=== PATIENT | female | born 1940 | race Caucasian/White ===

== ENCOUNTER 2016-11-07 12:36 | Inpatient (IN) | payer MEDICARE, MEDICAID ==
[~2016-11-07] VITALS: Ht 165.1 cm; Wt 89.6 kg
[~2016-11-07 12:36] MED LIST: ASPIRIN PO; ENALAPRIL PO; GLYBPOW PO; JANUVIA PO; LANTUS INSULIN SC; METOPROLOL PO; MOTR200T40 PO; MULTLIQ7 PO; OMEPPOW18 PO; VICO5TAB16 PO; VYTO10TA2 PO
[2016-11-07 14:41] LABS: BASO # 0.1 K/mm3 (0.0-0.2); BASO % 0.9 % (0.0-1.0); EOS # 0.2 K/mm3 (0.0-0.50); EOS % 1.8 % (0.0-3.0); LARGE UNSTAINED CELL # 0.2 K/mm3 (0.0-0.4); LARGE UNSTAINED CELL % 2.2 % (0.0-4.0); LYMPH # 3.8 K/mm3 (1.5-4.5); LYMPH % 32.9 % (24.0-44.0); MEAN CORPUSCULAR HEMOGLOBIN 30.2 pg (27.0-33.0); MEAN CORPUSCULAR HGB CONC 31.9 g/dl (32.0-36.5); MEAN CORPUSCULAR VOLUME 94.6 fl (80.0-96.0); MONO # 0.6 K/mm3 (0.0-0.8); MONO % 5.2 % (0.0-5.0); NEUTROPHILS # 6.1 K/mm3 (1.8-7.7); PLATELET COUNT, AUTOMATED 204 k/mm3 (150-450); RED CELL DISTRIBUTION WIDTH 12.1 % (11.5-14.5); WHITE BLOOD COUNT 10.7 K/mm3 (4.0-10.0)
[2016-11-07 14:48] LABS: INR 0.96
[2016-11-07 15:13] LABS: ANION GAP 8 MEQ/L (8-16); BLOOD UREA NITROGEN 17 MG/DL (7-18); CALCIUM LEVEL 9.6 MG/DL (8.8-10.2); CARBON DIOXIDE LEVEL 30 MEQ/L (21-32); CHLORIDE LEVEL 100 MEQ/L (98-107); CREATININE FOR GFR 1.01 MG/DL (0.55-1.02); GLOMERULAR FILTRATION RATE 56.7 (>39); GLUCOSE, FASTING 203 MG/DL (83-110); POTASSIUM SERUM 4.7 MEQ/L (3.5-5.1); SODIUM LEVEL 138 MEQ/L (136-145)
--- NOTE | 2016-11-07 17:03 | REP ---
Portable chest x-ray: Single view. History: Dizziness. Comparison chest x-ray April 10, 2013. Findings: The lungs are somewhat hyperinflated but clear. Pleural angles are sharp. Prior median sternotomy wires are seen. Heart is not enlarged. Impression: No acute disease. Signed by Brayan Puente MD 11/07/2016 05:34 P
--- NOTE | 2016-11-07 17:04 | REP ---
Noncontrast head CT. History: Dizziness. Findings: Bone window settings demonstrate an intact bony calvarium. Paranasal sinuses are clear. No evidence of sinusitis. There is a small metallic density in the region of the anterior chamber the left eye. Question intraocular shunt. Vascular calcification is seen at the skull base. There is diffuse cerebral atrophy. There is no evidence of intracranial hemorrhage or acute infarction. No mass, extra-axial fluid collection or midline shift is seen. There is a low-density area at the inferior aspect of the basal ganglia on the left consistent with dilated perivascular spaces. This is seen to be unchanged from my comparison MRI study of the brain January 22, 2013. Impression: Diffuse atrophy and vascular calcification. No acute intracranial lesion. Question intraocular shunt left eye. Signed by Brayan Puente MD 11/07/2016 05:34 P
[2016-11-07] MEDS ORDERED: ACETAMINOPHEN TAB 650MG DOSE (2X325MG) PO PRN (17:30)
[2016-11-07] MEDS ORDERED: ONDANSETRON 4MG/2ML VIAL (J2405) IV PRN (17:30)
[2016-11-07] MEDS ORDERED: OMEP20CA3 PO (17:32)
[2016-11-07] MEDS ORDERED: LANTINJ4 SC (17:32)
[2016-11-07] MEDS ORDERED: JANU100T PO (17:32)
[2016-11-07] MEDS ORDERED: LATA5OPD OD (17:32)
[2016-11-07] MEDS ORDERED: ASPI325T PO (17:32)
[2016-11-07] MEDS ORDERED: COLA100C PO (17:32)
[2016-11-07] MEDS ORDERED: POTA10TA16 PO (17:32)
[2016-11-07] MEDS ORDERED: FURO40TA2 PO (17:32)
[2016-11-07] MEDS ORDERED: GLIP5TAB8 PO (17:32)
[2016-11-07] MEDS ORDERED: ENAL5TAB PO (17:32)
[2016-11-07] MEDS ORDERED: VYTO10TA2 PO (17:32)
[2016-11-07] MEDS ORDERED: SILV1CRE19 TOP (17:32)
[2016-11-07] MEDS ORDERED: SERT25TA85 PO (17:32)
[2016-11-07] MEDS ORDERED: TYLE325T5 PO (17:32)
[2016-11-07] MEDS ORDERED: METO25TAB PO (17:32)
[2016-11-07] MEDS ORDERED: VITMTA PO (17:33)
[2016-11-07 17:36] LABS: ALBUMIN 3.7 GM/DL (3.2-5.2); ALBUMIN/GLOBULIN RATIO 0.95 (1.00-1.93); ALKALINE PHOSPHATASE 111 U/L (45-117); ALT/SGPT 27 U/L (12-78); AST/SGOT 38 U/L (15-37); BILIRUBIN,DIRECT < 0.1 MG/DL (0.0-0.2); BILIRUBIN,TOTAL 0.3 MG/DL (0.2-1.0); MAGNESIUM LEVEL 2.1 MG/DL (1.8-2.4); TOTAL PROTEIN 7.6 GM/DL (6.4-8.2)
[2016-11-07] MEDS ORDERED: GLUCAGON FOR INJ 1 MG VIAL (J1610) SC PRN (18:30)
[2016-11-07] MEDS ORDERED: DEXTROSE 50% 50 ML SYRINGE IV PRN (18:30)
[2016-11-07] MEDS ORDERED: GLUCOSE 4 GM CHEW TABLET PO PRN (18:30)
[2016-11-07] MEDS: METOPROLOL TART 25 MG TABLET PO SCH (21:00)
[2016-11-07] MEDS: HumaLOG INSULIN (NovoLOG) PER UNIT SC SCH (21:00)
[2016-11-07] MEDS: LEVEMIR (INSULIN DETEMIR) 1 UNITS/0.01ML SC SCH (21:00)
[2016-11-07] MEDS ORDERED: HEPARIN SOD (PORCINE) 5000 UNITS/ML VIAL SC SCH (21:00)
[2016-11-07] MEDS: SENOKOT S TAB PO SCH (21:00)
[2016-11-07] MEDS: SIMVASTATIN 10 MG TAB PO SCH (21:00)
[2016-11-07] MEDS: LATANOPROST 0.005% OPHTH SOLN 2.5 ML OD SCH (21:00)
--- NOTE | 2016-11-07 23:03 | ECGEPIP ---
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 IVCD SEPTAL MYOCARDIAL INFARCTION, OF INDETERMINATE AGE Electronically Signed On 11-07-2016 23:03:40 EST by Ken Hines
--- NOTE | 2016-11-07 23:04 | ECGEPIP ---
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
[2016-11-07] MEDS ORDERED: LEVEMIR (INSULIN DETEMIR) 1 UNITS/0.01ML As Ordered ONE (23:13)
[2016-11-08 07:30] LABS: BASO # 0.1 K/mm3 (0.0-0.2); BASO % 0.9 % (0.0-1.0); EOS # 0.4 K/mm3 (0.0-0.50); EOS % 3.5 % (0.0-3.0); LARGE UNSTAINED CELL # 0.2 K/mm3 (0.0-0.4); LYMPH % 35.6 % (24.0-44.0); MEAN CORPUSCULAR HEMOGLOBIN 30.3 pg (27.0-33.0); MEAN CORPUSCULAR HGB CONC 33.1 g/dl (32.0-36.5); MEAN CORPUSCULAR VOLUME 91.5 fl (80.0-96.0); MONO # 0.6 K/mm3 (0.0-0.8); MONO % 5.4 % (0.0-5.0); NEUTROPHILS # 5.6 K/mm3 (1.8-7.7); NEUTROPHILS % 52.7 % (36.0-66.0); PLATELET COUNT, AUTOMATED 216 k/mm3 (150-450); RED CELL DISTRIBUTION WIDTH 12.3 % (11.5-14.5); WHITE BLOOD COUNT 10.7 K/mm3 (4.0-10.0)
[2016-11-08] MEDS: HumaLOG INSULIN (NovoLOG) PER UNIT SC SCH ×4 (07:30→20:47)
[2016-11-08 07:46] LABS: ANION GAP 10 MEQ/L (8-16); BLOOD UREA NITROGEN 15 MG/DL (7-18); CALCIUM LEVEL 9.2 MG/DL (8.8-10.2); CARBON DIOXIDE LEVEL 27 MEQ/L (21-32); CHLORIDE LEVEL 104 MEQ/L (98-107); CREATININE FOR GFR 0.93 MG/DL (0.55-1.02); GLOMERULAR FILTRATION RATE > 60.0 (>39); GLUCOSE, FASTING 161 MG/DL (83-110); POTASSIUM SERUM 4.4 MEQ/L (3.5-5.1); SODIUM LEVEL 141 MEQ/L (136-145)
[2016-11-08 08:00] VITALS: BP_SYST 113; BP_SYST 114; BP_SYST 141; BP_SYST 97; BP_DIAS 52; BP_DIAS 53; BP_DIAS 56; BP_DIAS 67
[2016-11-08] MEDS: METOPROLOL TART 25 MG TABLET PO SCH ×2 (08:14→20:53)
[2016-11-08] MEDS: ENALAPRIL MALEATE 5 MG TAB PO SCH (08:14)
[2016-11-08] MEDS: NS 1,000 ML IV SCH ×2 (08:15→20:53)
[2016-11-08] MEDS ORDERED: HumaLOG INSULIN (NovoLOG) PER UNIT As Ordered ONE ×2 (08:20→12:50)
[2016-11-08] MEDS ORDERED: ENOXAPARIN 40 MG/0.4 ML SYRINGE (J1650) As Ordered ONE (08:47)
[2016-11-08] MEDS ORDERED: ASPIRIN 325 MG TAB As Ordered ONE (08:47)
[2016-11-08] MEDS ORDERED: SILVER SULFADIAZINE 1% CR 50 GM JAR As Ordered ONE (08:47)
[2016-11-08] MEDS ORDERED: SERTRALINE HCL 25 MG TABLET As Ordered ONE (08:47)
[2016-11-08] MEDS ORDERED: OMEPRAZOLE 20 MG CAP As Ordered ONE (08:47)
[2016-11-08] MEDS ORDERED: MULTIVITAMINS/MINERALS THERAP 1 TAB As Ordered ONE (08:48)
[2016-11-08] MEDS: ASPIRIN 325 MG TAB PO SCH (08:49)
[2016-11-08] MEDS: SERTRALINE HCL 25 MG TABLET PO SCH (08:50)
[2016-11-08] MEDS: OMEPRAZOLE 20 MG CAP PO SCH (08:50)
[2016-11-08] MEDS: MULTIVITAMINS/MINERALS THERAP 1 TAB PO SCH (08:50)
[2016-11-08] MEDS: SILVER SULFADIAZINE 1% CR 50 GM JAR TOP SCH (08:51)
[2016-11-08] MEDS: ENOXAPARIN 40 MG/0.4 ML SYRINGE (J1650) SC SCH (08:52)
[2016-11-08] MEDS ORDERED: FUROSEMIDE 40 MG TAB PO SCH (09:00)
--- NOTE | 2016-11-08 09:45 | HPE ---
DATE OF ADMISSION: 11/07/2016 Time patient was seen was on 11/07/2016 at 1730. PRIMARY CARE PROVIDER: Dr. Lara. WHITE LEAD FILTERER: Dr. Haywood. CHIEF COMPLAINT: Lightheadedness and weakness. HISTORY OF PRESENT ILLNESS: 76-year-old female with past medical history of coronary artery disease status post coronary artery bypass graft (CABG) times four in 2012, insulin dependent type 2 diabetes, hypertension, left lower extremity chronically swollen due to saphenous vein removal for CABG and also moderate narrowing of the distal left posterior cerebral artery and mild narrowing of the distal basilar artery in 2012, who presented with lightheadedness, nausea, and feeling like passing out that started a month ago and has been getting progressively worse. The patient was in [facility] two weeks ago and was diagnosed with pneumonia and congestive heart failure (CHF); however, after discharge from the hospital the patient's symptoms continued. Per patient, she also had some pain at the back of her head and it radiated to her neck and at the same time she felt lightheaded and feeling very weak. Also, she feels like she is going to pass out. Last time this happened was around noontime while patient was watching TV sitting in her chair. Sometimes, she also reports racing heartbeat associated with her symptoms. Otherwise, she admits to some chronic constipation. She is on Colace for it. Otherwise, she denies any fever or chills, any abdominal pains, any vomiting, or problems with urination. ALLERGIES: - HEAVY METAL which gives her a rash HOME MEDICATIONS (include): - Tylenol 650 mg one tablet every 4 hours as needed - aspirin 325 mg one tablet by mouth daily - Colace 100 mg one tablet by mouth daily - enalapril 5 mg one tablet by mouth daily - furosemide 40 mg one tablet by mouth daily - glipizide 10 mg one tablet by mouth twice a day - Lantus 30 units subcutaneously nightly - Latanoprost one drop in each eye nightly - metoprolol 25 mg one tablet by mouth twice a day - multivitamin one tablet by mouth daily - omeprazole 20 mg one tablet by mouth daily - potassium 10 mEq one tablet by mouth daily - Sertraline 25 mg one tablet by mouth daily - Silvadene 1 dose topically daily - Januvia 100 mg one tablet by mouth daily - Vytorin 10/40 mg one tablet by mouth nightly PAST MEDICAL HISTORY (includes): 1. Coronary artery disease status post CABG times four in 2012. 2. Hypertension. 3. 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 4. Insulin dependent type 2 diabetes. 5. GERD. 6. Chronically swollen left lower extremity due to saphenous vein removal. PAST SURGICAL HISTORY (including): 1. Hysterectomy due to prolapsed uterus. 2. Tubal ligation. 3. Appendectomy. 4. CABG in 2013. SOCIAL HISTORY: Patient lives alone at home since her last summer. The patient does have a daughter who comes to visit her around once per week and she has another daughter who calls her regularly. Currently, her health care proxy is Leanna Hugo and her number is . Currently, she wants to be full code. She denies any smoking, drinking or recreational drug use. FAMILY HISTORY: Father had diabetes. Sister had breast cancer, brother had colon cancer. Another sister had cervical cancer. REVIEW OF SYSTEMS: GENERAL: The patient admits to about 15 pound weight loss over a half year. He denies any recent traveling or any sick contacts or any fever or chills. HEENT: He denies any changes with vision, smell, hearing or taste. He denies any sore throat. He admits to a mild cough. He was recently in [facility] two weeks ago and diagnosed with pneumonia. CARDIOVASCULAR: The patient does have coronary artery disease, status post CABG and sees Dr. Haywood. The patient however denies any chest pain or trouble breathing. He admits to occasional racing heartbeat. He admits to occasionally feeling weak and nausea and feels like passing out. The most recent one was this morning while patient was watching TV and the sensation of passing out lasted about 1 minute and then went away on its own. PULMONARY: He denies any trouble breathing. Admits to some cough and was recently diagnosed with pneumonia at [facility] and was in the hospital for four days and discharged about two weeks ago. After discharge, the patient' s Lasix had been increased from 20 mg daily to 40 mg daily. MUSCULOSKELETAL: Denies any pain anywhere. ENDOCRINE: Patient does have insulin dependent type 2 diabetes. Denies any cold or heat intolerance. HEMATOLOGY/ONCOLOGY: Admits to weight loss of 15 pounds over the past half year , however, no bruising, no bleeding anywhere. GI: Denies any abdominal pain, vomiting, diarrhea. Admits to feeling nausea and does have chronic constipation : Denies any problem with urination. PSYCHIATRIC: Denies any anxiety or depression; however, her did recently pass away about a half year ago. NEUROLOGIC: Denies any weakness on any one side of her body. However, admits to headache at the back of her head and also neck pain associated with her symptoms. PHYSICAL EXAM: VITAL SIGNS: Blood pressure 167/71. Pulse 56. Respirations 16. Temperature 96.6. Oxygen satting 98% on room air. Weight was 89 kg. Height 165 cm. GENERAL: The patient is an obese, elderly female who was alert, awake, and oriented times three. Does not appear to be in distress. Resting comfortably in bed with head elevated at 60 degrees. HEENT: Normocephalic, atraumatic. Extraocular motor intact. Mucosa moist. NECK: Supple. No neck lymphadenopathy. CARDIOVASCULAR: Regular rate and rhythm. S1, S2. No murmur, rubs or gallops. LUNGS: Slight rales at the right basilar area. Costovertebral area was not tender to palpation. ABDOMEN: Positive bowel sounds. Soft, nontender, nondistended. No peritoneal signs. No ecchymosis. EXTREMITIES: No edema, clubbing, or cyanosis. The patient does have a slightly larger left lower extremity where she had the saphenous vein removal before. It was not tender to palpation. Levon's sign negative. SKIN: Warm and dry. NEUROLOGIC: Cranial nerves II-XII intact. No focal neurologic deficit. Sensation was intact bilaterally. Tongue protruding was midline. Smell was symmetric bilaterally. LABS: WBC 10.7, hemoglobin 20.3, hematocrit 44.7 with a platelet count of 204 and MCV of 94.6. Sodium 138, potassium 4.6, chloride 100, bicarbonate 30, BUN 17, creatinine 1.07 , GFR 56.7, fasting glucose 203, calcium 9.6, magnesium 4.1, total bilirubin 0.3, direct bilirubin less than 0.1, AST 8, ALT 27, alkaline phosphatase 111, total creatinine 127, CK-MB 1, troponin 0.22 and repeat shows 0.21 and 0.22. BNP was 118. Total protein 7.6. Albumin 3.7. The patient's coagulation shows PT 12.9, INR 0.96 and PTT 23.8. Accu-Chek glucose was 202 and 206. The patient had a CT of the head in the emergency room that shows diffuse atrophy and vascular calcification. No acute intracranial lesion however and questionable intraocular shunt of the left eye. The patient had a portable chest x-ray in the emergency room that also showed no acute disease. ASSESSMENT AND PLAN: 1. 76-year-old female with past medical history of coronary artery disease status post CABG who follows with Dr. Haywood, hypertension, insulin dependent type 2 diabetes, GERD, moderate narrowing of distal left posterior cerebral artery and mild narrowing of distal basilar artery in 2013, who presented with near syncope while patient was sitting and also palpitations and also weakness with nausea. At this point, the patient also had an EKG in the emergency room that shows sinus bradycardia with an old septal myocardial infarction and a ventricular rate of [address] Garcia from cardiology has been consulted. Will follow his recommendation. Currently will rule out neurogenic etiology of patient's symptoms as well with a MRI and MRA of the brain due to she did have a moderate narrowing of her distal left posterior cerebral artery and also mild narrowing of the distal basilar artery in 2013. She was evaluated by neurosurgery back then and they believed that she did not need any surgery or procedure at that time. However, patient's symptoms at the back of the head are similar to where she had a problem. Also, on CT of the head she had a questionable intraocular shunt of the left eye. Therefore, the MRI has been ordered. In addition, the patient did complain about palpitations. Therefore, will monitor her on cardiac telemetry. She also reports being sweaty while she is having these palpitations. Per patient's family, it does happen quite regularly about at least once per day. Otherwise, she has elevated troponin. Will continue to trend cardiac markers, however, in the past she does seem to have an elevated troponin as well. Back in 2013, her troponin was 0.15. Currently, her troponin trend has been 0.22, 0.21 and 0.22 with negative CK-MB and CK. Will repeat EKG in the morning. 2. Rule out acute coronary syndrome (ACS). Continue to trend troponin. 3. History of coronary artery disease status post CABG in 2013. Continue home medications with aspirin, statin and beta justin. Continue to monitor patient. 4. Insulin dependent type 2 diabetes. According to patient, her Lantus has been increased from 20 units to 30 units just recently and she has not been very compliant with her insulin usage at home. Sometimes, she would increase the dose and sometimes she would decrease the dose. I have advised the patient to be more compliant with the dosing. If she does find that her sugar is low, she should contact primary care and have the long acting insulin adjusted. She should not adjust it on her own. At this point, will start patient on half of her daily dose with 15 units of Levemir subcutaneously nightly and will continue finger sticks and insulin sliding scale and place patient on a carbohydrate consistent diet. 5. Hypertension. Will continue home enalapril 5 mg daily, metoprolol 25 mg one tablet by mouth twice a day. Hold if systolic blood pressure is less than 120 or if heart rate is less than 65. Continue to monitor patient. 6. Congestive heart failure, diastolic type. The patient did receive echocardiogram in [facility] two weeks ago and was diagnosed with diastolic heart failure; however, the report is not available currently. Will obtain the report from the patient's cardiology office and continue to monitor the patient. At this point, will continue patient's Lasix at 40 mg by mouth daily. The patient's BNP however is not elevated and was only 118. According to family at discharge from [facility] the BNP was around 200. Therefore, I will repeat orthostatic vital signs for the next one day and continue to monitor the patient. 7. Chronic lower extremity swelling due to saphenous vein removal. Currently stable. Nontender to palpation. 8. 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 Will repeat MRI and MRA of the brain due to patient does have this episode of feeling like passing out and also pain in the back of her head and also neck. Will continue to monitor. 9. Deep vein thrombosis prophylaxis with Lovenox 40 mg subcutaneously daily. DISPOSITION: Patient does have near syncope. Will rule out cardiac etiology versus neurogenic etiology. We appreciate Dr. Garcia's help. Will continue to trend the troponin. Will continue to monitor patient on cardiac telemetry for signs of arrhythmia. Will follow up with MRI and MRA of the brain and continue to monitor patient. The patient has been discussed with attending doctor, Dr. Oakley. My preceptor for this patient encounter was Dr. Yesica Oakley. The preceptor was physically present in the building during the encounter and was fully available. As needed, all aspects of the patient interview, examination, medical decision making process, and medical care plan development were reviewed and approved by the preceptor. The preceptor is aware and concurs with the plan as stated in the body of this note and will attest to such by his/her cosignature. I, Yesica Oakley, have seen and examined the above patient and agree with the plan as documented by Dr. Lucas. TIP
[2016-11-08 09:57] LABS: FREE T4 1.04 NG/DL (0.76-1.46)
[2016-11-08] MEDS: SENOKOT S TAB PO SCH ×2 (10:11→20:52)
[2016-11-08 12:00] VITALS: BP_SYST 111; BP_SYST 132; BP_SYST 176; BP_DIAS 50; BP_DIAS 63; BP_DIAS 75
--- NOTE | 2016-11-08 13:28 | CR ---
DATE OF CONSULTATION: 11/08/2016 REFERRING PHYSICIAN: Emergency Room. PRINCIPAL COMPLAINT: Dizziness. HISTORY OF PRESENT ILLNESS: Mrs. You is a 76-year-old female who is a patient of Dr. Haywood. She has established coronary artery disease and underwent coronary artery bypass surgery in 2012. She reports approximately 1 month history of episodes of dizziness. She describes them as a sensation of feeling like she will pass out. They occur on average about once a day, most episodes occur when she is sitting in a chair. Eventually, she was hospitalized in [facility] just before [place] after one more severe episode. It was preceded by nausea and vomiting and she felt really lightheaded and thought she would pass out. By the time she reached the emergency room, her symptoms subsided. She believes that she was in the hospital for about 2 or 3 days, but no obvious pathology was found and she was discharged home. Unfortunately, she continued to have these symptoms and eventually was brought by her daughter to our facility. The initial emergency room (ER) evaluation was relatively unremarkable. She had stable vital signs and was minimally orthostatic. She did not have any ischemic abnormalities on electrocardiogram (EKG). But her cardiac enzymes were marginally elevated. Her troponin was 0.21 with a negative CK and CK-MB. She already has had three sets and all the results are unchanged. The troponin has no appreciable trend and 0.22 is the second one and 0.20 the third one. This morning, the patient tells me that she is feeling fine when she lays in bed. But she is afraid to go home because these episodes are "scary." She denies any chest discomfort, but she does admit that she feels that her exertional tolerance has decreased lately and she gets easily short of breath. PAST MEDICAL HISTORY: 1. Coronary artery disease as above status post coronary artery bypass grafting in 2012. She received saphenous vein graft (SVG) to obtuse marginal, right internal mammary artery (CECY) to posterior descending artery (PDA) and a sequential left internal mammary artery (GARRIDO) to diagonal and left anterior descending (LAD). She had an echocardiogram in 2014 that was unremarkable and reportedly had yet another echocardiogram in [facility] recently but I am not familiar with the results. 2. Type 2 diabetes. 3. Hypertension. 4. Dyslipidemia. 5. Peripheral neuropathy. 6. Thyroid nodule. 7. History of CVA. OUTPATIENT MEDICATIONS: - aspirin 325 a day - enalapril 5 a day - glipizide 2 tablets twice a day - insulin Januvia 100 a day - Lasix 20 a day - metoprolol 25 twice a day - multivitamin - omeprazole - stool softener - Vytorin This is based on a medication list from Dr. Haywood's office visit. SOCIAL HISTORY: The patient is . She does not smoke and she never did. She uses no alcohol. FAMILY HISTORY: Father of heart attack in his 60s. Her mother of congestive heart failure, was diabetic and had hypertension. She lived to be 67. SURGICAL HISTORY: Besides bypass surgery, is positive for cataract surgery, hysterectomy, tubal ligation, colonoscopy and eye surgery. REVIEW OF SYSTEMS: There is no recent fever or chills. She has occasional nausea, but no jaswinder vomiting. She denies diarrhea. She denies recent chest discomfort. She has no subjective sensation of palpitations, but the episodes of dizziness as per history of present illness (HPI). No abdominal pain. No peripheral edema. No true syncopal event. She does report exertional dyspnea approximately [place] [employer] Class III. She gets short of breath walking just across a room or two. PHYSICAL EXAMINATION: Mrs. You is an elderly woman who is in the hospital bed. She does not appear to be in any distress. Vital signs: Blood pressure last documented was 114/56. Heart rate is in 60s and 70s. She is afebrile. Saturation is in high 90s on room air. Her jugular venous pulse (JVP) is not elevated. Lungs are clear to auscultation with good air movement. Heart exam reveals regular rhythm. I do not appreciate any murmur, gallop or rub. Abdomen is soft without tenderness or rebound tenderness. Extremities: Have no edema. Peripheral pulses are palpable bilaterally. Neurologically, she is alert, oriented and appropriate. I do not appreciate any focal weakness. I do not see any skin lesions. Laboratory-muro, normal basic metabolic panel and normal CBC with the exception of marginally elevated WBC count of 10.7. Cardiac enzymes as above. Her TSH is 5.2. She had a chest x-ray that besides a prior sternotomy looks unremarkable. She had a head CT that revealed some degree of atrophy consistent with her age, but otherwise unremarkable as well. ASSESSMENT/PLAN: Mrs. You is a 76-year-old female who reports approximately 1 month history of episodes of dizziness. She describes the sensation as feeling that she will pass out. Surprisingly, most of the episodes occur when she is sitting, not necessarily standing, and even in the situation when she has been sitting for a long time. This looks very suspicious for arrhythmic etiology. I would keep her in the hospital for at least 48-72 hours for monitoring and even if no arrhythmias are detected I would argue to obtain an outpatient event recorder. As far as her very marginal troponin elevation is concerned, it is difficult to interpret. Her ECG is suggestive of left ventricular hypertrophy and a possible old septal myocardial infarction. I do not see any obvious changes suggestive of ischemia. She also has no chest pain and there is no appreciable trend. I believe that she will need outpatient evaluation with some form of stress testing, but unless there is some new clinical development to point in that direction I would not necessarily believe that she needs to have cardiac catheterization. In the differential diagnosis, I would consider pulmonary embolism. But she is not hypoxic and she certainly does not have any other signs to suggest risk for pulmonary embolism. Nevertheless, I think we should rule this out as well.
[2016-11-08] MEDS ORDERED: ISOVUE-370 76% 100ML VIAL (Q9967) As Ordered ONE (15:09)
--- NOTE | 2016-11-08 15:35 | EDDOCDS ---
Physician Documentation [facility] [place] [facility] Name: Rosalinda You Age: 76 yrs Sex: Female : 1940 Arrival Date: 11/07/2016 Time: 12:36 Bed Admit Hold Private MD: Ernst Lara Disposition: 11/07/16 17:11 Hospitalization ordered by Yesica Oakley for Inpatient Admission. Preliminary diagnosis is Dizziness and giddiness - elevated yet constant troponin. - Bed requested for PCU. - Status is Inpatient Admission. jo3 - Condition is Stable. - Problem is new. - Symptoms have improved. Historical: - Allergies: no known allergies; - Home Meds: 1. Sertraline 25 mg daily (Last dose: 11/07/2016 08:00) 2. Vytorin 10-40 10-40 mg oral tab 1 tab once daily (Last dose: 11/06/2016) 3. glipizide 5 mg Oral tab 2 tabs 2 times per day (Last dose: 11/07/2016 08:00) 4. latanoprost 0.005 % ophthalmic drop 1 drop nightly (Last dose: 11/06/2016) 5. furosemide 40 mg Oral tab 1 tab once daily (Last dose: 11/07/2016 08:00) 6. potassium chloride 10 mEq Oral cpER 2 caps once daily (Last dose: 11/07/2016 08:00) 7. metoprolol tartrate 25 mg Oral tab 1 tab 2 times per day (Last dose: 11/07/2016 08:00) 8. Januvia 100 mg oral tab 1 tab once daily (Last dose: 11/07/2016 08:00) 9. aspirin 325 mg Oral tab 1 tab once daily (Last dose: 11/07/2016 08:00) 10. enalapril maleate 5 mg Oral tab 1 tab once daily (Last dose: 11/07/2016 08:00) 11. omeprazole 20 mg Oral cpDR 1 cap once daily (Last dose: 11/07/2016 08:00) 12. Colace 100 mg oral cap 1 cap once daily (Last dose: 11/07/2016 08:00) 13. Lantus 100 unit/mL Sub-Q soln 30 unit nightly (Last dose: 11/06/2016) - PMHx: Hypercholesterolemia; Depression; Hypertension; CHF; Diabetes - IDDM: controlled; Glaucoma; GERD; - PSHx: Hysterectomy (April 2014); Tubal ligation; bladder sling; laser eye surgery; quadruple bypass; - Social history: Smoking status: Patient states was never smoker of tobacco. No barriers to communication noted, The patient speaks fluent [place]. - Family history: Not pertinent. - : The pt / caregiver states he / she is not on anticoagulants. Home medication list is obtained from pill bottles. - Exposure Risk Screening:: None identified. Vital Signs: 11/07 12:39 BP 157 / 71; Pulse 56; Resp 16; Temp 96.6(O); Pulse Ox 98% on R/A; Weight 89.81 kg / elp 198 lbs (R); Height 5 ft. 5 in. (165.10 cm) (R); Pain 0/10; 14:22 Pulse 60 MON; Pulse Ox 97% ; ko2 14:23 BP 145 / 74 (auto/); ko2 14:38 BP 146 / 70 (auto/); ko2 14:38 Pulse 58 MON; Pulse Ox 96% ; ko2 14:53 BP 137 / 67 (auto/); ko2 14:53 Pulse 58 MON; Pulse Ox 96% ; ko2 15:07 Pulse 58 MON; Pulse Ox 95% ; ko2 15:08 BP 141 / 70 (auto/); ko2 15:22 Pulse 58 MON; Pulse Ox 97% ; ko2 15:23 BP 140 / 78 (auto/); ko2 15:52 Pulse 56 MON; Pulse Ox 97% ; ko2 15:53 BP 164 / 77 (auto/); ko2 16:06 Pulse 56 MON; Pulse Ox 97% ; ko2 16:08 BP 166 / 80 (auto/); ko2 16:23 BP 170 / 87 (auto/); ko2 16:23 Pulse 60 MON; Pulse Ox 96% ; ko2 16:26 BP 194 / 88 (auto/); ko2 16:26 Pulse 62 MON; Pulse Ox 96% ; ko2 16:37 Pulse 62 MON; Pulse Ox 95% ; ko2 16:38 BP 180 / 81 (auto/); ko2 16:52 Pulse 60 MON; Pulse Ox 96% ; ko2 16:53 BP 167 / 67 (auto/); ko2 17:08 BP 185 / 81 (auto/); ko2 17:08 Pulse 60 MON; Pulse Ox 96% ; ko2 17:23 BP 183 / 86 (auto/); ko2 17:23 Pulse 60 MON; Pulse Ox 96% ; ko2 17:53 BP 153 / 73 (auto/); ko2 17:53 Pulse 58 MON; Pulse Ox 96% ; ko2 18:07 Pulse 58 MON; Pulse Ox 97% ; ko2 18:08 BP 157 / 73 (auto/); ko2 18:38 BP 106 / 54 (auto/); ko2 18:38 Pulse 60 MON; ko2 18:40 BP 106 / 57 (auto/); ko2 18:40 Pulse 60 MON; Pulse Ox 95% ; ko2 18:51 BP 109 / 55 (auto/); ko2 18:51 Pulse 56 MON; Pulse Ox 96% ; ko2 18:53 BP 107 / 55 (auto/); ko2 18:53 Pulse 58 MON; Pulse Ox 96% ; ko2 19:07 Pulse 60 MON; Pulse Ox 95% ; ko2 19:08 BP 124 / 60 (auto/); ko2 19:23 BP 129 / 55 (auto/); ko2 19:23 Pulse 60 MON; Pulse Ox 95% ; ko2 19:38 BP 118 / 59 (auto/); ko2 19:38 Pulse 60 MON; Pulse Ox 96% ; ko2 19:52 Pulse 60 MON; Pulse Ox 96% ; ko2 19:53 BP 126 / 61 (auto/); ko2 20:07 Pulse 62 MON; Pulse Ox 95% ; ko2 20:08 BP 123 / 60 (auto/); ko2 20:22 BP 114 / 55 (auto/); ko2 20:22 Pulse 60 MON; Pulse Ox 95% ; ko2 20:23 BP 118 / 59 (auto/); ko2 20:23 Pulse 60 MON; Pulse Ox 95% ; ko2 20:24 BP 112 / 63; Pulse 72; Resp 18; Temp 96.9(O); Pulse Ox 96% on R/A; Pain 0/10; cp1 20:38 BP 117 / 57 (auto/); ko2 20:38 Pulse 60 MON; Pulse Ox 96% ; ko2 20:52 Pulse 58 MON; Pulse Ox 95% ; ko2 20:53 BP 114 / 54 (auto/); ko2 21:06 Pulse 56 MON; Pulse Ox 95% ; ko2 21:08 BP 115 / 56 (auto/); ko2 21:22 Pulse 58 MON; Pulse Ox 95% ; ko2 21:23 BP 119 / 56 (auto/); ko2 21:38 BP 155 / 68 (auto/); ko2 21:38 Pulse 60 MON; Pulse Ox 96% ; ko2 21:53 BP 120 / 54 (auto/); ko2 21:53 Pulse 58 MON; Pulse Ox 94% ; ko2 22:13 Pulse 76 MON; ko2 22:14 BP 135 / 80 (auto/); ko2 22:22 Pulse 58 MON; Pulse Ox 94% ; ko2 22:23 BP 125 / 59 (auto/); ko2 22:38 BP 122 / 60 (auto/); ko2 22:38 Pulse 60 MON; Pulse Ox 94% ; ko2 22:52 Pulse 64 MON; Pulse Ox 94% ; ko2 22:53 BP 113 / 56 (auto/); ko2 23:07 Pulse 62 MON; Pulse Ox 93% ; ko2 23:08 BP 117 / 56 (auto/); ko2 23:09 BP 117 / 56 (auto/); ko2 23:09 Pulse 64 MON; Pulse Ox 94% ; ko2 11/08 00:00 BP 117 / 55; Pulse 64; Resp 18; Temp 98.7(TE); Pulse Ox 98% ; Pain 4/10; ko2 07:36 BP 114 / 56; Pulse 62; Resp 16; Temp 97.4(O); Pulse Ox 95% on R/A; Pain 0/10; kr3 07:57 BP 113 / 53 (auto/); kr3 07:57 Pulse 62 MON; Pulse Ox 95% ; kr3 07:58 BP 97 / 52 (auto/); kr3 07:58 Pulse 62 MON; Pulse Ox 93% ; kr3 08:37 BP 133 / 59 (auto/); kr3 08:37 Pulse 62 MON; Pulse Ox 93% ; kr3 11/07 12:39 Body Mass Index 32.95 (89.81 kg, 165.10 cm) elp MDM: 11/07 13:51 RN interventions must not delay CT ordered. ml 13:51 Denier Control Operator/Pulse Ox/q 15 min VS ordered. ml 13:51 Accucheck ordered. ml 13:51 IV Saline Lock ordered. ml 13:51 Neuro VS q 15 Minutes ordered. ml 13:51 Rhythm Strip to chart ordered. ml 13:51 Stroke assessment pack to bedside ordered. ml 13:51 Basic Metabolic Profile Ordered. EDMS 13:51 CBC with Diff Ordered. EDMS 13:51 Partial Thromboplastin Time Ordered. EDMS 13:51 Prothrombin Time Profile\E\INR Ordered. EDMS 13:51 CIP Ordered. EDMS 13:51 Troponin Ordered. EDMS 13:52 Chest, 1 View Ordered. EDMS 13:52 Type & Screen Ordered. EDMS 13:52 CT Head Without Contrast Ordered. EDMS 13:52 ECG WITH READING ER PHYS+CARDIAG ordered. EDMS 14:09 [facility] Payment Agreement was scanned into [employer] and attached to record. [id number] 14:09 Financial registration complete. dm19 14:21 Fingerstick Blood Sugar Ordered. EDMS 14:38 MRI Screening Tool - Place on chart, inform RN ordered. ml 14:50 MRI Screening Tool - Place on chart, inform RN complete. ct3 15:44 Basic Metabolic Profile Reviewed. ml 15:44 CBC with Diff Reviewed. ml 15:44 Partial Thromboplastin Time Reviewed. ml 15:44 Troponin Reviewed. ml 15:44 Fingerstick Blood Sugar Reviewed. ml 15:44 Prothrombin Time Profile\E\INR Reviewed. ml 15:44 Type & Screen Reviewed. ml 15:44 CIP Reviewed. ml 15:51 Repeat EKG (put time details section) ordered. ml 15:51 Redraw CIP &Troponin (put time in details section) ordered. ml 15:55 Redraw CIP &Troponin (put time in details section) complete. ar3 15:55 Repeat EKG (put time details section) complete. ar3 15:55 ECG WITH READING ER PHYS ordered. EDMS 15:56 CARDIAC MARKER PANEL Ordered. EDMS 16:40 CARDIAC MARKER PANEL Reviewed. ml 17:08 CONSISTENT CARBOHYDRATE+DIET ordered. EDMS 17:09 BED REQUEST+ADM ordered. EDMS 17:17 ELECTROCARDIOGRAM ADULT ordered. EDMS 17:17 CARDIAC MARKER PANEL Ordered. EDMS 17:19 URINALYSIS Ordered. EDMS 18:27 Admission / Observation Status ordered. EDMS 18:34 BRAIN NATIURETIC PEPTIDE Ordered. EDMS 18:36 PHYSICAL THERAPY EVAL & TREAT ordered. EDMS 18:42 MRI Brain without Contrast Ordered. EDMS 18:42 MRA BRAIN W/O CONTRAST Ordered. EDMS 19:32 CBC WITH DIFFERENTIAL Ordered. EDMS 19:32 BASIC METABOLIC PROFILE Ordered. EDMS 19:32 BRAIN NATIURETIC PEPTIDE Ordered. EDMS 22:35 T-Sheet-- Draft Copy was scanned into [employer] and attached to record. klr 23:16 Fingerstick Blood Sugar Ordered. EDMS 11/08 02:29 CARDIAC MARKER PANEL Ordered. EDMS 02:30 THYROID STIMULATING HORMONE Ordered. EDMS 11:26 D-DIMER QUANT Ordered. EDMS 12:45 URINE CULTURE Ordered. EDMS 15:02 CT ANGIO CHEST Ordered. EDMS Signatures: Dispatcher [employer] EDVT Jason Yip MD MD ml Monique Vann, RN RN Ana Agrawal, [employer] ml3 Giulia Maldonado,RN RN [email or web address] Jo Ann Layton, CUT OFF SAWYER CUT OFF SAWYER ar3 Giulia Valentino, RN RN [email or web address] Lilliam Alvarez, CUT OFF SAWYER CUT OFF SAWYER ct3 Bhaskar Barraza,OLIVA RN [email or web address] Joanne Lal Diane [id number] The chart was reviewed and I authenticate all verbal orders and agree with the evaluation and treatment provided.Corrections: (The following items were deleted from the chart) 11/07 14:31 13:51 Consult [facility]: Telemedicine Stroke Attending ordered. [facility] 15:57 14:39 MRA-Brain without contrast+MR ordered. EDVT EDVT 15:57 14:39 MRA-Carotid with contrast+MR ordered. EDVT EDVT 15:57 14:39 MRI-Brain without+MR ordered. EDVT EDMS 17:24 17:17 MAGNESIUM LEVEL ordered. EDVT EDMS 17:24 17:17 LIVER PROFILE ordered. EDVT EDMS 17:40 13:51 Patient must be on CC stretcher and weighed via bed scale ordered. [email or web address] 11/08 02:29 11/07 19:31 CARDIAC MARKER PANEL ordered. EDVT EDMS 11/08 02:29 11/07 19:33 THYROID STIMULATING HORMONE ordered. EDVT EDVT 11/08 09:42 08:45 FREE T4 ordered. EDVT EDMS 09:42 08:45 TOTAL T3 ordered. EDVT EDMS 11:13 11/07 18:43 MRI Spine, Cervical with con ordered. EDMS EDMS 11/08 12:46 11/07 17:19 URINE CULTURE ordered. EDMS EDMS Attachments: 14:09 [facility] [place] [id number] 22:35 T-Sheet-- Draft Copy klr MTDD
--- NOTE | 2016-11-08 15:35 | EDDOCDS ---
Nurse's Notes [facility] Name: Batool Foreman Age: 76 yrs Sex: Female : 1940 Arrival Date: 11/07/2016 Time: 12:36 Bed Admit Hold Private MD: Reason, Edward Diagnosis: Dizziness and giddiness-elevated yet constant troponin Presentation: 11/07 12:42 Red Flag criteria, patient assessed and is suitable to finish the RCE Process. dls 12:45 Presenting complaint: Patient states: "I've had trouble with my neck and I have a vein jc4 that is too small and there is something wrong with my head". Daughter states, "she's been having episodes of dizziness, weak". Just discharged from [facility] on [address] for same. Adult Sepsis Screening: The patient does not have new or worsening altered mentation. Patient's respiratory rate is less than 22. Systolic blood pressure is greater than 100. Patient has a qSOFA score of 0- Negative Sepsis Screen. Suicide/Homicide risk assessment- the patient denies having any suicidal and/or homicidal ideations and does not present with any other emotional, behavioral or mental health complaints. 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 Transition of care: patient was not received from another setting of care. 12:45 Acuity: FRANCIS Level 3 jc4 12:45 Method Of Arrival: Wheelchair jc4 Triage Assessment: 12:54 General: Appears in no apparent distress. jc4 12:54 Pain: Denies pain. jc4 Historical: - Allergies: no known allergies; - Home Meds: 1. Sertraline 25 mg daily (Last dose: 11/07/2016 08:00) 2. Vytorin 10-40 10-40 mg oral tab 1 tab once daily (Last dose: 11/06/2016) 3. glipizide 5 mg Oral tab 2 tabs 2 times per day (Last dose: 11/07/2016 08:00) 4. latanoprost 0.005 % ophthalmic drop 1 drop nightly (Last dose: 11/06/2016) 5. furosemide 40 mg Oral tab 1 tab once daily (Last dose: 11/07/2016 08:00) 6. potassium chloride 10 mEq Oral cpER 2 caps once daily (Last dose: 11/07/2016 08:00) 7. metoprolol tartrate 25 mg Oral tab 1 tab 2 times per day (Last dose: 11/07/2016 08:00) 8. Januvia 100 mg oral tab 1 tab once daily (Last dose: 11/07/2016 08:00) 9. aspirin 325 mg Oral tab 1 tab once daily (Last dose: 11/07/2016 08:00) 10. enalapril maleate 5 mg Oral tab 1 tab once daily (Last dose: 11/07/2016 08:00) 11. omeprazole 20 mg Oral cpDR 1 cap once daily (Last dose: 11/07/2016 08:00) 12. Colace 100 mg oral cap 1 cap once daily (Last dose: 11/07/2016 08:00) 13. Lantus 100 unit/mL Sub-Q soln 30 unit nightly (Last dose: 11/06/2016) - PMHx: Hypercholesterolemia; Depression; Hypertension; CHF; Diabetes - IDDM: controlled; Glaucoma; GERD; - PSHx: Hysterectomy (April 2014); Tubal ligation; bladder sling; laser eye surgery; quadruple bypass; - Social history: Smoking status: Patient states was never smoker of tobacco. No barriers to communication noted, The patient speaks fluent Tanzanian. - Family history: Not pertinent. - : The pt / caregiver states he / she is not on anticoagulants. Home medication list is obtained from pill bottles. - Exposure Risk Screening:: None identified. Screenin:11 Screening information is obtained from prior medical records. Fall risk: At risk due to ko2 age, prior history of falls. Assistance ADL's: requires no assistance with activities of daily living. Abuse/DV Screen: The patient / caregiver reports he/she is: not in a situation that causes fear, pain or injury. Nutritional screening: No deficits noted. Advance Directives: Currently, there is a health care proxy, Leanna Hugo - Daughter. home support is adequate. Assessment: 13:40 Adult Sepsis Screening: The patient does not have new or worsening altered mentation. jf3 Patient's respiratory rate is less than 22. Systolic blood pressure is greater than 100. General: Appears in no apparent distress, comfortable, Behavior is cooperative. Pain: Location: posterior neck and head. Neurological: Level of Consciousness is awake, alert, Oriented to person, place, time, Tea Blender are equal bilaterally Moves all extremities. Speech is normal, Facial symmetry appears normal, Pupils are PERRLA. Cardiovascular: Capillary refill < 3 seconds Heart tones S1 S2 present Chest pain is denied. Respiratory: Airway is patent Respiratory effort is even, unlabored, Respiratory pattern is regular, symmetrical, Breath sounds are clear bilaterally. Reports shortness of breath intermittently. Derm: Skin is normal. 14:00 General: pt to CT. jf3 14:30 General: Appears in no apparent distress, comfortable, Behavior is cooperative. jf3 Neurological: Level of Consciousness is awake, alert, Oriented to person, place, time, Tea Blender are equal bilaterally Moves all extremities. Speech is normal, Facial symmetry appears normal, Pupils are PERRLA. 15:30 General: Appears in no apparent distress, comfortable, Behavior is cooperative. jf3 General: Pt up to bedside commode without difficulty. Pain: Pain currently is 5 out of 10 on a pain scale. Neurological: Level of Consciousness is awake, alert, Oriented to person, place, time, Tea Blender are equal bilaterally Moves all extremities. Speech is normal, Facial symmetry appears normal, Pupils are PERRLA. Respiratory: Airway is patent Respiratory effort is even, unlabored, Respiratory pattern is regular, symmetrical. 16:30 General: Appears in no apparent distress, comfortable, Behavior is cooperative, Pt jf3 resting supine on stretcher with daughter at bedside. respirations easy and unlabored. Neuro checks all negative at this time. Call light in reach. Will continue to monitor. 17:45 General: Appears in no apparent distress, comfortable, Behavior is cooperative, Pt jf3 resting supine on stretcher. respirations easy and unlabored. Pt states pain has decreased. Family at bedside. Will continue to monitor. 18:30 General: Appears in no apparent distress, comfortable, Behavior is cooperative, Pt jf3 resting supine on stretcher with family at bedside. Diet tray given and taken in well. respirations easy and unlabored. Call light in reach. 19:10 General: Appears in no apparent distress, comfortable, Behavior is cooperative. Pain: ko2 Location: head and neck Pain currently is 5 out of 10 on a pain scale. Quality of pain is described as aching. Neurological: Level of Consciousness is awake, alert. Cardiovascular: Heart tones S1 S2 present. Respiratory: Airway is patent Respiratory effort is even, unlabored, Respiratory pattern is regular, symmetrical. Derm: Skin is normal. 20:15 General: Appears in no apparent distress, comfortable, Behavior is cooperative. ko2 Neurological: Level of Consciousness is awake, alert. Respiratory: Airway is patent Respiratory effort is even, unlabored. Derm: Skin is normal. 21:07 General: Appears in no apparent distress, Behavior is cooperative. Neurological: Level ko2 of Consciousness is awake, alert, Oriented to. Respiratory: Airway is patent Respiratory effort is even, unlabored. Derm: Skin is normal. 22:12 General: Appears in no apparent distress, comfortable, Behavior is cooperative. ko2 Neurological: Level of Consciousness is awake, alert. Respiratory: Airway is patent Respiratory effort is even, unlabored, Respiratory pattern is regular, symmetrical. Derm: Skin is normal. 11/08 00:00 General: Appears in no apparent distress, comfortable. Pain: Location: neck and head. ko2 Neurological: Level of Consciousness is awake, alert. Cardiovascular: Heart tones S1 S2 present Rhythm is sinus bradycardia No ectopy. Chest pain is denied. Respiratory: Airway is patent Respiratory effort is even, unlabored. Derm: Skin is normal. 01:00 General: Appears in no apparent distress, pt appears to be sleeping on stretcher. No ko2 concerns at this time. 02:00 General: pt appears to be resting on stretcher. Respirations unlabored, Skin warm and ko2 dry. No concerns at this time.. 03:00 General: Appears in no apparent distress, comfortable. Respiratory: Airway is patent ko2 Respiratory effort is even, unlabored. Derm: Skin is normal. 04:00 General: Appears in no apparent distress, comfortable, Behavior is appropriate for age, ko2 cooperative. Pain: Location: neck and head. Neurological: Level of Consciousness is awake, alert, Oriented to person, place, time. Cardiovascular: Heart tones S1 S2 present Rhythm is sinus bradycardia Chest pain is denied. Respiratory: Airway is patent Respiratory effort is even, unlabored, Respiratory pattern is regular, symmetrical. Derm: Skin is normal. Musculoskeletal: Range of motion intact in all extremities. 06:28 General: Appears in no apparent distress, comfortable, Behavior is appropriate for age, ko2 cooperative. Neurological: Level of Consciousness is awake, alert, Oriented to person, place, time. Respiratory: Airway is patent Respiratory effort is even, unlabored. Derm: Skin is normal. 07:35 Reassessment: Patient appears in no apparent distress at this time. Cardiovascular: kr3 Rhythm is sinus rhythm. 08:56 Reassessment: Patient appears in no apparent distress at this time. Reassessment: kr3 talking with Dr Rojo. Cardiovascular: Rhythm is sinus rhythm. Vital Signs: 11/07 12:39 BP 157 / 71; Pulse 56; Resp 16; Temp 96.6(O); Pulse Ox 98% on R/A; Weight 89.81 kg (R); elp Height 5 ft. 5 in. (165.10 cm) (R); Pain 0/10; 14:22 Pulse 60 MON; Pulse Ox 97% ; ko2 14:23 BP 145 / 74 (auto/); ko2 14:38 BP 146 / 70 (auto/); ko2 14:38 Pulse 58 MON; Pulse Ox 96% ; ko2 14:53 BP 137 / 67 (auto/); ko2 14:53 Pulse 58 MON; Pulse Ox 96% ; ko2 15:07 Pulse 58 MON; Pulse Ox 95% ; ko2 15:08 BP 141 / 70 (auto/); ko2 15:22 Pulse 58 MON; Pulse Ox 97% ; ko2 15:23 BP 140 / 78 (auto/); ko2 15:52 Pulse 56 MON; Pulse Ox 97% ; ko2 15:53 BP 164 / 77 (auto/); ko2 16:06 Pulse 56 MON; Pulse Ox 97% ; ko2 16:08 BP 166 / 80 (auto/); ko2 16:23 BP 170 / 87 (auto/); ko2 16:23 Pulse 60 MON; Pulse Ox 96% ; ko2 16:26 BP 194 / 88 (auto/); ko2 16:26 Pulse 62 MON; Pulse Ox 96% ; ko2 16:37 Pulse 62 MON; Pulse Ox 95% ; ko2 16:38 BP 180 / 81 (auto/); ko2 16:52 Pulse 60 MON; Pulse Ox 96% ; ko2 16:53 BP 167 / 67 (auto/); ko2 17:08 BP 185 / 81 (auto/); ko2 17:08 Pulse 60 MON; Pulse Ox 96% ; ko2 17:23 BP 183 / 86 (auto/); ko2 17:23 Pulse 60 MON; Pulse Ox 96% ; ko2 17:53 BP 153 / 73 (auto/); ko2 17:53 Pulse 58 MON; Pulse Ox 96% ; ko2 18:07 Pulse 58 MON; Pulse Ox 97% ; ko2 18:08 BP 157 / 73 (auto/); ko2 18:38 BP 106 / 54 (auto/); ko2 18:38 Pulse 60 MON; ko2 18:40 BP 106 / 57 (auto/); ko2 18:40 Pulse 60 MON; Pulse Ox 95% ; ko2 18:51 BP 109 / 55 (auto/); ko2 18:51 Pulse 56 MON; Pulse Ox 96% ; ko2 18:53 BP 107 / 55 (auto/); ko2 18:53 Pulse 58 MON; Pulse Ox 96% ; ko2 19:07 Pulse 60 MON; Pulse Ox 95% ; ko2 19:08 BP 124 / 60 (auto/); ko2 19:23 BP 129 / 55 (auto/); ko2 19:23 Pulse 60 MON; Pulse Ox 95% ; ko2 19:38 BP 118 / 59 (auto/); ko2 19:38 Pulse 60 MON; Pulse Ox 96% ; ko2 19:52 Pulse 60 MON; Pulse Ox 96% ; ko2 19:53 BP 126 / 61 (auto/); ko2 20:07 Pulse 62 MON; Pulse Ox 95% ; ko2 20:08 BP 123 / 60 (auto/); ko2 20:22 BP 114 / 55 (auto/); ko2 20:22 Pulse 60 MON; Pulse Ox 95% ; ko2 20:23 BP 118 / 59 (auto/); ko2 20:23 Pulse 60 MON; Pulse Ox 95% ; ko2 20:24 BP 112 / 63; Pulse 72; Resp 18; Temp 96.9(O); Pulse Ox 96% on R/A; Pain 0/10; cp1 20:38 BP 117 / 57 (auto/); ko2 20:38 Pulse 60 MON; Pulse Ox 96% ; ko2 20:52 Pulse 58 MON; Pulse Ox 95% ; ko2 20:53 BP 114 / 54 (auto/); ko2 21:06 Pulse 56 MON; Pulse Ox 95% ; ko2 21:08 BP 115 / 56 (auto/); ko2 21:22 Pulse 58 MON; Pulse Ox 95% ; ko2 21:23 BP 119 / 56 (auto/); ko2 21:38 BP 155 / 68 (auto/); ko2 21:38 Pulse 60 MON; Pulse Ox 96% ; ko2 21:53 BP 120 / 54 (auto/); ko2 21:53 Pulse 58 MON; Pulse Ox 94% ; ko2 22:13 Pulse 76 MON; ko2 22:14 BP 135 / 80 (auto/); ko2 22:22 Pulse 58 MON; Pulse Ox 94% ; ko2 22:23 BP 125 / 59 (auto/); ko2 22:38 BP 122 / 60 (auto/); ko2 22:38 Pulse 60 MON; Pulse Ox 94% ; ko2 22:52 Pulse 64 MON; Pulse Ox 94% ; ko2 22:53 BP 113 / 56 (auto/); ko2 23:07 Pulse 62 MON; Pulse Ox 93% ; ko2 23:08 BP 117 / 56 (auto/); ko2 23:09 BP 117 / 56 (auto/); ko2 23:09 Pulse 64 MON; Pulse Ox 94% ; ko2 11/08 00:00 BP 117 / 55; Pulse 64; Resp 18; Temp 98.7(TE); Pulse Ox 98% ; Pain 4/10; ko2 07:36 BP 114 / 56; Pulse 62; Resp 16; Temp 97.4(O); Pulse Ox 95% on R/A; Pain 0/10; kr3 07:57 BP 113 / 53 (auto/); kr3 07:57 Pulse 62 MON; Pulse Ox 95% ; kr3 07:58 BP 97 / 52 (auto/); kr3 07:58 Pulse 62 MON; Pulse Ox 93% ; kr3 08:37 BP 133 / 59 (auto/); kr3 08:37 Pulse 62 MON; Pulse Ox 93% ; kr3 11/07 12:39 Body Mass Index 32.95 (89.81 kg, 165.10 cm) el Vitals: 11/07 12:39 Log In Time: November 07, 2016 at 12:37. [facility] ED Course: 12:37 Patient visited by Yarely Love PCA. elp 12:37 Reason, Edward is Private Physician. elp 12:37 Patient moved to Waiting elp 12:40 Patient visited by Yarely Love PCA. elp 12:40 Patient moved to Pre RCE elp 12:48 Triage Initiated jc4 12:56 Gerry Bey, OLIVA is Primary Nurse. jc4 12:56 Patient moved to 9 jc4 13:36 Jason Yip MD is Attending Physician. ml 13:36 Patient visited by Jason Yip MD. ml 13:40 The patient / caregiver is instructed regarding the plan of care and ED course. jf3 13:42 Patient visited by Bhaskar Barraza RN. jf3 14:09 [facility] Payment Agreement was scanned into [employer] and attached to record. [id number] 14:09 Accompanied by Family Member, Patient has correct armband on for positive ct3 identification. Placed in gown. Bed in low position. Call light in reach. Side rails up X2. chain mender on. Pulse ox on. NIBP on. 14:10 Patient visited by Lilliam Alvarez PCA. ct3 14:10 EKG done. (by ED staff). Reviewed by Jason Yip MD. dem1 14:14 Patient name changed from Batool\\S\\\\S\\Foreman\\S\\ to Batool\\S\\J\\S\\Foreman. EDMS 14:14 Patient visited by Eduardo Barnett. dem1 14:26 Troponin Sent. jf3 14:26 CIP Sent. jf3 14:26 Basic Metabolic Profile Sent. jf3 14:26 CBC with Diff Sent. jf3 14:26 Partial Thromboplastin Time Sent. jf3 14:26 Prothrombin Time Profile\\E\\INR Sent. jf3 14:26 Type & Screen Sent. jf3 14:50 Patient visited by Lilliam Alvarez PCA. ct3 15:30 Patient visited by Bhaskar Barraza RN. jf3 16:04 CARDIAC MARKER PANEL Sent. kpj 16:38 Patient visited by Lilliam Alvarez PCA. ct3 16:57 Patient visited by Bhaskar Barraza RN. jf3 17:10 Chest, 1 View Returned. EDMS 17:10 CT Head Without Contrast Returned. EDMS 17:11 Yesica Oakley is Hospitalizing Provider. ml 18:22 Patient visited by Bhaskar Barraza RN. jf3 18:27 Diet: consistent carbohydrate diet given to patient. ct3 18:28 Patient visited by Lilliam Alvarez PCA. ct3 18:56 Kirill,Palma,RN is Primary Nurse. ko2 19:05 Patient visited by Neal Card PCA. kb5 19:13 Patient visited by Palma Roy RN. ko2 20:04 Primary Nurse role handed off by Gerry Bey, OLIVA jmv 20:37 Patient moved to Admit Hold ml3 22:02 Patient visited by Neal Card PCA. kb5 22:35 T-Sheet-- Draft Copy was scanned into [employer] and attached to record. klr 23:42 ELECTROCARDIOGRAM ADULT Returned. EDMS 23:42 ECG WITH READING ER PHYS Returned. EDMS 11/08 02:19 Inserted saline lock: 20 gauge in left antecubital area and blood collected. ko2 02:24 Patient visited by Neal Card PCA. kb5 06:54 Patient moved to Nov 06:54 Patient moved to Admit Hold nov 11:50 Primary Nurse role handed off by Palma Roy RN ct3 Order Results: Lab Order: Basic Metabolic Profile; [facility] 11/07/16 14:25 Test: GLUCOSE, FASTING; Value: 203; Range: 83-110; Abnormal: Above high normal; Units: MG/DL; Status: F Test: BLOOD UREA NITROGEN; Value: 17; Range: 7-18; Units: MG/DL; Status: F Test: CREATININE FOR GFR; Value: 1.01; Range: 0.55-1.02; Units: MG/DL; Status: F Test: GLOMERULAR FILTRATION RATE; Value: 56.7; Range: >39; Status: F Test: SODIUM LEVEL; Value: 138; Range: 136-145; Units: MEQ/L; Status: F Test: POTASSIUM SERUM; Value: 4.7; Range: 3.5-5.1; Units: MEQ/L; Status: F Test: CHLORIDE LEVEL; Value: 100; Range: 98-107; Units: MEQ/L; Status: F Test: CARBON DIOXIDE LEVEL; Value: 30; Range: 21-32; Units: MEQ/L; Status: F Test: ANION GAP; Value: 8; Range: 8-16; Units: MEQ/L; Status: F Test: CALCIUM LEVEL; Value: 9.6; Range: 8.8-10.2; Units: MG/DL; Status: F Test Note: ; Units are mL/min/1.73 m2 Chronic Kidney Disease Staging per NKF: Stage I & II GFR >=60 Normal to Mildly Decreased Stage III GFR 30-59 Moderately Decreased Stage IV GFR 15-29 Severely Decreased Stage V GFR <15 Very Little GFR Left ESRD GFR <15 on MECH[employer] Lab Order: CBC with Diff; SPEC'[facility] 11/07/16 14:25 Test: WHITE BLOOD COUNT; Value: 10.7; Range: 4.0-10.0; Abnormal: Above high normal; Units: K/mm3; Status: F Test: RED BLOOD COUNT; Value: 4.73; Range: 4.00-5.40; Units: M/mm3; Status: F Test: HEMOGLOBIN; Value: 14.3; Range: 12.0-16.0; Units: g/dl; Status: F Test: HEMATOCRIT; Value: 44.7; Range: 36.0-47.0; Units: %; Status: F Test: MEAN CORPUSCULAR VOLUME; Value: 94.6; Range: 80.0-96.0; Units: fl; Status: F Test: MEAN CORPUSCULAR HEMOGLOBIN; Value: 30.2; Range: 27.0-33.0; Units: pg; Status: F Test: MEAN CORPUSCULAR HGB CONC; Value: 31.9; Range: 32.0-36.5; Abnormal: Below low normal; Units: g/dl; Status: F Test: RED CELL DISTRIBUTION WIDTH; Value: 12.1; Range: 11.5-14.5; Units: %; Status: F Test: PLATELET COUNT, AUTOMATED; Value: 204; Range: 150-450; Units: k/mm3; Status: F Test: NEUTROPHILS %; Value: 57.0; Range: 36.0-66.0; Units: %; Status: F Test: LYMPH %; Value: 32.9; Range: 24.0-44.0; Units: %; Status: F Test: MONO %; Value: 5.2; Range: 0.0-5.0; Abnormal: Above high normal; Units: %; Status: F Test: EOS %; Value: 1.8; Range: 0.0-3.0; Units: %; Status: F Test: BASO %; Value: 0.9; Range: 0.0-1.0; Units: %; Status: F Test: LARGE UNSTAINED CELL %; Value: 2.2; Range: 0.0-4.0; Units: %; Status: F Test: NEUTROPHILS #; Value: 6.1; Range: 1.8-7.7; Units: K/mm3; Status: F Test: LYMPH #; Value: 3.8; Range: 1.5-4.5; Units: K/mm3; Status: F Test: MONO #; Value: 0.6; Range: 0.0-0.8; Units: K/mm3; Status: F Test: EOS #; Value: 0.2; Range: 0.0-0.50; Units: K/mm3; Status: F Test: BASO #; Value: 0.1; Range: 0.0-0.2; Units: K/mm3; Status: F Test: LARGE UNSTAINED CELL #; Value: 0.2; Range: 0.0-0.4; Units: K/mm3; Status: F Lab Order: Partial Thromboplastin Time; [facility] 11/07/16 14:25 Test: PARTIAL THROMBOPLASTIN TIME; Value: 23.8; Range: 26.6-37.1; Abnormal: Below low normal; Units: SECONDS; Status: F Lab Order: Prothrombin Time Profile\\E\\INR; [facility] 11/07/16 14:25 Test: PROTHROMBIN TIME; Value: 12.9; Range: 12.3-14.5; Units: SECONDS; Status: F Test: INR; Value: 0.96; Status: F Test Note: ; THERAPUTIC HUMAN INR VALUES INDICATIONS NORMAL RANGES PROPHYLAXIS/TREATMENT OF: VENOUS THROMBOSIS 2.0-3.0 PULMONARY EMBOLISM 2.0-3.0 PREVENTION OF SYSTEMIC EMBOLISM FROM: TISSUE HEART VALVES 2.0-3.0 ACUTE MYOCARDIAL INFARCTION 2.0-3.0 VALVULAR HEART DISEASE 2.0-3.0 ATRIAL FIBRILLATION 2.0-3.0 MECHANICAL VALVES(HIGH RISK) 2.5-3.5 RECURRENT MYOCARDIAL INFARCTION 2.5-3.5 Lab Order: Type & Screen; [facility] 11/07/16 14:25 Test: BLOOD TYPE; Value: O POS; Status: F Test: AB SCREEN (INDIRECT CLARISA)GEL; Value: NEGATIVE; Status: F Lab Order: CIP; [facility] 11/07/16 14:25 Test: CPK CREATINE PHOSPHOKINASE; Value: 126; Range: 26-192; Units: U/L; Status: F Test: CK-MB VALUE MASS; Value: 1.0; Range: 0.0-3.6; Units: NG/ML; Status: F Test: MB/CK RELATIVE INDEX; Value: 0.79; Range: < OR =4; Status: F Test Note: ; DIAGNOSIS CRITERIA MMB ng/ml Relative Index (RI) NON-AMI < or = 5 N/A MACIAS ZONE > 5 < or = 4 AMI > 5 > 4 Lab Order: Troponin; [facility] 11/07/16 14:25 Test: TROPONIN I; Value: 0.22; Range: < 0.10; Abnormal: Above high normal; Units: NG/ML; Status: F Test Note: ; Troponin I Reference Interval for [employer] LOCI: 99th Percentile= 0.00-0.045 ng/ml Risk Stratification: <= 0.10 ng/ml Decreased Risk for Adverse Clinical Events. 0.10-1.50 ng/ml Increased Risk for Adverse Clinical Events. Evaluation of additional criterion and/or repeat testing in 2-6 hours is suggested to rule out myocardial damage. >= 1.50 ng/ml Indicative of Myocardial Injury. Lab Order: Fingerstick Blood Sugar; [facility] 11/07/16 14:12 Test: BEDSIDE GLUCOSE; Value: 202; Range: 83-110; Abnormal: Above high normal; Units: MG/DL; Status: F Lab Order: CARDIAC MARKER PANEL; [facility] 11/07/16 16:01 Test: CPK CREATINE PHOSPHOKINASE; Value: 78; Range: 26-192; Units: U/L; Status: F Test: CK-MB VALUE MASS; Value: 1.2; Range: 0.0-3.6; Units: NG/ML; Status: F Test: MB/CK RELATIVE INDEX; Value: 1.53; Range: < OR =4; Status: F Test: TROPONIN I; Value: 0.21; Range: < 0.10; Abnormal: Above high normal; Units: NG/ML; Status: F Test Note: ; DIAGNOSIS CRITERIA MMB ng/ml Relative Index (RI) NON-AMI < or = 5 N/A MACIAS ZONE > 5 < or = 4 AMI > 5 > 4 Lab Order: CARDIAC MARKER PANEL; [facility] 11/07/16 22:04 Test: CPK CREATINE PHOSPHOKINASE; Value: 84; Range: 26-192; Units: U/L; Status: F Test: CK-MB VALUE MASS; Value: 1.0; Range: 0.0-3.6; Units: NG/ML; Status: F Test: MB/CK RELATIVE INDEX; Value: 1.19; Range: < OR =4; Status: F Test: TROPONIN I; Value: 0.22; Range: < 0.10; Abnormal: Above high normal; Units: NG/ML; Status: F Test Note: ; DIAGNOSIS CRITERIA MMB ng/ml Relative Index (RI) NON-AMI < or = 5 N/A MACIAS ZONE > 5 < or = 4 AMI > 5 > 4 Lab Order: URINALYSIS; [facility] 11/07/16 12:47 Test: APPEARANCE, URINE; Value: HAZY; Range: CLEAR; Status: F Test: COLOR, URINE; Value: YELLOW; Range: YELLOW; Status: F Test: PH,URINE; Value: 5.0; Range: 5.0-9.0; Units: UNITS; Status: F Test: SPECIFIC GRAVITY URINE AUTO; Value: 1.017; Range: 1.002-1.035; Status: F Test: PROTEIN, URINE AUTO; Value: NEGATIVE; Range: NEGATIVE; Units: mg/dL; Status: F Test: GLUCOSE, URINE (UA) AUTO; Value: 2+; Range: NEGATIVE; Abnormal: Above high normal; Units: mg/dL; Status: F Test: KETONE, URINE AUTO; Value: NEGATIVE; Range: NEGATIVE; Units: mg/dL; Status: F Test: UROBILINOGEN, URINE AUTO; Value: 0.2; Range: 0.0-2.0; Units: mg/dL; Status: F Test: BILIRUBIN, URINE AUTO; Value: NEGATIVE; Range: NEGATIVE; Status: F Test: NITRITE, URINE AUTO; Value: NEGATIVE; Range: NEGATIVE; Status: F Test: LEUKOCYTE ESTERASE, URINE AUTO; Value: 1+; Range: NEGATIVE; Abnormal: Above high normal; Status: F Test: BLOOD, URINE BLOOD; Value: 1+; Range: NEGATIVE; Abnormal: Above high normal; Status: F Test: WBC, URINE AUTO; Value: 9; Range: 0-3; Abnormal: Above high normal; Units: /HPF; Status: F Test: RBC, URINE AUTO; Value: 1; Range: 0-3; Units: /HPF; Status: F Test: BACTERIA, URINE AUTO; Value: NEGATIVE; Range: NEGATIVE; Status: F Test: SQUAMOUS EPITHELIAL CELL UR AU; Value: 4; Range: 0-6; Units: /HPF; Status: F Test: MUCUS, URINE; Value: SMALL; Range: NEGATIVE; Status: F Test: HYALINE CAST, URINE AUTO; Value: 0; Range: 0-1; Units: /LPF; Status: F Lab Order: LIVER PROFILE; [facility] 11/07/16 14:25 Test: AST/SGOT; Value: 38; Range: 15-37; Abnormal: Above high normal; Units: U/L; Status: F Test: ALT/SGPT; Value: 27; Range: 12-78; Units: U/L; Status: F Test: ALKALINE PHOSPHATASE; Value: 111; Range: 45-117; Units: U/L; Status: F Test: BILIRUBIN,TOTAL; Value: 0.3; Range: 0.2-1.0; Units: MG/DL; Status: F Test: BILIRUBIN,DIRECT; Value: < 0.1; Range: 0.0-0.2; Units: MG/DL; Status: F Test: TOTAL PROTEIN; Value: 7.6; Range: 6.4-8.2; Units: GM/DL; Status: F Test: ALBUMIN; Value: 3.7; Range: 3.2-5.2; Units: GM/DL; Status: F Test: ALBUMIN/GLOBULIN RATIO; Value: 0.95; Range: 1.00-1.93; Abnormal: Below low normal; Status: F Lab Order: MAGNESIUM LEVEL; [facility] 11/07/16 14:25 Test: MAGNESIUM LEVEL; Value: 2.1; Range: 1.8-2.4; Units: MG/DL; Status: F Lab Order: BRAIN NATIURETIC PEPTIDE; [facility] Test: BRAIN NATRIURETIC PEPTIDE; Value: 118; Range: <100; Abnormal: Above high normal; Units: PG/ML; Status: F Lab Order: CBC WITH DIFFERENTIAL; [facility] 11/08/16 07:13 Test: WHITE BLOOD COUNT; Value: 10.7; Range: 4.0-10.0; Abnormal: Above high normal; Units: K/mm3; Status: F Test: RED BLOOD COUNT; Value: 4.63; Range: 4.00-5.40; Units: M/mm3; Status: F Test: HEMOGLOBIN; Value: 14.0; Range: 12.0-16.0; Units: g/dl; Status: F Test: HEMATOCRIT; Value: 42.4; Range: 36.0-47.0; Units: %; Status: F Test: MEAN CORPUSCULAR VOLUME; Value: 91.5; Range: 80.0-96.0; Units: fl; Status: F Test: MEAN CORPUSCULAR HEMOGLOBIN; Value: 30.3; Range: 27.0-33.0; Units: pg; Status: F Test: MEAN CORPUSCULAR HGB CONC; Value: 33.1; Range: 32.0-36.5; Units: g/dl; Status: F Test: RED CELL DISTRIBUTION WIDTH; Value: 12.3; Range: 11.5-14.5; Units: %; Status: F Test: PLATELET COUNT, AUTOMATED; Value: 216; Range: 150-450; Units: k/mm3; Status: F Test: NEUTROPHILS %; Value: 52.7; Range: 36.0-66.0; Units: %; Status: F Test: LYMPH %; Value: 35.6; Range: 24.0-44.0; Units: %; Status: F Test: MONO %; Value: 5.4; Range: 0.0-5.0; Abnormal: Above high normal; Units: %; Status: F Test: EOS %; Value: 3.5; Range: 0.0-3.0; Abnormal: Above high normal; Units: %; Status: F Test: BASO %; Value: 0.9; Range: 0.0-1.0; Units: %; Status: F Test: LARGE UNSTAINED CELL %; Value: 2.0; Range: 0.0-4.0; Units: %; Status: F Test: NEUTROPHILS #; Value: 5.6; Range: 1.8-7.7; Units: K/mm3; Status: F Test: LYMPH #; Value: 4.0; Range: 1.5-4.5; Units: K/mm3; Status: F Test: MONO #; Value: 0.6; Range: 0.0-0.8; Units: K/mm3; Status: F Test: EOS #; Value: 0.4; Range: 0.0-0.50; Units: K/mm3; Status: F Test: BASO #; Value: 0.1; Range: 0.0-0.2; Units: K/mm3; Status: F Test: LARGE UNSTAINED CELL #; Value: 0.2; Range: 0.0-0.4; Units: K/mm3; Status: F Lab Order: BASIC METABOLIC PROFILE; [facility] 11/08/16 07:13 Test: GLUCOSE, FASTING; Value: 161; Range: 83-110; Abnormal: Above high normal; Units: MG/DL; Status: F Test: BLOOD UREA NITROGEN; Value: 15; Range: 7-18; Units: MG/DL; Status: F Test: CREATININE FOR GFR; Value: 0.93; Range: 0.55-1.02; Units: MG/DL; Status: F Test: GLOMERULAR FILTRATION RATE; Value: > 60.0; Range: >39; Status: F Test: SODIUM LEVEL; Value: 141; Range: 136-145; Units: MEQ/L; Status: F Test: POTASSIUM SERUM; Value: 4.4; Range: 3.5-5.1; Units: MEQ/L; Status: F Test: CHLORIDE LEVEL; Value: 104; Range: 98-107; Units: MEQ/L; Status: F Test: CARBON DIOXIDE LEVEL; Value: 27; Range: 21-32; Units: MEQ/L; Status: F Test: ANION GAP; Value: 10; Range: 8-16; Units: MEQ/L; Status: F Test: CALCIUM LEVEL; Value: 9.2; Range: 8.8-10.2; Units: MG/DL; Status: F Test Note: ; Units are mL/min/1.73 m2 Chronic Kidney Disease Staging per NKF: Stage I & II GFR >=60 Normal to Mildly Decreased Stage III GFR 30-59 Moderately Decreased Stage IV GFR 15-29 Severely Decreased Stage V GFR <15 Very Little GFR Left ESRD GFR <15 on [employer]UCK Lab Order: BRAIN NATIURETIC PEPTIDE; 11/08/16 07:13 Test: BRAIN NATRIURETIC PEPTIDE; Value: 85.3; Range: <100; Units: PG/ML; Status: F Lab Order: Fingerstick Blood Sugar; 11/07/16 23:08 Test: BEDSIDE GLUCOSE; Value: 209; Range: 83-110; Abnormal: Above high normal; Units: MG/DL; Status: F Lab Order: CARDIAC MARKER PANEL; 11/08/16 07:13 Test: CPK CREATINE PHOSPHOKINASE; Value: 81; Range: 26-192; Units: U/L; Status: F Test: CK-MB VALUE MASS; Value: 1.0; Range: 0.0-3.6; Units: NG/ML; Status: F Test: MB/CK RELATIVE INDEX; Value: 1.23; Range: < OR =4; Status: F Test: TROPONIN I; Value: 0.20; Range: < 0.10; Abnormal: Above high normal; Units: NG/ML; Status: F Test Note: ; DIAGNOSIS CRITERIA MMB ng/ml Relative Index (RI) NON-AMI < or = 5 N/A MACIAS ZONE > 5 < or = 4 AMI > 5 > 4 Lab Order: THYROID STIMULATING HORMONE; 11/08/16 07:13 Test: THYROID STIMULATING HORMONE; Value: 5.270; Range: 0.358-3.740; Abnormal: Above high normal; Units: uIU/ML; Status: F Lab Order: FREE T4; 11/08/16 07:13 Test: FREE T4; Value: 1.04; Range: 0.76-1.46; Units: NG/DL; Status: F Lab Order: TOTAL T3; 11/08/16 07:13 Test: TOTAL T3; Range: 60.0-181.0; Units: NG/DL; Status: I Lab Order: D-DIMER QUANT; 11/08/16 12:50 Test: D-DIMER QUANT; Value: 575.2; Range: <500; Abnormal: Above high normal; Units: ng/ml; Status: F Lab Order: Fingerstick Blood Sugar; SPEC'M 11/08/16 12:09 Test: BEDSIDE GLUCOSE; Value: 240; Range: 83-110; Abnormal: Above high normal; Units: MG/DL; Status: F Radiology Order: CT Head Without Contrast Test: CT Head Without Contrast REASON FOR EXAMINATION: dizzyness; Noncontrast head CT.; ; History: Dizziness.; ; Findings: Bone window settings demonstrate an intact bony calvarium. Paranasal; sinuses are clear. No evidence of sinusitis. There is a small metallic density; in the region of the anterior chamber the left eye. Question intraocular shunt.; Vascular calcification is seen at the skull base. There is diffuse cerebral; atrophy. There is no evidence of intracranial hemorrhage or acute infarction.; No mass, extra-axial fluid collection or midline shift is seen. There is a; low-density area at the inferior aspect of the basal ganglia on the left; consistent with dilated perivascular spaces. This is seen to be unchanged from; my comparison MRI study of the brain January 22, 2013.; ; Impression:; ; Diffuse atrophy and vascular calcification. No acute intracranial lesion.; Question intraocular shunt left eye.; ; ; Signed by; Brayan Puente MD 11/07/2016 05:34 P; Radiology Order: Chest, 1 View Test: Chest, 1 View REASON FOR EXAMINATION: dizzyness; Portable chest x-ray: Single view.; ; History: Dizziness.; ; Comparison chest x-ray April 10, 2013.; ; Findings: The lungs are somewhat hyperinflated but clear. Pleural angles are; sharp. Prior median sternotomy wires are seen. 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 11/08 15:34 Patient left the ED. jo3 Signatures: Dispatcher [employer] EDMS Jason Yip MD MD ml Jobson, Karen, RN OLIVA Garcia, Brigida Majano, RN Cyndi Flores RN OLIVA WilliamsonprestiMelbaPamela, Janitor Caretaker Unit ml3 Cheryl Rader,RN RN Giulia Elkins,RN RN Neal Guidry, SALES AND MARKETING ASSISTANT SALES AND MARKETING ASSISTANT kb5 Loly Bergman,SLAB DEPILER OPERATOR SLAB DEPILER OPERATOR cpGiulia Wheeler, RN RN jc4 Lilliam Alvarez, SALES AND MARKETING ASSISTANT SALES AND MARKETING ASSISTANT ct3 Eduardo Barnett dem1 Yarely Love, SALES AND MARKETING ASSISTANT SALES AND MARKETING ASSISTANT Palma Gonogra,RN RN ko2 Bhaskar Barraza,RN RN sukhi3 Joanne Lal Jose, SALES AND MARKETING ASSISTANT SALES AND MARKETING ASSISTANT jmv Gaby Fan [id number] Corrections: (The following items were deleted from the chart) 07:39 07:35 Cardiovascular: Rhythm is regular kr3 kr3 07:40 07:36 BP 114 / 56; Pulse 62bpm; Resp 16bpm; Pulse Ox 95% RA; Pain 0/10; kr3 kr3 MTDD
[2016-11-08 15:48] VITALS: BP 160/72
--- NOTE | 2016-11-08 16:01 | IPNPDOC ---
Text Note Date of Service The patient was seen on 11/08/16 at 15:43. 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 She noted that this occurred since she left [facility] for CHF exacerbation and PNA. She noted that at that time she had her dose of lasix increased. In the ER patient was found to have positive orthostatic vital signs. She also had a mild elevation in her creatinine. She was admitted to PCU for dizziness and possible NSTEMI. Patient was seen and examined at the bedside. Clinically she notes that she is still having dizziness. She denies any shortness of breath, chest pain or palpitations. Objective: Vitals (See below) General: Lying in bed, no acute distress, comfortable, AAOx3 HEENT: NC, AT CVS: RRR, +S1S2 Lungs: Fair air entry b/l, -w/r/r Abdomen: Soft, ND, NT, +BSx4 Extremities: +PPx4, -edema, -calf tenderness Assessment and plan: 1. Dizziness - likely 2/2 orthostatic hypotension, possibly neurologic etiology (re: history of stenosis) - Was recently admitted to [facility] for CHF and PNA; she noted that her dose of Lasix was increased - Since that point she has been having dizziness - Positive orthostatic vital signs in the ER - Lasix have been held and IV fluids have been started - Will continue to monitor for signs of fluid overload 2. Elevation in troponin - likely 2/2 demand ischemia - 2/2 orthostatic hypotension, less likely 2/2 NSTEMI - no complaints of Chest pain, SOB, diaphoresis - EKG without septal infarction, likely old - Troponin trend has remained stable - will c/w PCU monitoring - c/w ASA, simvastatin, Metoprolol, Enalapril and Lovenox ... home medications - will c/w IV fluid hydration 3. Elevated D-dimers - possibly 2/2 pulmonary embolism - Will get CTA to r/o PE 4. CAD s/p CABG (x4 - 2013) - See #2 5. IDDM2 - c/w levemir 15 QHS and insulin sliding scale - will increase dose of levemir if glucose remains uncontrolled 6. HTN (orthostatic hypotension) - BP well controlled - will c/w enalapril, metoprolol - will hold furosemide 7. Compensated diastolic, CHF - no evidence of exacerbation - physical without crackles, JVD or lower extremity edema - BNP does not reveal any elevation - will hold lasix 8. Chronic LLE swelling - 2/2 saphenous vein removal 9. Cerebral artery narrowing - Moderate narrowing of distal left posterior cerebral artery and also mild narrowing of distal basilar artery that was evaluated by neurosurgery in the past 10. GI prophylaxis - c/w Omeprazole 11. DVT prophylaxis - c/w Lovenox VS,Fishbone, I+O VS, Fishbone, I+O Laboratory Tests 11/08/16 07:13 Calcium Level 9.2, Total Creatine Kinase 81, Red Blood Count 4.63, Mean Corpuscular Volume 91.5, Mean Corpuscular Hemoglobin 30.3, Mean Corpuscular Hemoglobin Concent 33.1, Red Cell Distribution Width 12.3, Neutrophils (%) (Auto ) 52.7, Lymphocytes (%) (Auto) 35.6, Monocytes (%) (Auto) 5.4 H, Eosinophils (% ) (Auto) 3.5 H, Basophils (%) (Auto) 0.9, Neutrophils # (Auto) 5.6, Lymphocytes # (Auto) 4.0, Monocytes # (Auto) 0.6, Eosinophils # (Auto) 0.4, Basophils # ( Auto) 0.1 Vital Signs Date Time Temp Pulse Resp B/P Pulse Ox O2 Delivery O2 Flow Rate FiO2 11/08/16 12:00 97.7 85 20 111/50 95 Room Air MARISOL CRAIG MD Nov 08, 2016 16:01
--- NOTE | 2016-11-08 16:09 | REP ---
CT pulmonary angiogram: With IV contrast. History: Possible pulmonary embolism. Comparison studies: Comparison study April 11, 2013. Contrast dose: 75 cc's of Isovue [address] technique: Helical scanning is acquired and overlapping 1.5 mm and contiguous 3 mm axial images are reformatted. In addition, a 3-D work station is deployed to generate thick slab maximum intensity projection images in sagittal and coronal imaging projections. CT pulmonary angiographic findings: There is good opacification of the pulmonary arterial tree and there is no CT evidence of pulmonary embolism. The thoracic aorta is normal in caliber and contour and enhances homogeneously. Descending aorta is tortuous. There is no evidence of hilar or mediastinal mass or adenopathy. Prior sternotomy wires are seen. There is no evidence of pleural or pericardial effusion. Discoid atelectasis versus linear fibrosis is seen in both lung bases. No adrenal lesion is seen on either side. There are gallstones in the dependent portion the gallbladder. In addition, the fundus of the gallbladder shows a 1.8 x 3.4 cm area of increased density and/or contrast enhancement. This raises a question of a gallbladder mass. This appears to be a new finding from the April 20, 2013 prior study. Maximal intensity projection images show no evidence of vessel cutoff or filling defect to suggest a pulmonary embolus. No bony destructive lesion is seen. Impression: 1. No CT evidence of pulmonary embolism. 2. Discoid atelectasis both bases. 3. 1.8 x 3.4 cm enhancing mass in the non-dependent portion of the gallbladder fundus. Question gallbladder malignancy. Sonography recommended. Gallstones are noted as well. Signed by Brayan Puente MD 11/08/2016 04:24 P
[2016-11-08 20:18] VITALS: BP 142/64
[2016-11-08] MEDS: SIMVASTATIN 10 MG TAB PO SCH (20:52)
[2016-11-08] MEDS: LEVEMIR (INSULIN DETEMIR) 1 UNITS/0.01ML SC SCH (20:53)
[2016-11-08] MEDS: LATANOPROST 0.005% OPHTH SOLN 2.5 ML OD SCH (20:54)
[2016-11-08 23:35] VITALS: BP_SYST 126; BP_SYST 128; BP_SYST 132; BP_DIAS 59; BP_DIAS 61
[2016-11-09 04:38] VITALS: BP 131/61
[2016-11-09] MEDS: NS 1,000 ML IV SCH (04:50)
[2016-11-09 05:33] LABS: BASO % 0.5 % (0.0-1.0); EOS # 0.4 K/mm3 (0.0-0.50); EOS % 4.5 % (0.0-3.0); LARGE UNSTAINED CELL # 0.2 K/mm3 (0.0-0.4); LARGE UNSTAINED CELL % 2.1 % (0.0-4.0); LYMPH # 2.7 K/mm3 (1.5-4.5); MEAN CORPUSCULAR HEMOGLOBIN 30.6 pg (27.0-33.0); MEAN CORPUSCULAR HGB CONC 33.5 g/dl (32.0-36.5); MEAN CORPUSCULAR VOLUME 91.2 fl (80.0-96.0); MONO # 0.5 K/mm3 (0.0-0.8); MONO % 6.2 % (0.0-5.0); NEUTROPHILS # 3.8 K/mm3 (1.8-7.7); NEUTROPHILS % 50.6 % (36.0-66.0); PLATELET COUNT, AUTOMATED 193 k/mm3 (150-450); RED CELL DISTRIBUTION WIDTH 11.4 % (11.5-14.5); WHITE BLOOD COUNT 7.6 K/mm3 (4.0-10.0)
[2016-11-09 05:52] LABS: ANION GAP 9 MEQ/L (8-16); BLOOD UREA NITROGEN 11 MG/DL (7-18); CALCIUM LEVEL 8.3 MG/DL (8.8-10.2); CARBON DIOXIDE LEVEL 28 MEQ/L (21-32); CHLORIDE LEVEL 106 MEQ/L (98-107); CREATININE FOR GFR 0.85 MG/DL (0.55-1.02); GLOMERULAR FILTRATION RATE > 60.0 (>39); GLUCOSE, FASTING 147 MG/DL (83-110); SODIUM LEVEL 143 MEQ/L (136-145)
[2016-11-09] MEDS ORDERED: COSYNTROPIN 0.25 MG/ML VIAL (J0835) IV ONE (06:00)
[2016-11-09 08:00] VITALS: BP_SYST 138; BP_SYST 162; BP_DIAS 56; BP_DIAS 73; BP_DIAS 76
[2016-11-09] MEDS: OMEPRAZOLE 20 MG CAP PO SCH (08:10)
[2016-11-09] MEDS: ASPIRIN 325 MG TAB PO SCH (08:10)
[2016-11-09] MEDS: SENOKOT S TAB PO SCH ×2 (08:10→20:32)
[2016-11-09] MEDS: SERTRALINE HCL 25 MG TABLET PO SCH (08:10)
[2016-11-09] MEDS: MULTIVITAMINS/MINERALS THERAP 1 TAB PO SCH (08:10)
[2016-11-09] MEDS: METOPROLOL TART 25 MG TABLET PO SCH ×2 (08:11→20:33)
[2016-11-09] MEDS: ENOXAPARIN 40 MG/0.4 ML SYRINGE (J1650) SC SCH (08:11)
[2016-11-09] MEDS: ENALAPRIL MALEATE 5 MG TAB PO SCH (08:11)
[2016-11-09] MEDS: HumaLOG INSULIN (NovoLOG) PER UNIT SC SCH ×4 (08:12→20:39)
[2016-11-09] MEDS: SILVER SULFADIAZINE 1% CR 50 GM JAR TOP SCH (08:12)
[2016-11-09] MEDS ORDERED: NS 1,000 ML IV SCH (10:30)
[2016-11-09 11:51] VITALS: BP 132/69
--- NOTE | 2016-11-09 14:29 | IPNPDOC ---
Text Note Date of Service The patient was seen on 11/09/16 at 14:22. 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 She noted that this occurred since she left [facility] for CHF exacerbation and PNA. She noted that at that time she had her dose of lasix increased. In the ER patient was found to have positive orthostatic vital signs. She also had a mild elevation in her creatinine. She was admitted to PCU for dizziness and possible NSTEMI. Patient was seen and examined at the bedside. She was able to sit up today without problems. She even noted that she walked without issue. Does not report much dizziness today. Objective: Vitals (See below) General: Lying in bed, no acute distress, comfortable, AAOx3 HEENT: NC, AT CVS: RRR, +S1S2 Lungs: Fair air entry b/l, -w/r/r Abdomen: Soft, ND, NT, +BSx4 Extremities: +PPx4, -edema, -calf tenderness Assessment and plan: 1. Dizziness - likely 2/2 orthostatic hypotension, possibly neurologic etiology (re: history of stenosis), possibly 2/2 paroxysmal arrhythmias - Was recently admitted to [facility] for CHF and PNA; she noted that her dose of Lasix was increased - She notes improvement in her dizziness - Positive orthostatic vital signs still present - Continue to hold lasix and c/w IV fluid hydration (will monitor for fluids) - Discussed case with Dr. Garcia (Cardiology); possible arrhythmia, will keep on PCU for 48 hours, will need loop recorder if no findings 2. Elevation in troponin - likely 2/2 demand ischemia - 2/2 orthostatic hypotension, less likely 2/2 NSTEMI - no complaints of Chest pain, SOB, diaphoresis - EKG without septal infarction, likely old - Troponin trend has remained stable - will c/w PCU monitoring - c/w ASA, simvastatin, Metoprolol, Enalapril and Lovenox ... home medications - will c/w IV fluid hydration 3. Elevated D-dimers - possibly 2/2 pulmonary embolism - CTA negative for PE 4. CAD s/p CABG (x4 - 2013) - See #2 5. IDDM2 - c/w levemir 15 QHS and insulin sliding scale - will increase dose of levemir to 15 BID 6. HTN (orthostatic hypotension) - BP well controlled - will c/w enalapril, metoprolol - will hold furosemide 7. Compensated diastolic, CHF - no evidence of exacerbation - physical without crackles, JVD or lower extremity edema - BNP does not reveal any elevation - will hold lasix 8. Chronic LLE swelling - 2/2 saphenous vein removal 9. Cerebral artery narrowing - Moderate narrowing of distal left posterior cerebral artery and also mild narrowing of distal basilar artery that was evaluated by neurosurgery in the past 10. GI prophylaxis - c/w Omeprazole 11. DVT prophylaxis - c/w Lovenox VS,Fishbone, I+O VS, Fishbone, I+O Laboratory Tests 11/09/16 05:06 Calcium Level 8.3 L, Red Blood Count 3.95 L, Mean Corpuscular Volume 91.2, Mean Corpuscular Hemoglobin 30.6, Mean Corpuscular Hemoglobin Concent 33.5, Red Cell Distribution Width 11.4 L, Neutrophils (%) (Auto) 50.6, Lymphocytes (%) (Auto) 36.0, Monocytes (%) (Auto) 6.2 H, Eosinophils (%) (Auto) 4.5 H, Basophils (%) ( Auto) 0.5, Neutrophils # (Auto) 3.8, Lymphocytes # (Auto) 2.7, Monocytes # (Auto ) 0.5, Eosinophils # (Auto) 0.4, Basophils # (Auto) 0.0 Vital Signs Date Time Temp Pulse Resp B/P Pulse Ox O2 Delivery O2 Flow Rate FiO2 11/09/16 11:51 97.5 65 18 132/69 94 Room Air I&O- Last 24 Hours up to 6 AM 11/09/16 06:00 Intake Total 1740 ml Output Total 450 ml Balance 1290 ml MARISOL CRAIG MD Nov 09, 2016 14:29
[2016-11-09 16:00] VITALS: BP_SYST 157; BP_SYST 159; BP_SYST 160; BP_SYST 190; BP_DIAS 70; BP_DIAS 75; BP_DIAS 79
--- NOTE | 2016-11-09 16:48 | REP ---
MR BRAIN WITHOUT CONTRAST: HISTORY: Syncope. COMPARISON: 01/22/2013. Scattered punctate areas of increased signal intensity on T2 weighted images are present in the periventricular and subcortical white matter. This represents small vessel ischemic disease. There is no intraparenchymal hemorrhage, acute infarct, mass, or midline shift. The ventricular system and cortical sulci are dilated consistent with mild volume loss. There is no extracerebral collection. The sinuses are clear. Metal artifact is present in the anterior left globe. This is secondary to a 2.5 mm metallic density seen in a previous CT examination. IMPRESSION: 1. Minimal small vessel ischemic disease. 2. Mild volume loss. Signed by Rock Toribio MD 11/09/2016 04:49 P
[2016-11-09 20:00] VITALS: BP 112/65; PULSE 63
[2016-11-09] MEDS: SIMVASTATIN 10 MG TAB PO SCH (20:32)
[2016-11-09] MEDS: LEVEMIR (INSULIN DETEMIR) 1 UNITS/0.01ML SC SCH (20:40)
[2016-11-09] MEDS: LATANOPROST 0.005% OPHTH SOLN 2.5 ML OD SCH (20:41)
[2016-11-10] VITALS: BP 118/68; PULSE 62
[2016-11-10 04:00] VITALS: BP_SYST 105; BP_SYST 108; BP_SYST 112; BP_DIAS 59; BP_DIAS 63; BP_DIAS 67; PULSE 55
[2016-11-10 06:01] LABS: BASO % 0.5 % (0.0-1.0); EOS # 0.4 K/mm3 (0.0-0.50); EOS % 5.3 % (0.0-3.0); LARGE UNSTAINED CELL # 0.2 K/mm3 (0.0-0.4); LARGE UNSTAINED CELL % 2.8 % (0.0-4.0); LYMPH # 2.9 K/mm3 (1.5-4.5); LYMPH % 38.6 % (24.0-44.0); MEAN CORPUSCULAR HEMOGLOBIN 31.1 pg (27.0-33.0); MEAN CORPUSCULAR HGB CONC 33.6 g/dl (32.0-36.5); MEAN CORPUSCULAR VOLUME 92.4 fl (80.0-96.0); MONO # 0.5 K/mm3 (0.0-0.8); MONO % 6.2 % (0.0-5.0); NEUTROPHILS # 3.6 K/mm3 (1.8-7.7); NEUTROPHILS % 46.5 % (36.0-66.0); PLATELET COUNT, AUTOMATED 175 k/mm3 (150-450); RED CELL DISTRIBUTION WIDTH 11.6 % (11.5-14.5); WHITE BLOOD COUNT 7.6 K/mm3 (4.0-10.0)
[2016-11-10 06:26] LABS: ANION GAP 9 MEQ/L (8-16); BLOOD UREA NITROGEN 10 MG/DL (7-18); CALCIUM LEVEL 8.9 MG/DL (8.8-10.2); CARBON DIOXIDE LEVEL 27 MEQ/L (21-32); CHLORIDE LEVEL 109 MEQ/L (98-107); CREATININE FOR GFR 0.81 MG/DL (0.55-1.02); GLOMERULAR FILTRATION RATE > 60.0 (>39); GLUCOSE, FASTING 97 MG/DL (83-110); POTASSIUM SERUM 3.9 MEQ/L (3.5-5.1); SODIUM LEVEL 145 MEQ/L (136-145)
[2016-11-10] MEDS: HumaLOG INSULIN (NovoLOG) PER UNIT SC SCH ×4 (07:30→21:00)
[2016-11-10 07:56] VITALS: BP 130/68
--- NOTE | 2016-11-10 09:49 | REP ---
MRA BRAIN WITHOUT CONTRAST: HISTORY: Syncope. 3D [id number] MR angiography was performed at the level of the [place]. The examination is limited secondary to motion. There is no definite aneurysm or arteriovenous malformation. Mild atherosclerotic disease involves the cavernous and supraclinoid internal carotid arteries. Major intracranial vessels are patent. The left vertebral artery is dominant. IMPRESSION: 1. There is no definite aneurysm or arteriovenous malformation. 2. Atherosclerotic disease as described above. Signed by Rock Toribio MD 11/10/2016 10:26 A
--- NOTE | 2016-11-10 09:57 | IPNPDOC ---
[facility] Cardiology Progress Note Date of Service/Time The patient was seen on 11/10/16 at 09:53. Cardiology Progress Note Ms You is a 76 y/o female who initially presented with dizziness and syncope. OBJECTIVE: PHYSICAL EXAMINATION: VITAL SIGNS: Please see below. GENERAL APPEARANCE: pt is laying comfortably in bed, watching television, bed is at slight 30 degree incline. HEENT: NCAT, tongue midline with moist mucus membranes, nares patent b/l LUNGS: good air expansion b/l, CTA b/l, no wheezing, rhonchi or wheeze appreciated, no crackles on exam HEART: Normal S1 and S2, no murmurs or gallops appreciated, NSR ABDOMEN: NABSx4, non-distended, no organomegaly appreciated, non-tender SKIN: intact NEUROLOGICAL: no focal deficit appreciated PSYCHIATRIC: normal affect LABORATORY WORK: Please see below. ASSESSMENT AND PLAN Mrs You is a 76 y/o female who initially presented for a one month history of spells of dizziness, feeling as though she would pass out. When examined at bedside today, she states that she does not have the dizziness when laying down and that sometimes when she gets up and walks, she can feel it and says her " head is in a fog". The pt denies cp, palpitations or SOB, nausea or vomiting, h/a or blurred vision . Her EKG did show a potential old septal ND , and LVH but no active ischemia is appreciated. The pt has been monitored on telemetry for 48 hours with no suspicious arrhythmia appreciated or detected. Suspect that her dizziness is likely benign positional vertigo in etiology. We have requested records from [facility] and unfortunately are still awaiting them, as pt is not exactly sure what was done or the results of testing done when she was recently admitted there not long ago. Would suggest either cardiac event monitoring on outpt f/u and stress test, no immediate need for cardiac catheterization at this point. This may change depending on her further clinical condition. She seems to be doing well and was in no distress when seen this morning. Recent Chest CT was negative for pulmonary embolism. Would continue to monitor at this point, the cause of her dizziness being arrhythmogenic in nature is less likely. Addendum MD Elyssa: Agree with dizziness being probably BPV. On the other hand her episodes of near/syncope are less likely so. In my opinion arrhythmic etiology was still not ruled out. Still would advocate event recorder if no arrhythmias and no episodes occur during hospitalization. Will be seen by tomorrow. Vital Signs/I&O VS/I&O Vital Signs Date Time Temp Pulse Resp B/P Pulse Ox O2 Delivery O2 Flow Rate FiO2 11/10/16 07:56 96.8 59 18 130/68 97 Room Air I&O- Last 24 Hours up to 6 AM 11/10/16 06:00 Intake Total 3240 ml Output Total 1100 ml Balance 2140 ml Laboratory Data 24H LABS Laboratory Tests 2 11/09/16 11:48: Bedside Glucose (Misc Panel) 215H 11/09/16 16:53: Bedside Glucose (Misc Panel) 255H 11/09/16 20:36: Bedside Glucose (Misc Panel) 176H 11/10/16 05:18: Anion Gap 9, B-Type Natriuretic Peptide 176H, White Blood Count 7.6, Red Blood Count 3.85L, Hemoglobin 12.0, Hematocrit 35.5L, Mean Corpuscular Volume 92.4, Mean Corpuscular Hemoglobin 31.1, Mean Corpuscular Hemoglobin Concent 33.6, Red Cell Distribution Width 11.6, Platelet Count 175, Neutrophils (%) (Auto) 46.5, Lymphocytes (%) (Auto) 38.6, Monocytes (%) (Auto) 6.2H, Eosinophils (%) (Auto) 5.3H, Basophils (%) (Auto) 0.5, Neutrophils # (Auto) 3.6, Lymphocytes # (Auto) 2.9, Monocytes # (Auto) 0.5, Eosinophils # (Auto) 0.4, Basophils # (Auto) 0.0, Blood Urea Nitrogen 10, Creatinine 0.81, Sodium Level 145, Potassium Level 3.9, Chloride Level 109H, Carbon Dioxide Level 27, Calcium Level 8.9, Glomerular Filtration Rate > 60.0, Large Unclassified Cells # 0.2, Large Unclassified Cells % 2.8 CBC/BMP Laboratory Tests 11/10/16 05:18 Calcium Level 8.9, Red Blood Count 3.85 L, Mean Corpuscular Volume 92.4, Mean Corpuscular Hemoglobin 31.1, Mean Corpuscular Hemoglobin Concent 33.6, Red Cell Distribution Width 11.6, Neutrophils (%) (Auto) 46.5, Lymphocytes (%) (Auto) 38.6, Monocytes (%) (Auto) 6.2 H, Eosinophils (%) (Auto) 5.3 H, Basophils (%) ( Auto) 0.5, Neutrophils # (Auto) 3.6, Lymphocytes # (Auto) 2.9, Monocytes # (Auto ) 0.5, Eosinophils # (Auto) 0.4, Basophils # (Auto) 0.0 FSBS Laboratory Tests Test 11/09/16 11:48 11/09/16 16:53 11/09/16 20:36 Range/Units Bedside Glucose (Misc Panel) 215 255 176 83-110 MG/DL Microbiology Microbiology 11/08/16 Urine Culture - Final, Complete GME ATTESTATION GME ATTESTATION My preceptor for this patient encounter was physically present in the building during the encounter and was fully available. As needed, all aspects of the patient interview, examination, medical decision making process, and medical care plan development were reviewed and approved by the preceptor. Preceptor is aware and concurs with the plan as stated in the body of this note and will attest to such by his/her cosignature. JOYCE MENCHACA DO Nov 10, 2016 09:57 Kermit Garcia MD Nov 11, 2016 20:44
[2016-11-10] MEDS: SILVER SULFADIAZINE 1% CR 50 GM JAR TOP SCH (10:32)
[2016-11-10] MEDS: ENOXAPARIN 40 MG/0.4 ML SYRINGE (J1650) SC SCH (10:32)
[2016-11-10] MEDS: ASPIRIN 325 MG TAB PO SCH (10:33)
[2016-11-10] MEDS: ENALAPRIL MALEATE 5 MG TAB PO SCH (10:33)
[2016-11-10] MEDS: LEVEMIR (INSULIN DETEMIR) 1 UNITS/0.01ML SC SCH ×2 (10:33→22:13)
[2016-11-10] MEDS: MULTIVITAMINS/MINERALS THERAP 1 TAB PO SCH (10:33)
[2016-11-10] MEDS: OMEPRAZOLE 20 MG CAP PO SCH (10:34)
[2016-11-10] MEDS: METOPROLOL TART 25 MG TABLET PO SCH ×2 (10:34→21:00)
[2016-11-10] MEDS: SENOKOT S TAB PO SCH ×2 (10:34→21:00)
[2016-11-10] MEDS: SERTRALINE HCL 25 MG TABLET PO SCH (10:34)
[2016-11-10 11:48] VITALS: BP 148/70
[2016-11-10] MEDS ORDERED: MECLIZINE 12.5 MG TAB PO PRN (12:00)
[2016-11-10 14:00] VITALS: BP 139/75
--- NOTE | 2016-11-10 15:18 | IPNPDOC ---
Text Note Date of Service The patient was seen on 11/10/16 at 15:01. NOTE Subjective: Patient's states that she has dizziness while turning her neck to the left. Denies any chest pain/shortness of breath/palpitations. Objective: Vitals: (see below) General: No acute distress, laying comfortably in bed. HEENT: Moist mucous membranes. Neck: No JVD or lymphadenopathy Cardiac: RRR, No murmurs Pulm: Diminished breath sounds bilateral bases. No wheezing, rhonchi Abd: NT/ND + BS Ext: No edema or cyanosis Neuro: Strength 5/5 BUE and BLE. CN 2-12 intact. F to N intact Negative pronator drift. Negative Babinki. Sensation to fine touch intact. Positive Eveleth-Hallpike on the left with reproducible dizziness. No nystagmus. Labs (see below) Images: CT of the head without contrast on 11/07/16 Impression:Diffuse atrophy and vascular calcification. No acute intracranial lesion. Question intraocular shunt left eye. Chest x-ray on 11/07/16 Impression: No acute disease. CT abdomen and pelvis on 11/07/16 Impression: 1. No CT evidence of pulmonary embolism. 2. Discoid atelectasis both bases. 3. 1.8 x 3.4 cm enhancing mass in the non-dependent portion of the gallbladder fundus. Question gallbladder malignancy. Sonography recommended. Gallstones are noted as well. MRI of brain 11/09/16 IMPRESSION: 1. There is no definite aneurysm or arteriovenous malformation. 2. Atherosclerotic disease as described above. MRA brain on 11/09/2016 IMPRESSION:1. Minimal small vessel ischemic disease. 2. Mild volume loss. Assessment/Plan 1. Dizziness likely secondary to BPPV. Patient has a positive Hallpike exam. Physical therapy on board for Arely maneuvers. Prior MRA brain with questionable basilar stenosis however repeat MRI 11/01/16 negative. Meclizine when necessary. Her repeat orthostatics have been negative after the patient was hydrated. We'll need referral for outpatient loop recorder to rule out arrhythmias, although this is unlikely. 2. Elevated troponin- likely due to demand ischemia from hypotension. Seems a patient was widened depleted from her diuretics. Patient has been rehydrated. 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 On telemetry. On aspirin, statin, beta justin, ASHLEY inhibitor. Appreciate cardiology input. 3. Elevated d-dimer - CTA negative for PE 4. History of CAD status post CABG 1 2012, stable continue current meds. 5. Insulin-dependent diabetes- on Levemir and sliding scale and lung. 6. Hypertension- controlled continue current meds 7. Chronic lower extremity edema status post saphenous vein removal 8. History of diastolic heart failure, patient appears to be compensated at this time. Lasix have been held while patient's pain hydrated for her orthostatic hypotension. 9. Cerebral artery narrowing- on MRI in 2012 and noted to have been evaluated by neurosurgery per medical records. Her repeat MRIs have been negative for acute findings. 10. GERD- continue PPI DVT prophy: Lovenox VS,Fishbone, I+O VS, Fishbone, I+O Laboratory Tests 11/10/16 05:18 Calcium Level 8.9, Red Blood Count 3.85 L, Mean Corpuscular Volume 92.4, Mean Corpuscular Hemoglobin 31.1, Mean Corpuscular Hemoglobin Concent 33.6, Red Cell Distribution Width 11.6, Neutrophils (%) (Auto) 46.5, Lymphocytes (%) (Auto) 38.6, Monocytes (%) (Auto) 6.2 H, Eosinophils (%) (Auto) 5.3 H, Basophils (%) ( Auto) 0.5, Neutrophils # (Auto) 3.6, Lymphocytes # (Auto) 2.9, Monocytes # (Auto ) 0.5, Eosinophils # (Auto) 0.4, Basophils # (Auto) 0.0 Vital Signs Date Time Temp Pulse Resp B/P Pulse Ox O2 Delivery O2 Flow Rate FiO2 11/10/16 11:48 97.1 61 18 148/70 96 Room Air I&O- Last 24 Hours up to 6 AM 11/10/16 06:00 Intake Total 3240 ml Output Total 1100 ml Balance 2140 ml AVIS WILLIAMSON MD Nov 10, 2016 15:18
[2016-11-10] MEDS: cefTRIAXone SOD 1 GM in D5W MINI-BAG PLUS 50 ML IV SCH (15:40)
--- NOTE | 2016-11-10 16:35 | EDDOCDS ---
Physician Documentation [facility] Name: Rosalinda You Age: 76 yrs Sex: Female : 1940 Arrival Date: 11/07/2016 Time: 12:36 Bed Admit Hold Private MD: Ernst Lara Disposition: 11/07/16 17:11 Hospitalization ordered by Yesica Oakley for Inpatient Admission. Preliminary diagnosis is Dizziness and giddiness - elevated yet constant troponin. - Bed requested for PCU. - Status is Inpatient Admission. jo3 - Condition is Stable. - Problem is new. - Symptoms have improved. Historical: - Allergies: no known allergies; - Home Meds: 1. Sertraline 25 mg daily (Last dose: 11/07/2016 08:00) 2. Vytorin 10-40 10-40 mg oral tab 1 tab once daily (Last dose: 11/06/2016) 3. glipizide 5 mg Oral tab 2 tabs 2 times per day (Last dose: 11/07/2016 08:00) 4. latanoprost 0.005 % ophthalmic drop 1 drop nightly (Last dose: 11/06/2016) 5. furosemide 40 mg Oral tab 1 tab once daily (Last dose: 11/07/2016 08:00) 6. potassium chloride 10 mEq Oral cpER 2 caps once daily (Last dose: 11/07/2016 08:00) 7. metoprolol tartrate 25 mg Oral tab 1 tab 2 times per day (Last dose: 11/07/2016 08:00) 8. Januvia 100 mg oral tab 1 tab once daily (Last dose: 11/07/2016 08:00) 9. aspirin 325 mg Oral tab 1 tab once daily (Last dose: 11/07/2016 08:00) 10. enalapril maleate 5 mg Oral tab 1 tab once daily (Last dose: 11/07/2016 08:00) 11. omeprazole 20 mg Oral cpDR 1 cap once daily (Last dose: 11/07/2016 08:00) 12. Colace 100 mg oral cap 1 cap once daily (Last dose: 11/07/2016 08:00) 13. Lantus 100 unit/mL Sub-Q soln 30 unit nightly (Last dose: 11/06/2016) - PMHx: Hypercholesterolemia; Depression; Hypertension; CHF; Diabetes - IDDM: controlled; Glaucoma; GERD; - PSHx: Hysterectomy (April 2014); Tubal ligation; bladder sling; laser eye surgery; quadruple bypass; - Social history: Smoking status: Patient states was never smoker of tobacco. No barriers to communication noted, The patient speaks fluent Lao. - Family history: Not pertinent. - : The pt / caregiver states he / she is not on anticoagulants. Home medication list is obtained from pill bottles. - Exposure Risk Screening:: None identified. Vital Signs: 11/07 12:39 BP 157 / 71; Pulse 56; Resp 16; Temp 96.6(O); Pulse Ox 98% on R/A; Weight 89.81 kg / elp 198 lbs (R); Height 5 ft. 5 in. (165.10 cm) (R); Pain 0/10; 14:22 Pulse 60 MON; Pulse Ox 97% ; ko2 14:23 BP 145 / 74 (auto/); ko2 14:38 BP 146 / 70 (auto/); ko2 14:38 Pulse 58 MON; Pulse Ox 96% ; ko2 14:53 BP 137 / 67 (auto/); ko2 14:53 Pulse 58 MON; Pulse Ox 96% ; ko2 15:07 Pulse 58 MON; Pulse Ox 95% ; ko2 15:08 BP 141 / 70 (auto/); ko2 15:22 Pulse 58 MON; Pulse Ox 97% ; ko2 15:23 BP 140 / 78 (auto/); ko2 15:52 Pulse 56 MON; Pulse Ox 97% ; ko2 15:53 BP 164 / 77 (auto/); ko2 16:06 Pulse 56 MON; Pulse Ox 97% ; ko2 16:08 BP 166 / 80 (auto/); ko2 16:23 BP 170 / 87 (auto/); ko2 16:23 Pulse 60 MON; Pulse Ox 96% ; ko2 16:26 BP 194 / 88 (auto/); ko2 16:26 Pulse 62 MON; Pulse Ox 96% ; ko2 16:37 Pulse 62 MON; Pulse Ox 95% ; ko2 16:38 BP 180 / 81 (auto/); ko2 16:52 Pulse 60 MON; Pulse Ox 96% ; ko2 16:53 BP 167 / 67 (auto/); ko2 17:08 BP 185 / 81 (auto/); ko2 17:08 Pulse 60 MON; Pulse Ox 96% ; ko2 17:23 BP 183 / 86 (auto/); ko2 17:23 Pulse 60 MON; Pulse Ox 96% ; ko2 17:53 BP 153 / 73 (auto/); ko2 17:53 Pulse 58 MON; Pulse Ox 96% ; ko2 18:07 Pulse 58 MON; Pulse Ox 97% ; ko2 18:08 BP 157 / 73 (auto/); ko2 18:38 BP 106 / 54 (auto/); ko2 18:38 Pulse 60 MON; ko2 18:40 BP 106 / 57 (auto/); ko2 18:40 Pulse 60 MON; Pulse Ox 95% ; ko2 18:51 BP 109 / 55 (auto/); ko2 18:51 Pulse 56 MON; Pulse Ox 96% ; ko2 18:53 BP 107 / 55 (auto/); ko2 18:53 Pulse 58 MON; Pulse Ox 96% ; ko2 19:07 Pulse 60 MON; Pulse Ox 95% ; ko2 19:08 BP 124 / 60 (auto/); ko2 19:23 BP 129 / 55 (auto/); ko2 19:23 Pulse 60 MON; Pulse Ox 95% ; ko2 19:38 BP 118 / 59 (auto/); ko2 19:38 Pulse 60 MON; Pulse Ox 96% ; ko2 19:52 Pulse 60 MON; Pulse Ox 96% ; ko2 19:53 BP 126 / 61 (auto/); ko2 20:07 Pulse 62 MON; Pulse Ox 95% ; ko2 20:08 BP 123 / 60 (auto/); ko2 20:22 BP 114 / 55 (auto/); ko2 20:22 Pulse 60 MON; Pulse Ox 95% ; ko2 20:23 BP 118 / 59 (auto/); ko2 20:23 Pulse 60 MON; Pulse Ox 95% ; ko2 20:24 BP 112 / 63; Pulse 72; Resp 18; Temp 96.9(O); Pulse Ox 96% on R/A; Pain 0/10; cp1 20:38 BP 117 / 57 (auto/); ko2 20:38 Pulse 60 MON; Pulse Ox 96% ; ko2 20:52 Pulse 58 MON; Pulse Ox 95% ; ko2 20:53 BP 114 / 54 (auto/); ko2 21:06 Pulse 56 MON; Pulse Ox 95% ; ko2 21:08 BP 115 / 56 (auto/); ko2 21:22 Pulse 58 MON; Pulse Ox 95% ; ko2 21:23 BP 119 / 56 (auto/); ko2 21:38 BP 155 / 68 (auto/); ko2 21:38 Pulse 60 MON; Pulse Ox 96% ; ko2 21:53 BP 120 / 54 (auto/); ko2 21:53 Pulse 58 MON; Pulse Ox 94% ; ko2 22:13 Pulse 76 MON; ko2 22:14 BP 135 / 80 (auto/); ko2 22:22 Pulse 58 MON; Pulse Ox 94% ; ko2 22:23 BP 125 / 59 (auto/); ko2 22:38 BP 122 / 60 (auto/); ko2 22:38 Pulse 60 MON; Pulse Ox 94% ; ko2 22:52 Pulse 64 MON; Pulse Ox 94% ; ko2 22:53 BP 113 / 56 (auto/); ko2 23:07 Pulse 62 MON; Pulse Ox 93% ; ko2 23:08 BP 117 / 56 (auto/); ko2 23:09 BP 117 / 56 (auto/); ko2 23:09 Pulse 64 MON; Pulse Ox 94% ; ko2 11/08 00:00 BP 117 / 55; Pulse 64; Resp 18; Temp 98.7(TE); Pulse Ox 98% ; Pain 4/10; ko2 07:36 BP 114 / 56; Pulse 62; Resp 16; Temp 97.4(O); Pulse Ox 95% on R/A; Pain 0/10; kr3 07:57 BP 113 / 53 (auto/); kr3 07:57 Pulse 62 MON; Pulse Ox 95% ; kr3 07:58 BP 97 / 52 (auto/); kr3 07:58 Pulse 62 MON; Pulse Ox 93% ; kr3 08:37 BP 133 / 59 (auto/); kr3 08:37 Pulse 62 MON; Pulse Ox 93% ; kr3 11/07 12:39 Body Mass Index 32.95 (89.81 kg, 165.10 cm) elp MDM: 11/07 13:51 RN interventions must not delay CT ordered. ml 13:51 Home Care Physical Therapist/Pulse Ox/q 15 min VS ordered. ml 13:51 Accucheck ordered. ml 13:51 IV Saline Lock ordered. ml 13:51 Neuro VS q 15 Minutes ordered. ml 13:51 Rhythm Strip to chart ordered. ml 13:51 Stroke assessment pack to bedside ordered. ml 13:51 Basic Metabolic Profile Ordered. EDMS 13:51 CBC with Diff Ordered. EDMS 13:51 Partial Thromboplastin Time Ordered. EDMS 13:51 Prothrombin Time Profile\E\INR Ordered. EDMS 13:51 CIP Ordered. EDMS 13:51 Troponin Ordered. EDMS 13:52 Chest, 1 View Ordered. EDMS 13:52 Type & Screen Ordered. EDMS 13:52 CT Head Without Contrast Ordered. EDMS 13:52 ECG WITH READING ER PHYS+CARDIAG ordered. EDMS 14:09 [facility] Payment Agreement was scanned into [employer] and attached to record. [id number] 14:09 Financial registration complete. dm19 14:21 Fingerstick Blood Sugar Ordered. EDMS 14:38 MRI Screening Tool - Place on chart, inform RN ordered. ml 14:50 MRI Screening Tool - Place on chart, inform RN complete. ct3 15:44 Basic Metabolic Profile Reviewed. ml 15:44 CBC with Diff Reviewed. ml 15:44 Partial Thromboplastin Time Reviewed. ml 15:44 Troponin Reviewed. ml 15:44 Fingerstick Blood Sugar Reviewed. ml 15:44 Prothrombin Time Profile\E\INR Reviewed. ml 15:44 Type & Screen Reviewed. ml 15:44 CIP Reviewed. ml 15:51 Repeat EKG (put time details section) ordered. ml 15:51 Redraw CIP &Troponin (put time in details section) ordered. ml 15:55 Redraw CIP &Troponin (put time in details section) complete. ar3 15:55 Repeat EKG (put time details section) complete. ar3 15:55 ECG WITH READING ER PHYS ordered. EDMS 15:56 CARDIAC MARKER PANEL Ordered. EDMS 16:40 CARDIAC MARKER PANEL Reviewed. ml 17:08 CONSISTENT CARBOHYDRATE+DIET ordered. EDMS 17:09 BED REQUEST+ADM ordered. EDMS 17:17 ELECTROCARDIOGRAM ADULT ordered. EDMS 17:17 CARDIAC MARKER PANEL Ordered. EDMS 17:19 URINALYSIS Ordered. EDMS 18:27 Admission / Observation Status ordered. EDMS 18:34 BRAIN NATIURETIC PEPTIDE Ordered. EDMS 18:36 PHYSICAL THERAPY EVAL & TREAT ordered. EDMS 18:42 MRI Brain without Contrast Ordered. EDMS 18:42 MRA BRAIN W/O CONTRAST Ordered. EDMS 19:32 CBC WITH DIFFERENTIAL Ordered. EDMS 19:32 BASIC METABOLIC PROFILE Ordered. EDMS 19:32 BRAIN NATIURETIC PEPTIDE Ordered. EDMS 22:35 T-Sheet-- Draft Copy was scanned into [employer] and attached to record. klr 23:16 Fingerstick Blood Sugar Ordered. EDMS 11/08 02:29 CARDIAC MARKER PANEL Ordered. EDMS 02:30 THYROID STIMULATING HORMONE Ordered. EDMS 11:26 D-DIMER QUANT Ordered. EDMS 12:45 URINE CULTURE Ordered. EDMS 15:02 CT ANGIO CHEST Ordered. EDMS 11/09 09:42 ECG/EKG was scanned into [employer] and attached to record. gb Signatures: Dispatcher [facility] Jason Yip MD MD ml Monique Vann, RN RN gisele Palacios, Pamela, Reg Reg gb Arti, Ana, Ticket Counter Unit ml3 Giulia Maldonado,RN RN jo3 Jo Ann Layton, RADIOTELEGRAPHER RADIOTELEGRAPHER ar3 Giulia Valentino, RN RN jc4 Lilliam Alvarez, RADIOTELEGRAPHER RADIOTELEGRAPHER ct3 Bhaskar Barraza,RN RN sukhi3 Joanne Lal Diane [id number] The chart was reviewed and I authenticate all verbal orders and agree with the evaluation and treatment provided.Corrections: (The following items were deleted from the chart) 11/07 14:31 13:51 Consult [facility]: Telemedicine Stroke Attending ordered. [facility] 15:57 14:39 MRA-Brain without contrast+MR ordered. EDNY EDNY 15:57 14:39 MRA-Carotid with contrast+MR ordered. EDNY EDNY 15:57 14:39 MRI-Brain without+MR ordered. EDNY EDMS 17:24 17:17 MAGNESIUM LEVEL ordered. EDNY EDMS 17:24 17:17 LIVER PROFILE ordered. EDNY EDMS 17:40 13:51 Patient must be on CC stretcher and weighed via bed scale ordered. jf3 11/08 02:29 11/07 19:31 CARDIAC MARKER PANEL ordered. EDNY EDNY 11/08 02:29 11/07 19:33 THYROID STIMULATING HORMONE ordered. EDNY EDMS 11/08 09:42 08:45 FREE T4 ordered. EDMS EDMS 09: 08:45 TOTAL T3 ordered. EDMS EDMS 11:13 11/07 18:43 MRI Spine, Cervical with con ordered. EDMS EDMS 11/08 12:46 11/07 17:19 URINE CULTURE ordered. EDMS EDMS Attachments: 14:09 [facility] Payment Agreement [email or web address] 22:35 T-Sheet-- Draft Copy klr 11/09 09:42 ECG/EKG gb Chart Complete MTDD
--- NOTE | 2016-11-10 16:35 | EDDOCDS ---
Physician Documentation [facility] Name: Rosalinda You Age: 76 yrs Sex: Female : 1940 Arrival Date: 11/07/2016 Time: 12:36 Bed Admit Hold Private MD: Ernst Lara Disposition: 11/07/16 17:11 Hospitalization ordered by Yesica Oakley for Inpatient Admission. Preliminary diagnosis is Dizziness and giddiness - elevated yet constant troponin. - Bed requested for PCU. - Status is Inpatient Admission. jo3 - Condition is Stable. - Problem is new. - Symptoms have improved. Historical: - Allergies: no known allergies; - Home Meds: 1. Sertraline 25 mg daily (Last dose: 11/07/2016 08:00) 2. Vytorin 10-40 10-40 mg oral tab 1 tab once daily (Last dose: 11/06/2016) 3. glipizide 5 mg Oral tab 2 tabs 2 times per day (Last dose: 11/07/2016 08:00) 4. latanoprost 0.005 % ophthalmic drop 1 drop nightly (Last dose: 11/06/2016) 5. furosemide 40 mg Oral tab 1 tab once daily (Last dose: 11/07/2016 08:00) 6. potassium chloride 10 mEq Oral cpER 2 caps once daily (Last dose: 11/07/2016 08:00) 7. metoprolol tartrate 25 mg Oral tab 1 tab 2 times per day (Last dose: 11/07/2016 08:00) 8. Januvia 100 mg oral tab 1 tab once daily (Last dose: 11/07/2016 08:00) 9. aspirin 325 mg Oral tab 1 tab once daily (Last dose: 11/07/2016 08:00) 10. enalapril maleate 5 mg Oral tab 1 tab once daily (Last dose: 11/07/2016 08:00) 11. omeprazole 20 mg Oral cpDR 1 cap once daily (Last dose: 11/07/2016 08:00) 12. Colace 100 mg oral cap 1 cap once daily (Last dose: 11/07/2016 08:00) 13. Lantus 100 unit/mL Sub-Q soln 30 unit nightly (Last dose: 11/06/2016) - PMHx: Hypercholesterolemia; Depression; Hypertension; CHF; Diabetes - IDDM: controlled; Glaucoma; GERD; - PSHx: Hysterectomy (April 2014); Tubal ligation; bladder sling; laser eye surgery; quadruple bypass; - Social history: Smoking status: Patient states was never smoker of tobacco. No barriers to communication noted, The patient speaks fluent Tuvaluan. - Family history: Not pertinent. - : The pt / caregiver states he / she is not on anticoagulants. Home medication list is obtained from pill bottles. - Exposure Risk Screening:: None identified. Vital Signs: 11/07 12:39 BP 157 / 71; Pulse 56; Resp 16; Temp 96.6(O); Pulse Ox 98% on R/A; Weight 89.81 kg / elp 198 lbs (R); Height 5 ft. 5 in. (165.10 cm) (R); Pain 0/10; 14:22 Pulse 60 MON; Pulse Ox 97% ; ko2 14:23 BP 145 / 74 (auto/); ko2 14:38 BP 146 / 70 (auto/); ko2 14:38 Pulse 58 MON; Pulse Ox 96% ; ko2 14:53 BP 137 / 67 (auto/); ko2 14:53 Pulse 58 MON; Pulse Ox 96% ; ko2 15:07 Pulse 58 MON; Pulse Ox 95% ; ko2 15:08 BP 141 / 70 (auto/); ko2 15:22 Pulse 58 MON; Pulse Ox 97% ; ko2 15:23 BP 140 / 78 (auto/); ko2 15:52 Pulse 56 MON; Pulse Ox 97% ; ko2 15:53 BP 164 / 77 (auto/); ko2 16:06 Pulse 56 MON; Pulse Ox 97% ; ko2 16:08 BP 166 / 80 (auto/); ko2 16:23 BP 170 / 87 (auto/); ko2 16:23 Pulse 60 MON; Pulse Ox 96% ; ko2 16:26 BP 194 / 88 (auto/); ko2 16:26 Pulse 62 MON; Pulse Ox 96% ; ko2 16:37 Pulse 62 MON; Pulse Ox 95% ; ko2 16:38 BP 180 / 81 (auto/); ko2 16:52 Pulse 60 MON; Pulse Ox 96% ; ko2 16:53 BP 167 / 67 (auto/); ko2 17:08 BP 185 / 81 (auto/); ko2 17:08 Pulse 60 MON; Pulse Ox 96% ; ko2 17:23 BP 183 / 86 (auto/); ko2 17:23 Pulse 60 MON; Pulse Ox 96% ; ko2 17:53 BP 153 / 73 (auto/); ko2 17:53 Pulse 58 MON; Pulse Ox 96% ; ko2 18:07 Pulse 58 MON; Pulse Ox 97% ; ko2 18:08 BP 157 / 73 (auto/); ko2 18:38 BP 106 / 54 (auto/); ko2 18:38 Pulse 60 MON; ko2 18:40 BP 106 / 57 (auto/); ko2 18:40 Pulse 60 MON; Pulse Ox 95% ; ko2 18:51 BP 109 / 55 (auto/); ko2 18:51 Pulse 56 MON; Pulse Ox 96% ; ko2 18:53 BP 107 / 55 (auto/); ko2 18:53 Pulse 58 MON; Pulse Ox 96% ; ko2 19:07 Pulse 60 MON; Pulse Ox 95% ; ko2 19:08 BP 124 / 60 (auto/); ko2 19:23 BP 129 / 55 (auto/); ko2 19:23 Pulse 60 MON; Pulse Ox 95% ; ko2 19:38 BP 118 / 59 (auto/); ko2 19:38 Pulse 60 MON; Pulse Ox 96% ; ko2 19:52 Pulse 60 MON; Pulse Ox 96% ; ko2 19:53 BP 126 / 61 (auto/); ko2 20:07 Pulse 62 MON; Pulse Ox 95% ; ko2 20:08 BP 123 / 60 (auto/); ko2 20:22 BP 114 / 55 (auto/); ko2 20:22 Pulse 60 MON; Pulse Ox 95% ; ko2 20:23 BP 118 / 59 (auto/); ko2 20:23 Pulse 60 MON; Pulse Ox 95% ; ko2 20:24 BP 112 / 63; Pulse 72; Resp 18; Temp 96.9(O); Pulse Ox 96% on R/A; Pain 0/10; cp1 20:38 BP 117 / 57 (auto/); ko2 20:38 Pulse 60 MON; Pulse Ox 96% ; ko2 20:52 Pulse 58 MON; Pulse Ox 95% ; ko2 20:53 BP 114 / 54 (auto/); ko2 21:06 Pulse 56 MON; Pulse Ox 95% ; ko2 21:08 BP 115 / 56 (auto/); ko2 21:22 Pulse 58 MON; Pulse Ox 95% ; ko2 21:23 BP 119 / 56 (auto/); ko2 21:38 BP 155 / 68 (auto/); ko2 21:38 Pulse 60 MON; Pulse Ox 96% ; ko2 21:53 BP 120 / 54 (auto/); ko2 21:53 Pulse 58 MON; Pulse Ox 94% ; ko2 22:13 Pulse 76 MON; ko2 22:14 BP 135 / 80 (auto/); ko2 22:22 Pulse 58 MON; Pulse Ox 94% ; ko2 22:23 BP 125 / 59 (auto/); ko2 22:38 BP 122 / 60 (auto/); ko2 22:38 Pulse 60 MON; Pulse Ox 94% ; ko2 22:52 Pulse 64 MON; Pulse Ox 94% ; ko2 22:53 BP 113 / 56 (auto/); ko2 23:07 Pulse 62 MON; Pulse Ox 93% ; ko2 23:08 BP 117 / 56 (auto/); ko2 23:09 BP 117 / 56 (auto/); ko2 23:09 Pulse 64 MON; Pulse Ox 94% ; ko2 11/08 00:00 BP 117 / 55; Pulse 64; Resp 18; Temp 98.7(TE); Pulse Ox 98% ; Pain 4/10; ko2 07:36 BP 114 / 56; Pulse 62; Resp 16; Temp 97.4(O); Pulse Ox 95% on R/A; Pain 0/10; kr3 07:57 BP 113 / 53 (auto/); kr3 07:57 Pulse 62 MON; Pulse Ox 95% ; kr3 07:58 BP 97 / 52 (auto/); kr3 07:58 Pulse 62 MON; Pulse Ox 93% ; kr3 08:37 BP 133 / 59 (auto/); kr3 08:37 Pulse 62 MON; Pulse Ox 93% ; kr3 11/07 12:39 Body Mass Index 32.95 (89.81 kg, 165.10 cm) elp MDM: 11/07 13:51 RN interventions must not delay CT ordered. ml 13:51 [employer] Certified [employer] Professional/Pulse Ox/q 15 min VS ordered. ml 13:51 Accucheck ordered. ml 13:51 IV Saline Lock ordered. ml 13:51 Neuro VS q 15 Minutes ordered. ml 13:51 Rhythm Strip to chart ordered. ml 13:51 Stroke assessment pack to bedside ordered. ml 13:51 Basic Metabolic Profile Ordered. EDMS 13:51 CBC with Diff Ordered. EDMS 13:51 Partial Thromboplastin Time Ordered. EDMS 13:51 Prothrombin Time Profile\E\INR Ordered. EDMS 13:51 CIP Ordered. EDMS 13:51 Troponin Ordered. EDMS 13:52 Chest, 1 View Ordered. EDMS 13:52 Type & Screen Ordered. EDMS 13:52 CT Head Without Contrast Ordered. EDMS 13:52 ECG WITH READING ER PHYS+CARDIAG ordered. EDMS 14:09 [facility] Payment Agreement was scanned into [employer] and attached to record. [id number] 14:09 Financial registration complete. dm19 14:21 Fingerstick Blood Sugar Ordered. EDMS 14:38 MRI Screening Tool - Place on chart, inform RN ordered. ml 14:50 MRI Screening Tool - Place on chart, inform RN complete. ct3 15:44 Basic Metabolic Profile Reviewed. ml 15:44 CBC with Diff Reviewed. ml 15:44 Partial Thromboplastin Time Reviewed. ml 15:44 Troponin Reviewed. ml 15:44 Fingerstick Blood Sugar Reviewed. ml 15:44 Prothrombin Time Profile\E\INR Reviewed. ml 15:44 Type & Screen Reviewed. ml 15:44 CIP Reviewed. ml 15:51 Repeat EKG (put time details section) ordered. ml 15:51 Redraw CIP &Troponin (put time in details section) ordered. ml 15:55 Redraw CIP &Troponin (put time in details section) complete. ar3 15:55 Repeat EKG (put time details section) complete. ar3 15:55 ECG WITH READING ER PHYS ordered. EDMS 15:56 CARDIAC MARKER PANEL Ordered. EDMS 16:40 CARDIAC MARKER PANEL Reviewed. ml 17:08 CONSISTENT CARBOHYDRATE+DIET ordered. EDMS 17:09 BED REQUEST+ADM ordered. EDMS 17:17 ELECTROCARDIOGRAM ADULT ordered. EDMS 17:17 CARDIAC MARKER PANEL Ordered. EDMS 17:19 URINALYSIS Ordered. EDMS 18:27 Admission / Observation Status ordered. EDMS 18:34 BRAIN NATIURETIC PEPTIDE Ordered. EDMS 18:36 PHYSICAL THERAPY EVAL & TREAT ordered. EDMS 18:42 MRI Brain without Contrast Ordered. EDMS 18:42 MRA BRAIN W/O CONTRAST Ordered. EDMS 19:32 CBC WITH DIFFERENTIAL Ordered. EDMS 19:32 BASIC METABOLIC PROFILE Ordered. EDMS 19:32 BRAIN NATIURETIC PEPTIDE Ordered. EDMS 22:35 T-Sheet-- Draft Copy was scanned into [employer] and attached to record. klr 23:16 Fingerstick Blood Sugar Ordered. EDMS 11/08 02:29 CARDIAC MARKER PANEL Ordered. EDMS 02:30 THYROID STIMULATING HORMONE Ordered. EDMS 11:26 D-DIMER QUANT Ordered. EDMS 12:45 URINE CULTURE Ordered. EDMS 15:02 CT ANGIO CHEST Ordered. EDMS 11/09 09:42 ECG/EKG was scanned into [employer] and attached to record. gb Signatures: Dispatcher [facility] Jason Yip MD MD ml Monique Vann, RN RN gisele Palacios, Pamela, Reg Reg gb Arti, Ana, Slubber Operator Unit ml3 Giulia Maldonado,RN RN jo3 Jo Ann Layton, BUILDING SERVICE WORKER BUILDING SERVICE WORKER ar3 Giulia Valentino, RN RN jc4 Lilliam Alvarez, BUILDING SERVICE WORKER BUILDING SERVICE WORKER ct3 Bhaskar Barraza,RN RN sukhi3 Joanne Lal Diane [id number] The chart was reviewed and I authenticate all verbal orders and agree with the evaluation and treatment provided.Corrections: (The following items were deleted from the chart) 11/07 14:31 13:51 Consult [facility]: Telemedicine Stroke Attending ordered. [facility] 15:57 14:39 MRA-Brain without contrast+MR ordered. EDWV EDWV 15:57 14:39 MRA-Carotid with contrast+MR ordered. EDWV EDWV 15:57 14:39 MRI-Brain without+MR ordered. EDWV EDMS 17:24 17:17 MAGNESIUM LEVEL ordered. EDWV EDMS 17:24 17:17 LIVER PROFILE ordered. EDWV EDMS 17:40 13:51 Patient must be on CC stretcher and weighed via bed scale ordered. jf3 11/08 02:29 11/07 19:31 CARDIAC MARKER PANEL ordered. EDWV EDWV 11/08 02:29 11/07 19:33 THYROID STIMULATING HORMONE ordered. EDWV EDMS 11/08 09:42 08:45 FREE T4 ordered. EDMS EDMS 09: 08:45 TOTAL T3 ordered. EDMS EDMS 11:13 11/07 18:43 MRI Spine, Cervical with con ordered. EDMS EDMS 11/08 12:46 11/07 17:19 URINE CULTURE ordered. EDMS EDMS Attachments: 14:09 [facility] Payment Agreement [email or web address] 22:35 T-Sheet-- Draft Copy klr 11/09 09:42 ECG/EKG gb Chart Complete MTDD
--- NOTE | 2016-11-10 16:35 | EDDOCDS ---
Nurse's Notes [facility] Name: Batool Foreman Age: 76 yrs Sex: Female : 1940 Arrival Date: 11/07/2016 Time: 12:36 Bed Admit Hold Private MD: Reason, Edward Diagnosis: Dizziness and giddiness-elevated yet constant troponin Presentation: 11/07 12:42 Red Flag criteria, patient assessed and is suitable to finish the RCE Process. dls 12:45 Presenting complaint: Patient states: "I've had trouble with my neck and I have a vein jc4 that is too small and there is something wrong with my head". Daughter states, "she's been having episodes of dizziness, weak". Just discharged from [facility] on [address] for same. Adult Sepsis Screening: The patient does not have new or worsening altered mentation. Patient's respiratory rate is less than 22. Systolic blood pressure is greater than 100. Patient has a qSOFA score of 0- Negative Sepsis Screen. Suicide/Homicide risk assessment- the patient denies having any suicidal and/or homicidal ideations and does not present with any other emotional, behavioral or mental health complaints. Status: Patient is not a customer service leader or dependent. Transition of care: patient was not received from another setting of care. 12:45 Acuity: FRANCIS Level 3 jc4 12:45 Method Of Arrival: Wheelchair jc4 Triage Assessment: 12:54 General: Appears in no apparent distress. jc4 12:54 Pain: Denies pain. jc4 Historical: - Allergies: no known allergies; - Home Meds: 1. Sertraline 25 mg daily (Last dose: 11/07/2016 08:00) 2. Vytorin 10-40 10-40 mg oral tab 1 tab once daily (Last dose: 11/06/2016) 3. glipizide 5 mg Oral tab 2 tabs 2 times per day (Last dose: 11/07/2016 08:00) 4. latanoprost 0.005 % ophthalmic drop 1 drop nightly (Last dose: 11/06/2016) 5. furosemide 40 mg Oral tab 1 tab once daily (Last dose: 11/07/2016 08:00) 6. potassium chloride 10 mEq Oral cpER 2 caps once daily (Last dose: 11/07/2016 08:00) 7. metoprolol tartrate 25 mg Oral tab 1 tab 2 times per day (Last dose: 11/07/2016 08:00) 8. Januvia 100 mg oral tab 1 tab once daily (Last dose: 11/07/2016 08:00) 9. aspirin 325 mg Oral tab 1 tab once daily (Last dose: 11/07/2016 08:00) 10. enalapril maleate 5 mg Oral tab 1 tab once daily (Last dose: 11/07/2016 08:00) 11. omeprazole 20 mg Oral cpDR 1 cap once daily (Last dose: 11/07/2016 08:00) 12. Colace 100 mg oral cap 1 cap once daily (Last dose: 11/07/2016 08:00) 13. Lantus 100 unit/mL Sub-Q soln 30 unit nightly (Last dose: 11/06/2016) - PMHx: Hypercholesterolemia; Depression; Hypertension; CHF; Diabetes - IDDM: controlled; Glaucoma; GERD; - PSHx: Hysterectomy (April 2014); Tubal ligation; bladder sling; laser eye surgery; quadruple bypass; - Social history: Smoking status: Patient states was never smoker of tobacco. No barriers to communication noted, The patient speaks fluent Iraqi. - Family history: Not pertinent. - : The pt / caregiver states he / she is not on anticoagulants. Home medication list is obtained from pill bottles. - Exposure Risk Screening:: None identified. Screenin:11 Screening information is obtained from prior medical records. Fall risk: At risk due to ko2 age, prior history of falls. Assistance ADL's: requires no assistance with activities of daily living. Abuse/DV Screen: The patient / caregiver reports he/she is: not in a situation that causes fear, pain or injury. Nutritional screening: No deficits noted. Advance Directives: Currently, there is a health care proxy, Leanna Hugo - Daughter. home support is adequate. Assessment: 13:40 Adult Sepsis Screening: The patient does not have new or worsening altered mentation. jf3 Patient's respiratory rate is less than 22. Systolic blood pressure is greater than 100. General: Appears in no apparent distress, comfortable, Behavior is cooperative. Pain: Location: posterior neck and head. Neurological: Level of Consciousness is awake, alert, Oriented to person, place, time, Inventory Control Clerk are equal bilaterally Moves all extremities. Speech is normal, Facial symmetry appears normal, Pupils are PERRLA. Cardiovascular: Capillary refill < 3 seconds Heart tones S1 S2 present Chest pain is denied. Respiratory: Airway is patent Respiratory effort is even, unlabored, Respiratory pattern is regular, symmetrical, Breath sounds are clear bilaterally. Reports shortness of breath intermittently. Derm: Skin is normal. 14:00 General: pt to CT. jf3 14:30 General: Appears in no apparent distress, comfortable, Behavior is cooperative. jf3 Neurological: Level of Consciousness is awake, alert, Oriented to person, place, time, Inventory Control Clerk are equal bilaterally Moves all extremities. Speech is normal, Facial symmetry appears normal, Pupils are PERRLA. 15:30 General: Appears in no apparent distress, comfortable, Behavior is cooperative. jf3 General: Pt up to bedside commode without difficulty. Pain: Pain currently is 5 out of 10 on a pain scale. Neurological: Level of Consciousness is awake, alert, Oriented to person, place, time, Inventory Control Clerk are equal bilaterally Moves all extremities. Speech is normal, Facial symmetry appears normal, Pupils are PERRLA. Respiratory: Airway is patent Respiratory effort is even, unlabored, Respiratory pattern is regular, symmetrical. 16:30 General: Appears in no apparent distress, comfortable, Behavior is cooperative, Pt jf3 resting supine on stretcher with daughter at bedside. respirations easy and unlabored. Neuro checks all negative at this time. Call light in reach. Will continue to monitor. 17:45 General: Appears in no apparent distress, comfortable, Behavior is cooperative, Pt jf3 resting supine on stretcher. respirations easy and unlabored. Pt states pain has decreased. Family at bedside. Will continue to monitor. 18:30 General: Appears in no apparent distress, comfortable, Behavior is cooperative, Pt jf3 resting supine on stretcher with family at bedside. Diet tray given and taken in well. respirations easy and unlabored. Call light in reach. 19:10 General: Appears in no apparent distress, comfortable, Behavior is cooperative. Pain: ko2 Location: head and neck Pain currently is 5 out of 10 on a pain scale. Quality of pain is described as aching. Neurological: Level of Consciousness is awake, alert. Cardiovascular: Heart tones S1 S2 present. Respiratory: Airway is patent Respiratory effort is even, unlabored, Respiratory pattern is regular, symmetrical. Derm: Skin is normal. 20:15 General: Appears in no apparent distress, comfortable, Behavior is cooperative. ko2 Neurological: Level of Consciousness is awake, alert. Respiratory: Airway is patent Respiratory effort is even, unlabored. Derm: Skin is normal. 21:07 General: Appears in no apparent distress, Behavior is cooperative. Neurological: Level ko2 of Consciousness is awake, alert, Oriented to. Respiratory: Airway is patent Respiratory effort is even, unlabored. Derm: Skin is normal. 22:12 General: Appears in no apparent distress, comfortable, Behavior is cooperative. ko2 Neurological: Level of Consciousness is awake, alert. Respiratory: Airway is patent Respiratory effort is even, unlabored, Respiratory pattern is regular, symmetrical. Derm: Skin is normal. 11/08 00:00 General: Appears in no apparent distress, comfortable. Pain: Location: neck and head. ko2 Neurological: Level of Consciousness is awake, alert. Cardiovascular: Heart tones S1 S2 present Rhythm is sinus bradycardia No ectopy. Chest pain is denied. Respiratory: Airway is patent Respiratory effort is even, unlabored. Derm: Skin is normal. 01:00 General: Appears in no apparent distress, pt appears to be sleeping on stretcher. No ko2 concerns at this time. 02:00 General: pt appears to be resting on stretcher. Respirations unlabored, Skin warm and ko2 dry. No concerns at this time.. 03:00 General: Appears in no apparent distress, comfortable. Respiratory: Airway is patent ko2 Respiratory effort is even, unlabored. Derm: Skin is normal. 04:00 General: Appears in no apparent distress, comfortable, Behavior is appropriate for age, ko2 cooperative. Pain: Location: neck and head. Neurological: Level of Consciousness is awake, alert, Oriented to person, place, time. Cardiovascular: Heart tones S1 S2 present Rhythm is sinus bradycardia Chest pain is denied. Respiratory: Airway is patent Respiratory effort is even, unlabored, Respiratory pattern is regular, symmetrical. Derm: Skin is normal. Musculoskeletal: Range of motion intact in all extremities. 06:28 General: Appears in no apparent distress, comfortable, Behavior is appropriate for age, ko2 cooperative. Neurological: Level of Consciousness is awake, alert, Oriented to person, place, time. Respiratory: Airway is patent Respiratory effort is even, unlabored. Derm: Skin is normal. 07:35 Reassessment: Patient appears in no apparent distress at this time. Cardiovascular: kr3 Rhythm is sinus rhythm. 08:56 Reassessment: Patient appears in no apparent distress at this time. Reassessment: kr3 talking with Dr Rojo. Cardiovascular: Rhythm is sinus rhythm. Vital Signs: 11/07 12:39 BP 157 / 71; Pulse 56; Resp 16; Temp 96.6(O); Pulse Ox 98% on R/A; Weight 89.81 kg (R); elp Height 5 ft. 5 in. (165.10 cm) (R); Pain 0/10; 14:22 Pulse 60 MON; Pulse Ox 97% ; ko2 14:23 BP 145 / 74 (auto/); ko2 14:38 BP 146 / 70 (auto/); ko2 14:38 Pulse 58 MON; Pulse Ox 96% ; ko2 14:53 BP 137 / 67 (auto/); ko2 14:53 Pulse 58 MON; Pulse Ox 96% ; ko2 15:07 Pulse 58 MON; Pulse Ox 95% ; ko2 15:08 BP 141 / 70 (auto/); ko2 15:22 Pulse 58 MON; Pulse Ox 97% ; ko2 15:23 BP 140 / 78 (auto/); ko2 15:52 Pulse 56 MON; Pulse Ox 97% ; ko2 15:53 BP 164 / 77 (auto/); ko2 16:06 Pulse 56 MON; Pulse Ox 97% ; ko2 16:08 BP 166 / 80 (auto/); ko2 16:23 BP 170 / 87 (auto/); ko2 16:23 Pulse 60 MON; Pulse Ox 96% ; ko2 16:26 BP 194 / 88 (auto/); ko2 16:26 Pulse 62 MON; Pulse Ox 96% ; ko2 16:37 Pulse 62 MON; Pulse Ox 95% ; ko2 16:38 BP 180 / 81 (auto/); ko2 16:52 Pulse 60 MON; Pulse Ox 96% ; ko2 16:53 BP 167 / 67 (auto/); ko2 17:08 BP 185 / 81 (auto/); ko2 17:08 Pulse 60 MON; Pulse Ox 96% ; ko2 17:23 BP 183 / 86 (auto/); ko2 17:23 Pulse 60 MON; Pulse Ox 96% ; ko2 17:53 BP 153 / 73 (auto/); ko2 17:53 Pulse 58 MON; Pulse Ox 96% ; ko2 18:07 Pulse 58 MON; Pulse Ox 97% ; ko2 18:08 BP 157 / 73 (auto/); ko2 18:38 BP 106 / 54 (auto/); ko2 18:38 Pulse 60 MON; ko2 18:40 BP 106 / 57 (auto/); ko2 18:40 Pulse 60 MON; Pulse Ox 95% ; ko2 18:51 BP 109 / 55 (auto/); ko2 18:51 Pulse 56 MON; Pulse Ox 96% ; ko2 18:53 BP 107 / 55 (auto/); ko2 18:53 Pulse 58 MON; Pulse Ox 96% ; ko2 19:07 Pulse 60 MON; Pulse Ox 95% ; ko2 19:08 BP 124 / 60 (auto/); ko2 19:23 BP 129 / 55 (auto/); ko2 19:23 Pulse 60 MON; Pulse Ox 95% ; ko2 19:38 BP 118 / 59 (auto/); ko2 19:38 Pulse 60 MON; Pulse Ox 96% ; ko2 19:52 Pulse 60 MON; Pulse Ox 96% ; ko2 19:53 BP 126 / 61 (auto/); ko2 20:07 Pulse 62 MON; Pulse Ox 95% ; ko2 20:08 BP 123 / 60 (auto/); ko2 20:22 BP 114 / 55 (auto/); ko2 20:22 Pulse 60 MON; Pulse Ox 95% ; ko2 20:23 BP 118 / 59 (auto/); ko2 20:23 Pulse 60 MON; Pulse Ox 95% ; ko2 20:24 BP 112 / 63; Pulse 72; Resp 18; Temp 96.9(O); Pulse Ox 96% on R/A; Pain 0/10; cp1 20:38 BP 117 / 57 (auto/); ko2 20:38 Pulse 60 MON; Pulse Ox 96% ; ko2 20:52 Pulse 58 MON; Pulse Ox 95% ; ko2 20:53 BP 114 / 54 (auto/); ko2 21:06 Pulse 56 MON; Pulse Ox 95% ; ko2 21:08 BP 115 / 56 (auto/); ko2 21:22 Pulse 58 MON; Pulse Ox 95% ; ko2 21:23 BP 119 / 56 (auto/); ko2 21:38 BP 155 / 68 (auto/); ko2 21:38 Pulse 60 MON; Pulse Ox 96% ; ko2 21:53 BP 120 / 54 (auto/); ko2 21:53 Pulse 58 MON; Pulse Ox 94% ; ko2 22:13 Pulse 76 MON; ko2 22:14 BP 135 / 80 (auto/); ko2 22:22 Pulse 58 MON; Pulse Ox 94% ; ko2 22:23 BP 125 / 59 (auto/); ko2 22:38 BP 122 / 60 (auto/); ko2 22:38 Pulse 60 MON; Pulse Ox 94% ; ko2 22:52 Pulse 64 MON; Pulse Ox 94% ; ko2 22:53 BP 113 / 56 (auto/); ko2 23:07 Pulse 62 MON; Pulse Ox 93% ; ko2 23:08 BP 117 / 56 (auto/); ko2 23:09 BP 117 / 56 (auto/); ko2 23:09 Pulse 64 MON; Pulse Ox 94% ; ko2 11/08 00:00 BP 117 / 55; Pulse 64; Resp 18; Temp 98.7(TE); Pulse Ox 98% ; Pain 4/10; ko2 07:36 BP 114 / 56; Pulse 62; Resp 16; Temp 97.4(O); Pulse Ox 95% on R/A; Pain 0/10; kr3 07:57 BP 113 / 53 (auto/); kr3 07:57 Pulse 62 MON; Pulse Ox 95% ; kr3 07:58 BP 97 / 52 (auto/); kr3 07:58 Pulse 62 MON; Pulse Ox 93% ; kr3 08:37 BP 133 / 59 (auto/); kr3 08:37 Pulse 62 MON; Pulse Ox 93% ; kr3 11/07 12:39 Body Mass Index 32.95 (89.81 kg, 165.10 cm) el Vitals: 11/07 12:39 Log In Time: November 07, 2016 at 12:[address] [facility] ED Course: 12:37 Patient visited by Yarely Love PCA. elp 12:37 Reason, Edward is Private Physician. elp 12:37 Patient moved to Waiting elp 12:40 Patient visited by Yarely Love PCA. elp 12:40 Patient moved to Pre RCE elp 12:48 Triage Initiated jc4 12:56 Gerry Bey, OLIVA is Primary Nurse. jc4 12:56 Patient moved to 9 jc4 13:36 Jason Yip MD is Attending Physician. ml 13:36 Patient visited by Jason Yip MD. ml 13:40 The patient / caregiver is instructed regarding the plan of care and ED course. jf3 13:42 Patient visited by Bhaskar Barraza RN. jf3 14:09 [facility] Payment Agreement was scanned into [employer] and attached to record. [id number] 14:09 Accompanied by Family Member, Patient has correct armband on for positive ct3 identification. Placed in gown. Bed in low position. Call light in reach. Side rails up X2. radiation monitor on. Pulse ox on. NIBP on. 14:10 Patient visited by Lilliam Alvarez PCA. ct3 14:10 EKG done. (by ED staff). Reviewed by Jason Yip MD. dem1 14:14 Patient name changed from Batool\\S\\\\S\\Foreman\\S\\ to Batool\\S\\J\\S\\Foreman. EDMS 14:14 Patient visited by Eduardo Barnett. dem1 14:26 Troponin Sent. jf3 14:26 CIP Sent. jf3 14:26 Basic Metabolic Profile Sent. jf3 14:26 CBC with Diff Sent. jf3 14:26 Partial Thromboplastin Time Sent. jf3 14:26 Prothrombin Time Profile\\E\\INR Sent. jf3 14:26 Type & Screen Sent. jf3 14:50 Patient visited by Lilliam Alvarez PCA. ct3 15:30 Patient visited by Bhaskar Barraza RN. jf3 16:04 CARDIAC MARKER PANEL Sent. kpj 16:38 Patient visited by Lilliam Alvarez PCA. ct3 16:57 Patient visited by Bhaskar Barraza RN. jf3 17:10 Chest, 1 View Returned. EDMS 17:10 CT Head Without Contrast Returned. EDMS 17:11 Yesica Oakley is Hospitalizing Provider. ml 18:22 Patient visited by Bhaskar Barraza RN. jf3 18:27 Diet: consistent carbohydrate diet given to patient. ct3 18:28 Patient visited by Lilliam Alvarez PCA. ct3 18:56 Kirill,Palma,RN is Primary Nurse. ko2 19:05 Patient visited by Neal Card PCA. kb5 19:13 Patient visited by Palma Roy RN. ko2 20:04 Primary Nurse role handed off by Gerry Bey, OLIVA jmv 20:37 Patient moved to Admit Hold ml3 22:02 Patient visited by Neal Card PCA. kb5 22:35 T-Sheet-- Draft Copy was scanned into [employer] and attached to record. klr 23:42 ELECTROCARDIOGRAM ADULT Returned. EDMS 23:42 ECG WITH READING ER PHYS Returned. EDMS 11/08 02:19 Inserted saline lock: 20 gauge in left antecubital area and blood collected. ko2 02:24 Patient visited by Neal Card PCA. kb5 06:54 Patient moved to Nov 06:54 Patient moved to Admit Hold nov 11:50 Primary Nurse role handed off by Palma Roy RN ct3 11/09 09:42 ECG/EKG was scanned into [employer] and attached to record. gb Order Results: Lab Order: Basic Metabolic Profile; SPEC'M 11/07/16 14:25 Test: GLUCOSE, FASTING; Value: 203; Range: 83-110; Abnormal: Above high normal; Units: MG/DL; Status: F Test: BLOOD UREA NITROGEN; Value: 17; Range: 7-18; Units: MG/DL; Status: F Test: CREATININE FOR GFR; Value: 1.01; Range: 0.55-1.02; Units: MG/DL; Status: F Test: GLOMERULAR FILTRATION RATE; Value: 56.7; Range: >39; Status: F Test: SODIUM LEVEL; Value: 138; Range: 136-145; Units: MEQ/L; Status: F Test: POTASSIUM SERUM; Value: 4.7; Range: 3.5-5.1; Units: MEQ/L; Status: F Test: CHLORIDE LEVEL; Value: 100; Range: 98-107; Units: MEQ/L; Status: F Test: CARBON DIOXIDE LEVEL; Value: 30; Range: 21-32; Units: MEQ/L; Status: F Test: ANION GAP; Value: 8; Range: 8-16; Units: MEQ/L; Status: F Test: CALCIUM LEVEL; Value: 9.6; Range: 8.8-10.2; Units: MG/DL; Status: F Test Note: ; Units are mL/min/1.73 m2 Chronic Kidney Disease Staging per NKF: Stage I & II GFR >=60 Normal to Mildly Decreased Stage III GFR 30-59 Moderately Decreased Stage IV GFR 15-29 Severely Decreased Stage V GFR <15 Very Little GFR Left ESRD GFR <15 on CARTOON DESIGNER Lab Order: CBC with Diff; SPEC'M 11/07/16 14:25 Test: WHITE BLOOD COUNT; Value: 10.7; Range: 4.0-10.0; Abnormal: Above high normal; Units: K/mm3; Status: F Test: RED BLOOD COUNT; Value: 4.73; Range: 4.00-5.40; Units: M/mm3; Status: F Test: HEMOGLOBIN; Value: 14.3; Range: 12.0-16.0; Units: g/dl; Status: F Test: HEMATOCRIT; Value: 44.7; Range: 36.0-47.0; Units: %; Status: F Test: MEAN CORPUSCULAR VOLUME; Value: 94.6; Range: 80.0-96.0; Units: fl; Status: F Test: MEAN CORPUSCULAR HEMOGLOBIN; Value: 30.2; Range: 27.0-33.0; Units: pg; Status: F Test: MEAN CORPUSCULAR HGB CONC; Value: 31.9; Range: 32.0-36.5; Abnormal: Below low normal; Units: g/dl; Status: F Test: RED CELL DISTRIBUTION WIDTH; Value: 12.1; Range: 11.5-14.5; Units: %; Status: F Test: PLATELET COUNT, AUTOMATED; Value: 204; Range: 150-450; Units: k/mm3; Status: F Test: NEUTROPHILS %; Value: 57.0; Range: 36.0-66.0; Units: %; Status: F Test: LYMPH %; Value: 32.9; Range: 24.0-44.0; Units: %; Status: F Test: MONO %; Value: 5.2; Range: 0.0-5.0; Abnormal: Above high normal; Units: %; Status: F Test: EOS %; Value: 1.8; Range: 0.0-3.0; Units: %; Status: F Test: BASO %; Value: 0.9; Range: 0.0-1.0; Units: %; Status: F Test: LARGE UNSTAINED CELL %; Value: 2.2; Range: 0.0-4.0; Units: %; Status: F Test: NEUTROPHILS #; Value: 6.1; Range: 1.8-7.7; Units: K/mm3; Status: F Test: LYMPH #; Value: 3.8; Range: 1.5-4.5; Units: K/mm3; Status: F Test: MONO #; Value: 0.6; Range: 0.0-0.8; Units: K/mm3; Status: F Test: EOS #; Value: 0.2; Range: 0.0-0.50; Units: K/mm3; Status: F Test: BASO #; Value: 0.1; Range: 0.0-0.2; Units: K/mm3; Status: F Test: LARGE UNSTAINED CELL #; Value: 0.2; Range: 0.0-0.4; Units: K/mm3; Status: F Lab Order: Partial Thromboplastin Time; SPEC' 11/07/16 14:25 Test: PARTIAL THROMBOPLASTIN TIME; Value: 23.8; Range: 26.6-37.1; Abnormal: Below low normal; Units: SECONDS; Status: F Lab Order: Prothrombin Time Profile\\E\\INR; SPEC' 11/07/16 14:25 Test: PROTHROMBIN TIME; Value: 12.9; Range: 12.3-14.5; Units: SECONDS; Status: F Test: INR; Value: 0.96; Status: F Test Note: ; THERAPUTIC HUMAN INR VALUES INDICATIONS NORMAL RANGES PROPHYLAXIS/TREATMENT OF: VENOUS THROMBOSIS 2.0-3.0 PULMONARY EMBOLISM 2.0-3.0 PREVENTION OF SYSTEMIC EMBOLISM FROM: TISSUE HEART VALVES 2.0-3.0 ACUTE MYOCARDIAL INFARCTION 2.0-3.0 VALVULAR HEART DISEASE 2.0-3.0 ATRIAL FIBRILLATION 2.0-3.0 MECHANICAL VALVES(HIGH RISK) 2.5-3.5 RECURRENT MYOCARDIAL INFARCTION 2.5-3.5 Lab Order: Type & Screen; SPEC'M 11/07/16 14:25 Test: BLOOD TYPE; Value: O POS; Status: F Test: AB SCREEN (INDIRECT CLARISA)GEL; Value: NEGATIVE; Status: F Lab Order: CIP; [facility] 11/07/16 14:25 Test: CPK CREATINE PHOSPHOKINASE; Value: 126; Range: 26-192; Units: U/L; Status: F Test: CK-MB VALUE MASS; Value: 1.0; Range: 0.0-3.6; Units: NG/ML; Status: F Test: MB/CK RELATIVE INDEX; Value: 0.79; Range: < OR =4; Status: F Test Note: ; DIAGNOSIS CRITERIA MMB ng/ml Relative Index (RI) NON-AMI < or = 5 N/A MACIAS ZONE > 5 < or = 4 AMI > 5 > 4 Lab Order: Troponin; [facility] 11/07/16 14:25 Test: TROPONIN I; Value: 0.22; Range: < 0.10; Abnormal: Above high normal; Units: NG/ML; Status: F Test Note: ; Troponin I Reference Interval for AttorneyFee LOCI: 99th Percentile= 0.00-0.045 ng/ml Risk Stratification: <= 0.10 ng/ml Decreased Risk for Adverse Clinical Events. 0.10-1.50 ng/ml Increased Risk for Adverse Clinical Events. Evaluation of additional criterion and/or repeat testing in 2-6 hours is suggested to rule out myocardial damage. >= 1.50 ng/ml Indicative of Myocardial Injury. Lab Order: Fingerstick Blood Sugar; [facility] 11/07/16 14:12 Test: BEDSIDE GLUCOSE; Value: 202; Range: 83-110; Abnormal: Above high normal; Units: MG/DL; Status: F Lab Order: CARDIAC MARKER PANEL; [facility] 11/07/16 16:01 Test: CPK CREATINE PHOSPHOKINASE; Value: 78; Range: 26-192; Units: U/L; Status: F Test: CK-MB VALUE MASS; Value: 1.2; Range: 0.0-3.6; Units: NG/ML; Status: F Test: MB/CK RELATIVE INDEX; Value: 1.53; Range: < OR =4; Status: F Test: TROPONIN I; Value: 0.21; Range: < 0.10; Abnormal: Above high normal; Units: NG/ML; Status: F Test Note: ; DIAGNOSIS CRITERIA MMB ng/ml Relative Index (RI) NON-AMI < or = 5 N/A MACIAS ZONE > 5 < or = 4 AMI > 5 > 4 Lab Order: CARDIAC MARKER PANEL; SPEC'M 11/07/16 22:04 Test: CPK CREATINE PHOSPHOKINASE; Value: 84; Range: 26-192; Units: U/L; Status: F Test: CK-MB VALUE MASS; Value: 1.0; Range: 0.0-3.6; Units: NG/ML; Status: F Test: MB/CK RELATIVE INDEX; Value: 1.19; Range: < OR =4; Status: F Test: TROPONIN I; Value: 0.22; Range: < 0.10; Abnormal: Above high normal; Units: NG/ML; Status: F Test Note: ; DIAGNOSIS CRITERIA MMB ng/ml Relative Index (RI) NON-AMI < or = 5 N/A MACIAS ZONE > 5 < or = 4 AMI > 5 > 4 Lab Order: URINALYSIS; SPEC'M 11/07/16 12:47 Test: APPEARANCE, URINE; Value: HAZY; Range: CLEAR; Status: F Test: COLOR, URINE; Value: YELLOW; Range: YELLOW; Status: F Test: PH,URINE; Value: 5.0; Range: 5.0-9.0; Units: UNITS; Status: F Test: SPECIFIC GRAVITY URINE AUTO; Value: 1.017; Range: 1.002-1.035; Status: F Test: PROTEIN, URINE AUTO; Value: NEGATIVE; Range: NEGATIVE; Units: mg/dL; Status: F Test: GLUCOSE, URINE (UA) AUTO; Value: 2+; Range: NEGATIVE; Abnormal: Above high normal; Units: mg/dL; Status: F Test: KETONE, URINE AUTO; Value: NEGATIVE; Range: NEGATIVE; Units: mg/dL; Status: F Test: UROBILINOGEN, URINE AUTO; Value: 0.2; Range: 0.0-2.0; Units: mg/dL; Status: F Test: BILIRUBIN, URINE AUTO; Value: NEGATIVE; Range: NEGATIVE; Status: F Test: NITRITE, URINE AUTO; Value: NEGATIVE; Range: NEGATIVE; Status: F Test: LEUKOCYTE ESTERASE, URINE AUTO; Value: 1+; Range: NEGATIVE; Abnormal: Above high normal; Status: F Test: BLOOD, URINE BLOOD; Value: 1+; Range: NEGATIVE; Abnormal: Above high normal; Status: F Test: WBC, URINE AUTO; Value: 9; Range: 0-3; Abnormal: Above high normal; Units: /HPF; Status: F Test: RBC, URINE AUTO; Value: 1; Range: 0-3; Units: /HPF; Status: F Test: BACTERIA, URINE AUTO; Value: NEGATIVE; Range: NEGATIVE; Status: F Test: SQUAMOUS EPITHELIAL CELL UR AU; Value: 4; Range: 0-6; Units: /HPF; Status: F Test: MUCUS, URINE; Value: SMALL; Range: NEGATIVE; Status: F Test: HYALINE CAST, URINE AUTO; Value: 0; Range: 0-1; Units: /LPF; Status: F Lab Order: LIVER PROFILE; SPEC'M 11/07/16 14:25 Test: AST/SGOT; Value: 38; Range: 15-37; Abnormal: Above high normal; Units: U/L; Status: F Test: ALT/SGPT; Value: 27; Range: 12-78; Units: U/L; Status: F Test: ALKALINE PHOSPHATASE; Value: 111; Range: 45-117; Units: U/L; Status: F Test: BILIRUBIN,TOTAL; Value: 0.3; Range: 0.2-1.0; Units: MG/DL; Status: F Test: BILIRUBIN,DIRECT; Value: < 0.1; Range: 0.0-0.2; Units: MG/DL; Status: F Test: TOTAL PROTEIN; Value: 7.6; Range: 6.4-8.2; Units: GM/DL; Status: F Test: ALBUMIN; Value: 3.7; Range: 3.2-5.2; Units: GM/DL; Status: F Test: ALBUMIN/GLOBULIN RATIO; Value: 0.95; Range: 1.00-1.93; Abnormal: Below low normal; Status: F Lab Order: MAGNESIUM LEVEL; SPEC'M 11/07/16 14:25 Test: MAGNESIUM LEVEL; Value: 2.1; Range: 1.8-2.4; Units: MG/DL; Status: F Lab Order: BRAIN NATIURETIC PEPTIDE; SPEC'M 11/07/16 14:25 Test: BRAIN NATRIURETIC PEPTIDE; Value: 118; Range: <100; Abnormal: Above high normal; Units: PG/ML; Status: F Lab Order: CBC WITH DIFFERENTIAL; SPEC'M 11/08/16 07:13 Test: WHITE BLOOD COUNT; Value: 10.7; Range: 4.0-10.0; Abnormal: Above high normal; Units: K/mm3; Status: F Test: RED BLOOD COUNT; Value: 4.63; Range: 4.00-5.40; Units: M/mm3; Status: F Test: HEMOGLOBIN; Value: 14.0; Range: 12.0-16.0; Units: g/dl; Status: F Test: HEMATOCRIT; Value: 42.4; Range: 36.0-47.0; Units: %; Status: F Test: MEAN CORPUSCULAR VOLUME; Value: 91.5; Range: 80.0-96.0; Units: fl; Status: F Test: MEAN CORPUSCULAR HEMOGLOBIN; Value: 30.3; Range: 27.0-33.0; Units: pg; Status: F Test: MEAN CORPUSCULAR HGB CONC; Value: 33.1; Range: 32.0-36.5; Units: g/dl; Status: F Test: RED CELL DISTRIBUTION WIDTH; Value: 12.3; Range: 11.5-14.5; Units: %; Status: F Test: PLATELET COUNT, AUTOMATED; Value: 216; Range: 150-450; Units: k/mm3; Status: F Test: NEUTROPHILS %; Value: 52.7; Range: 36.0-66.0; Units: %; Status: F Test: LYMPH %; Value: 35.6; Range: 24.0-44.0; Units: %; Status: F Test: MONO %; Value: 5.4; Range: 0.0-5.0; Abnormal: Above high normal; Units: %; Status: F Test: EOS %; Value: 3.5; Range: 0.0-3.0; Abnormal: Above high normal; Units: %; Status: F Test: BASO %; Value: 0.9; Range: 0.0-1.0; Units: %; Status: F Test: LARGE UNSTAINED CELL %; Value: 2.0; Range: 0.0-4.0; Units: %; Status: F Test: NEUTROPHILS #; Value: 5.6; Range: 1.8-7.7; Units: K/mm3; Status: F Test: LYMPH #; Value: 4.0; Range: 1.5-4.5; Units: K/mm3; Status: F Test: MONO #; Value: 0.6; Range: 0.0-0.8; Units: K/mm3; Status: F Test: EOS #; Value: 0.4; Range: 0.0-0.50; Units: K/mm3; Status: F Test: BASO #; Value: 0.1; Range: 0.0-0.2; Units: K/mm3; Status: F Test: LARGE UNSTAINED CELL #; Value: 0.2; Range: 0.0-0.4; Units: K/mm3; Status: F Lab Order: BASIC METABOLIC PROFILE; [facility]' 11/08/16 07:13 Test: GLUCOSE, FASTING; Value: 161; Range: 83-110; Abnormal: Above high normal; Units: MG/DL; Status: F Test: BLOOD UREA NITROGEN; Value: 15; Range: 7-18; Units: MG/DL; Status: F Test: CREATININE FOR GFR; Value: 0.93; Range: 0.55-1.02; Units: MG/DL; Status: F Test: GLOMERULAR FILTRATION RATE; Value: > 60.0; Range: >39; Status: F Test: SODIUM LEVEL; Value: 141; Range: 136-145; Units: MEQ/L; Status: F Test: POTASSIUM SERUM; Value: 4.4; Range: 3.5-5.1; Units: MEQ/L; Status: F Test: CHLORIDE LEVEL; Value: 104; Range: 98-107; Units: MEQ/L; Status: F Test: CARBON DIOXIDE LEVEL; Value: 27; Range: 21-32; Units: MEQ/L; Status: F Test: ANION GAP; Value: 10; Range: 8-16; Units: MEQ/L; Status: F Test: CALCIUM LEVEL; Value: 9.2; Range: 8.8-10.2; Units: MG/DL; Status: F Test Note: ; Units are mL/min/1.73 m2 Chronic Kidney Disease Staging per NKF: Stage I & II GFR >=60 Normal to Mildly Decreased Stage III GFR 30-59 Moderately Decreased Stage IV GFR 15-29 Severely Decreased Stage V GFR <15 Very Little GFR Left ESRD GFR <15 on CARTO[employer] DESIGNER Lab Order: BRAIN NATIURETIC PEPTIDE; 11/08/16 07:13 Test: BRAIN NATRIURETIC PEPTIDE; Value: 85.3; Range: <100; Units: PG/ML; Status: F Lab Order: Fingerstick Blood Sugar; 11/07/16 23:08 Test: BEDSIDE GLUCOSE; Value: 209; Range: 83-110; Abnormal: Above high normal; Units: MG/DL; Status: F Lab Order: CARDIAC MARKER PANEL; 11/08/16 07:13 Test: CPK CREATINE PHOSPHOKINASE; Value: 81; Range: 26-192; Units: U/L; Status: F Test: CK-MB VALUE MASS; Value: 1.0; Range: 0.0-3.6; Units: NG/ML; Status: F Test: MB/CK RELATIVE INDEX; Value: 1.23; Range: < OR =4; Status: F Test: TROPONIN I; Value: 0.20; Range: < 0.10; Abnormal: Above high normal; Units: NG/ML; Status: F Test Note: ; DIAGNOSIS CRITERIA MMB ng/ml Relative Index (RI) NON-AMI < or = 5 N/A MACIAS ZONE > 5 < or = 4 AMI > 5 > 4 Lab Order: THYROID STIMULATING HORMONE; 11/08/16 07:13 Test: THYROID STIMULATING HORMONE; Value: 5.270; Range: 0.358-3.740; Abnormal: Above high normal; Units: uIU/ML; Status: F Lab Order: FREE T4; 11/08/16 07:13 Test: FREE T4; Value: 1.04; Range: 0.76-1.46; Units: NG/DL; Status: F Lab Order: TOTAL T3; 11/08/16 07:13 Test: TOTAL T3; Range: 60.0-181.0; Units: NG/DL; Status: I Lab Order: D-DIMER QUANT; 11/08/16 12:50 Test: D-DIMER QUANT; Value: 575.2; Range: <500; Abnormal: Above high normal; Units: ng/ml; Status: F Lab Order: Fingerstick Blood Sugar; ARIANA 11/08/16 12:09 Test: BEDSIDE GLUCOSE; Value: 240; Range: 83-110; Abnormal: Above high normal; Units: MG/DL; Status: F Radiology Order: CT Head Without Contrast Test: CT Head Without Contrast REASON FOR EXAMINATION: dizzyness; Noncontrast head CT.; ; History: Dizziness.; ; Findings: Bone window settings demonstrate an intact bony calvarium. Paranasal; sinuses are clear. No evidence of sinusitis. There is a small metallic density; in the region of the anterior chamber the left eye. Question intraocular shunt.; Vascular calcification is seen at the skull base. There is diffuse cerebral; atrophy. There is no evidence of intracranial hemorrhage or acute infarction.; No mass, extra-axial fluid collection or midline shift is seen. There is a; low-density area at the inferior aspect of the basal ganglia on the left; consistent with dilated perivascular spaces. This is seen to be unchanged from; my comparison MRI study of the brain January 22, 2013.; ; Impression:; ; Diffuse atrophy and vascular calcification. No acute intracranial lesion.; Question intraocular shunt left eye.; ; ; Signed by; Brayan Puente MD 11/07/2016 05:34 P; Radiology Order: Chest, 1 View Test: Chest, 1 View REASON FOR EXAMINATION: dizzyness; Portable chest x-ray: Single view.; ; History: Dizziness.; ; Comparison chest x-ray April 10, 2013.; ; Findings: The lungs are somewhat hyperinflated but clear. Pleural angles are; sharp. Prior median sternotomy wires are seen. Heart is not enlarged.; ; Impression:; ; No acute disease.; ; ; Signed by; Brayan Puente MD 11/07/2016 05:34 P; Radiology Order: ELECTROCARDIOGRAM ADULT Test: ELECTROCARDIOGRAM ADULT REASON FOR EXAMINATION: dizzyness; Stationary ECG Study; 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 IVCD; SEPTAL MYOCARDIAL INFARCTION, OF INDETERMINATE AGE; ; Electronically Signed On 11-07-2016 23:03:40 EST by Ken Hines; Radiology Order: ECG WITH READING ER PHYS Test: ECG WITH READING ER PHYS REASON FOR EXAMINATION: GENERAL WEAKNESS; Stationary ECG Study; [facility] - ED; ; Test Date: 2016-11-07; Pat Name: BATOOL FOREMAN Department:; Room: -; Gender: F Road Repairer: ; : 1940 Requested By: Jason Yip; Order Number: [id number] Reading MD: Ken Hines; Measurements; Intervals Cyril; Rate: 56 P: 18; IN: 146 QRS: -24; QRSD: 122 T: -10; QT: 458; QTc: 444; Interpretive Statements; SINUS BRADYCARDIA; MOD IVCD; SEPTAL MYOCARDIAL INFARCTION, PROBABLY OLD; ; Electronically Signed On 11-07-2016 23:04:12 EST by Ken Hines; Outcome: 11/07 17:11 Decision to Hospitalize by Provider. 11/08 15:34 Patient left the ED. jo3 Signatures: Dispatcher [employer] EDOR Jason Yip MD MD ml Jobson, Karen, RN OLIVA Garcia, OLIVA Mena RN, Debra, RN RN dls Barnhardt, Gloria, Reg Reg Ana Chi, Manager Chinese Unit ml3 Cheryl Rader,RN RN norma3 Giulia MaldonadoRN RN jeff3 Neal Card, PLEATER HAND PLEATER HAND kb5 Loly Bergman LPN BANKRUPTCY PROCESSOR [id number] Giulia Valentino, RN RN jc4 Lilliam Alvarez, PLEATER HAND PLEATER HAND ct3 Eduardo Barnett dem1 Yarely Love, PLEATER HAND PLEATER HAND robertp Palma RoyRN RN ko2 Bhaskar Barraza,RN RN [id number] Joanne Lal Jose, PLEATER HAND PLEATER HAND jmv Gaby Fan [id number] Corrections: (The following items were deleted from the chart) 07:39 07:35 Cardiovascular: Rhythm is regular kr3 kr3 07:40 07:36 BP 114 / 56; Pulse 62bpm; Resp 16bpm; Pulse Ox 95% RA; Pain 0/10; kr3 kr3 Chart Complete MTDD
--- NOTE | 2016-11-10 17:27 | REP ---
Right upper quadrant sonography: History: Question gallbladder mass. Comparison CT study is from 11/08/2016. Findings: Scanning through right upper quadrant of the abdomen demonstrate a mobile shadowing calculi in the dependent portion of the gallbladder. The gallbladder is approximately 8.7 cm in greatest diameter which is the upper range of normal in size. Sonography confirms the presence of a hypoechoic mass in the fundus of the gallbladder measuring 3.1 x 3.2 x 1.6 cm. Flow could not be demonstrated with color Doppler interrogation within this mass. It is in the non-dependent portion the gallbladder in the fundus as seen on CT. It is still considered suspicious for primary gallbladder malignancy. No hepatic parenchymal invasion is visible. The common bile duct is at the upper range of normal measuring 0.8 cm. No focal hepatic lesion is seen. Limited views of the pancreas show no abnormality. There is no evidence of ascites. The right kidney measures 12.3 x 4.3 x 4.0 cm. Impression: 3.2 cm mass confirmed in the non-dependent gallbladder fundus. Primary gallbladder malignancy must be suspected versus focal inflammatory disease of the gallbladder wall. Cholelithiasis is also noted. Signed by Brayan Puente MD 11/11/2016 08:00 A
[2016-11-10 20:00] VITALS: BP 132/61
[2016-11-10] MEDS: SIMVASTATIN 10 MG TAB PO SCH (22:14)
[2016-11-10] MEDS: LATANOPROST 0.005% OPHTH SOLN 2.5 ML OD SCH (22:16)
[2016-11-11] VITALS (7 sets, daily range): BP systolic 116–153; BP diastolic 61–74
[2016-11-11 05:58] LABS: BASO % 0.6 % (0.0-1.0); EOS # 0.4 K/mm3 (0.0-0.50); EOS % 5.6 % (0.0-3.0); LARGE UNSTAINED CELL # 0.2 K/mm3 (0.0-0.4); LARGE UNSTAINED CELL % 2.4 % (0.0-4.0); LYMPH # 2.5 K/mm3 (1.5-4.5); LYMPH % 36.8 % (24.0-44.0); MEAN CORPUSCULAR HEMOGLOBIN 30.6 pg (27.0-33.0); MEAN CORPUSCULAR HGB CONC 33.1 g/dl (32.0-36.5); MEAN CORPUSCULAR VOLUME 92.5 fl (80.0-96.0); MONO # 0.5 K/mm3 (0.0-0.8); MONO % 6.7 % (0.0-5.0); NEUTROPHILS # 3.3 K/mm3 (1.8-7.7); NEUTROPHILS % 47.9 % (36.0-66.0); PLATELET COUNT, AUTOMATED 181 k/mm3 (150-450); RED CELL DISTRIBUTION WIDTH 11.5 % (11.5-14.5); WHITE BLOOD COUNT 6.9 K/mm3 (4.0-10.0)
[2016-11-11 06:09] LABS: ANION GAP 7 MEQ/L (8-16); BLOOD UREA NITROGEN 12 MG/DL (7-18); CALCIUM LEVEL 8.9 MG/DL (8.8-10.2); CARBON DIOXIDE LEVEL 29 MEQ/L (21-32); CHLORIDE LEVEL 109 MEQ/L (98-107); CREATININE FOR GFR 0.84 MG/DL (0.55-1.02); GLOMERULAR FILTRATION RATE > 60.0 (>39); GLUCOSE, FASTING 123 MG/DL (83-110); POTASSIUM SERUM 4.5 MEQ/L (3.5-5.1); SODIUM LEVEL 145 MEQ/L (136-145)
[2016-11-11] MEDS: ASPIRIN 325 MG TAB PO SCH (08:41)
[2016-11-11] MEDS: MULTIVITAMINS/MINERALS THERAP 1 TAB PO SCH (08:42)
[2016-11-11] MEDS: SERTRALINE HCL 25 MG TABLET PO SCH (08:42)
[2016-11-11] MEDS: ENALAPRIL MALEATE 5 MG TAB PO SCH (08:42)
[2016-11-11] MEDS: SENOKOT S TAB PO SCH ×3 (08:42→21:42)
[2016-11-11] MEDS: OMEPRAZOLE 20 MG CAP PO SCH (08:42)
[2016-11-11] MEDS: LEVEMIR (INSULIN DETEMIR) 1 UNITS/0.01ML SC SCH ×2 (08:43→21:42)
[2016-11-11] MEDS: ENOXAPARIN 40 MG/0.4 ML SYRINGE (J1650) SC SCH (08:43)
[2016-11-11] MEDS: METOPROLOL TART 25 MG TABLET PO SCH ×2 (08:43→21:00)
[2016-11-11] MEDS: SILVER SULFADIAZINE 1% CR 50 GM JAR TOP SCH (08:44)
[2016-11-11] MEDS: HumaLOG INSULIN (NovoLOG) PER UNIT SC SCH ×4 (08:44→21:00)
[2016-11-11] MEDS ORDERED: ISOVUE-370 76% 100ML VIAL (Q9967) As Ordered ONE (09:56)
--- NOTE | 2016-11-11 11:18 | REP ---
CT ANGIO HEAD: HISTORY: Dizziness. CONTRAST: Isovue 370, 100 mL. COMPARISON: MRA 11/09/2016. There is no aneurysm or arteriovenous malformation. Calcified atherosclerotic plaques are present in the cavernous and supraclinoid internal carotid arteries. These produce mild stenosis. Mild atherosclerotic disease involves the distal basilar artery. Major intracranial vessels are patent. The left vertebral artery is dominant. The right vertebral artery terminates in the right posterior inferior cerebellar artery. IMPRESSION: 1. There is no aneurysm or arteriovenous malformation. 2. Atherosclerotic disease as described above. Signed by Rock Toribio MD 11/11/2016 11:46 A
--- NOTE | 2016-11-11 11:38 | REP ---
CT ANGIO NECK: HISTORY: Dizziness. CONTRAST: Isovue 370, 100 mL. COMPARISON: MRA carotids 01/22/2013. Calcified atherosclerotic plaque is present at the distal right common carotid artery and origin of the right internal carotid artery. There is moderate stenosis of 35% of the right internal carotid artery at its origin. The origin of the right external carotid artery is normal. Calcified atherosclerotic plaque is present at the distal left common carotid artery and origin of the left internal carotid artery. There is moderate stenosis of 30% of the left internal carotid artery at its origin. The origin of the left external carotid artery is normal. Calcified atherosclerotic plaques are present in the cavernous and supraclinoid internal carotid arteries. These produce at least mild stenosis. The vertebral artery are patent. The left vertebral artery is dominant. The right vertebral artery terminates in the right posterior inferior cerebellar artery. Mild atherosclerotic disease involves the distal basilar artery. Calcified atherosclerotic plaques are present at the origins of the great vessels. There is no significant stenosis. A 4 mm hypodensity is present in the right thyroid lobe. This most likely represents a cyst. The left thyroid lobe is normal. IMPRESSION: 1. Moderate stenosis of 35% of the right internal carotid artery at its origin. 2. Moderate stenosis of 30% of the left internal carotid artery at its origin. Signed by Rock Toribio MD 11/11/2016 11:42 A
--- NOTE | 2016-11-11 12:06 | IPNPDOC ---
[facility] Cardiology Progress Note Date of Service/Time The patient was seen on 11/11/16 at 11:53. Cardiology Progress Note Mrs. You is a 76 y/o female who initially presented for a one month history of spells of dizziness, feeling as though she would pass out. OBJECTIVE: PHYSICAL EXAMINATION: VITAL SIGNS: Please see below. GENERAL APPEARANCE: Appears comfortable, bed is at a slight incline, does not appeared labored HEENT: NCAT, nares patent b/l, PERRLA, tongue midline, moist mucus membranes LUNGS: CTA b/l, no wheezing, rales or rhonchi appreciated, good air expansion b/ l HEART: normal s1 and s2, cannot appreciate any murmurs, rubs or gallops, slightly bradycardic with rate in 50's, normal sinus rhythm ABDOMEN: NABSx4, non-distended, no organomegaly, non-tender SKIN: intact NEUROLOGICAL: no focal deficits appreciated PSYCHIATRIC: affect appropriate and normal LABORATORY WORK: Please see below. ASSESSMENT AND PLAN: When examined at bedside today, patient admits that she still does not have dizziness when laying down but does admit that when she turns her head she seems to experience it more, this could be suggestive of BPH. The pt today seems comfortable, she denies cp, palpitations or SOB, nausea or vomiting, h/a or blurred vision. EKG did show a potential old septal NE, and LVH but no active ischemia is appreciated. The pt has been monitored on telemetry now for 72 hours with no suspicious arrhythmia appreciated or detected, she had a couple PVC's overnight but this was all that was observed. Suspect that her dizziness is likely benign positional vertigo in etiology especially with her complaint of it becoming worse with a rotational component to her head movement. Her orthostatic test this morning was also negative. We have requested records from [facility] and it looks as though she was treated for a potential pneumonia with PO antibiotics, and had an essentially normal echocardiogram with EF 55-60%, she was treated with IV Lasix therapy as a suspicion of heart failure was entertained. Still at this point would suggest cardiac event monitoring on outpt. f/u as pt stated the dizziness episodes do occur frequently at home, yet we have been unsuccessful at capturing any abnormal rhythm on telemetry for the past 3 days. Would also suggest out pt. stress test on d/c, no immediate need for cardiac catheterization at this point. This may change depending on her further clinical condition. Recent Chest CT was negative for pulmonary embolism. CTA of head was also negative except for some atherosclerotic changes. Would continue to monitor at this point, the cause of her dizziness being arrhythmogenic in nature is less likely the cause, would think it more BPV in nature. Addendum MD Elyssa: My opinion remains as expressed in yesterday's note. Vital Signs/I&O VS/I&O Vital Signs Date Time Temp Pulse Resp B/P Pulse Ox O2 Delivery O2 Flow Rate FiO2 11/11/16 08:43 72 11/11/16 08:42 132/74 11/11/16 08:00 Room Air 11/11/16 08:00 96.2 18 94 I&O- Last 24 Hours up to 6 AM 11/11/16 06:00 Intake Total 880 ml Output Total 900 ml Balance -20 ml Laboratory Data 24H LABS Laboratory Tests 2 11/10/16 12:02: Bedside Glucose (Misc Panel) 183H 11/10/16 16:34: Bedside Glucose (Misc Panel) 177H 11/10/16 21:04: Bedside Glucose (Misc Panel) 191H 11/11/16 05:31: Anion Gap 7L, White Blood Count 6.9, Red Blood Count 4.09, Hemoglobin 12.5, Hematocrit 37.8, Mean Corpuscular Volume 92.5, Mean Corpuscular Hemoglobin 30.6 , Mean Corpuscular Hemoglobin Concent 33.1, Red Cell Distribution Width 11.5, Platelet Count 181, Neutrophils (%) (Auto) 47.9, Lymphocytes (%) (Auto) 36.8, Monocytes (%) (Auto) 6.7H, Eosinophils (%) (Auto) 5.6H, Basophils (%) (Auto) 0.6 , Neutrophils # (Auto) 3.3, Lymphocytes # (Auto) 2.5, Monocytes # (Auto) 0.5, Eosinophils # (Auto) 0.4, Basophils # (Auto) 0.0, Blood Urea Nitrogen 12, Creatinine 0.84, Sodium Level 145, Potassium Level 4.5, Chloride Level 109H, Carbon Dioxide Level 29, Calcium Level 8.9, Glomerular Filtration Rate > 60.0, Large Unclassified Cells # 0.2, Large Unclassified Cells % 2.4 CBC/BMP Laboratory Tests 11/11/16 05:31 Calcium Level 8.9, Red Blood Count 4.09, Mean Corpuscular Volume 92.5, Mean Corpuscular Hemoglobin 30.6, Mean Corpuscular Hemoglobin Concent 33.1, Red Cell Distribution Width 11.5, Neutrophils (%) (Auto) 47.9, Lymphocytes (%) (Auto) 36.8, Monocytes (%) (Auto) 6.7 H, Eosinophils (%) (Auto) 5.6 H, Basophils (%) ( Auto) 0.6, Neutrophils # (Auto) 3.3, Lymphocytes # (Auto) 2.5, Monocytes # (Auto ) 0.5, Eosinophils # (Auto) 0.4, Basophils # (Auto) 0.0 FSBS Laboratory Tests Test 11/10/16 12:02 11/10/16 16:34 11/10/16 21:04 Range/Units Bedside Glucose (Misc Panel) 183 177 191 83-110 MG/DL Microbiology Microbiology 11/10/16 Urine Culture - Final, Complete 11/08/16 Urine Culture - Final, Complete GME ATTESTATION GME ATTESTATION My preceptor for this patient encounter was physically present in the building during the encounter and was fully available. As needed, all aspects of the patient interview, examination, medical decision making process, and medical care plan development were reviewed and approved by the preceptor. Preceptor is aware and concurs with the plan as stated in the body of this note and will attest to such by his/her cosignature. JOYCE MENCHACA DO Nov 11, 2016 12:06 Kermit Garcia MD Nov 11, 2016 20:47
[2016-11-11] MEDS: cefTRIAXone SOD 1 GM in D5W MINI-BAG PLUS 50 ML IV SCH (15:40)
--- NOTE | 2016-11-11 16:21 | IPNPDOC ---
Text Note Date of Service The patient was seen on 11/11/16 at 16:17. NOTE Subjective: Patient's states that she still has dizziness while turning her neck to the left. Denies any chest pain/shortness of breath/palpitations. Objective: Vitals: (see below) General: No acute distress, laying comfortably in bed. HEENT: Moist mucous membranes. Neck: No JVD or lymphadenopathy Cardiac: RRR, No murmurs Pulm: Diminished breath sounds bilateral bases. No wheezing, rhonchi Abd: NT/ND + BS Ext: No edema or cyanosis Neuro: Strength 5/5 BUE and BLE. CN 2-12 intact. F to N intact Negative pronator drift. Negative Babinki. Sensation to fine touch intact. Positive [place]-Hallpike on the left with reproducible dizziness. No nystagmus. Labs (see below) Images: CT of the head without contrast on 11/07/16 Impression:Diffuse atrophy and vascular calcification. No acute intracranial lesion. Question intraocular shunt left eye. Chest x-ray on 11/07/16 Impression: No acute disease. CT abdomen and pelvis on 11/07/16 Impression: 1. No CT evidence of pulmonary embolism. 2. Discoid atelectasis both bases. 3. 1.8 x 3.4 cm enhancing mass in the non-dependent portion of the gallbladder fundus. Question gallbladder malignancy. Sonography recommended. Gallstones are noted as well. MRI of brain 11/09/16 IMPRESSION: 1. There is no definite aneurysm or arteriovenous malformation. 2. Atherosclerotic disease as described above. MRA brain on 11/09/2016 IMPRESSION:1. Minimal small vessel ischemic disease. 2. Mild volume loss. CTA Carotids 11/11/16 IMPRESSION:1. Moderate stenosis of 35% of the right internal carotid artery at its origin. 2. Moderate stenosis of 30% of the left internal carotid artery at its origin. CTA Head 11/11/16 There is no aneurysm or arteriovenous malformation. Calcified atherosclerotic plaques are present in the cavernous and supraclinoid internal carotid arteries. These produce mild stenosis. Mild atherosclerotic disease involves the distal basilar artery. Major intracranial vessels are patent. The left vertebral artery is dominant. The right vertebral artery terminates in the right posterior inferior cerebellar artery. IMPRESSION: 1. There is no aneurysm or arteriovenous malformation. 2. Atherosclerotic disease as described above. Assessment/Plan 1. Dizziness likely secondary to BPPV. Patient has a positive Hallpike exam. Physical therapy on board for Arely maneuvers. Prior MRA brain with questionable basilar stenosis however repeat MRI 11/01/16 negative. CTA head and neck 11/11/16 have also been negative. Meclizine when necessary. Her repeat orthostatics have been negative after the patient was hydrated. We'll need referral for outpatient loop recorder to rule out arrhythmias, although this is unlikely. 2. Elevated troponin- likely due to demand ischemia from hypotension. Seems a patient was widened depleted from her diuretics. Patient has been rehydrated. 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 On telemetry. On aspirin, statin, beta justin, ASHLEY inhibitor. Appreciate cardiology input. 3. Elevated d-dimer - CTA negative for PE 4. History of CAD status post CABG 2012, stable continue current meds. 5. Insulin-dependent diabetes- on Levemir and sliding scale and lung. 6. Hypertension- controlled continue current meds 7. Chronic lower extremity edema status post saphenous vein removal 8. History of diastolic heart failure, patient appears to be compensated at this time. Lasix have been held while patient's pain hydrated for her orthostatic hypotension. 9. Cerebral artery narrowing- on MRI in 2012 and noted to have been evaluated by neurosurgery per medical records. Her repeat MRI and CTA above have been negative for acute findings. 10. GERD- continue PPI 11. Gallbladder mass suspicious for malignancy. Surgery has been consulted. DVT prophy: Lovenox VS,Fishbone, I+O VS, Fishbone, I+O Laboratory Tests 11/11/16 05:31 Calcium Level 8.9, Red Blood Count 4.09, Mean Corpuscular Volume 92.5, Mean Corpuscular Hemoglobin 30.6, Mean Corpuscular Hemoglobin Concent 33.1, Red Cell Distribution Width 11.5, Neutrophils (%) (Auto) 47.9, Lymphocytes (%) (Auto) 36.8, Monocytes (%) (Auto) 6.7 H, Eosinophils (%) (Auto) 5.6 H, Basophils (%) ( Auto) 0.6, Neutrophils # (Auto) 3.3, Lymphocytes # (Auto) 2.5, Monocytes # (Auto ) 0.5, Eosinophils # (Auto) 0.4, Basophils # (Auto) 0.0 Vital Signs Date Time Temp Pulse Resp B/P Pulse Ox O2 Delivery O2 Flow Rate FiO2 11/11/16 16:00 96.7 59 18 120/74 96 Room Air I&O- Last 24 Hours up to 6 AM 11/11/16 06:00 Intake Total 880 ml Output Total 900 ml Balance -20 ml AVIS WILLIAMSON MD Nov 11, 2016 16:21
--- NOTE | 2016-11-11 20:56 | CR ---
DATE OF CONSULTATION: 11/11/2016 REASON FOR CONSULTATION: Abnormal gallbladder. Patient is a very pleasant 76-year-old woman who was admitted on November 08, 2016 for a weakness and lightheadedness. The patient's medical history is significant for coronary artery disease for which she underwent a bypass back in 2012. She has type 2 diabetes mellitus. She has a history of hypertension. She presented with a history of lightheadedness and some nausea and a sensation of feeling like passing out that had been going on for perhaps a month. She reported that it had been getting somewhat worse with the passage of time. The patient had been in [facility] several weeks ago and was given the diagnosis of pneumonia and congestive heart failure. Her symptoms of lightheadedness and weakness however, had not resolved after her treatment there. On the day of presentation she had been sitting watching TV when she developed her most recent episode of presyncopal feelings. She was brought to the emergency department by her daughter and admitted for evaluation. She has undergone multiple tests since admission. She had a head plain chest x-ray and an CT angiogram of the chest. In evaluating the CT scan of the chest done on November it noted what he described as a 1.8 x 3.4 cm enhancing mass in the fundus of the gallbladder. This raised the question of a gallbladder malignancy and recommended ultrasound. She was noted to have gallstones. She has had several other MRIs and had a gallbladder ultrasound on the . Gallbladder ultrasound was interpreted as showing a 3.2 cm mass in the gallbladder fundus. The radiologist suggested that a primary gallbladder malignancy must be suspected versus focal inflammatory disease of the gallbladder wall. Her gallstones were noted again. Her evaluation has included a CT angiogram of the head done today as well as CT angiogram of the neck also done today. Because of the abnormality in her gallbladder I was consulted now to evaluate the best approach to evaluation and treatment for the possible diagnosis of gallbladder cancer. ALLERGIES: The patient does not report any known drug allergies. Some metals will give her a rash. MEDICATIONS: Her current medications include Tylenol as needed, Senokot-S as needed, Zofran as needed, aspirin, Vasotec, Xalatan eye drops, metoprolol, a multivitamin, omeprazole, sertraline, silver sulfadiazine topically, simvastatin, insulin, Lovenox, Levemir, Antivert and ceftriaxone. MEDICAL HISTORY: Her medical history is notable for her coronary artery disease leading to a four-vessel coronary artery bypass graft in 2013. She has insulin-requiring diabetes mellitus type 2. She has a history of hypertension. 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 She has gastroesophageal reflux disease. She has a history of some chronic swelling in the left lower extremity since her sepsis vein bypass grafting. SURGICAL HISTORY: Surgical history is significant for a hysterectomy through a low midline incision. She reports that her appendix was removed at the same time. She has had a tubal ligation. She had a bypass in 2012 or 2013. SOCIAL HISTORY: The patient has been living at home alone. She has a daughter in the area and has another daughter who lives in [place]. FAMILY HISTORY: There is no known history of gallbladder cancer. She has a sister who had breast cancer. Brother who had colon cancer and another sister who reportedly had cervical cancer. REVIEW OF SYSTEMS: The patient does report having had jaundice as a child but has had no known gallbladder issues as an adult. She reports that she was recently told about her gallstones. She has had some occasional upper abdominal discomfort which I believe has been attributed to reflux. She has not been having any recent chest pain but apparently has had an occasional sensation of palpitations. She denies any shortness of breath, wheezing or sputum production recently. She denies any history of DVT or pulmonary embolus. PHYSICAL EXAMINATION: The patient's most recent vital signs show a pulse of 59, respirations of 18, blood pressure of 120/74, temperature is 96.7 and at room air pulse oximetry is 96%. She is awake and alert. She appears comfortable lying quietly on the hospital bed. Skin is warm and dry. Sclerae are anicteric. Mucous membranes are moist. NECK: The neck is supple without palpable cervical or supraclavicular nodes. She has no cervical bruits. HEART: Exam shows a regular rate and rhythm with no obvious murmur. LUNGS: The lungs are clear to auscultation bilaterally. ABDOMEN: The abdomen shows small scars in the epigastrium consistent with mediastinal tubes. I would note that she has evidence for previous sternotomy with a well-healed scar. She has a well-healed low midline scar extending from her umbilicus. She has normoactive bowel sounds. The abdomen is soft and without tenderness. There is no palpable mass. There is no evident hernia. EXTREMITIES: Are without significant peripheral edema. She has palpable radial pulses bilaterally. LABORATORY DATA: Her most recent laboratory studies include a CBC from today showing a white count 6.9, hemoglobin of 12, hematocrit of 38 and platelet count of 181,000. She has a normal differential. Her chemistry profile also from the shows a sodium of 145, potassium 4.5, chloride 109, CO2 of 29, BUN of 12, creatinine 0.84 and glucose of 120. Her only liver function tests were done on the day of admission, which was November 07 and her liver function tests were normal with the exception of a minimal elevation of the AST to 38. Total protein and albumin on the were normal at 7.6 and 3.7. She had a troponin slightly higher than normal at 0.22 on admission. IMAGING: I reviewed her imaging studies. The CT angiogram of the chest showed some thickening in the fundus of the gallbladder. The ultrasound confirmed this. There are no nodules within the liver to suggest metastatic deposits. She had a CT scan of the chest done in January 2013. She was noted to have gallstones. There may have been some very faint thickening in the fundus although the study was done without intravenous contrast. IMPRESSION: 1. Thickening of the gallbladder fundus concerning for possible malignancy. 2. Lightheadedness and weakness with pre syncope. 3. Atherosclerotic coronary artery disease status post bypass. 4. Hypertension. 5. Diabetes mellitus type 2. 6. Gastroesophageal reflux disease. 7. Left lower extremity edema. 8. Cholelithiasis. RECOMMENDATIONS: At this point I think it is too soon to give a concrete recommendation as to treatment. I discussed with the patient and her daughter who was present at the bedside, that at this point we do not know if there is any significance to the thickening in the fundus in the gallbladder. I advised them that it would be difficult to obtain a diagnosis as direct biopsy of the gallbladder is not really feasible. I advised that gallbladder cancer, once it has spread has a very poor prognosis. I advised them that probably most gallbladder cancers are diagnosed as incidental findings on the gallbladders removed for symptomatic gallstones. I did discuss with them the possibility of additional testing, which could include a MRCP of the gallbladder, as well as possibly a PET scan to look for uptake that might suggest more strongly a malignant diagnosis. I did advise them that I would like to have a chance to discuss this with my colleagues and perhaps with medical oncology regarding additional recommendations. I did reassure them that there is no need to leap into treatment as if this is cancer it has been there for quite some time and taking a few days or weeks to it will be time well stent. I left them to consider what their thoughts are on the idea of having a more intense operation to consider removal of this if it is cancer. I advised them that we will get together again in the next day or two if she is here in the hospital for a as an outpatient visit to my office to discuss further plans.
[2016-11-11] MEDS: SIMVASTATIN 10 MG TAB PO SCH (21:42)
[2016-11-11] MEDS: LATANOPROST 0.005% OPHTH SOLN 2.5 ML OD SCH (21:43)
[2016-11-12 05:12] VITALS: BP 146/67
[2016-11-12 05:35] LABS: BASO % 0.5 % (0.0-1.0); EOS # 0.4 K/mm3 (0.0-0.50); EOS % 4.8 % (0.0-3.0); LARGE UNSTAINED CELL # 0.2 K/mm3 (0.0-0.4); LARGE UNSTAINED CELL % 2.7 % (0.0-4.0); LYMPH # 3.6 K/mm3 (1.5-4.5); LYMPH % 41.9 % (24.0-44.0); MEAN CORPUSCULAR HEMOGLOBIN 31.4 pg (27.0-33.0); MEAN CORPUSCULAR HGB CONC 33.7 g/dl (32.0-36.5); MEAN CORPUSCULAR VOLUME 93.2 fl (80.0-96.0); MONO # 0.6 K/mm3 (0.0-0.8); MONO % 7.1 % (0.0-5.0); NEUTROPHILS # 3.7 K/mm3 (1.8-7.7); PLATELET COUNT, AUTOMATED 189 k/mm3 (150-450); RED CELL DISTRIBUTION WIDTH 11.6 % (11.5-14.5); WHITE BLOOD COUNT 8.6 K/mm3 (4.0-10.0)
[2016-11-12 05:43] LABS: ANION GAP 4 MEQ/L (8-16); BLOOD UREA NITROGEN 11 MG/DL (7-18); CALCIUM LEVEL 8.8 MG/DL (8.8-10.2); CARBON DIOXIDE LEVEL 31 MEQ/L (21-32); CHLORIDE LEVEL 109 MEQ/L (98-107); CREATININE FOR GFR 0.85 MG/DL (0.55-1.02); GLOMERULAR FILTRATION RATE > 60.0 (>39); GLUCOSE, FASTING 104 MG/DL (83-110); POTASSIUM SERUM 4.7 MEQ/L (3.5-5.1); SODIUM LEVEL 144 MEQ/L (136-145)
[2016-11-12] MEDS: HumaLOG INSULIN (NovoLOG) PER UNIT SC SCH ×2 (07:30→12:18)
[2016-11-12] MEDS: MULTIVITAMINS/MINERALS THERAP 1 TAB PO SCH (07:48)
[2016-11-12] MEDS: SENOKOT S TAB PO SCH (07:48)
[2016-11-12] MEDS: SERTRALINE HCL 25 MG TABLET PO SCH (07:48)
[2016-11-12] MEDS: ASPIRIN 325 MG TAB PO SCH (07:48)
[2016-11-12] MEDS: ENOXAPARIN 40 MG/0.4 ML SYRINGE (J1650) SC SCH (07:48)
[2016-11-12 07:49] VITALS: BP 114/72
[2016-11-12] MEDS: ENALAPRIL MALEATE 5 MG TAB PO SCH (07:49)
[2016-11-12] MEDS: LEVEMIR (INSULIN DETEMIR) 1 UNITS/0.01ML SC SCH (07:49)
[2016-11-12] MEDS: OMEPRAZOLE 20 MG CAP PO SCH (07:49)
[2016-11-12] MEDS: SILVER SULFADIAZINE 1% CR 50 GM JAR TOP SCH (07:49)
[2016-11-12] MEDS: METOPROLOL TART 25 MG TABLET PO SCH (07:49)
[2016-11-12 08:00] VITALS: BP 120/58
--- NOTE | 2016-11-12 08:48 | IPN ---
DATE: 11/11/2016 Mrs. Rosalinda You was seen earlier this morning, and also in the evening, she was lying supine in bed in no acute distress, and one of her daughter's were at bedside. This evening, she was feeling much better when compared with the morning. She has started again having physical therapy and she is also having therapy for her dizziness/vertigo. She denies any chest pain or palpitations, shortness of breath and she has no pedal edema or orthopnea. There is no report of bleeding. Her cardiac condition seems to be stable, she was found to have a mass in the gallbladder and she was seen this evening by Dr. Fritz and the plan is to have a PET scan. She managed surgery but it would not be able to be in town and would probably be done in [place] or [place]. PHYSICAL EXAMINATION: Patient is alert and oriented, in no acute distress, and her vital signs this evening revealed a blood pressure of 163/63 when I saw her with a pulse of 62, respiration 18 and her temperature was 97.2 degrees Fahrenheit with oxygen saturation 95% on room air. This morning, her blood pressure was 133/64. Fluid balance is positive 460 for 11/10/2016. Examination of the head is normocephalic, atraumatic. Neck is supple. No jugular venous distention (JVD) or carotid bruits. Lungs: Clear bilaterally to auscultation without any wheezing or crackles. Heart examination revealed normal S1, S2, no rubs or gallops. PMI is not displaced. There is no rub. Abdomen is soft, nontender. Extremities: There is no pedal edema. Neurological examination: Negative for focal deficit. LABS: CBC done on 11/11/2016 revealed a WBC of 6.9, hemoglobin 12.2, hematocrit 37.8 and platelets 151,000. BMP revealed a sodium of 145, potassium 4.5, chloride 109, CO2 29, BUN 12, creatinine 108. Glomerular filtration rate more than 60. Fasting glucose 123 and calcium 8.9. BNP was 176. CT angiogram of the brain done earlier today revealed no aneurysm or AV malformation but atherosclerotic disease. CT angio of the neck revealed mild disease involving the right and left internal carotid arteries with stenosis of 35% and 30% respectively. Telemetry revealed normal sinus rhythm. Mrs. Rosalinda You seems to be stable from a cardiac point of view and her cardiac meds were reviewed and I continue the same for now. We will stay away from the furosemide. I will continue to maintain while in the hospital and upon discharge, if she needs surgery, she will need further cardiac workup such as a nuclear stress test. I will continue to monitor as needed while in the hospital. Please do not hesitate to call if any questions. Case was discussed earlier with the patient as well as one of her daughter's.
[2016-11-12 12:00] VITALS: BP 141/65
[2016-11-12] MEDS ORDERED: INSUDET SC (13:25)
[2016-11-12] MEDS ORDERED: MECL12.575 PO (13:25)
--- NOTE | 2016-11-12 18:25 | DS.PDOC ---
Discharge Summary General Date of Admission Nov 09, 2016 at 14:57 Date of Discharge Nov 12, 2016 at 14:57 Attending Physician: AVIS WILLIAMSON MD Specialist/Consultants Involve: Raymond Fritz Specialist/Consultants Involve Dr. Garcia Discharge Summary PROCEDURES PERFORMED DURING STAY: None. COMPLICATIONS/CHIEF COMPLAINT: Dizziness ADMISSION/DISCHARGE DIAGNOSES: 1. Dizziness likely secondary to BPPV as well as orthostatic hypotension 2. Orthostatic hypotension secondary to diuretics 3. Elevated troponin secondary to #2 4. Gallbladder mass, suspicious for malignancy with plan for outpatient follow- up with Dr. Fritz 5. History of insulin-dependent diabetes mellitus 6. History of CAD status post CABG 7. Hypertension 8. Chronic lower extremity edema 9. Compensated diastolic heart failure 10. GERD HISTORY OF PRESENT ILLNESS/HOSPITAL COURSE: This is an 76-year-old female with an extensive past medical history who was admitted for dizziness. The patient was recently at [facility] 2 weeks prior to admission diagnoses pneumonia and congestive heart failure. The patient 's Lasix had been increased at the time. Patient presented with orthostatic hypotension secondary to diuretics. Of note the patient did have a mild increase in her troponin is likely secondary to this. She had no chest pain or significant EKG changes. Cardiology input was appreciated. She had been well hydrated during this admission and had her orthostatics have since then been negative. The patient also complained of dizziness which is very nonspecific. She did have a positive Derian Hallpike on exam reason suspicion for BPPV. She also had an MRI a of the head in 2012 with narrowing of the distal left posterior cerebral artery as well as basilar artery. CTA of the head and neck done on this admission was unremarkable, and this was discussed with the radiologist. The patient worked with physical therapy for Aerly maneuvers and her dizziness is significantly improved. DISCHARGE MEDICATIONS: Please see below. ALLERGIES: Please see below. PHYSICAL EXAMINATION ON DISCHARGE: VITAL SIGNS: Please see below. General: No acute distress, laying comfortably in bed. HEENT: Moist mucous membranes. Neck: No JVD or lymphadenopathy Cardiac: RRR, No murmurs Pulm: Diminished breath sounds bilateral bases. No wheezing, rhonchi Abd: NT/ND + BS Ext: No edema or cyanosis Neuro: Strength 5/5 BUE and BLE. CN 2-12 intact. F to N intact Negative pronator drift. Negative Bab[place]. Sensation to fine touch intact. Positive [place]-Hallpike on the left with reproducible dizziness. No nystagmus. LABORATORY DATA: Please see below. IMAGING: CT of the head without contrast on 11/07/16 Impression:Diffuse atrophy and vascular calcification. No acute intracranial lesion. Question intraocular shunt left eye. Chest x-ray on 11/07/16 Impression: No acute disease. CT abdomen and pelvis on 11/07/16 Impression: 1. No CT evidence of pulmonary embolism. 2. Discoid atelectasis both bases. 3. 1.8 x 3.4 cm enhancing mass in the non-dependent portion of the gallbladder fundus. Question gallbladder malignancy. Sonography recommended. Gallstones are noted as well. MRI of brain 11/09/16 IMPRESSION: 1. There is no definite aneurysm or arteriovenous malformation. 2. Atherosclerotic disease as described above. MRA brain on 11/09/2016 IMPRESSION:1. Minimal small vessel ischemic disease. 2. Mild volume loss. CTA Carotids 11/11/16 IMPRESSION:1. Moderate stenosis of 35% of the right internal carotid artery at its origin. 2. Moderate stenosis of 30% of the left internal carotid artery at its origin. CTA Head 11/11/16 There is no aneurysm or arteriovenous malformation. Calcified atherosclerotic plaques are present in the cavernous and supraclinoid internal carotid arteries. These produce mild stenosis. Mild atherosclerotic disease involves the distal basilar artery. Major intracranial vessels are patent. The left vertebral artery is dominant. The right vertebral artery terminates in the right posterior inferior cerebellar artery. IMPRESSION: 1. There is no aneurysm or arteriovenous malformation. 2. Atherosclerotic disease as described above. VTE Prophylaxis ordered?: Yes DISCHARGE CONDITION: Stable DISPOSITION: 01 Home, Self-Care ACTIVITY: As tolerated DIET: As tolerated DISCHARGE PLAN AND INSTRUCTIONS: 1. Follow-up with PCP, Dr. Garcia, and Dr. Fritz in 1-2 weeks. TIME SPENT ON DISCHARGE: Greater than 30 minutes. Vital Signs/I&Os Vital Signs Date Time Temp Pulse Resp B/P Pulse Ox O2 Delivery O2 Flow Rate FiO2 11/12/16 12:00 97.0 63 18 141/65 93 Room Air I&O- Last 24 Hours up to 6 AM 11/12/16 06:00 Intake Total 1100 ml Output Total 1800 ml Balance -700 ml Laboratory Data Labs 24H Laboratory Tests 2 11/11/16 21:02: Bedside Glucose (Misc Panel) 197H 11/12/16 05:08: Anion Gap 4L, White Blood Count 8.6, Red Blood Count 4.08, Hemoglobin 12.8, Hematocrit 38.1, Mean Corpuscular Volume 93.2, Mean Corpuscular Hemoglobin 31.4 , Mean Corpuscular Hemoglobin Concent 33.7, Red Cell Distribution Width 11.6, Platelet Count 189, Neutrophils (%) (Auto) 43.0, Lymphocytes (%) (Auto) 41.9, Monocytes (%) (Auto) 7.1H, Eosinophils (%) (Auto) 4.8H, Basophils (%) (Auto) 0.5 , Neutrophils # (Auto) 3.7, Lymphocytes # (Auto) 3.6, Monocytes # (Auto) 0.6, Eosinophils # (Auto) 0.4, Basophils # (Auto) 0.0, Blood Urea Nitrogen 11, Creatinine 0.85, Sodium Level 144, Potassium Level 4.7, Chloride Level 109H, Carbon Dioxide Level 31, Calcium Level 8.8, Glomerular Filtration Rate > 60.0, Large Unclassified Cells # 0.2, Large Unclassified Cells % 2.7 11/12/16 11:46: Bedside Glucose (Misc Panel) 259H CBC/BMP Laboratory Tests 11/12/16 05:08 Calcium Level 8.8, Red Blood Count 4.08, Mean Corpuscular Volume 93.2, Mean Corpuscular Hemoglobin 31.4, Mean Corpuscular Hemoglobin Concent 33.7, Red Cell Distribution Width 11.6, Neutrophils (%) (Auto) 43.0, Lymphocytes (%) (Auto) 41.9, Monocytes (%) (Auto) 7.1 H, Eosinophils (%) (Auto) 4.8 H, Basophils (%) ( Auto) 0.5, Neutrophils # (Auto) 3.7, Lymphocytes # (Auto) 3.6, Monocytes # (Auto ) 0.6, Eosinophils # (Auto) 0.4, Basophils # (Auto) 0.0 FSBS Laboratory Tests Test 11/11/16 21:02 11/12/16 11:46 Range/Units Bedside Glucose (Misc Panel) 197 259 83-110 MG/DL Microbiology Microbiology 11/10/16 Urine Culture - Final, Complete 11/08/16 Urine Culture - Final, Complete Medications Scheduled (Vytorin 10-40 mg) 1 Tab Tab 1 TAB PO QHS Aspirin (Aspirin) 325 Mg Tab 325 MG PO DAILY Docusate Sodium (Colace) 100 Mg Cap 100 MG PO DAILY Enalapril Maleate (Enalapril Maleate) 5 Mg Tab 5 MG PO DAILY Insulin Detemir (Levemir) 1 Units/0.01 Ml Susp 15 UNITS SC BID Latanoprost (Latanoprost) 50 Drop/2.5 Ml Soln 1 DROP OD QHS Metoprolol Tartrate (Metoprolol Tartrate) 25 Mg Tab 25 MG PO BID Multivitamins *[facility] STOCKED* (Thera M Plus *[facility] STOCKED*) 1 Tab Tab 1 TAB PO DAILY Omeprazole (Omeprazole) 20 Mg Cap 20 MG PO DAILY Sertraline Hcl (Sertraline HCl) 25 Mg Tab 25 MG PO DAILY Silver Sulfadiazine (Silvadene) 1 % Cre 1 DOSE TOP DAILY APPLY TO BOTTOM OF SPINE Scheduled PRN Acetaminophen (Tylenol) 325 Mg Tab 650 MG PO Q4H PRN PRN PAIN Meclizine HCl (Meclizine HCl) 12.5 Mg Tab 12.5 MG PO Q6HP PRN PRN DIZZINESS Allergies Coded Allergies: Heavy Metals (Verified Allergy, Unknown, 09/11/13) AVIS WILLIAMSON MD Nov 12, 2016 18:25
== END 2016-11-12 14:57 | disposition home or self-care (01) | DRG 312 ==
LOC: M ED 12:36 → M PCU 18:23 → M ED INP 18:24 → M PCU 11-08 15:32 → OBSVTOIN 11-09 14:57 → M PCU 11-10 17:35
PROVIDERS: ADMIT Hospitalist; ATTEND Internal Medicine
DX: I95.2 Hypotension due to drugs (principal); I50.32 Chronic diastolic (congestive) heart failure; I24.8 Other forms of acute ischemic heart disease; H81.10 Benign paroxysmal vertigo, unspecified ear; I11.0 Hypertensive heart disease with heart failure; T50.2X5A Adverse effect of carbonic-anhydrase inhibitors, benzothiadiazides and other diuretics, initial encounter; I25.10 Atherosclerotic heart disease of native coronary artery without angina pectoris; K82.9 Disease of gallbladder, unspecified; K21.9 Gastro-esophageal reflux disease without esophagitis; Z79.82 Long term (current) use of aspirin; Z79.899 Other long term (current) drug therapy; E11.9 Type 2 diabetes mellitus without complications; Z79.4 Long term (current) use of insulin; E78.5 Hyperlipidemia, unspecified; Z86.73 Personal history of transient ischemic attack (TIA), and cerebral infarction without residual deficits; K80.20 Calculus of gallbladder without cholecystitis without obstruction; I65.23 Occlusion and stenosis of bilateral carotid arteries

== ENCOUNTER 2016-12-01 15:26 | Inpatient (IN) | payer MEDICARE, MEDICAID ==
[~2016-12-01] VITALS: Ht 165.1 cm; Wt 90.0 kg
[~2016-12-01 15:26] MED LIST changes: +ASPI325T PO; +COLA100C PO; +ENAL5TAB PO; +FURO40TA2 PO; +GLIP5TAB8 PO; +INSUDET SC; +JANU100T PO; +LANTINJ4 SC; +LATA5OPD OD; +MECL12.575 PO; +METO25TAB PO; -MOTR200T40 PO; +MOTR200T44 PO; +OMEP20CA3 PO; +POTA10TA16 PO; +SERT25TA85 PO; +SILV1CRE19 TOP; +TYLE325T5 PO; +VITMTA PO
[2016-12-01] MEDS ORDERED: FUROSEMIDE 40 MG/4 ML VIAL (J1940) As Ordered ONE (17:09)
--- NOTE | 2016-12-01 17:27 | REP ---
Chest x-ray: Two views: History: Shortness of breath. Findings: The patient is status-post prior median sternotomy. The lungs are symmetrically aerated and free of infiltrate. Pleural angles are sharp. Heart is not enlarged. The aorta is tortuous. EKG monitoring electrodes overlie the chest. Impression: Prior sternotomy. No active disease. Signed by Brayan Puente MD 12/01/2016 05:38 P
[2016-12-01 17:44] LABS: BASO % 0.5 % (0.0-1.0); EOS # 0.2 K/mm3 (0.0-0.50); EOS % 3.2 % (0.0-3.0); LARGE UNSTAINED CELL # 0.2 K/mm3 (0.0-0.4); LARGE UNSTAINED CELL % 2.1 % (0.0-4.0); LYMPH # 2.7 K/mm3 (1.5-4.5); LYMPH % 35.2 % (24.0-44.0); MEAN CORPUSCULAR HEMOGLOBIN 30.7 pg (27.0-33.0); MEAN CORPUSCULAR HGB CONC 32.7 g/dl (32.0-36.5); MEAN CORPUSCULAR VOLUME 93.9 fl (80.0-96.0); MONO # 0.4 K/mm3 (0.0-0.8); MONO % 4.8 % (0.0-5.0); NEUTROPHILS # 4.2 K/mm3 (1.8-7.7); NEUTROPHILS % 54.2 % (36.0-66.0); PLATELET COUNT, AUTOMATED 193 k/mm3 (150-450); RED CELL DISTRIBUTION WIDTH 11.5 % (11.5-14.5); WHITE BLOOD COUNT 7.8 K/mm3 (4.0-10.0)
[2016-12-01] MEDS ORDERED: ALBUTEROL SULFATE 2.5 MG/0.5 ML INH NEB SOLN As Ordered ONE (17:44)
[2016-12-01] MEDS ORDERED: IPRATROPIUM 0.5MG/ALBUTEROL 2.5MG INH SOL UD 3ML (DUONEB)(J7620) As Ordered ONE (17:44)
[2016-12-01 18:01] LABS: ANION GAP 8 MEQ/L (8-16); BLOOD UREA NITROGEN 15 MG/DL (7-18); CALCIUM LEVEL 9.4 MG/DL (8.8-10.2); CARBON DIOXIDE LEVEL 29 MEQ/L (21-32); CHLORIDE LEVEL 101 MEQ/L (98-107); CREATININE FOR GFR 1.02 MG/DL (0.55-1.02); GLOMERULAR FILTRATION RATE 56.1 (>39); GLUCOSE, FASTING 270 MG/DL (83-110); POTASSIUM SERUM 3.8 MEQ/L (3.5-5.1); SODIUM LEVEL 138 MEQ/L (136-145)
[2016-12-01] MEDS ORDERED: ISOVUE-370 76% 100ML VIAL (Q9967) As Ordered ONE (18:50)
--- NOTE | 2016-12-01 20:00 | REPUSA ---
CLINICAL HISTORY: Dyspnea, exclude PE. TECHNIQUE: Multiple incremental axial, coronal and oblique images are obtained from the thoracic inle t to the upper abdomen. Intravenous contrast material was administered as per pulmonary embolism prot ocol. COMMENTS: There is excellent opacification of pulmonary arterial system without evidence for pulmonary embolism . Aorta is of normal caliber without evidence for dissection or aneurysm. Confluent opacity in the right lower lobe compatible with pneumonia. There is no evidence of pleural or parenchymal mass. There are no pleural effusions. There is no evid ence of hilar or mediastinal lymphadenopathy. The heart and great vessels are within normal limits. Images of the upper abdomen demonstrate no evidence of adrenal mass. Although the gallbladder is not fully evaluated there is apparent thickening of the gallbladder wall. The bony structures are free of lytic or blastic lesions. Multilevel degenerative changes are seen in volving the visualized thoracolumbar spine. Scattered calcifications are seen involving the aorta and major branches compatible with atherosclero sis. IMPRESSION: No evidence for pulmonary embolism. Confluent opacity in the right lower lobe compatible with pneumonia. Although the gallbladder is not fully evaluated there is apparent thickening of the gallbladder wall. Thank you for your kind referral of this patient.
[2016-12-01] MEDS ORDERED: CLOPIDOGREL 300 MG TAB (PLAVIX) As Ordered ONE (20:37)
[2016-12-01] MEDS ORDERED: LevoFLOXacin(LEVAQUIN)500 MG/100 ML BAG (J1956) As Ordered ONE (20:37)
[2016-12-01] MEDS ORDERED: INSUDET SC (21:12)
[2016-12-01] MEDS ORDERED: MECL12.575 PO (21:12)
[2016-12-01] MEDS ORDERED: DEXTROSE 50% 50 ML SYRINGE IV PRN (21:15)
[2016-12-01] MEDS ORDERED: ONDANSETRON 4MG/2ML VIAL (J2405) IV PRN (21:15)
[2016-12-01] MEDS ORDERED: GLUCAGON FOR INJ 1 MG VIAL (J1610) SC PRN (21:15)
[2016-12-01] MEDS ORDERED: ACETAMINOPHEN TAB 650MG DOSE (2X325MG) PO PRN (21:15)
[2016-12-01] MEDS ORDERED: GLUCOSE 4 GM CHEW TABLET PO PRN (21:15)
[2016-12-01] MEDS ORDERED: MECLIZINE 12.5 MG TAB PO PRN (21:15)
[2016-12-01 21:39] LABS: T UPTAKE 31 % (30-39); THYROXINE (T4) 9.3 UG/DL (4.5-12.0)
--- NOTE | 2016-12-01 22:15 | HPE ---
DATE OF ADMISSION: 12/01/2016 PRIMARY CARE PROVIDER: Dr. Ernst Riggins STORE COORDINATOR: Dr. Tejal Philip DERRICK ENGINEER: Dr. Haywood, covered by Dr. Garcia CHIEF COMPLAINT: Shortness of breath and cough. HISTORY OF THE PRESENT ILLNESS: This is a 76-year-old female patient with underlying medical history of congestive heart failure (CHF), coronary artery disease with coronary artery bypass graft (CABG) 3 years ago, depression, diabetes, insulin-dependent type 2, gastroesophageal reflux disease (GERD), glaucoma, dyslipidemia, hypertension, cholelithiasis with questionable gallbladder mass and thyroid goiter. The patient was sent here from Dr. Tejal Philip's office for abnormal lung sounds, pulmonary congestion. As per patient, for the past 3-4 days, the patient has been having a cough that is productive but did not know what color is the sputum. The patient's daughter recently had pericarditis. The patient also reported nasal congestion. Denies any fevers or chills. Denies any chest pain, pressure or discomfort. Other than daughter, the patient denies any sick contact. No recent travel. Does report since today with worsening lower extremity edema. Does not have any change in activity status. At baseline, the patient is ambulatory with mild dyspnea on exertion, patient has not changed. The patient is also scheduled for cholecystectomy on 12/26/2016 for stones and questionable gallbladder mass. The patient denies any nausea, vomiting, diarrhea or constipation. In the emergency room, the patient shows troponin elevation of 0.21. On 11/08/2016, the patient also had a troponin of 0.2. Otherwise, the patient denies any chest pain, pressure or discomfort. Reported mild dyspnea but not on oxygen. Comfortable. No vision change, hearing change. ALLERGIES: To HEAVY METALS as per patient. PAST MEDICAL HISTORY: Coronary artery disease with CABG 3 years ago. CHF, unknown ejection fraction. Insulin-dependent diabetes 2 diabetes. GERD. Depression. Glaucoma. Dyslipidemia. Hypertension. Gallbladder mass. Thyroid goiter. PAST SURGICAL HISTORY: Hysterectomy in 2013. Tubal ligation. Urinary bladder sling. Laser eye surgery. CABG 3 years ago. SOCIAL HISTORY: The patient denies history of smoking or alcohol use, or illicit drug use. The patient lives at home with daughter. At baseline, ambulatory. FAMILY HISTORY: Not significant. REVIEW OF SYSTEMS: 11-point review of systems is negative except for those mentioned in the history of the present illness. HOME MEDICATIONS: - Tylenol 650 mg by mouth every 4 hours as needed - aspirin 325 mg by mouth daily - Colace 100 mg capsules daily as needed for constipation - enalapril 5 mg by mouth daily - Levemir insulin 15 units subcu twice a day - latanoprost eye drop nightly - meclizine 12.5 mg as needed every 6 hours - metoprolol 25 mg by mouth nightly - multivitamin one tablet by mouth daily - omeprazole 20 mg by mouth daily - sertraline 25 mg by mouth daily - Silvadene 1% cream topical daily PHYSICAL EXAMINATION: VITAL SIGNS: Blood pressure 168/72, pulse 65, respirations 18, temperature 98.6, pulse oximetry 98% on room air. GENERAL: Patient alert and oriented times three, in no acute distress. HEENT: Normocephalic, atraumatic. PULMONARY: Bilateral rhonchi, mild, worsening on the right. No wheeze. CARDIAC: Regular rate and rhythm. Normal S1, S2. ABDOMEN: Soft. Mild discomfort right upper quadrant. No significant tenderness. No rebound, no guarding. Positive bowel sounds. EXTREMITIES: Trace edema bilateral lower extremities. CT angio shows no evidence of pulmonary embolism (PE). Opacity right lower lobe, possible pneumonia. Thickening of gallbladder wall. LABORATORY: WBC 7.8, hemoglobin and hematocrit 13.9 over 42.7, platelets 193. Chemistry: Sodium 138, potassium 3.8, chloride 101, bicarbonate 29, BUN 15, creatinine 1.02, CK-MB index negative, troponin 0.21, C-reactive protein pending. B-natriuretic peptide 147. ASSESSMENT AND PLAN: This is a 76-year-old female patient with underlying medical history of coronary artery disease with coronary artery bypass graft, congestive heart failure, unknown ejection fraction, depression, type 2 insulin-dependent diabetes, gastroesophageal reflux disease, glaucoma, dyslipidemia, hypertension, gallbladder mass, thyroid goiter, presented to the hospital with shortness of breath and coughing. Problems: 1. Likely community-acquired bacterial pneumonia. Followup sputum culture, blood culture, C-reactive protein. Patient empirically started on Rocephin and azithromycin. Respiratory panel. CT angio negative for pulmonary embolism (PE) but suspicious for pneumonia. B-natriuretic peptide was within normal limits; therefore, suspicion for CHF is less. Continue to monitor for clinical improvement. Followup C-reactive protein and cultures. 2. Troponin elevation. The patient denies any chest pain. EKG is appreciated. Telemetry monitoring. Case discussed with cardiology, Dr. Ryan consulted. The patient sees Dr. Haywood. Recommend adding Plavix on top of patient's aspirin, trend cardiac enzymes, followup echocardiogram, followup cardiology recommendation. Continue angiotensin-converting enzyme (ASHLEY) inhibitors and beta blockers. Followup A1c. Monitor blood pressure. 3. History of Congestive heart failure. Unknown ejection fraction. The patient seems to be euvolemic. Strict intake and output, daily weight. Given Lasix in the emergency department (ED). Monitor urine output. Echocardiogram ordered. Cardiology for further recommendation. Continue ASHLEY inhibitors and beta blockers for now. 4. Depression. Continue home medications. 5. Type 2 diabetes, insulin dependent. Basal bolus insulin as ordered, adjust as needed. 6. Glaucoma. Continue home medication. 7. Gastroesophageal reflux disease. Continue proton pump inhibitor. 8. Dyslipidemia. Will add a statin to the patient's regimen. 9. Hypertension. Continue blood pressure medication as ordered. Patient on metoprolol and enalapril. Adjust medication as needed. 10. Thyroid goiter. Followup thyroid panel. Outpatient followup with Dr. Tejal Philip. 11. Gallbladder mass with questionable cholelithiasis. Patient currently with minimal symptoms. Outpatient followup. 12. Deep vein thrombosis (DVT) prophylaxis. Heparin subcu. DISPOSITION PLANNING: Pending cardiology followup, trend cardiac enzymes, clinical improvement, cultures.
[2016-12-02] MEDS ORDERED: ASPIRIN 81 MG CHEW TABLET PO SCH (01:09)
[2016-12-02] MEDS ORDERED: AZITHROMYCIN INJ 500 MG, VIAL MATE ADAPTER 1 EACH in D5W 250 ML IV SCH (01:10)
[2016-12-02] MEDS ORDERED: ATORVASTATIN 20 MG TAB As Ordered ONE (02:01)
[2016-12-02] MEDS ORDERED: METOPROLOL TART 50 MG TAB As Ordered ONE (02:01)
[2016-12-02] MEDS ORDERED: AZITHROMYCIN INJ 500MG VIAL (J0456) As Ordered ONE (02:01)
[2016-12-02] MEDS ORDERED: ASPIRIN 81 MG CHEW TABLET As Ordered ONE (02:01)
[2016-12-02] MEDS ORDERED: LEVEMIR (INSULIN DETEMIR) 1 UNITS/0.01ML As Ordered ONE ×2 (02:03→07:54)
[2016-12-02] MEDS: ATORVASTATIN 20 MG TAB PO SCH ×2 (02:25→20:51)
[2016-12-02] MEDS: LEVEMIR (INSULIN DETEMIR) 1 UNITS/0.01ML SC SCH ×3 (02:25→20:51)
[2016-12-02] MEDS: LATANOPROST 0.005% OPHTH SOLN 2.5 ML OD SCH ×2 (02:26→20:50)
[2016-12-02] MEDS ORDERED: METOPROLOL TART 25 MG TABLET As Ordered ONE (02:27)
[2016-12-02] MEDS: METOPROLOL TART 25 MG TABLET PO SCH ×2 (02:28→20:51)
[2016-12-02] MEDS: cefTRIAXone SOD 2 GM in D5W MINI-BAG PLUS 50 ML IV SCH (03:45)
[2016-12-02 04:00] VITALS: BP 124/62
[2016-12-02 04:55] LABS: MEAN CORPUSCULAR HEMOGLOBIN 30.2 pg (27.0-33.0); MEAN CORPUSCULAR HGB CONC 32.3 g/dl (32.0-36.5); MEAN CORPUSCULAR VOLUME 93.3 fl (80.0-96.0); RED CELL DISTRIBUTION WIDTH 11.5 % (11.5-14.5)
[2016-12-02 05:22] LABS: ANION GAP 9 MEQ/L (8-16); BLOOD UREA NITROGEN 15 MG/DL (7-18); CALCIUM LEVEL 8.9 MG/DL (8.8-10.2); CARBON DIOXIDE LEVEL 29 MEQ/L (21-32); CHLORIDE LEVEL 100 MEQ/L (98-107); CREATININE FOR GFR 1.04 MG/DL (0.55-1.02); GLOMERULAR FILTRATION RATE 54.8 (>39); GLUCOSE, FASTING 341 MG/DL (83-110); POTASSIUM SERUM 3.8 MEQ/L (3.5-5.1); SODIUM LEVEL 138 MEQ/L (136-145)
[2016-12-02] MEDS ORDERED: HEPARIN SOD (PORCINE) 5000 UNITS/ML VIAL As Ordered ONE (05:49)
[2016-12-02] MEDS: HEPARIN SOD (PORCINE) 5000 UNITS/ML VIAL SC SCH ×3 (05:52→20:50)
[2016-12-02] MEDS ORDERED: HumaLOG INSULIN (NovoLOG) PER UNIT As Ordered ONE (07:54)
[2016-12-02] MEDS: HumaLOG INSULIN (NovoLOG) PER UNIT SC SCH ×4 (08:05→20:44)
--- NOTE | 2016-12-02 08:34 | ECGEPIP ---
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
[2016-12-02] MEDS ORDERED: SILVER SULFADIAZINE 1% CR 50 GM JAR As Ordered ONE (08:49)
[2016-12-02] MEDS ORDERED: AZITHROMYCIN 250 MG TAB As Ordered ONE (08:50)
[2016-12-02] MEDS ORDERED: PANTOPRAZOLE 40MG TAB (PROTONIX) As Ordered ONE (08:50)
[2016-12-02] MEDS ORDERED: SERTRALINE HCL 25 MG TABLET As Ordered ONE (08:50)
[2016-12-02] MEDS ORDERED: CLOPIDOGREL 75 MG TAB As Ordered ONE (08:50)
[2016-12-02] MEDS ORDERED: MULTIVITAMINS/MINERALS THERAP 1 TAB As Ordered ONE (08:50)
[2016-12-02] MEDS: SILVER SULFADIAZINE 1% CR 50 GM JAR TOP SCH (08:54)
[2016-12-02] MEDS: ASPIRIN 81 MG ENTERIC TAB PO SCH (08:54)
[2016-12-02] MEDS: PANTOPRAZOLE 40MG TAB (PROTONIX) PO SCH (08:58)
[2016-12-02] MEDS: SENOKOT S TAB PO SCH ×2 (08:58→20:51)
[2016-12-02] MEDS: CLOPIDOGREL 75 MG TAB PO SCH (08:58)
[2016-12-02] MEDS: ENALAPRIL MALEATE 5 MG TAB PO SCH (08:58)
[2016-12-02] MEDS: MULTIVITAMINS/MINERALS THERAP 1 TAB PO SCH (08:58)
[2016-12-02] MEDS: AZITHROMYCIN 250 MG TAB PO SCH (08:58)
[2016-12-02] MEDS: SERTRALINE HCL 25 MG TABLET PO SCH (08:59)
[2016-12-02 09:03] VITALS: BP 146/73
--- NOTE | 2016-12-02 10:33 | CR.PDOC ---
[facility] Cardiology Consultation Date of Consultation 12/02/16 Cadiology Consultation REFERRING PHYSICIAN: Dr Berger. REASON FOR REFERRAL: 76 -year-old female admitted for suspected community acquired pneumonia with past medical history of coronary artery disease status post CABG and history of CHF. HISTORY OF PRESENT ILLNESS: Ms You is a 76 y/o female who presented to the emergency department after she was being seen one day ago outpatient by Dr. Tejal Philip for her thyroid, states that this physician's office told her she had decreased heart sounds and possible congestion in her lungs and advised her to present to the emergency department. Apparently the patient had been experiencing 3-4 days of a productive cough, but was without chest pain, palpitations or shortness of breath otherwise. PAST MEDICAL: Coronary artery disease with CABG 3 years ago. CHF, unknown ejection fraction. Insulin-dependent diabetes 2 diabetes. GERD. Depression. Glaucoma. Dyslipidemia. Hypertension. Gallbladder mass. Thyroid goiter. PAST SURGICAL HISTORY: Hysterectomy in 2013. Tubal ligation. Urinary bladder sling. Laser eye surgery. CABG 3 years ago. SOCIAL HISTORY: Denies alcohol or tobacco use, lives at home with her daughter. REVIEW OF SYSTEMS: Cardiovascular: Denies palpitation, chest pain, syncope Respiratory: Denies wheezing, productive cough for the past few days cough, wheeze HEENT: Denies headache or blurred vision GI/: Denies changes in bowel or urinary habits . All other 10 point review of systems questions negative. PHYSICAL EXAMINATION: VITAL SIGNS: Please see below. GENERAL APPEARANCE: Nontoxic, unlabored female appearing her stated age laying in hospital bed at slight 30 incline. He is pleasant and conversant, no active complaints at this time. EYES: EOMI ENT/Mouth: Nares patent bilaterally, moist mucous membranes, tongue midline NECK: Supple, no JVD appreciated EXTREMITIES: No edema, cyanosis, clubbing appreciated SKIN: Intact NEUROLOGIC/PSYCHOLOGIC: Affect is appropriate, no focal deficits appreciated HEART: Normal sinus rhythm, normal S1, S2, no gallops, murmurs or rubs appreciated. ARTERIAL PULSES: +2 bilaterally radial, +2 bilateral dorsalis pedis LOWER EXTREMITY EDEMA: Absent ABDOMEN: Soft, nondistended Respiratory: No crackles, rales, rhonchi, wheezing heard. Good air expansion bilaterally ALLERGIES: Please see below. HOME MEDICATIONS: Please see below. CURRENT MEDICATIONS: Please see below. Electrocardiogram: ECG [DATE] at [TIME] M shows LABORATORY DATA: Please see below. IMAGING: CT angio chest 12-01-16 No evidence for pulmonary embolism. Confluent opacity in the right lower lobe compatible with pneumonia. Although the gallbladder is not fully evaluated there is apparent thickening of the gallbladder wall. CXR 12-01-16 Prior sternotomy. No active disease. ASSESSMENT/PLAN: Of note the patient was admitted earlier in November 2015 for episodes of dizziness and syncope, again cardiology was consulted and after 72 hours of being on telemetry there was no arrhythmogenic cause to suggest as etiology to her presenting symptoms on that admission. Was thought it may have been more BPV in nature. She was to follow-up with cardiology outpatient for event monitor, which she did. The patient follows with Dr. solares, and we will obtain records from the event monitor. She does have troponin elevation, however when looking at her multiple prior admissions it appear at this is her baseline. We do not suspect that this acute elevation is from ischemic cardiac disease. There are also no concerning findings on her EKG to suggest CAD, patient also does not complain of chest pain or palpitations. Her last echocardiogram demonstrated an ejection fraction of 55-60%. The patient is currently being treated for a suspected right lower lobe pneumonia. From a cardiac standpoint, the patient is stable. Would expect that her cough is most likely due to a pulmonary process and not cardiac, would suggest continued treatment for pulmonary infectious process if clinical condition and cultures indicate a need to do so; there are no further recommendations at this time. Thank you kindly for asking me to participate in the care of your patient. Addendum MD Elyssa: Agree with the note above. 76yo female with h/o CABG presenting with borderline troponin elevation. It seems that this has been chronic issue and each time her troponin is checked, it is borderline elevated. There is no change on ECG and she had no chest pain. Unless clearcut trend she can be discharged and complete evaluation on outpatient basis. Vital Signs/I&O Vital Signs Date Time Temp Pulse Resp B/P Pulse Ox O2 Delivery O2 Flow Rate FiO2 12/02/16 09:03 97.3 58 18 146/73 98 Room Air Laboratory Data Labs 24H Laboratory Tests 2 12/01/16 17:24: Anion Gap 8, B-Type Natriuretic Peptide 147H, White Blood Count 7.8, Red Blood Count 4.55, Hemoglobin 13.9, Hematocrit 42.7, Mean Corpuscular Volume 93.9, Mean Corpuscular Hemoglobin 30.7, Mean Corpuscular Hemoglobin Concent 32.7, Red Cell Distribution Width 11.5, Platelet Count 193, Neutrophils (%) (Auto) 54.2, Lymphocytes (%) (Auto) 35.2, Monocytes (%) (Auto) 4.8, Eosinophils (%) (Auto) 3.2H, Basophils (%) (Auto) 0.5, Neutrophils # (Auto) 4.2, Lymphocytes # (Auto) 2.7, Monocytes # (Auto) 0.4, Eosinophils # (Auto) 0.2, Basophils # (Auto) 0.0, C -Reactive Protein, Quantitative < 0.30, Blood Urea Nitrogen 15, Creatinine 1.02 , Sodium Level 138, Potassium Level 3.8, Chloride Level 101, Carbon Dioxide Level 29, Calcium Level 9.4, Total Creatine Kinase 65, Creatine Kinase MB 1.0, Creatine Kinase MB Relative Index 1.53, Estimated Mean Plasma Glucose 177H, Free Thyroxine Index 2.9, Glomerular Filtration Rate 56.1, Hemoglobin A1c 7.8H, Large Unclassified Cells # 0.2, Large Unclassified Cells % 2.1, Thyroid Stimulating Hormone (TSH) 2.220, Thyroxine (T4) 9.3, Triiodothyronine (T3) Uptake 31, Troponin I 0.21H 12/01/16 22:01: Total Creatine Kinase 61, Creatine Kinase MB 1.0, Creatine Kinase MB Relative Index 1.63, Troponin I 0.22H 12/02/16 02:23: Bedside Glucose (Misc Panel) 302H 12/02/16 04:44: Anion Gap 9, C-Reactive Protein, Quantitative < 0.30, Blood Urea Nitrogen 15, Creatinine 1.04H, Sodium Level 138, Potassium Level 3.8, Chloride Level 100, Carbon Dioxide Level 29, Calcium Level 8.9, Total Creatine Kinase 71, Creatine Kinase MB 1.2, Creatine Kinase MB Relative Index 1.69, Glomerular Filtration Rate 54.8, Troponin I 0.20H, Magnesium Level 2.0 CBC/BMP Laboratory Tests 12/01/16 17:24 Calcium Level 9.4, Total Creatine Kinase 65, Red Blood Count 4.55, Mean Corpuscular Volume 93.9, Mean Corpuscular Hemoglobin 30.7, Mean Corpuscular Hemoglobin Concent 32.7, Red Cell Distribution Width 11.5, Neutrophils (%) (Auto ) 54.2, Lymphocytes (%) (Auto) 35.2, Monocytes (%) (Auto) 4.8, Eosinophils (%) ( Auto) 3.2 H, Basophils (%) (Auto) 0.5, Neutrophils # (Auto) 4.2, Lymphocytes # ( Auto) 2.7, Monocytes # (Auto) 0.4, Eosinophils # (Auto) 0.2, Basophils # (Auto) 0.0 12/02/16 04:44 Calcium Level 8.9, Total Creatine Kinase 71, Red Blood Count 4.37, Mean Corpuscular Volume 93.3, Mean Corpuscular Hemoglobin 30.2, Mean Corpuscular Hemoglobin Concent 32.3, Red Cell Distribution Width 11.5 FSBS Laboratory Tests Test 12/02/16 02:23 Range/Units Bedside Glucose (Misc Panel) 302 83-110 MG/DL Microbiology Microbiology 12/01/16 Blood Culture, Received Pending 12/01/16 Blood Culture, Received Pending Home Medications Scheduled (Vytorin 10-40 mg) 1 Tab Tab 1 TAB PO QHS (Reported) Aspirin (Aspirin) 325 Mg Tab 325 MG PO DAILY (Reported) Enalapril Maleate (Enalapril Maleate) 5 Mg Tab 5 MG PO DAILY (Reported) Insulin Detemir (Levemir) 1 Units/0.01 Ml Susp 15 UNITS SC BID (Reported) Latanoprost (Latanoprost) 50 Drop/2.5 Ml Soln 1 DROP OD QHS (Reported) Metoprolol Tartrate (Metoprolol Tartrate) 25 Mg Tab 25 MG PO QHS (Reported) Multivitamins *[facility] STOCKED* (Thera M Plus *[facility] STOCKED*) 1 Tab Tab 1 TAB PO DAILY (Reported) Omeprazole (Omeprazole) 20 Mg Cap 20 MG PO DAILY (Reported) Sertraline Hcl (Sertraline HCl) 25 Mg Tab 25 MG PO DAILY (Reported) Scheduled PRN Acetaminophen (Tylenol) 325 Mg Tab 650 MG PO Q4H PRN PRN PAIN (Reported) Docusate Sodium (Colace) 100 Mg Cap 100 MG PO DAILY PRN PRN CONSTIPATION ( Reported) Meclizine HCl (Meclizine HCl) 12.5 Mg Tab 12.5 MG PO Q6H PRN PRN DIZZINESS ( Reported) Silver Sulfadiazine (Silvadene) 1 % Cre 1 DOSE TOP DAILY PRN PRN DRY SKIN ( Reported) APPLY TO BOTTOM OF SPINE Current Medications Current Medications Medications (Trade) Dose Ordered Sig/French Route PRN Reason Start Time Stop Time Status Last Admin Dose Admin Acetaminophen (Tylenol Tab) 650 mg Q4HP PRN PO MILD PAIN OR FEVER 12/01/16 21:15 12/31/16 21:14 Aspirin (Aspirin Chewable) 81 mg 1T@0109 PO 12/02/16 01:09 12/02/16 03:00 DC 12/02/16 02:25 Aspirin (Ecotrin) 81 mg DAILY PO 12/02/16 09:00 01/01/17 08:59 12/02/16 08:54 Atorvastatin Calcium (Lipitor) 20 mg QHS PO 12/01/16 21:00 12/31/16 20:59 12/02/16 02:25 Azithromycin (Zithromax Tab) 500 mg DAILY PO 12/02/16 09:00 12/09/16 08:59 12/02/16 08:58 Azithromycin/IV Miscellaneous Supplies/Dextrose (Zithromax Inj/ Adapter-Vial Mate/ Dextrose 5%) 255 ml @ 255 mls/hr 1T@0110 IV 12/02/16 01:10 12/02/16 03:00 DC 12/02/16 02:17 Ceftriaxone Sodium 2 gm/ Dextrose 50 ml @ 100 mls/hr Q24H IV 12/02/16 02:00 12/09/16 01:59 12/02/16 03:45 Clopidogrel Bisulfate 75 mg 75 mg DAILY PO 12/02/16 09:00 01/01/17 08:59 12/02/16 08:58 Dextrose (Dextrose 50%) 25 ml ASDIRECTED PRN IV SEE LABEL COMMENTS 12/01/16 21:15 12/31/16 21:14 Enalapril Maleate (Vasotec) 5 mg DAILY PO 12/02/16 09:00 01/01/17 08:59 12/02/16 08:58 Glucagon (Glucagon) 1 mg ASDIRECTED PRN SC SEE LABEL COMMENTS 12/01/16 21:15 12/31/16 21:14 Glucose (Glucose) 16 GM ASDIRECTED PRN PO SEE LABEL COMMENTS 12/01/16 21:15 12/31/16 21:14 Heparin Sodium (Porcine) (Heparin) 5,000 units Q8H SC 12/02/16 06:00 12/07/16 05:59 12/02/16 05:52 Home Med (Med Rec Complete!) ASDIRECTED XX 12/01/16 21:15 12/01/16 21:28 DC Insulin Detemir (Levemir Insulin) 10 units BID SC 12/01/16 21:00 12/31/16 20:59 12/02/16 08:05 Insulin Human Lispro (HumaLOG INSULIN) SEE PROTOCOL TABLE AC SC 12/02/16 07:30 01/01/17 07:29 12/02/16 08:05 Insulin Human Lispro (HumaLOG INSULIN) SEE PROTOCOL TABLE QHS SC 12/02/16 21:00 01/01/17 20:59 Latanoprost (Xalatan 0.005% Op Soln) 1 drop QHS OD 12/01/16 21:00 12/31/16 20:59 12/02/16 02:26 Meclizine HCl (Antivert) 12.5 mg Q6H PRN PO DIZZINESS 12/01/16 21:15 12/31/16 21:14 Metoprolol Tartrate (Lopressor) 25 mg QHS PO 12/01/16 21:00 12/31/16 20:59 12/02/16 02:28 Multivitamins (Theragram-M) 1 tab DAILY PO 12/02/16 09:00 01/01/17 08:59 12/02/16 08:58 Ondansetron HCl (Zofran) 4 mg Q6HP PRN IV NAUSEA OR VOMITING 12/01/16 21:15 12/31/16 21:14 Pantoprazole Sodium (Protonix) 40 mg DAILY PO 12/02/16 09:00 01/01/17 08:59 12/02/16 08:58 Senna/Docusate Sodium (Senokot S) 1 tab BID PO 12/02/16 09:00 01/01/17 08:59 12/02/16 08:58 Sertraline HCl (Zoloft) 25 mg DAILY PO 12/02/16 09:00 01/01/17 08:59 12/02/16 08:59 Silver Sulfadiazine (Silvadene 1%) APPLY TO BOTTOM OF SPINE DAILY TOP 12/02/16 09:00 01/01/17 08:59 12/02/16 08:54 Allergies Allergies: Coded Allergies: Heavy Metals (Verified Allergy, Unknown, 09/11/13) GME ATTESTATION GME ATTESTATION My preceptor for this patient encounter was physically present in the building during the encounter and was fully available. As needed, all aspects of the patient interview, examination, medical decision making process, and medical care plan development were reviewed and approved by the preceptor. Preceptor is aware and concurs with the plan as stated in the body of this note and will attest to such by his/her cosignature. JOYCE MENCHACA DO Dec 02, 2016 10:33 Kermit Garcia MD Dec 02, 2016 23:53
--- NOTE | 2016-12-02 12:34 | EDDOCDS ---
Nurse's Notes [facility] Name: Batool Foreman Age: 76 yrs Sex: Female : 1940 Arrival Date: 12/01/2016 Time: 15:26 Bed Admit Hold Private MD: Reason, Edward Diagnosis: Dyspnea, unspecified;Pneumonia, unspecified organism Presentation: 12/01 15:30 Presenting complaint: Patient states: was at dr martinez's office and the doctor couldn't srm hear her heartbeat because lungs were congested. lower extremity swelling. also having issues with gall bladder, belching a lot. was at [facility] for routine visit. Presenting complaint: Patient states: cough off and on for 3 weeks. Adult Sepsis Screening: The patient does not have new or worsening altered mentation. Patient's respiratory rate is less than 22. Systolic blood pressure is greater than 100. Patient has a qSOFA score of 0- Negative Sepsis Screen. Suicide/Homicide risk assessment- the patient denies having any suicidal and/or homicidal ideations and does not present with any other emotional, behavioral or mental health complaints. Status: Patient is not a volunteer services director or dependent. Transition of care: patient was received from a primary care office; dr martinez. 15:30 Acuity: FRANCIS Level 3 [facility] 15:30 Method Of Arrival: Walkin/Carried/Asstd [facility] Triage Assessment: 15:35 General: Appears in no apparent distress, Behavior is appropriate for age, cooperative. srm Pain: Denies pain. Historical: - Allergies: no known allergies; - Home Meds: 1. Levemir 15 units subcutaneous soln twice a day (Last dose: 12/01/2016 08:30) 2. enalapril maleate 5 mg Oral tab 1 tab once daily (Last dose: 12/01/2016 08:30) 3. aspirin 325 mg Oral tab 1 tab once daily (Last dose: 12/01/2016 08:30) 4. Colace 100 mg oral cap 1 cap once daily (Last dose: 12/01/2016 08:30) 5. Zoloft 25 mg Oral tab 1 tab once daily (Last dose: 12/01/2016 08:30) 6. Vytorin 10-40 10-40 mg oral tab 1 tab once daily (Last dose: 11/30/2016) 7. metoprolol tartrate 25 mg Oral tab 1 tab once daily (Last dose: 11/30/2016) 8. latanoprost 0.005 % ophthalmic drop 1 drop nightly 9. 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 No barriers to communication noted, The patient speaks fluent Syriac, Speaks appropriately for age. - Family history: Not pertinent. - : The pt / caregiver states he / she is not on anticoagulants. Home medication list is obtained from the patient. - Exposure Risk Screening:: None identified. Screenin:52 Screening information is obtained from the patient. Fall risk: No risks identified. jc4 Assistance ADL's: requires no assistance with activities of daily living. Abuse/DV Screen: The patient / caregiver reports he/she is: not in a situation that causes fear, pain or injury. Nutritional screening: On diabetic diet. Advance Directives: Currently, there is a health care proxy, Leanna Hugo, tree. There is an active DNR order but there is no copy available at this time. There is an active [employer], Leanna Hugo, daughter. home support is adequate. Assessment: 15:56 General: Appears in no apparent distress, Behavior is appropriate for age, cooperative. ja5 Pain: Denies pain. Neurological: Level of Consciousness is awake, alert, Oriented to person, place, time. Cardiovascular: Capillary refill < 3 seconds Heart tones S1 S2 present Rhythm is sinus rhythm No ectopy. Respiratory: Airway is patent Respiratory effort is even, unlabored. Derm: Skin is pink, warm & dry. 17:17 General: Appears in no apparent distress, comfortable, Behavior is appropriate for age, ead cooperative. Cardiovascular: Rhythm is sinus rhythm. Respiratory: Airway is patent Respiratory effort is even, unlabored. Derm: Skin is pink, warm & dry. 19:34 General: Appears in no apparent distress, comfortable, Behavior is appropriate for age, mlc cooperative. General: pt offers no complaints at this time. daughter at bedside. Pain: Denies pain. Neurological: Level of Consciousness is awake, alert, Oriented to person, place, time. Cardiovascular: Rhythm is sinus rhythm. Respiratory: Airway is patent Respiratory effort is even, unlabored, Respiratory pattern is regular. Derm: Skin is pink, warm & dry. 20:24 Reassessment: Patient appears in no apparent distress at this time. Adult Sepsis mlc Screening: The patient does not have new or worsening altered mentation. Patient's respiratory rate is less than 22. Systolic blood pressure is greater than 100. Patient has a qSOFA score of 0- Negative Sepsis Screen. General: Appears comfortable, to be sleeping. Respiratory: Airway is patent Respiratory effort is even, unlabored, Respiratory pattern is regular. 20:47 Reassessment: Patient appears in no apparent distress at this time. IV fluids infusing mlc per order. resp easy/unlabored. . 21:11 Reassessment: pt given boxed lunch. mlc 21:56 Reassessment: Patient appears in no apparent distress at this time. pt resting mlc comfortably, resp easy/unlabored. pt offers no complaints. . 23:03 General: Appears in no apparent distress, comfortable, Behavior is cooperative. mlc General: pt using bedside commode. Neurological: Level of Consciousness is awake, alert, Oriented to person, place, time. Respiratory: Airway is patent Respiratory effort is even, unlabored, Respiratory pattern is regular. 12/02 00:23 Reassessment: Patient appears in no apparent distress at this time. Respiratory: Airway tm5 is patent Respiratory effort is even, unlabored, Respiratory pattern is regular. Vital Signs: 12/01 15:27 BP 212 / 105; Pulse 66; Resp 18; Temp 98.6(O); Pulse Ox 98% on R/A; Weight 86.64 kg elp (R); Height 5 ft. 5 in. (165.10 cm) (R); 15:48 BP 162 / 71 (auto/); jc4 15:50 Pulse Ox 97% ; jc4 16:41 BP 162 / 74 (auto/); ead 16:41 Pulse 59 MON; Pulse Ox 96% ; ead 16:56 BP 160 / 66 (auto/); ead 16:56 Pulse 59 MON; Pulse Ox 97% ; ead 17:26 BP 165 / 76 (auto/); mlc 17:26 Pulse 58 MON; Pulse Ox 97% ; mlc 17:41 Pulse 57 MON; Pulse Ox 96% ; mlc 17:41 BP 151 / 70 (auto/); mlc 17:56 Pulse 57 MON; Pulse Ox 100% ; mlc 17:56 BP 153 / 71 (auto/); mlc 18:11 BP 150 / 70 (auto/); mlc 18:11 Pulse 62 MON; Pulse Ox 97% ; mlc 18:41 Pulse 66 MON; Pulse Ox 96% ; mlc 18:41 BP 141 / 65 (auto/); mlc 18:42 Pulse 68 MON; Pulse Ox 95% ; mlc 18:42 BP 163 / 72 (auto/); mlc 18:57 Pulse 89 MON; Pulse Ox 96% ; mlc 18:57 BP 180 / 73 (auto/); mlc 19:12 Pulse 65 MON; Pulse Ox 98% ; mlc 19:12 BP 168 / 72 (auto/); mlc 19:27 BP 155 / 69 (auto/); mlc 19:27 Pulse 65 MON; Pulse Ox 97% ; mlc 19:42 Pulse 68 MON; Pulse Ox 98% ; mlc 19:42 BP 177 / 77 (auto/); mlc 19:55 BP 152 / 67 (auto/); mlc 19:56 Pulse 67 MON; Pulse Ox 97% ; mlc 19:57 Pulse 63 MON; Pulse Ox 96% ; mlc 19:57 BP 150 / 67 (auto/); mlc 20:12 BP 134 / 59 (auto/); mlc 20:12 Pulse 62 MON; Pulse Ox 95% ; mlc 20:18 Pulse 63 MON; Pulse Ox 94% ; mlc 20:27 Pulse 64 MON; Pulse Ox 96% ; mlc 20:27 BP 141 / 58 (auto/); mlc 20:45 BP 148 / 65 (auto/); mlc 20:45 Pulse 70 MON; mlc 20:57 BP 131 / 62 (auto/); mlc 20:57 Pulse 65 MON; Pulse Ox 96% ; mlc 21:27 BP 131 / 62 (auto/); mlc 21:27 Pulse 66 MON; Pulse Ox 98% ; mlc 21:42 BP 128 / 61 (auto/); mlc 21:45 Pulse 61 MON; Pulse Ox 97% ; mlc 21:57 BP 164 / 68 (auto/); mlc 21:57 Pulse 67 MON; Pulse Ox 96% ; mlc 22:11 Pulse 61 MON; Pulse Ox 98% ; mlc 22:12 Pulse 62 MON; mlc 22:12 BP 130 / 58 (auto/); mlc 22:27 Pulse 64 MON; mlc 22:27 BP 129 / 63 (auto/); mlc 22:42 Pulse 62 MON; mlc 22:42 BP 113 / 58 (auto/); mlc 12/02 00:23 BP 122 / 66; Pulse 63; Resp 20; Pulse Ox 95% on R/A; Pain 0/10; tm5 12/01 15:27 Body Mass Index 31.78 (86.64 kg, 165.10 cm) elp Vitals: 12/01 15:27 Log In Time: December 01, 2016 at 15:25. [facility] ED Course: 15:27 Patient visited by Yarely Love PCA. elp 15:27 Marco Edremi is Private Physician. elp 15:27 Patient moved to Waiting elp 15:28 Patient visited by Yarely Love PCA. elp 15:28 Patient moved to Pre RCE elp 15:32 Triage Initiated srm 15:36 Giulia Valentino RN is Primary Nurse. srm 15:36 Patient moved to 3 srm 16:23 Pavel Logan FNP is [facility]. ke 16:24 Patient visited by Pavel Logan FNP. ke 16:24 Patient visited by Pavel Logan FNP. ke 16:58 Patient visited by Pavel Logan FNP. ke 17:02 Primary Nurse role handed off by Giulia Valentino, OLIVA jc4 17:03 EKG done. (by ED staff). Reviewed by Pavel YORK. ct3 17:05 Patient visited by Lilliam Alvarez PCA. ct3 17:17 The patient / caregiver is instructed regarding the plan of care and ED course. Patient ead has correct armband on for positive identification. Placed in gown. Bed in low position. Call light in reach. Side rails up X2. Adult w/ patient. quality assurance monitor final on. Pulse ox on. NIBP on. 17:26 Patient visited by Salena Darby RN. ead 17:26 -Blood Culture Sent. ead 17:27 B-Type Natiuretic Peptide Sent. ead 17:27 Troponin Sent. ead 17:27 Cardiac Injury Profile Sent. ead 17:27 CBC with Diff Sent. ead 17:27 Basic Metabolic Profile Sent. ead 17:47 Patient visited by Pavel Logan FNP. ke 17:52 BLOOD CULTURES Sent. ja5 18:16 Chest, 2 View (pa\E\lat) Returned. EDMS 18:17 Patient visited by Pavel Logan FNP. ke 18:38 Inserted saline lock: 20 gauge in right antecubital area. ja5 18:48 Patient visited by Pavel Logan FNP. ke 19:23 Becka Grewal RN is Primary Nurse. mlc 19:36 Patient visited by Becka Grewal RN. mlc 19:36 Patient visited by Pavel Logan FNP. ke 20:15 [facility] Payment Agreement was scanned into Setup and attached to record. gjb 20:20 Patient visited by Pavel Logan FNP. ke 20:23 CT Chest Angio R/O PE Returned. EDMS 20:24 Patient visited by Becka Grewal RN. mlc 20:41 Maren Berger is Hospitalizing Provider. ke 20:48 Patient visited by Becka Grewal RN. mlc 21:12 Patient visited by Becka Grewal RN. mlc 21:15 Patient moved to Admit Hold ar3 21:53 Patient visited by Becka Grewal RN. mlc 21:57 Patient visited by Becka Grewal RN. mlc 23:04 Patient visited by Becka Grewal RN. mlc 12/02 00:23 Patient visited by Nikky Altman RN. tm5 00:24 Awaiting bed assignment. tm5 00:24 No procedures done that require assistance. tm5 01:18 Patient visited by Nikky Altman RN. tm5 06:59 Ken Hines MD is Attending Physician. pc 08:57 EKG-ADULT Returned. EDMS Administered Medications: 12/01 17:32 Drug: Furosemide 40 mg [furosemide 10 mg/mL injection solution (4 mL)] Route: IVP; ja5 Site: right antecubital; 17:44 Drug: Albuterol 2.5 mg [albuterol sulfate 2.5 mg/0.5 mL solution for nebulization (0.5 ac1 mL)] Route: Nebulizer; 17:53 Follow up: CLEAR BILAT ac1 17:53 Drug: Albuterol-Ipratropium 3 ml [ipratropium-albuterol 0.5 mg-3 mg(2.5 mg base)/3 mL ac1 nebulization soln (3 mL)] Route: Inhalation; 17:58 Follow up: CLEAR BILAT ac1 20:47 Drug: Plavix - Clopidogrel 300 mg [clopidogrel 75 mg tablet (4 tabs)] Route: PO; mlc 23:40 Follow up: Response: No Adverse Reaction tm5 20:47 Drug: levofloxacin 500 mg [levofloxacin 500 mg/100 mL in 5 % dextrose intravenous mlc piggyback] Route: IVPB; Site: right antecubital; 21:50 Follow up: IV Status: Completed infusion; IV Intake: 100ml tm5 Intake: 21:50 IV: 100.00ml; Total: 100.00ml. tm5 RT: 17:45 Initial Med Neb Given as ordered Patient was instructed and evaluated on procedure. ac1 17:50 Respiratory: Breath sounds are clear bilaterally. ac1 17:50 Subsequent Med Neb Given as ordered. ac1 17:59 Respiratory: Breath sounds are clear bilaterally. ac1 Order Results: Lab Order: B-Type Natiuretic Peptide; SPEC'M 12/01/16 17:24 Test: BRAIN NATRIURETIC PEPTIDE; Value: 147; Range: <100; Abnormal: Above high normal; Units: PG/ML; Status: F Lab Order: Basic Metabolic Profile; SPEC'M 12/01/16 17:24 Test: GLUCOSE, FASTING; Value: 270; Range: 83-110; Abnormal: Above high normal; Units: MG/DL; Status: F Test: BLOOD UREA NITROGEN; Value: 15; Range: 7-18; Units: MG/DL; Status: F Test: CREATININE FOR GFR; Value: 1.02; Range: 0.55-1.02; Units: MG/DL; Status: F Test: GLOMERULAR FILTRATION RATE; Value: 56.1; Range: >39; Status: F Test: SODIUM LEVEL; Value: 138; Range: 136-145; Units: MEQ/L; Status: F Test: POTASSIUM SERUM; Value: 3.8; Range: 3.5-5.1; Units: MEQ/L; Status: F Test: CHLORIDE LEVEL; Value: 101; Range: 98-107; Units: MEQ/L; Status: F Test: CARBON DIOXIDE LEVEL; Value: 29; Range: 21-32; Units: MEQ/L; Status: F Test: ANION GAP; Value: 8; Range: 8-16; Units: MEQ/L; Status: F Test: CALCIUM LEVEL; Value: 9.4; Range: 8.8-10.2; Units: MG/DL; Status: F Test Note: ; Units are mL/min/1.73 m2 Chronic Kidney Disease Staging per NKF: Stage I & II GFR >=60 Normal to Mildly Decreased Stage III GFR 30-59 Moderately Decreased Stage IV GFR 15-29 Severely Decreased Stage V GFR <15 Very Little GFR Left ESRD GFR <15 on METHODS ANALYST DATA PROCESSING Lab Order: CBC with Diff; SPEC'M 12/01/16 17:24 Test: WHITE BLOOD COUNT; Value: 7.8; Range: 4.0-10.0; Units: K/mm3; Status: F Test: RED BLOOD COUNT; Value: 4.55; Range: 4.00-5.40; Units: M/mm3; Status: F Test: HEMOGLOBIN; Value: 13.9; Range: 12.0-16.0; Units: g/dl; Status: F Test: HEMATOCRIT; Value: 42.7; Range: 36.0-47.0; Units: %; Status: F Test: MEAN CORPUSCULAR VOLUME; Value: 93.9; Range: 80.0-96.0; Units: fl; Status: F Test: MEAN CORPUSCULAR HEMOGLOBIN; Value: 30.7; Range: 27.0-33.0; Units: pg; Status: F Test: MEAN CORPUSCULAR HGB CONC; Value: 32.7; Range: 32.0-36.5; Units: g/dl; Status: F Test: RED CELL DISTRIBUTION WIDTH; Value: 11.5; Range: 11.5-14.5; Units: %; Status: F Test: PLATELET COUNT, AUTOMATED; Value: 193; Range: 150-450; Units: k/mm3; Status: F Test: NEUTROPHILS %; Value: 54.2; Range: 36.0-66.0; Units: %; Status: F Test: LYMPH %; Value: 35.2; Range: 24.0-44.0; Units: %; Status: F Test: MONO %; Value: 4.8; Range: 0.0-5.0; Units: %; Status: F Test: EOS %; Value: 3.2; Range: 0.0-3.0; Abnormal: Above high normal; Units: %; Status: F Test: BASO %; Value: 0.5; Range: 0.0-1.0; Units: %; Status: F Test: LARGE UNSTAINED CELL %; Value: 2.1; Range: 0.0-4.0; Units: %; Status: F Test: NEUTROPHILS #; Value: 4.2; Range: 1.8-7.7; Units: K/mm3; Status: F Test: LYMPH #; Value: 2.7; Range: 1.5-4.5; Units: K/mm3; Status: F Test: MONO #; Value: 0.4; Range: 0.0-0.8; Units: K/mm3; Status: F Test: EOS #; Value: 0.2; Range: 0.0-0.50; Units: K/mm3; Status: F Test: BASO #; Value: 0.0; Range: 0.0-0.2; Units: K/mm3; Status: F Test: LARGE UNSTAINED CELL #; Value: 0.2; Range: 0.0-0.4; Units: K/mm3; Status: F Lab Order: Cardiac Injury Profile; SPEC'M 12/01/16 17:24 Test: CPK CREATINE PHOSPHOKINASE; Value: 65; Range: 26-192; Units: U/L; Status: F Test: CK-MB VALUE MASS; Value: 1.0; Range: 0.0-3.6; Units: NG/ML; Status: F Test: MB/CK RELATIVE INDEX; Value: 1.53; Range: < OR =4; Status: F Test Note: ; DIAGNOSIS CRITERIA MMB ng/ml Relative Index (RI) NON-AMI < or = 5 N/A MACIAS ZONE > 5 < or = 4 AMI > 5 > 4 Lab Order: Troponin; SPEC'M 12/01/16 17:24 Test: TROPONIN I; Value: 0.21; Range: < 0.10; Abnormal: Above high normal; Units: NG/ML; Status: F Test Note: ; Troponin I Reference Interval for BlackbookHR LOCI: 99th Percentile= 0.00-0.045 ng/ml Risk Stratification: <= 0.10 ng/ml Decreased Risk for Adverse Clinical Events. 0.10-1.50 ng/ml Increased Risk for Adverse Clinical Events. Evaluation of additional criterion and/or repeat testing in 2-6 hours is suggested to rule out myocardial damage. >= 1.50 ng/ml Indicative of Myocardial Injury. Lab Order: CARDIAC MARKER PANEL; [facility] 22[facility]01 Test: CPK CREATINE PHOSPHOKINASE; Value: 61; Range: 26-192; Units: U/L; Status: F Test: CK-MB VALUE MASS; Value: 1.0; Range: 0.0-3.6; Units: NG/ML; Status: F Test: MB/CK RELATIVE INDEX; Value: 1.63; Range: < OR =4; Status: F Test: TROPONIN I; Value: 0.22; Range: < 0.10; Abnormal: Above high normal; Units: NG/ML; Status: F Test Note: ; DIAGNOSIS CRITERIA MMB ng/ml Relative Index (RI) NON-AMI < or = 5 N/A MACIAS ZONE > 5 < or = 4 AMI > 5 > 4 Lab Order: C REACTIVE PROTEIN QUANTITATIV; 12/01/16 17:24 Test: C REACTIVE PROTEIN QUANTITATIV; Value: < 0.30; Range: 0.00-0.30; Units: MG/DL; Status: F Lab Order: HEMOGLOBIN A1C; [facility] 12/01/16 17:24 Test: HEMOGLOBIN A1c; Value: 7.8; Range: 4.5-6.2; Abnormal: Above high normal; Units: %; Status: F Test: ESTIMATED AVERAGE GLUCOSE; Value: 177; Range: 60-110; Abnormal: Above high normal; Units: MG/DL; Status: F Lab Order: C REACTIVE PROTEIN QUANTITATIV; [facility]12[facility] 04:44 Test: C REACTIVE PROTEIN QUANTITATIV; Value: < 0.30; Range: 0.00-0.30; Units: MG/DL; Status: F Lab Order: COMPLETE BLOOD COUNT; [facility] 04:44 Test: WHITE BLOOD COUNT; Value: 7.0; Range: 4.0-10.0; Units: K/mm3; Status: F Test: RED BLOOD COUNT; Value: 4.37; Range: 4.00-5.40; Units: M/mm3; Status: F Test: HEMOGLOBIN; Value: 13.2; Range: 12.0-16.0; Units: g/dl; Status: F Test: HEMATOCRIT; Value: 40.8; Range: 36.0-47.0; Units: %; Status: F Test: MEAN CORPUSCULAR VOLUME; Value: 93.3; Range: 80.0-96.0; Units: fl; Status: F Test: MEAN CORPUSCULAR HEMOGLOBIN; Value: 30.2; Range: 27.0-33.0; Units: pg; Status: F Test: MEAN CORPUSCULAR HGB CONC; Value: 32.3; Range: 32.0-36.5; Units: g/dl; Status: F Test: RED CELL DISTRIBUTION WIDTH; Value: 11.5; Range: 11.5-14.5; Units: %; Status: F Test: PLATELET COUNT, AUTOMATED; Value: 183; Range: 150-450; Units: k/mm3; Status: F Lab Order: BASIC METABOLIC PROFILE; [facility]' 12/02/16 04:44 Test: GLUCOSE, FASTING; Value: 341; Range: 83-110; Abnormal: Above high normal; Units: MG/DL; Status: F Test: BLOOD UREA NITROGEN; Value: 15; Range: 7-18; Units: MG/DL; Status: F Test: CREATININE FOR GFR; Value: 1.04; Range: 0.55-1.02; Abnormal: Above high normal; Units: MG/DL; Status: F Test: GLOMERULAR FILTRATION RATE; Value: 54.8; Range: >39; Status: F Test: SODIUM LEVEL; Value: 138; Range: 136-145; Units: MEQ/L; Status: F Test: POTASSIUM SERUM; Value: 3.8; Range: 3.5-5.1; Units: MEQ/L; Status: F Test: CHLORIDE LEVEL; Value: 100; Range: 98-107; Units: MEQ/L; Status: F Test: CARBON DIOXIDE LEVEL; Value: 29; Range: 21-32; Units: MEQ/L; Status: F Test: ANION GAP; Value: 9; Range: 8-16; Units: MEQ/L; Status: F Test: CALCIUM LEVEL; Value: 8.9; Range: 8.8-10.2; Units: MG/DL; Status: F Test Note: ; Units are mL/min/1.73 m2 Chronic Kidney Disease Staging per NKF: Stage I & II GFR >=60 Normal to Mildly Decreased Stage III GFR 30-59 Moderately Decreased Stage IV GFR 15-29 Severely Decreased Stage V GFR <15 Very Little GFR Left ESRD GFR <15 on METHODS ANALYST DATA PROCESSING Lab Order: MAGNESIUM LEVEL; 12/02/16 04:44 Test: MAGNESIUM LEVEL; Value: 2.0; Range: 1.8-2.4; Units: MG/DL; Status: F Lab Order: THYROID PROFILE; 12/01/16 17:24 Test: T UPTAKE; Value: 31; Range: 30-39; Units: %; Status: F Test: THYROXINE (T4); Value: 9.3; Range: 4.5-12.0; Units: UG/DL; Status: F Test: FREE THYROXINE INDEX; Value: 2.9; Range: 1.3-4.8; Units: %; Status: F Test: THYROID STIMULATING HORMONE; Value: 2.220; Range: 0.358-3.740; Units: uIU/ML; Status: F Lab Order: CARDIAC MARKER PANEL; 12/02/16 04:44 Test: CPK CREATINE PHOSPHOKINASE; Value: 71; Range: 26-192; Units: U/L; Status: F Test: CK-MB VALUE MASS; Value: 1.2; Range: 0.0-3.6; Units: NG/ML; Status: F Test: MB/CK RELATIVE INDEX; Value: 1.69; Range: < OR =4; Status: F Test: TROPONIN I; Value: 0.20; Range: < 0.10; Abnormal: Above high normal; Units: NG/ML; Status: F Test Note: ; DIAGNOSIS CRITERIA MMB ng/ml Relative Index (RI) NON-AMI < or = 5 N/A MACIAS ZONE > 5 < or = 4 AMI > 5 > 4 Lab Order: Fingerstick Blood Sugar; 12/02/16 02:23 Test: BEDSIDE GLUCOSE; Value: 302; Range: 83-110; Abnormal: Above high normal; Units: MG/DL; Status: F Radiology Order: Chest, 2 View (pa\E\lat) Test: Chest, 2 View (pa\E\lat) REASON FOR EXAMINATION: Shortness of Breath; Chest x-ray: Two views:; ; History: Shortness of breath.; ; Findings: The patient is status-post prior median sternotomy. The lungs are; symmetrically aerated and free of infiltrate. Pleural angles are sharp. Heart; is not enlarged. The aorta is tortuous. EKG monitoring electrodes overlie the; chest.; ; Impression:; ; Prior sternotomy. No active disease.; ; ; Signed by; Brayan Puente MD 12/01/2016 05:38 P; Radiology Order: EKG-ADULT Test: EKG-ADULT REASON FOR EXAMINATION: Shortness of Breath; Stationary ECG Study; [facility] - ED; ; Test Date: 2016-12-01; Pat Name: BATOOL FOREMAN Department:; Room: -; Gender: F Set Staff Fitter: ct; : 1940 Requested By: PAVEL YORK; Order Number: [id number] Reading MD: Betsy Drew; Measurements; Intervals [place]; Rate: 57 P:; FL: 0 QRS: -19; QRSD: 119 T: 8; QT: 430; QTc: 420; Interpretive Statements; SINUS BRADYCARDIA; POSSIBLE LEFT VENTRICULAR HYPERTROPHY; POSSIBLE SEPTAL MYOCARDIAL INFARCTION, OF INDETERMINATE AGE; IVCD; SIMILAR 11/07/16; Electronically Signed On 12-02-2016 8:33:54 EST by Betsy Drew; Radiology Order: CT Chest Angio R/O PE Test: CT Chest Angio R/O PE REASON FOR EXAMINATION: Shortness of Breath; ; CLINICAL HISTORY: Dyspnea, exclude PE.; TECHNIQUE: Multiple incremental axial, coronal and oblique images are obtained from the thoracic inle; t to the upper abdomen. Intravenous contrast material was administered as per pulmonary embolism prot; ocol.; COMMENTS:; There is excellent opacification of pulmonary arterial system without evidence for pulmonary embolism; . Aorta is of normal caliber without evidence for dissection or aneurysm.; Confluent opacity in the right lower lobe compatible with pneumonia.; There is no evidence of pleural or parenchymal mass. There are no pleural effusions. There is no evid; ence of hilar or mediastinal lymphadenopathy. The heart and great vessels are within normal limits.; Images of the upper abdomen demonstrate no evidence of adrenal mass. Although the gallbladder is not; fully evaluated there is apparent thickening of the gallbladder wall.; The bony structures are free of lytic or blastic lesions. Multilevel degenerative changes are seen in; volving the visualized thoracolumbar spine.; Scattered calcifications are seen involving the aorta and major branches compatible with atherosclero; sis.; IMPRESSION:; No evidence for pulmonary embolism.; Confluent opacity in the right lower lobe compatible with pneumonia.; Although the gallbladder is not fully evaluated there is apparent thickening of the gallbladder wall.; ; Thank you for your kind referral of this patient.; ; Outcome: 19:36 CT Study completed. [facility] [place] 20:43 Decision to Hospitalize by Provider. 12/02 12:33 Patient left the ED. cmb Signatures: Dispatcher [employer] EDMS Ken Hines MD MD pc Michelson, Staci, RN RN srm Nikki Horne,RT RT ac1 Pavel Logan, HYDROELECTRIC PLANT ELECTRICAL ENGINEER HYDROELECTRIC PLANT ELECTRICAL ENGINEER ke Jo Ann Layton, DECKHAND DECKHAND ar3 Giulia Valentino, RN RN jc4 Lilliam Alvarez, DECKHAND DECKHAND ct3 Merly [place] cmb Yarely Love, DECKHAND DECKHAND elp Salena Darby,RN Becka Curran,RN Tamara Osorio TonyaRN OLIVA tm5 Cristina Casas,RN RN ja5 MTDD
--- NOTE | 2016-12-02 12:34 | EDDOCDS ---
Physician Documentation [facility] Name: Rosalinda You Age: 76 yrs Sex: Female : 1940 Arrival Date: 12/01/2016 Time: 15:26 Bed Admit Hold Private MD: Ernst Lara Disposition: 12/01/16 20:43 Hospitalization ordered by Maren Berger for Inpatient Admission. Preliminary diagnosis are Dyspnea, unspecified, Pneumonia, unspecified organism. - Bed requested for PCU. - Status is Inpatient Admission. cmb - Condition is Stable. - Problem is an ongoing problem. - Symptoms are unchanged. Historical: - Allergies: no known allergies; - Home Meds: 1. Levemir 15 units subcutaneous soln twice a day (Last dose: 12/01/2016 08:30) 2. enalapril maleate 5 mg Oral tab 1 tab once daily (Last dose: 12/01/2016 08:30) 3. aspirin 325 mg Oral tab 1 tab once daily (Last dose: 12/01/2016 08:30) 4. Colace 100 mg oral cap 1 cap once daily (Last dose: 12/01/2016 08:30) 5. Zoloft 25 mg Oral tab 1 tab once daily (Last dose: 12/01/2016 08:30) 6. Vytorin 10-40 10-40 mg oral tab 1 tab once daily (Last dose: 11/30/2016) 7. metoprolol tartrate 25 mg Oral tab 1 tab once daily (Last dose: 11/30/2016) 8. latanoprost 0.005 % ophthalmic drop 1 drop nightly 9. 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 No barriers to communication noted, The patient speaks fluent Palestinian, Speaks appropriately for age. - Family history: Not pertinent. - : The pt / caregiver states he / she is not on anticoagulants. Home medication list is obtained from the patient. - Exposure Risk Screening:: None identified. Vital Signs: 12/01 15:27 BP 212 / 105; Pulse 66; Resp 18; Temp 98.6(O); Pulse Ox 98% on R/A; Weight 86.64 kg / elp 191.01 lbs (R); Height 5 ft. 5 in. (165.10 cm) (R); 15:48 BP 162 / 71 (auto/); jc4 15:50 Pulse Ox 97% ; jc4 16:41 BP 162 / 74 (auto/); ead 16:41 Pulse 59 MON; Pulse Ox 96% ; ead 16:56 BP 160 / 66 (auto/); ead 16:56 Pulse 59 MON; Pulse Ox 97% ; ead 17:26 BP 165 / 76 (auto/); mlc 17:26 Pulse 58 MON; Pulse Ox 97% ; mlc 17:41 Pulse 57 MON; Pulse Ox 96% ; mlc 17:41 BP 151 / 70 (auto/); mlc 17:56 Pulse 57 MON; Pulse Ox 100% ; mlc 17:56 BP 153 / 71 (auto/); mlc 18:11 BP 150 / 70 (auto/); mlc 18:11 Pulse 62 MON; Pulse Ox 97% ; mlc 18:41 Pulse 66 MON; Pulse Ox 96% ; mlc 18:41 BP 141 / 65 (auto/); mlc 18:42 Pulse 68 MON; Pulse Ox 95% ; mlc 18:42 BP 163 / 72 (auto/); mlc 18:57 Pulse 89 MON; Pulse Ox 96% ; mlc 18:57 BP 180 / 73 (auto/); mlc 19:12 Pulse 65 MON; Pulse Ox 98% ; mlc 19:12 BP 168 / 72 (auto/); mlc 19:27 BP 155 / 69 (auto/); mlc 19:27 Pulse 65 MON; Pulse Ox 97% ; mlc 19:42 Pulse 68 MON; Pulse Ox 98% ; mlc 19:42 BP 177 / 77 (auto/); mlc 19:55 BP 152 / 67 (auto/); mlc 19:56 Pulse 67 MON; Pulse Ox 97% ; mlc 19:57 Pulse 63 MON; Pulse Ox 96% ; mlc 19:57 BP 150 / 67 (auto/); mlc 20:12 BP 134 / 59 (auto/); mlc 20:12 Pulse 62 MON; Pulse Ox 95% ; mlc 20:18 Pulse 63 MON; Pulse Ox 94% ; mlc 20:27 Pulse 64 MON; Pulse Ox 96% ; mlc 20:27 BP 141 / 58 (auto/); mlc 20:45 BP 148 / 65 (auto/); mlc 20:45 Pulse 70 MON; mlc 20:57 BP 131 / 62 (auto/); mlc 20:57 Pulse 65 MON; Pulse Ox 96% ; mlc 21:27 BP 131 / 62 (auto/); mlc 21:27 Pulse 66 MON; Pulse Ox 98% ; mlc 21:42 BP 128 / 61 (auto/); mlc 21:45 Pulse 61 MON; Pulse Ox 97% ; mlc 21:57 BP 164 / 68 (auto/); mlc 21:57 Pulse 67 MON; Pulse Ox 96% ; mlc 22:11 Pulse 61 MON; Pulse Ox 98% ; mlc 22:12 Pulse 62 MON; mlc 22:12 BP 130 / 58 (auto/); mlc 22:27 Pulse 64 MON; mlc 22:27 BP 129 / 63 (auto/); mlc 22:42 Pulse 62 MON; mlc 22:42 BP 113 / 58 (auto/); mlc 12/02 00:23 BP 122 / 66; Pulse 63; Resp 20; Pulse Ox 95% on R/A; Pain 0/10; tm5 12/01 15:27 Body Mass Index 31.78 (86.64 kg, 165.10 cm) elp MDM: 12/01 16:31 -Blood Culture (Adults Only), peripheral from different site, or from device/port/PICC ke etc. if present ordered. 16:31 Chainstitch Zipper Setter/Pulse Ox/q 15 min VS ordered. ke 16:31 IV Saline Lock ordered. ke 16:31 Oxygen at 4L/Min NC or Home dosage ordered. ke 16:31 Rhythm Strip to chart ordered. ke 16:31 Furosemide 40 mg IVP once ordered. ke 16:32 -Blood Culture Ordered. EDMS 16:32 B-Type Natiuretic Peptide Ordered. EDMS 16:32 Basic Metabolic Profile Ordered. EDMS 16:32 CBC with Diff Ordered. EDMS 16:32 Cardiac Injury Profile Ordered. EDMS 16:32 Troponin Ordered. EDMS 16:34 Chest, 2 View (pa\E\lat) Ordered. EDMS 16:34 ECG WITH READING ER PHYS+CARDIAG ordered. EDMS 16:52 -Blood Culture (Adults Only), peripheral from different site, or from device/port/PICC lbd etc. if present complete. 16:55 BLOOD CULTURES Ordered. EDMS 17:37 Albuterol 2.5 mg Nebulizer once ordered. ke 17:37 Albuterol-Ipratropium 3 ml Inhalation once ordered. ke 17:37 Call Respiratory ordered. ke 17:43 Call Respiratory complete. ead 18:20 B-Type Natiuretic Peptide Reviewed. ke 18:20 Basic Metabolic Profile Reviewed. ke 18:20 CBC with Diff Reviewed. ke 18:20 Troponin Reviewed. ke 18:20 Cardiac Injury Profile Reviewed. ke 18:20 Chest, 2 View (pa\E\lat) Reviewed. ke 18:39 CT Chest Angio R/O PE Ordered. EDMS 19:54 Financial registration complete. gjb 20:15 [facility] [place] was scanned into [employer] and attached to record. gjb 20:31 Plavix - Clopidogrel 300 mg PO once ordered. ke 20:31 levofloxacin 500 mg IVPB once ordered. ke 20:32 CT Chest Angio R/O PE Reviewed. ke 20:36 BED REQUEST+ADM ordered. EDMS 21:02 CARDIAC MARKER PANEL Ordered. EDMS 21:03 RESPIRATORY PANEL Ordered. EDMS 21:06 PHYSICAL THERAPY EVAL & TREAT ordered. EDMS 21:07 Admission / Observation Status ordered. EDMS 21:07 ECHOCARD,DOPPLER/COLOR FLOW ordered. EDMS 21:07 ELECTROCARDIOGRAM ADULT ordered. EDMS 21:08 CONSISTENT CARBOHYDRATES ordered. EDMS 21:08 HEMOGLOBIN A1C Ordered. EDMS 21:08 C REACTIVE PROTEIN QUANTITATIV Ordered. EDMS 21:08 COMPLETE BLOOD COUNT Ordered. EDMS 21:08 BASIC METABOLIC PROFILE Ordered. EDMS 21:09 MAGNESIUM LEVEL Ordered. EDMS 21:09 SPUTUM CULTURE AND GRAM STAIN Ordered. EDMS 21:17 THYROID PROFILE Ordered. EDMS 0201 01:18 CARDIAC MARKER PANEL Ordered. EDMS 02:30 Fingerstick Blood Sugar Ordered. EDMS Administered Medications: 12/01 17:32 Drug: Furosemide 40 mg [furosemide 10 mg/mL injection solution (4 mL)] Route: IVP; ja5 Site: right antecubital; 17:44 Drug: Albuterol 2.5 mg [albuterol sulfate 2.5 mg/0.5 mL solution for nebulization (0.5 ac1 mL)] Route: Nebulizer; 17:53 Follow up: CLEAR BILAT ac1 17:53 Drug: Albuterol-Ipratropium 3 ml [ipratropium-albuterol 0.5 mg-3 mg(2.5 mg base)/3 mL ac1 nebulization soln (3 mL)] Route: Inhalation; 17:58 Follow up: CLEAR BILAT ac1 20:47 Drug: Plavix - Clopidogrel 300 mg [clopidogrel 75 mg tablet (4 tabs)] Route: PO; mlc 23:40 Follow up: Response: No Adverse Reaction tm5 20:47 Drug: levofloxacin 500 mg [levofloxacin 500 mg/100 mL in 5 % dextrose [facility] [place] Route: IVPB; Site: right antecubital; 21:50 Follow up: IV Status: Completed infusion; IV Intake: 100ml tm5 Signatures: Dispatcher [employer] EDJaki Melara, Phytochemistry Professor Unit lbd Jacki Pruitt RN Melba Doran RN Pavel Ochoa mcp, CLINICAL NURSE OCCUPATIONAL MEDICINE CLINICAL NURSE OCCUPATIONAL MEDICINE Karen Mcallister Emily, RN RN ead Beck, Gabriela gjb Cowles, Amy RT ac1 Carmina, Becka [facility] [place] Nikky Altman RN tm5 Cristina Casas RN 5 The chart was reviewed and I authenticate all verbal orders and agree with the evaluation and treatment provided.Corrections: (The following items were deleted from the chart) 21:05 21:02 C REACTIVE PROTEIN QUANTITATIV ordered. EDMS EDMS 21:17 21:13 THYROID PROFILE ordered. EDMS EDMS 12/02 01:16 01 21:03 CARDIAC MARKER PANEL ordered. EDMS EDMS Attachments: 20:15 [facility] [place] Agreement mini MTDD
[2016-12-02 12:40] VITALS: BP 113/60
--- NOTE | 2016-12-02 15:51 | IPN ---
DATE: 12/02/2016 A 76-year-old female seen at bedside. She is resting comfortably. She denies any chest pain. No nausea or vomiting. She is tolerating her meals. OBJECTIVE: VITAL SIGNS: Temperature is 97.8, pulse 57, respiratory rate is 18, blood pressure 113/60, SPO2 is 95% on room air. GENERAL: The patient appears to be in no acute distress. She is alert and oriented. HEENT: Unremarkable. LUNGS: Clear. HEART: Regular rate and rhythm. ABDOMEN: Soft. EXTREMITIES: No edema. No calf tenderness. LABORATORY DATA: White count 7.0, hemoglobin 13.2, platelets 183,000. Sodium 138, potassium 3.8, chloride 100, bicarbonate 29, anion gap 9, BUN 15, creatinine 1.04, glucose 341, troponin 0.21, 0.22 and 0.20. She has a normal CK, CK-MB. Her 12-lead EKG shows sinus rhythm, slightly bradycardic with a rate of 57, interventricular conduction delay. She does have some what appears to be Q-waves in V1-V2. However, this is combined with interventricular conduction delay and we will defer further reading to cardiology who is going to see her this morning as well. CT angiogram of the chest demonstrated no pulmonary embolism but opacity of the right lower lobe suggestive of pneumonia. ASSESSMENT AND PLAN: 1. Community-acquired pneumonia. We will follow blood culture and sputum cultures. Continue with Rocephin and azithromycin. 2. Elevated troponin. No chest pain. Appreciate Dr. Garcia's input. She is on Plavix and aspirin. Followup echocardiogram should Dr. Garcia deem this necessary. Continue with angiotensin-converting enzyme (ASHLEY) inhibitor and beta justin. 3. Congestive heart failure with unknown ejection fraction. She was given Lasix in the emergency department. Appreciate Dr. Garcia's input. 4. Depression. Continue with home medications. No suicidal ideation. No audiovisual hallucinations. 5. Type 2 diabetes. Continue with fingersticks, sliding scale insulin, consistent-carbohydrate diet. 6. Glaucoma. Continue her home medications. 7. Gastroesophageal reflux disease (GERD). Stable on proton pump inhibitor (PPI). 8. Dyslipidemia. Continue on statin. 9. Hypertension. Continue metoprolol and enalapril. We will continue to monitor and adjust as needed. 10. Thyroid goiter. She can followup outpatient with Dr. Tejal Philip. 11. Gallbladder mass, questionable cholelithiasis. She is currently asymptomatic and can followup as an outpatient. 12. Deep vein thrombosis (DVT) prophylaxis. Subcutaneous heparin. DISPOSITION: We will touch base with cardiology later today. Continue to treat for the underlying pneumonia. Physical therapy is on board.
[2016-12-02 16:00] VITALS: BP 98/49
[2016-12-02] MEDS ORDERED: NS 1,000 ML IV SCH (17:00)
[2016-12-02 20:00] VITALS: BP 123/63
--- NOTE | 2016-12-02 23:15 | ECGEPIP ---
Stationary ECG Study 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
[2016-12-02 23:59] VITALS: BP 113/54
[2016-12-03] VITALS (7 sets, daily range): BP systolic 103–165; BP diastolic 57–86
[2016-12-03] MEDS: cefTRIAXone SOD 2 GM in D5W MINI-BAG PLUS 50 ML IV SCH (02:49)
[2016-12-03] MEDS: HEPARIN SOD (PORCINE) 5000 UNITS/ML VIAL SC SCH ×3 (05:18→20:46)
[2016-12-03 05:50] LABS: MEAN CORPUSCULAR HEMOGLOBIN 30.1 pg (27.0-33.0); MEAN CORPUSCULAR HGB CONC 32.7 g/dl (32.0-36.5); MEAN CORPUSCULAR VOLUME 92.1 fl (80.0-96.0); RED CELL DISTRIBUTION WIDTH 11.7 % (11.5-14.5); WHITE BLOOD COUNT 6.8 K/mm3 (4.0-10.0)
[2016-12-03 06:04] LABS: ANION GAP 7 MEQ/L (8-16); BLOOD UREA NITROGEN 11 MG/DL (7-18); CALCIUM LEVEL 8.8 MG/DL (8.8-10.2); CARBON DIOXIDE LEVEL 29 MEQ/L (21-32); CHLORIDE LEVEL 104 MEQ/L (98-107); CREATININE FOR GFR 0.88 MG/DL (0.55-1.02); GLOMERULAR FILTRATION RATE > 60.0 (>39); GLUCOSE, FASTING 187 MG/DL (83-110); MAGNESIUM LEVEL 1.8 MG/DL (1.8-2.4); SODIUM LEVEL 140 MEQ/L (136-145)
--- NOTE | 2016-12-03 06:44 | ECHO ---
DATE OF PROCEDURE: 12/02/2016 DATE OF : 1940 AGE: 76 REFERRING PROVIDER: Dr. Berger. PATIENT LOCATION: Room 3224. REASON FOR ECHOCARDIOGRAM: Shortness of breath. 2D MEASUREMENTS: IVS: 0.95 cm LV: 5.1 cm LVPW: 1.0 cm LA: 3.7 cm Aorta: 2.8 cm IVC: 1.6 cm DOPPLER MEASUREMENTS: Peak velocity across the aortic valve: 1.5 m/s Peak velocity across the LVOT: 1.2 m/s Mitral E: 0.89 Mitral A: 0.82 Ratio 1.1 Maximum tricuspid valve velocity: 2.7 m/s 2D COMMENTS: 1. Normal left ventricular size and wall thickness with a normal global left ventricular systolic function. The basal atrial septum appeared to be hypokinetic. The estimated global left ventricular systolic ejection fraction is 55% to 60%. A calcified tip of the papillary muscle was noted. 2. Normal left atrium. Normal right atrium and right ventricle. 3. The atrial septum appeared to be normal without evidence of defect or shunt. 4. Normal aortic root. 5. No pericardial effusion seen. 6. Mildly calcified aortic valve with normal leaflet excursion. Mildly calcified mitral annulus with normal anterior mitral valve leaflet motion. Normal tricuspid valve and pulmonic valve. The proximal pulmonary artery branches were not well visualized. 7. The inferior vena cava was normal in size, central venous pressure is most likely normal. DOPPLER: It detects trace aortic regurgitation, mild mitral regurgitation and mild tricuspid regurgitation. The calculated pulmonary artery systolic pressure varies between 30 to 40 mmHg. Assessment of the left ventricular diastolic function appeared to be normal. IMPRESSION: 1. Normal global left ventricular systolic and diastolic function. The basal anterior septum appeared to be hypokinetic. 2. Aortic valve sclerosis with trace aortic regurgitation but no aortic stenosis. 3. Mitral annulus calcification with mild mitral regurgitation. 4. Mild tricuspid regurgitation with mild pulmonary hypertension.
[2016-12-03] MEDS: HumaLOG INSULIN (NovoLOG) PER UNIT SC SCH ×4 (09:05→20:47)
[2016-12-03] MEDS: MULTIVITAMINS/MINERALS THERAP 1 TAB PO SCH (09:06)
[2016-12-03] MEDS: LEVEMIR (INSULIN DETEMIR) 1 UNITS/0.01ML SC SCH ×2 (09:06→20:46)
[2016-12-03] MEDS: PANTOPRAZOLE 40MG TAB (PROTONIX) PO SCH (09:06)
[2016-12-03] MEDS: SENOKOT S TAB PO SCH ×2 (09:07→20:47)
[2016-12-03] MEDS: CLOPIDOGREL 75 MG TAB PO SCH (09:07)
[2016-12-03] MEDS: SERTRALINE HCL 25 MG TABLET PO SCH (09:07)
[2016-12-03] MEDS: ENALAPRIL MALEATE 5 MG TAB PO SCH (09:08)
[2016-12-03] MEDS: ASPIRIN 81 MG ENTERIC TAB PO SCH (09:14)
[2016-12-03] MEDS: AZITHROMYCIN 250 MG TAB PO SCH (09:14)
[2016-12-03] MEDS: SILVER SULFADIAZINE 1% CR 50 GM JAR TOP SCH (09:15)
--- NOTE | 2016-12-03 10:08 | IPNPDOC ---
[facility] Cardiology Progress Note Date of Service/Time The patient was seen on 12/03/16 at 09:56. Cardiology Progress Note SUBJECTIVE: Ms You states that she feels well today, she was up walking with PT shortly before bedside exam and stated that she tolerated this well with no SOB, CP or palpitations. She has no active complaints at this time. OBJECTIVE: 76 y/o female who appears her stated age, sitting on her bed with her legs over the side, eating breakfast. Appears comfortable, non labored. Pleasant and conversant. PHYSICAL EXAMINATION: VITAL SIGNS: Please see below. GENERAL APPEARANCE: Patient was sitting upright in bed eating breakfast, appeared comfortable and nonlabored. No active complaints. HEENT: EOMI, NCAT, nares patent bilaterally, tongue midline, moist mucous membranes. LUNGS: Clear to auscultation bilaterally, no wheezing, rales, rhonchi appreciated. Good air expansion bilaterally. HEART: No mole S1, S2. No murmurs, gallops, rubs appreciated. Rate was in the 70s. ABDOMEN: Soft and nondistended SKIN: intact EXTREMITIES: No clubbing, cyanosis, edema appreciated. NEUROLOGICAL: no focal deficit appreciated PSYCHIATRIC: affect appropriate LABORATORY WORK: Please see below. ASSESSMENT AND PLAN: From a cardiac standpoint, there is not much additional therapy that we can offer. Her blood pressure has been stable at 115 to 130 systolic over 70 diastolic with a pulse between 60's to 80's. She had no events overnight on telemetry. The patient seems to be doing well, appears comfortable and is ambulating without difficulty with SOB. She is currently being treated with antibiotic therapy for suspect pneumonia. Plan d/c for tomorrow pending no overnight events. Will f/u outpt with our office for stress test. Her elevated troponin has been in chronic for her numerous past medical admissions, suspect this is less likely cardiac ischemia induced. No further recommendations at this time. Vital Signs/I&O VS/I&O Vital Signs Date Time Temp Pulse Resp B/P Pulse Ox O2 Delivery O2 Flow Rate FiO2 12/03/16 09:08 130/67 12/03/16 07:30 97.7 83 22 96 Room Air I&O- Last 24 Hours up to 6 AM 12/03/16 06:00 Intake Total 990 ml Output Total 2000 ml Balance -1010 ml Laboratory Data 24H LABS Laboratory Tests 2 12/02/16 12:44: Bedside Glucose (Misc Panel) 216H 12/02/16 17:18: Bedside Glucose (Misc Panel) 219H 12/02/16 20:41: Bedside Glucose (Misc Panel) 152H 12/03/16 05:26: Anion Gap 7L, Blood Urea Nitrogen 11, Creatinine 0.88, Sodium Level 140, Potassium Level 4.0, Chloride Level 104, Carbon Dioxide Level 29, Calcium Level 8.8, Glomerular Filtration Rate > 60.0, Magnesium Level 1.8 12/03/16 08:14: Troponin I 0.23H CBC/BMP Laboratory Tests 12/03/16 05:26 Calcium Level 8.8, Red Blood Count 4.25, Mean Corpuscular Volume 92.1, Mean Corpuscular Hemoglobin 30.1, Mean Corpuscular Hemoglobin Concent 32.7, Red Cell Distribution Width 11.7 FSBS Laboratory Tests Test 12/02/16 12:44 12/02/16 17:18 12/02/16 20:41 Range/Units Bedside Glucose (Misc Panel) 216 219 152 83-110 MG/DL Microbiology Microbiology 12/01/16 Blood Culture - Preliminary, Resulted No growth after 24 hours . All specim... 12/01/16 Blood Culture - Preliminary, Resulted No growth after 24 hours . All specim... GME ATTESTATION GME ATTESTATION My preceptor for this patient encounter was physically present in the building during the encounter and was fully available. As needed, all aspects of the patient interview, examination, medical decision making process, and medical care plan development were reviewed and approved by the preceptor. Preceptor is aware and concurs with the plan as stated in the body of this note and will attest to such by his/her cosignature. JOYCE MENCHACA DO Dec 03, 2016 10:08
[2016-12-03] MEDS ORDERED: AZIT250T3 PO (15:56)
--- NOTE | 2016-12-03 16:05 | IPN ---
DATE: 12/03/2016 76-year-old female seen at bedside resting comfortably. Her daughter did make it in to see her today and we had a discussion about her mom. Dr. Garcia saw her this morning also and anticipating a stress test tomorrow. She denies chest pain. Denies productive sputum or cough. OBJECTIVE: Temp.: 97.5, pulse 108, respiratory rate is 22, BP 165/75, SPO2 is 96% on room air. General: The patient appears to be in no acute distress. She is alert, pleasant. HEENT: Unremarkable. Lungs: Clear. Heart: Regular rhythm. Abdomen: Soft. Extremities: No edema. LABORATORY DATA White count 6.8, hemoglobin 12.8, platelets 194,000. Sodium 140, potassium 4.0, chloride 104, bicarb 29, anion gap 7, BUN is 11, creatinine 0.88, glucose 187, magnesium 1.8. ASSESSMENT/PLAN: 1. Presumed community-acquired pneumonia. Will plan on down regulate and her antibiotics tomorrow. Blood culture, sputum cultures were unremarkable so far 2. Elevated troponin with no chest pain this likely is a chronic issue for this patient, continue on Plavix and aspirin. Discussed echocardiogram with Dr. Garcia and she is scheduled for an outpatient stress test tomorrow 3. Congestive heart failure (CHF) and an ejection fraction. Again appreciate Dr. Garcia's input. 4. Depression stable on current medications. No suicidal ideation. No audiovisual hallucinations. 5. Type 2 diabetes. Continue fingersticks, sliding scale insulin, consistent carb diet. 6. Glaucoma. Continue with her home medicines. 7. Continue with proton pump inhibitor. 8. Dyslipidemia. Continue with statin. 9. Hypertension. Continue with metoprolol, enalapril 10. Thyroid goiter followup with Dr. Philip 11. Gallbladder mass, questionable cholelithiasis and followup outpatient. 12. Deep venous thrombosis (DVT) prophylaxis subcu heparin. DISPOSITION AND PLAN: 1. We will discharge her tomorrow morning. 2. Cardiac stress testing.
[2016-12-03] MEDS: LATANOPROST 0.005% OPHTH SOLN 2.5 ML OD SCH (20:46)
[2016-12-03] MEDS: METOPROLOL TART 25 MG TABLET PO SCH (20:47)
[2016-12-03] MEDS: ATORVASTATIN 20 MG TAB PO SCH (20:47)
[2016-12-04] MEDS: cefTRIAXone SOD 2 GM in D5W MINI-BAG PLUS 50 ML IV SCH (02:42)
[2016-12-04 04:00] VITALS: BP 123/76
[2016-12-04 05:43] LABS: MEAN CORPUSCULAR HEMOGLOBIN 30.6 pg (27.0-33.0); MEAN CORPUSCULAR HGB CONC 33.1 g/dl (32.0-36.5); MEAN CORPUSCULAR VOLUME 92.5 fl (80.0-96.0); RED CELL DISTRIBUTION WIDTH 11.7 % (11.5-14.5)
[2016-12-04] MEDS: HEPARIN SOD (PORCINE) 5000 UNITS/ML VIAL SC SCH (05:49)
[2016-12-04 05:59] LABS: ANION GAP 6 MEQ/L (8-16); BLOOD UREA NITROGEN 11 MG/DL (7-18); CALCIUM LEVEL 9.3 MG/DL (8.8-10.2); CARBON DIOXIDE LEVEL 29 MEQ/L (21-32); CHLORIDE LEVEL 105 MEQ/L (98-107); CREATININE FOR GFR 0.85 MG/DL (0.55-1.02); GLOMERULAR FILTRATION RATE > 60.0 (>39); GLUCOSE, FASTING 186 MG/DL (83-110); MAGNESIUM LEVEL 2.1 MG/DL (1.8-2.4); POTASSIUM SERUM 4.4 MEQ/L (3.5-5.1); SODIUM LEVEL 140 MEQ/L (136-145)
[2016-12-04 07:05] VITALS: BP 145/70
--- NOTE | 2016-12-04 10:36 | DSES ---
DATE OF ADMISSION: 12/01/2016 DATE OF DISCHARGE: 12/04/2016 PRIMARY CARE PROVIDER: Dr. Riggins. PROPERTY MAINTENANCE TECHNICIAN: Dr. Philip. FIELD SERVICE MANAGER: Dr. Haywood. CONSULTANTS: Dr. Garcia. PROCEDURES: None. COMPLICATIONS: None. ADMISSION/DISCHARGE DIAGNOSES: 1. Acute onset shortness of breath with cough. 2. Community-acquired pneumonia. 3. Elevated troponin. 4. History of congestive heart failure. Unknown ejection fraction (EF) and follows with cardiology. 5. Depression. 6. Diabetes type 2. 7. Glaucoma. 8. Gastroesophageal reflux disease (GERD). 9. Hyperlipidemia. 10. Hypertension. 11. Thyroid goiter 12. Gallbladder mass. BRIEF HOSPITAL COURSE: Ms. You is a pleasant 76-year-old female who presented to the emergency department from Tejal Philip's office. She did have some abnormal lung sounds which was felt to be pulmonary congestion, increasing shortness of breath for the last 3-4 days and productive sputum. No fever was reported. No nausea, vomiting. On evaluation in the emergency department, she did have a CT scan of the chest done which resulted in no pulmonary embolus (PE). However, she does have an opacification noted in the right lower lobe with associated pneumonia. She remained afebrile. Her white count was 7.8. CRP was unremarkable and BNP was 147. Her troponin was 0.21, repeated on three separate occasions remained in the 0.2 - 0[address] Garcia was consulted. She showed no EKG changes. No issues on telemetry. However, she is already scheduled for a stress test today on the day of discharge and Dr. Garcia felt that this would be okay for her to followup in the office when she was discharged today. For further information regarding intake, physical labs, diagnostics, please refer to the history and physical. The patient did progress nicely during her hospital stay and on day of discharge was felt to be close to her baseline, appropriate for discharge and again Dr. Garcia did want her to follow up in his office for a stress test today. PHYSICAL EXAMINATION TODAY: Temperature is 96.8, pulse 65 and regular, respiratory rate 20, BP 145/70, SpO2 is 99% on room air. General: The patient appears to be in no acute distress. She is alert and oriented. HEENT: Unremarkable. Lungs: Clear. Heart: Regular rate and rhythm. Abdomen: Soft. Extremities: No edema. No calf tenderness. LABORATORY DATA: White count 7.0, hemoglobin 13.5, platelets 203,000. Sodium 140, potassium 4.4, chloride 105, bicarb 29, anion gap 6, BUN is 11, creatinine 0.85, glucose 186, magnesium 2.1. DISCHARGE CONDITION: Good. DISPOSITION: Discharge to home. DISCHARGE MEDICATIONS: - azithromycin 500 mg daily for seven more days - Tylenol 650 mg every 4 hours as needed - aspirin 325 mg daily - Colace 100 mg daily as needed - enalapril 5 mg daily - Levemir - Latanoprost one drop right eye daily at bedtime - meclizine 12.5 mg every 6 hours as needed - metoprolol tartrate 25 mg daily at bedtime - multivitamin one tablet daily - omeprazole 20 mg daily - Zoloft 25 mg daily - Silvadene cream to be applied topically to skin daily - Vytorin 10/40 mg one tablet daily at bedtime DISCHARGE INSTRUCTIONS: The patient will be discharged today. Her appointment is this morning at Dr. Haywood's office for stress testing. She will report directly there. Otherwise when she returns home, activity is as tolerated. Consistent carbohydrate diet. Finish her antibiotic. She is instructed to return to the emergency department if symptoms should worsen or progress. She voices understanding. See Dr. Spence. Discharge took approximately 35 minutes.
--- NOTE | 2016-12-04 13:34 | EDDOCDS ---
Physician Documentation [facility] Name: Rosalinda You Age: 76 yrs Sex: Female : 1940 Arrival Date: 12/01/2016 Time: 15:26 Bed Admit Hold Private MD: Ernst Lara Disposition: 12/01/16 20:43 Hospitalization ordered by Maren Berger for Inpatient Admission. Preliminary diagnosis are Dyspnea, unspecified, Pneumonia, unspecified organism. - Bed requested for PCU. - Status is Inpatient Admission. cmb - Condition is Stable. - Problem is an ongoing problem. - Symptoms are unchanged. Historical: - Allergies: no known allergies; - Home Meds: 1. Levemir 15 units subcutaneous soln twice a day (Last dose: 12/01/2016 08:30) 2. enalapril maleate 5 mg Oral tab 1 tab once daily (Last dose: 12/01/2016 08:30) 3. aspirin 325 mg Oral tab 1 tab once daily (Last dose: 12/01/2016 08:30) 4. Colace 100 mg oral cap 1 cap once daily (Last dose: 12/01/2016 08:30) 5. Zoloft 25 mg Oral tab 1 tab once daily (Last dose: 12/01/2016 08:30) 6. Vytorin 10-40 10-40 mg oral tab 1 tab once daily (Last dose: 11/30/2016) 7. metoprolol tartrate 25 mg Oral tab 1 tab once daily (Last dose: 11/30/2016) 8. latanoprost 0.005 % ophthalmic drop 1 drop nightly 9. 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 No barriers to communication noted, The patient speaks fluent [place]ian, Speaks appropriately for age. - Family history: Not pertinent. - : The pt / caregiver states he / she is not on anticoagulants. Home medication list is obtained from the patient. - Exposure Risk Screening:: None identified. Vital Signs: 12/01 15:27 BP 212 / 105; Pulse 66; Resp 18; Temp 98.6(O); Pulse Ox 98% on R/A; Weight 86.64 kg / elp 191.01 lbs (R); Height 5 ft. 5 in. (165.10 cm) (R); 15:48 BP 162 / 71 (auto/); jc4 15:50 Pulse Ox 97% ; jc4 16:41 BP 162 / 74 (auto/); ead 16:41 Pulse 59 MON; Pulse Ox 96% ; ead 16:56 BP 160 / 66 (auto/); ead 16:56 Pulse 59 MON; Pulse Ox 97% ; ead 17:26 BP 165 / 76 (auto/); mlc 17:26 Pulse 58 MON; Pulse Ox 97% ; mlc 17:41 Pulse 57 MON; Pulse Ox 96% ; mlc 17:41 BP 151 / 70 (auto/); mlc 17:56 Pulse 57 MON; Pulse Ox 100% ; mlc 17:56 BP 153 / 71 (auto/); mlc 18:11 BP 150 / 70 (auto/); mlc 18:11 Pulse 62 MON; Pulse Ox 97% ; mlc 18:41 Pulse 66 MON; Pulse Ox 96% ; mlc 18:41 BP 141 / 65 (auto/); mlc 18:42 Pulse 68 MON; Pulse Ox 95% ; mlc 18:42 BP 163 / 72 (auto/); mlc 18:57 Pulse 89 MON; Pulse Ox 96% ; mlc 18:57 BP 180 / 73 (auto/); mlc 19:12 Pulse 65 MON; Pulse Ox 98% ; mlc 19:12 BP 168 / 72 (auto/); mlc 19:27 BP 155 / 69 (auto/); mlc 19:27 Pulse 65 MON; Pulse Ox 97% ; mlc 19:42 Pulse 68 MON; Pulse Ox 98% ; mlc 19:42 BP 177 / 77 (auto/); mlc 19:55 BP 152 / 67 (auto/); mlc 19:56 Pulse 67 MON; Pulse Ox 97% ; mlc 19:57 Pulse 63 MON; Pulse Ox 96% ; mlc 19:57 BP 150 / 67 (auto/); mlc 20:12 BP 134 / 59 (auto/); mlc 20:12 Pulse 62 MON; Pulse Ox 95% ; mlc 20:18 Pulse 63 MON; Pulse Ox 94% ; mlc 20:27 Pulse 64 MON; Pulse Ox 96% ; mlc 20:27 BP 141 / 58 (auto/); mlc 20:45 BP 148 / 65 (auto/); mlc 20:45 Pulse 70 MON; mlc 20:57 BP 131 / 62 (auto/); mlc 20:57 Pulse 65 MON; Pulse Ox 96% ; mlc 21:27 BP 131 / 62 (auto/); mlc 21:27 Pulse 66 MON; Pulse Ox 98% ; mlc 21:42 BP 128 / 61 (auto/); mlc 21:45 Pulse 61 MON; Pulse Ox 97% ; mlc 21:57 BP 164 / 68 (auto/); mlc 21:57 Pulse 67 MON; Pulse Ox 96% ; mlc 22:11 Pulse 61 MON; Pulse Ox 98% ; mlc 22:12 Pulse 62 MON; mlc 22:12 BP 130 / 58 (auto/); mlc 22:27 Pulse 64 MON; mlc 22:27 BP 129 / 63 (auto/); mlc 22:42 Pulse 62 MON; mlc 22:42 BP 113 / 58 (auto/); mlc 12/02 00:23 BP 122 / 66; Pulse 63; Resp 20; Pulse Ox 95% on R/A; Pain 0/10; tm5 12/01 15:27 Body Mass Index 31.78 (86.64 kg, 165.10 cm) elp MDM: 12/01 16:31 -Blood Culture (Adults Only), peripheral from different site, or from device/port/PICC ke etc. if present ordered. 16:31 Varnish Dipper/Pulse Ox/q 15 min VS ordered. ke 16:31 IV Saline Lock ordered. ke 16:31 Oxygen at 4L/Min NC or Home dosage ordered. ke 16:31 Rhythm Strip to chart ordered. ke 16:31 Furosemide 40 mg IVP once ordered. ke 16:32 -Blood Culture Ordered. EDMS 16:32 B-Type Natiuretic Peptide Ordered. EDMS 16:32 Basic Metabolic Profile Ordered. EDMS 16:32 CBC with Diff Ordered. EDMS 16:32 Cardiac Injury Profile Ordered. EDMS 16:32 Troponin Ordered. EDMS 16:34 Chest, 2 View (pa\E\lat) Ordered. EDMS 16:34 ECG WITH READING ER PHYS+CARDIAG ordered. EDMS 16:52 -Blood Culture (Adults Only), peripheral from different site, or from device/port/PICC lbd etc. if present complete. 16:55 BLOOD CULTURES Ordered. EDMS 17:37 Albuterol 2.5 mg Nebulizer once ordered. ke 17:37 Albuterol-Ipratropium 3 ml Inhalation once ordered. ke 17:37 Call Respiratory ordered. ke 17:43 Call Respiratory complete. ead 18:20 B-Type Natiuretic Peptide Reviewed. ke 18:20 Basic Metabolic Profile Reviewed. ke 18:20 CBC with Diff Reviewed. ke 18:20 Troponin Reviewed. ke 18:20 Cardiac Injury Profile Reviewed. ke 18:20 Chest, 2 View (pa\E\lat) Reviewed. ke 18:39 CT Chest Angio R/O PE Ordered. EDMS 19:54 Financial registration complete. gjb 20:15 [facility] Payment Agreement was scanned into Code42 and attached to record. gjb 20:31 Plavix - Clopidogrel 300 mg PO once ordered. ke 20:31 levofloxacin 500 mg IVPB once ordered. ke 20:32 CT Chest Angio R/O PE Reviewed. ke 20:36 BED REQUEST+ADM ordered. EDMS 21:02 CARDIAC MARKER PANEL Ordered. EDMS 21:03 RESPIRATORY PANEL Ordered. EDMS 21:06 PHYSICAL THERAPY EVAL & TREAT ordered. EDMS 21:07 Admission / Observation Status ordered. EDMS 21:07 ECHOCARD,DOPPLER/COLOR FLOW ordered. EDMS 21:07 ELECTROCARDIOGRAM ADULT ordered. EDMS 21:08 CONSISTENT CARBOHYDRATES ordered. EDMS 21:08 HEMOGLOBIN A1C Ordered. EDMS 21:08 C REACTIVE PROTEIN QUANTITATIV Ordered. EDMS 21:08 COMPLETE BLOOD COUNT Ordered. EDMS 21:08 BASIC METABOLIC PROFILE Ordered. EDMS 21:09 MAGNESIUM LEVEL Ordered. EDMS 21:09 SPUTUM CULTURE AND GRAM STAIN Ordered. EDMS 21:17 THYROID PROFILE Ordered. EDMS 02/01 01:18 CARDIAC MARKER PANEL Ordered. EDMS 02:30 Fingerstick Blood Sugar Ordered. EDMS 15:20 T-Sheet-- Draft Copy was scanned into Code42 and attached to record. gb 15:20 ECG/EKG was scanned into Code42 and attached to record. gb 15:20 Trend VS was scanned into Code42 and attached to record. gb Administered Medications: 12/01 17:32 Drug: Furosemide 40 mg [furosemide 10 mg/mL injection solution (4 mL)] Route: IVP; ja5 Site: right antecubital; 17:44 Drug: Albuterol 2.5 mg [albuterol sulfate 2.5 mg/0.5 mL solution for nebulization (0.5 ac1 mL)] Route: Nebulizer; 17:53 Follow up: CLEAR BILAT ac1 17:53 Drug: Albuterol-Ipratropium 3 ml [ipratropium-albuterol 0.5 mg-3 mg(2.5 mg base)/3 mL ac1 nebulization soln (3 mL)] Route: Inhalation; 17:58 Follow up: CLEAR BILAT ac1 20:47 Drug: Plavix - Clopidogrel 300 mg [clopidogrel 75 mg tablet (4 tabs)] Route: PO; mlc 23:40 Follow up: Response: No Adverse Reaction tm5 20:47 Drug: levofloxacin 500 mg [levofloxacin 500 mg/100 mL in 5 % dextrose intravenous mlc piggyback] Route: IVPB; Site: right antecubital; 21:50 Follow up: IV Status: Completed infusion; IV Intake: 100ml tm5 Signatures: Dispatcher [employer] EDJaki Melara, Microphone Boom Operator Unit lbd Jacki Pruitt, RN RN srm Gonsalo, Melba, RN RN mcp Pamela Palacios, Reg Reg gb Pavel Logan, MANAGER TRUST MANAGER TRUST Karen Mcallister EmilyRN RN Tamara Khan Amy RT ac1 Becka Grewal RN [facility] Nikky Altman RN tm5 Cristina Casas RN ja5 The chart was reviewed and I authenticate all verbal orders and agree with the evaluation and treatment provided.Corrections: (The following items were deleted from the chart) 21:05 21:02 C REACTIVE PROTEIN QUANTITATIV ordered. EDMS EDMS 21:17 21:13 THYROID PROFILE ordered. EDMS EDMS 12/02 01:16 12/01 21:03 CARDIAC MARKER PANEL ordered. EDMS EDMS Attachments: 20:15 [facility] Payment Agreement gjb 12/02 15:20 T-Sheet-- Draft Copy gb 15:20 ECG/EKG gb Chart Complete MTDD
--- NOTE | 2016-12-04 13:34 | EDDOCDS ---
Nurse's Notes [facility] Name: Batool Foreman Age: 76 yrs Sex: Female : 1940 Arrival Date: 12/01/2016 Time: 15:26 Bed Admit Hold Private MD: Reason, Edward Diagnosis: Dyspnea, unspecified;Pneumonia, unspecified organism Presentation: 12/01 15:30 Presenting complaint: Patient states: was at dr martinez's office and the doctor couldn't srm hear her heartbeat because lungs were congested. lower extremity swelling. also having issues with gall bladder, belching a lot. was at [facility] for routine visit. Presenting complaint: Patient states: cough off and on for 3 weeks. Adult Sepsis Screening: The patient does not have new or worsening altered mentation. Patient's respiratory rate is less than 22. Systolic blood pressure is greater than 100. Patient has a qSOFA score of 0- Negative Sepsis Screen. Suicide/Homicide risk assessment- the patient denies having any suicidal and/or homicidal ideations and does not present with any other emotional, behavioral or mental health complaints. 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 Transition of care: patient was received from a primary care office; dr martinez. 15:30 Acuity: FRANCIS Level 3 [facility] 15:30 Method Of Arrival: Walkin/Carried/Asstd [facility] Triage Assessment: 15:35 General: Appears in no apparent distress, Behavior is appropriate for age, cooperative. srm Pain: Denies pain. Historical: - Allergies: no known allergies; - Home Meds: 1. Levemir 15 units subcutaneous soln twice a day (Last dose: 12/01/2016 08:30) 2. enalapril maleate 5 mg Oral tab 1 tab once daily (Last dose: 12/01/2016 08:30) 3. aspirin 325 mg Oral tab 1 tab once daily (Last dose: 12/01/2016 08:30) 4. Colace 100 mg oral cap 1 cap once daily (Last dose: 12/01/2016 08:30) 5. Zoloft 25 mg Oral tab 1 tab once daily (Last dose: 12/01/2016 08:30) 6. Vytorin 10-40 10-40 mg oral tab 1 tab once daily (Last dose: 11/30/2016) 7. metoprolol tartrate 25 mg Oral tab 1 tab once daily (Last dose: 11/30/2016) 8. latanoprost 0.005 % ophthalmic drop 1 drop nightly 9. 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 No barriers to communication noted, The patient speaks fluent Bengali, Speaks appropriately for age. - Family history: Not pertinent. - : The pt / caregiver states he / she is not on anticoagulants. Home medication list is obtained from the patient. - Exposure Risk Screening:: None identified. Screenin:52 Screening information is obtained from the patient. Fall risk: No risks identified. jc4 Assistance ADL's: requires no assistance with activities of daily living. Abuse/DV Screen: The patient / caregiver reports he/she is: not in a situation that causes fear, pain or injury. Nutritional screening: On diabetic diet. Advance Directives: Currently, there is a health care proxy, Leanna Hugo, tree. There is an active DNR order but there is no copy available at this time. There is an active Power of Grey Inspector, Leanna Hugo, daughter. home support is adequate. Assessment: 15:56 General: Appears in no apparent distress, Behavior is appropriate for age, cooperative. ja5 Pain: Denies pain. Neurological: Level of Consciousness is awake, alert, Oriented to person, place, time. Cardiovascular: Capillary refill < 3 seconds Heart tones S1 S2 present Rhythm is sinus rhythm No ectopy. Respiratory: Airway is patent Respiratory effort is even, unlabored. Derm: Skin is pink, warm & dry. 17:17 General: Appears in no apparent distress, comfortable, Behavior is appropriate for age, ead cooperative. Cardiovascular: Rhythm is sinus rhythm. Respiratory: Airway is patent Respiratory effort is even, unlabored. Derm: Skin is pink, warm & dry. 19:34 General: Appears in no apparent distress, comfortable, Behavior is appropriate for age, mlc cooperative. General: pt offers no complaints at this time. daughter at bedside. Pain: Denies pain. Neurological: Level of Consciousness is awake, alert, Oriented to person, place, time. Cardiovascular: Rhythm is sinus rhythm. Respiratory: Airway is patent Respiratory effort is even, unlabored, Respiratory pattern is regular. Derm: Skin is pink, warm & dry. 20:24 Reassessment: Patient appears in no apparent distress at this time. Adult Sepsis mlc Screening: The patient does not have new or worsening altered mentation. Patient's respiratory rate is less than 22. Systolic blood pressure is greater than 100. Patient has a qSOFA score of 0- Negative Sepsis Screen. General: Appears comfortable, to be sleeping. Respiratory: Airway is patent Respiratory effort is even, unlabored, Respiratory pattern is regular. 20:47 Reassessment: Patient appears in no apparent distress at this time. IV fluids infusing mlc per order. resp easy/unlabored. . 21:11 Reassessment: pt given boxed lunch. mlc 21:56 Reassessment: Patient appears in no apparent distress at this time. pt resting mlc comfortably, resp easy/unlabored. pt offers no complaints. . 23:03 General: Appears in no apparent distress, comfortable, Behavior is cooperative. mlc General: pt using bedside commode. Neurological: Level of Consciousness is awake, alert, Oriented to person, place, time. Respiratory: Airway is patent Respiratory effort is even, unlabored, Respiratory pattern is regular. 12/02 00:23 Reassessment: Patient appears in no apparent distress at this time. Respiratory: Airway tm5 is patent Respiratory effort is even, unlabored, Respiratory pattern is regular. Vital Signs: 12/01 15:27 BP 212 / 105; Pulse 66; Resp 18; Temp 98.6(O); Pulse Ox 98% on R/A; Weight 86.64 kg elp (R); Height 5 ft. 5 in. (165.10 cm) (R); 15:48 BP 162 / 71 (auto/); jc4 15:50 Pulse Ox 97% ; jc4 16:41 BP 162 / 74 (auto/); ead 16:41 Pulse 59 MON; Pulse Ox 96% ; ead 16:56 BP 160 / 66 (auto/); ead 16:56 Pulse 59 MON; Pulse Ox 97% ; ead 17:26 BP 165 / 76 (auto/); mlc 17:26 Pulse 58 MON; Pulse Ox 97% ; mlc 17:41 Pulse 57 MON; Pulse Ox 96% ; mlc 17:41 BP 151 / 70 (auto/); mlc 17:56 Pulse 57 MON; Pulse Ox 100% ; mlc 17:56 BP 153 / 71 (auto/); mlc 18:11 BP 150 / 70 (auto/); mlc 18:11 Pulse 62 MON; Pulse Ox 97% ; mlc 18:41 Pulse 66 MON; Pulse Ox 96% ; mlc 18:41 BP 141 / 65 (auto/); mlc 18:42 Pulse 68 MON; Pulse Ox 95% ; mlc 18:42 BP 163 / 72 (auto/); mlc 18:57 Pulse 89 MON; Pulse Ox 96% ; mlc 18:57 BP 180 / 73 (auto/); mlc 19:12 Pulse 65 MON; Pulse Ox 98% ; mlc 19:12 BP 168 / 72 (auto/); mlc 19:27 BP 155 / 69 (auto/); mlc 19:27 Pulse 65 MON; Pulse Ox 97% ; mlc 19:42 Pulse 68 MON; Pulse Ox 98% ; mlc 19:42 BP 177 / 77 (auto/); mlc 19:55 BP 152 / 67 (auto/); mlc 19:56 Pulse 67 MON; Pulse Ox 97% ; mlc 19:57 Pulse 63 MON; Pulse Ox 96% ; mlc 19:57 BP 150 / 67 (auto/); mlc 20:12 BP 134 / 59 (auto/); mlc 20:12 Pulse 62 MON; Pulse Ox 95% ; mlc 20:18 Pulse 63 MON; Pulse Ox 94% ; mlc 20:27 Pulse 64 MON; Pulse Ox 96% ; mlc 20:27 BP 141 / 58 (auto/); mlc 20:45 BP 148 / 65 (auto/); mlc 20:45 Pulse 70 MON; mlc 20:57 BP 131 / 62 (auto/); mlc 20:57 Pulse 65 MON; Pulse Ox 96% ; mlc 21:27 BP 131 / 62 (auto/); mlc 21:27 Pulse 66 MON; Pulse Ox 98% ; mlc 21:42 BP 128 / 61 (auto/); mlc 21:45 Pulse 61 MON; Pulse Ox 97% ; mlc 21:57 BP 164 / 68 (auto/); mlc 21:57 Pulse 67 MON; Pulse Ox 96% ; mlc 22:11 Pulse 61 MON; Pulse Ox 98% ; mlc 22:12 Pulse 62 MON; mlc 22:12 BP 130 / 58 (auto/); mlc 22:27 Pulse 64 MON; mlc 22:27 BP 129 / 63 (auto/); mlc 22:42 Pulse 62 MON; mlc 22:42 BP 113 / 58 (auto/); mlc 12/02 00:23 BP 122 / 66; Pulse 63; Resp 20; Pulse Ox 95% on R/A; Pain 0/10; tm5 12/01 15:27 Body Mass Index 31.78 (86.64 kg, 165.10 cm) elp Vitals: 12/01 15:27 Log In Time: December 01, 2016 at 15:25[facility] Course: 15:27 Patient visited by Yarely Love PCA. elp 15:27 Marco Edremi is Private Physician. elp 15:27 Patient moved to Waiting elp 15:28 Patient visited by Yarely Love PCA. elp 15:28 Patient moved to Pre RCE elp 15:32 Triage Initiated srm 15:36 Giulia Valentino RN is Primary Nurse. srm 15:36 Patient moved to 3 srm 16:23 [facility] ke 16:24 Patient visited by Pavel Logan FNP. ke 16:24 Patient visited by Pavel Logan FNP. ke 16:58 Patient visited by Pavel Logan FNP. ke 17:02 Primary Nurse role handed off by Giulia Valentino, OLIVA jc4 17:03 EKG done. (by ED staff). Reviewed by Pavel YORK. ct3 17:05 Patient visited by Lilliam Alvarez PCA. ct3 17:17 The patient / caregiver is instructed regarding the plan of care and ED course. Patient ead has correct armband on for positive identification. Placed in gown. Bed in low position. Call light in reach. Side rails up X2. Adult w/ patient. monitor and storage bin tender on. Pulse ox on. NIBP on. 17:26 Patient visited by Salena Darby RN. ead 17:26 -Blood Culture Sent. ead 17:27 B-Type Natiuretic Peptide Sent. ead 17:27 Troponin Sent. ead 17:27 Cardiac Injury Profile Sent. ead 17:27 CBC with Diff Sent. ead 17:27 Basic Metabolic Profile Sent. ead 17:47 Patient visited by Pavel Logan FNP. ke 17:52 BLOOD CULTURES Sent. ja5 18:16 Chest, 2 View (pa\E\lat) Returned. EDMS 18:17 Patient visited by Pavel Logan FNP. ke 18:38 Inserted saline lock: 20 gauge in right antecubital area. ja5 18:48 Patient visited by Pavel Logan FNP. ke 19:23 Becka Grewal RN is Primary Nurse. mlc 19:36 Patient visited by Becka Grewal RN. mlc 19:36 Patient visited by Pavel Logan FNP. ke 20:15 [facility] Payment Agreement was scanned into [employer] and attached to record. gjb 20:20 Patient visited by Pavel Logan FNP. ke 20:23 CT Chest Angio R/O PE Returned. EDMS 20:24 Patient visited by Becka Grewal RN. mlc 20:41 Maren Berger is Hospitalizing Provider. ke 20:48 Patient visited by Becka Grewal RN. mlc 21:12 Patient visited by Becka Grewal RN. mlc 21:15 Patient moved to Admit Hold ar3 21:53 Patient visited by Becka Grewal RN. mlc 21:57 Patient visited by Becka Grewal,OLIVA. mlc 23:04 Patient visited by Becka Grewal RN. mlc 12/02 00:23 Patient visited by Nikky Altman,OLIVA. tm5 00:24 Awaiting bed assignment. tm5 00:24 No procedures done that require assistance. tm5 01:18 Patient visited by Nikky Altman,OLIVA. tm5 06:59 Ken Hines MD is Attending Physician. pc 08:57 EKG-ADULT Returned. EDMS 15:20 T-Sheet-- Draft Copy was scanned into [employer] and attached to record. gb 15:20 ECG/EKG was scanned into [employer] and attached to record. gb 15:20 Trend VS was scanned into [employer] and attached to record. gb Administered Medications: 12/01 17:32 Drug: Furosemide 40 mg [furosemide 10 mg/mL injection solution (4 mL)] Route: IVP; ja5 Site: right antecubital; 17:44 Drug: Albuterol 2.5 mg [albuterol sulfate 2.5 mg/0.5 mL solution for nebulization (0.5 ac1 mL)] Route: Nebulizer; 17:53 Follow up: CLEAR BILAT ac1 17:53 Drug: Albuterol-Ipratropium 3 ml [ipratropium-albuterol 0.5 mg-3 mg(2.5 mg base)/3 mL ac1 nebulization soln (3 mL)] Route: Inhalation; 17:58 Follow up: CLEAR BILAT ac1 20:47 Drug: Plavix - Clopidogrel 300 mg [clopidogrel 75 mg tablet (4 tabs)] Route: PO; mlc 23:40 Follow up: Response: No Adverse Reaction tm5 20:47 Drug: levofloxacin 500 mg [levofloxacin 500 mg/100 mL in 5 % dextrose intravenous mlc piggyback] Route: IVPB; Site: right antecubital; 21:50 Follow up: IV Status: Completed infusion; IV Intake: 100ml tm5 Attachments: 15:20 Trend VS gb Intake: 12/01 21:50 IV: 100.00ml; Total: 100.00ml. tm5 RT: 17:45 Initial Med Neb Given as ordered Patient was instructed and evaluated on procedure. ac1 17:50 Respiratory: Breath sounds are clear bilaterally. ac1 17:50 Subsequent Med Neb Given as ordered. ac1 17:59 Respiratory: Breath sounds are clear bilaterally. ac1 Order Results: Lab Order: B-Type Natiuretic Peptide; SPEC'M 12/01/16 17:24 Test: BRAIN NATRIURETIC PEPTIDE; Value: 147; Range: <100; Abnormal: Above high normal; Units: PG/ML; Status: F Lab Order: Basic Metabolic Profile; SPEC'M 12/01/16 17:24 Test: GLUCOSE, FASTING; Value: 270; Range: 83-110; Abnormal: Above high normal; Units: MG/DL; Status: F Test: BLOOD UREA NITROGEN; Value: 15; Range: 7-18; Units: MG/DL; Status: F Test: CREATININE FOR GFR; Value: 1.02; Range: 0.55-1.02; Units: MG/DL; Status: F Test: GLOMERULAR FILTRATION RATE; Value: 56.1; Range: >39; Status: F Test: SODIUM LEVEL; Value: 138; Range: 136-145; Units: MEQ/L; Status: F Test: POTASSIUM SERUM; Value: 3.8; Range: 3.5-5.1; Units: MEQ/L; Status: F Test: CHLORIDE LEVEL; Value: 101; Range: 98-107; Units: MEQ/L; Status: F Test: CARBON DIOXIDE LEVEL; Value: 29; Range: 21-32; Units: MEQ/L; Status: F Test: ANION GAP; Value: 8; Range: 8-16; Units: MEQ/L; Status: F Test: CALCIUM LEVEL; Value: 9.4; Range: 8.8-10.2; Units: MG/DL; Status: F Test Note: ; Units are mL/min/1.73 m2 Chronic Kidney Disease Staging per NKF: Stage I & II GFR >=60 Normal to Mildly Decreased Stage III GFR 30-59 Moderately Decreased Stage IV GFR 15-29 Severely Decreased Stage V GFR <15 Very Little GFR Left ESRD GFR <15 on [employer] Lab Order: CBC with Diff; SPEC'M 12/01/16 17:24 Test: WHITE BLOOD COUNT; Value: 7.8; Range: 4.0-10.0; Units: K/mm3; Status: F Test: RED BLOOD COUNT; Value: 4.55; Range: 4.00-5.40; Units: M/mm3; Status: F Test: HEMOGLOBIN; Value: 13.9; Range: 12.0-16.0; Units: g/dl; Status: F Test: HEMATOCRIT; Value: 42.7; Range: 36.0-47.0; Units: %; Status: F Test: MEAN CORPUSCULAR VOLUME; Value: 93.9; Range: 80.0-96.0; Units: fl; Status: F Test: MEAN CORPUSCULAR HEMOGLOBIN; Value: 30.7; Range: 27.0-33.0; Units: pg; Status: F Test: MEAN CORPUSCULAR HGB CONC; Value: 32.7; Range: 32.0-36.5; Units: g/dl; Status: F Test: RED CELL DISTRIBUTION WIDTH; Value: 11.5; Range: 11.5-14.5; Units: %; Status: F Test: PLATELET COUNT, AUTOMATED; Value: 193; Range: 150-450; Units: k/mm3; Status: F Test: NEUTROPHILS %; Value: 54.2; Range: 36.0-66.0; Units: %; Status: F Test: LYMPH %; Value: 35.2; Range: 24.0-44.0; Units: %; Status: F Test: MONO %; Value: 4.8; Range: 0.0-5.0; Units: %; Status: F Test: EOS %; Value: 3.2; Range: 0.0-3.0; Abnormal: Above high normal; Units: %; Status: F Test: BASO %; Value: 0.5; Range: 0.0-1.0; Units: %; Status: F Test: LARGE UNSTAINED CELL %; Value: 2.1; Range: 0.0-4.0; Units: %; Status: F Test: NEUTROPHILS #; Value: 4.2; Range: 1.8-7.7; Units: K/mm3; Status: F Test: LYMPH #; Value: 2.7; Range: 1.5-4.5; Units: K/mm3; Status: F Test: MONO #; Value: 0.4; Range: 0.0-0.8; Units: K/mm3; Status: F Test: EOS #; Value: 0.2; Range: 0.0-0.50; Units: K/mm3; Status: F Test: BASO #; Value: 0.0; Range: 0.0-0.2; Units: K/mm3; Status: F Test: LARGE UNSTAINED CELL #; Value: 0.2; Range: 0.0-0.4; Units: K/mm3; Status: F Lab Order: Cardiac Injury Profile; SPEC'M 12/01/16 17:24 Test: CPK CREATINE PHOSPHOKINASE; Value: 65; Range: 26-192; Units: U/L; Status: F Test: CK-MB VALUE MASS; Value: 1.0; Range: 0.0-3.6; Units: NG/ML; Status: F Test: MB/CK RELATIVE INDEX; Value: 1.53; Range: < OR =4; Status: F Test Note: ; DIAGNOSIS CRITERIA MMB ng/ml Relative Index (RI) NON-AMI < or = 5 N/A MACIAS ZONE > 5 < or = 4 AMI > 5 > 4 Lab Order: Troponin; [facility] 12/01/16 17:24 Test: TROPONIN I; Value: 0.21; Range: < 0.10; Abnormal: Above high normal; Units: NG/ML; Status: F Test Note: ; Troponin I Reference Interval for Siemens Cursa.me LOCI: 99th Percentile= 0.00-0.045 ng/ml Risk Stratification: <= 0.10 ng/ml Decreased Risk for Adverse Clinical Events. 0.10-1.50 ng/ml Increased Risk for Adverse Clinical Events. Evaluation of additional criterion and/or repeat testing in 2-6 hours is suggested to rule out myocardial damage. >= 1.50 ng/ml Indicative of Myocardial Injury. Lab Order: CARDIAC MARKER PANEL; [facility] 12/01/16 22:01 Test: CPK CREATINE PHOSPHOKINASE; Value: 61; Range: 26-192; Units: U/L; Status: F Test: CK-MB VALUE MASS; Value: 1.0; Range: 0.0-3.6; Units: NG/ML; Status: F Test: MB/CK RELATIVE INDEX; Value: 1.63; Range: < OR =4; Status: F Test: TROPONIN I; Value: 0.22; Range: < 0.10; Abnormal: Above high normal; Units: NG/ML; Status: F Test Note: ; DIAGNOSIS CRITERIA MMB ng/ml Relative Index (RI) NON-AMI < or = 5 N/A MACIAS ZONE > 5 < or = 4 AMI > 5 > 4 Lab Order: C REACTIVE PROTEIN QUANTITATIV; [facility] 12/01/16 17:24 Test: C REACTIVE PROTEIN QUANTITATIV; Value: < 0.30; Range: 0.00-0.30; Units: MG/DL; Status: F Lab Order: HEMOGLOBIN A1C; [facility] 12/01/16 17:24 Test: HEMOGLOBIN A1c; Value: 7.8; Range: 4.5-6.2; Abnormal: Above high normal; Units: %; Status: F Test: ESTIMATED AVERAGE GLUCOSE; Value: 177; Range: 60-110; Abnormal: Above high normal; Units: MG/DL; Status: F Lab Order: C REACTIVE PROTEIN QUANTITATIV; [facility] 12/02/16 04:44 Test: C REACTIVE PROTEIN QUANTITATIV; Value: < 0.30; Range: 0.00-0.30; Units: MG/DL; Status: F Lab Order: COMPLETE BLOOD COUNT; [facility] 12/02/16 04:44 Test: WHITE BLOOD COUNT; Value: 7.0; Range: 4.0-10.0; Units: K/mm3; Status: F Test: RED BLOOD COUNT; Value: 4.37; Range: 4.00-5.40; Units: M/mm3; Status: F Test: HEMOGLOBIN; Value: 13.2; Range: 12.0-16.0; Units: g/dl; Status: F Test: HEMATOCRIT; Value: 40.8; Range: 36.0-47.0; Units: %; Status: F Test: MEAN CORPUSCULAR VOLUME; Value: 93.3; Range: 80.0-96.0; Units: fl; Status: F Test: MEAN CORPUSCULAR HEMOGLOBIN; Value: 30.2; Range: 27.0-33.0; Units: pg; Status: F Test: MEAN CORPUSCULAR HGB CONC; Value: 32.3; Range: 32.0-36.5; Units: g/dl; Status: F Test: RED CELL DISTRIBUTION WIDTH; Value: 11.5; Range: 11.5-14.5; Units: %; Status: F Test: PLATELET COUNT, AUTOMATED; Value: 183; Range: 150-450; Units: k/mm3; Status: F Lab Order: BASIC METABOLIC PROFILE; [facility] 12/02/16 04:44 Test: GLUCOSE, FASTING; Value: 341; Range: 83-110; Abnormal: Above high normal; Units: MG/DL; Status: F Test: BLOOD UREA NITROGEN; Value: 15; Range: 7-18; Units: MG/DL; Status: F Test: CREATININE FOR GFR; Value: 1.04; Range: 0.55-1.02; Abnormal: Above high normal; Units: MG/DL; Status: F Test: GLOMERULAR FILTRATION RATE; Value: 54.8; Range: >39; Status: F Test: SODIUM LEVEL; Value: 138; Range: 136-145; Units: MEQ/L; Status: F Test: POTASSIUM SERUM; Value: 3.8; Range: 3.5-5.1; Units: MEQ/L; Status: F Test: CHLORIDE LEVEL; Value: 100; Range: 98-107; Units: MEQ/L; Status: F Test: CARBON DIOXIDE LEVEL; Value: 29; Range: 21-32; Units: MEQ/L; Status: F Test: ANION GAP; Value: 9; Range: 8-16; Units: MEQ/L; Status: F Test: CALCIUM LEVEL; Value: 8.9; Range: 8.8-10.2; Units: MG/DL; Status: F Test Note: ; Units are mL/min/1.73 m2 Chronic Kidney Disease Staging per NKF: Stage I & II GFR >=60 Normal to Mildly Decreased Stage III GFR 30-59 Moderately Decreased Stage IV GFR 15-29 Severely Decreased Stage V GFR <15 Very Little GFR Left ESRD GFR <15 on [employer] Lab Order: MAGNESIUM LEVEL; SPEC'M 12/02/16 04:44 Test: MAGNESIUM LEVEL; Value: 2.0; Range: 1.8-2.4; Units: MG/DL; Status: F Lab Order: THYROID PROFILE; SPEC'12/01/16 17:24 Test: T UPTAKE; Value: 31; Range: 30-39; Units: %; Status: F Test: THYROXINE (T4); Value: 9.3; Range: 4.5-12.0; Units: UG/DL; Status: F Test: FREE THYROXINE INDEX; Value: 2.9; Range: 1.3-4.8; Units: %; Status: F Test: THYROID STIMULATING HORMONE; Value: 2.220; Range: 0.358-3.740; Units: uIU/ML; Status: F Lab Order: CARDIAC MARKER PANEL; SPEC'M 12/02/16 04:44 Test: CPK CREATINE PHOSPHOKINASE; Value: 71; Range: 26-192; Units: U/L; Status: F Test: CK-MB VALUE MASS; Value: 1.2; Range: 0.0-3.6; Units: NG/ML; Status: F Test: MB/CK RELATIVE INDEX; Value: 1.69; Range: < OR =4; Status: F Test: TROPONIN I; Value: 0.20; Range: < 0.10; Abnormal: Above high normal; Units: NG/ML; Status: F Test Note: ; DIAGNOSIS CRITERIA MMB ng/ml Relative Index (RI) NON-AMI < or = 5 N/A MACIAS ZONE > 5 < or = 4 AMI > 5 > 4 Lab Order: Fingerstick Blood Sugar; [facility] 12/02/16 02:23 Test: BEDSIDE GLUCOSE; Value: 302; Range: 83-110; Abnormal: Above high normal; Units: MG/DL; Status: F Radiology Order: Chest, 2 View (pa\E\lat) Test: Chest, 2 View (pa\E\lat) REASON FOR EXAMINATION: Shortness of Breath; Chest x-ray: Two views:; ; History: Shortness of breath.; ; Findings: The patient is status-post prior median sternotomy. The lungs are; symmetrically aerated and free of infiltrate. Pleural angles are sharp. Heart; is not enlarged. The aorta is tortuous. EKG monitoring electrodes overlie the; chest.; ; Impression:; ; Prior sternotomy. No active disease.; ; ; Signed by; Brayan Puente MD 12/01/2016 05:38 P; Radiology Order: EKG-ADULT Test: EKG-ADULT REASON FOR EXAMINATION: Shortness of Breath; Stationary ECG Study; [facility] - ED; ; Test Date: 2016-12-01; Pat Name: BATOOL FOREMAN Department:; Room: -; Gender: F Patient Day Coordinator: ct; : 1940 Requested By: PAVEL YORK; Order Number: [id number] Reading MD: Betsy Drew; Measurements; Intervals [place]; Rate: 57 P:; RI: 0 QRS: -19; QRSD: 119 T: 8; QT: 430; QTc: 420; Interpretive Statements; SINUS BRADYCARDIA; POSSIBLE LEFT VENTRICULAR HYPERTROPHY; POSSIBLE SEPTAL MYOCARDIAL INFARCTION, OF INDETERMINATE AGE; IVCD; SIMILAR 11/07/16; Electronically Signed On 12-02-2016 8:33:54 EST by Betsy Drew; Radiology Order: CT Chest Angio R/O PE Test: CT Chest Angio R/O PE REASON FOR EXAMINATION: Shortness of Breath; ; CLINICAL HISTORY: Dyspnea, exclude PE.; TECHNIQUE: Multiple incremental axial, coronal and oblique images are obtained from the thoracic inle; t to the upper abdomen. Intravenous contrast material was administered as per pulmonary embolism prot; ocol.; COMMENTS:; There is excellent opacification of pulmonary arterial system without evidence for pulmonary embolism; . Aorta is of normal caliber without evidence for dissection or aneurysm.; Confluent opacity in the right lower lobe compatible with pneumonia.; There is no evidence of pleural or parenchymal mass. There are no pleural effusions. There is no evid; ence of hilar or mediastinal lymphadenopathy. The heart and great vessels are within normal limits.; Images of the upper abdomen demonstrate no evidence of adrenal mass. Although the gallbladder is not; fully evaluated there is apparent thickening of the gallbladder wall.; The bony structures are free of lytic or blastic lesions. Multilevel degenerative changes are seen in; volving the visualized thoracolumbar spine.; Scattered calcifications are seen involving the aorta and major branches compatible with atherosclero; sis.; IMPRESSION:; No evidence for pulmonary embolism.; Confluent opacity in the right lower lobe compatible with pneumonia.; Although the gallbladder is not fully evaluated there is apparent thickening of the gallbladder wall.; ; Thank you for your kind referral of this patient.; ; Outcome: 19:36 CT Study completed. [facility] [place] 20:43 Decision to Hospitalize by Provider. 12/02 12:33 Patient left the ED. cmb Signatures: Dispatcher [employer] EDMS Ken Hines MD MD pc Michelson, Staci, RN RN [facility] Suzanne, Pamela, Reg Reg gb Ozzie,Nikki,RT RT ac1 Pavel Logan, UPHOLSTERER APPRENTICE UPHOLSTERER APPRENTICE ke Jo Ann Layton, STOCK CONTROL SUPERVISOR STOCK CONTROL SUPERVISOR ar3 Giulia Valentino RN RN jc4 Lilliam Alvarez, STOCK CONTROL SUPERVISOR STOCK CONTROL SUPERVISOR ct3 Bostrenat, Karen cmb Yarely Love, STOCK CONTROL SUPERVISOR STOCK CONTROL SUPERVISOR elp Salena Darby RN RN ead Booth, Mandy, RN RN mlc Beck, Gabriela gjb Matice, Tonya, RN RN tm5 Cristina Casas RN RN ja5 Chart Complete MTDD
--- NOTE | 2016-12-04 13:34 | EDDOCDS ---
Physician Documentation [facility] Name: Rosalinda You Age: 76 yrs Sex: Female : 1940 Arrival Date: 12/01/2016 Time: 15:26 Bed Admit Hold Private MD: Ernst Lara Disposition: 12/01/16 20:43 Hospitalization ordered by Maren Berger for Inpatient Admission. Preliminary diagnosis are Dyspnea, unspecified, Pneumonia, unspecified organism. - Bed requested for PCU. - Status is Inpatient Admission. cmb - Condition is Stable. - Problem is an ongoing problem. - Symptoms are unchanged. Historical: - Allergies: no known allergies; - Home Meds: 1. Levemir 15 units subcutaneous soln twice a day (Last dose: 12/01/2016 08:30) 2. enalapril maleate 5 mg Oral tab 1 tab once daily (Last dose: 12/01/2016 08:30) 3. aspirin 325 mg Oral tab 1 tab once daily (Last dose: 12/01/2016 08:30) 4. Colace 100 mg oral cap 1 cap once daily (Last dose: 12/01/2016 08:30) 5. Zoloft 25 mg Oral tab 1 tab once daily (Last dose: 12/01/2016 08:30) 6. Vytorin 10-40 10-40 mg oral tab 1 tab once daily (Last dose: 11/30/2016) 7. metoprolol tartrate 25 mg Oral tab 1 tab once daily (Last dose: 11/30/2016) 8. latanoprost 0.005 % ophthalmic drop 1 drop nightly 9. 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 No barriers to communication noted, The patient speaks fluent [place], Speaks appropriately for age. - Family history: Not pertinent. - : The pt / caregiver states he / she is not on anticoagulants. Home medication list is obtained from the patient. - Exposure Risk Screening:: None identified. Vital Signs: 12/01 15:27 BP 212 / 105; Pulse 66; Resp 18; Temp 98.6(O); Pulse Ox 98% on R/A; Weight 86.64 kg / elp 191.01 lbs (R); Height 5 ft. 5 in. (165.10 cm) (R); 15:48 BP 162 / 71 (auto/); jc4 15:50 Pulse Ox 97% ; jc4 16:41 BP 162 / 74 (auto/); ead 16:41 Pulse 59 MON; Pulse Ox 96% ; ead 16:56 BP 160 / 66 (auto/); ead 16:56 Pulse 59 MON; Pulse Ox 97% ; ead 17:26 BP 165 / 76 (auto/); mlc 17:26 Pulse 58 MON; Pulse Ox 97% ; mlc 17:41 Pulse 57 MON; Pulse Ox 96% ; mlc 17:41 BP 151 / 70 (auto/); mlc 17:56 Pulse 57 MON; Pulse Ox 100% ; mlc 17:56 BP 153 / 71 (auto/); mlc 18:11 BP 150 / 70 (auto/); mlc 18:11 Pulse 62 MON; Pulse Ox 97% ; mlc 18:41 Pulse 66 MON; Pulse Ox 96% ; mlc 18:41 BP 141 / 65 (auto/); mlc 18:42 Pulse 68 MON; Pulse Ox 95% ; mlc 18:42 BP 163 / 72 (auto/); mlc 18:57 Pulse 89 MON; Pulse Ox 96% ; mlc 18:57 BP 180 / 73 (auto/); mlc 19:12 Pulse 65 MON; Pulse Ox 98% ; mlc 19:12 BP 168 / 72 (auto/); mlc 19:27 BP 155 / 69 (auto/); mlc 19:27 Pulse 65 MON; Pulse Ox 97% ; mlc 19:42 Pulse 68 MON; Pulse Ox 98% ; mlc 19:42 BP 177 / 77 (auto/); mlc 19:55 BP 152 / 67 (auto/); mlc 19:56 Pulse 67 MON; Pulse Ox 97% ; mlc 19:57 Pulse 63 MON; Pulse Ox 96% ; mlc 19:57 BP 150 / 67 (auto/); mlc 20:12 BP 134 / 59 (auto/); mlc 20:12 Pulse 62 MON; Pulse Ox 95% ; mlc 20:18 Pulse 63 MON; Pulse Ox 94% ; mlc 20:27 Pulse 64 MON; Pulse Ox 96% ; mlc 20:27 BP 141 / 58 (auto/); mlc 20:45 BP 148 / 65 (auto/); mlc 20:45 Pulse 70 MON; mlc 20:57 BP 131 / 62 (auto/); mlc 20:57 Pulse 65 MON; Pulse Ox 96% ; mlc 21:27 BP 131 / 62 (auto/); mlc 21:27 Pulse 66 MON; Pulse Ox 98% ; mlc 21:42 BP 128 / 61 (auto/); mlc 21:45 Pulse 61 MON; Pulse Ox 97% ; mlc 21:57 BP 164 / 68 (auto/); mlc 21:57 Pulse 67 MON; Pulse Ox 96% ; mlc 22:11 Pulse 61 MON; Pulse Ox 98% ; mlc 22:12 Pulse 62 MON; mlc 22:12 BP 130 / 58 (auto/); mlc 22:27 Pulse 64 MON; mlc 22:27 BP 129 / 63 (auto/); mlc 22:42 Pulse 62 MON; mlc 22:42 BP 113 / 58 (auto/); mlc 12/02 00:23 BP 122 / 66; Pulse 63; Resp 20; Pulse Ox 95% on R/A; Pain 0/10; tm5 12/01 15:27 Body Mass Index 31.78 (86.64 kg, 165.10 cm) elp MDM: 12/01 16:31 -Blood Culture (Adults Only), peripheral from different site, or from device/port/PICC ke etc. if present ordered. 16:31 Insulation Sprayer/Pulse Ox/q 15 min VS ordered. ke 16:31 IV Saline Lock ordered. ke 16:31 Oxygen at 4L/Min NC or Home dosage ordered. ke 16:31 Rhythm Strip to chart ordered. ke 16:31 Furosemide 40 mg IVP once ordered. ke 16:32 -Blood Culture Ordered. EDMS 16:32 B-Type Natiuretic Peptide Ordered. EDMS 16:32 Basic Metabolic Profile Ordered. EDMS 16:32 CBC with Diff Ordered. EDMS 16:32 Cardiac Injury Profile Ordered. EDMS 16:32 Troponin Ordered. EDMS 16:34 Chest, 2 View (pa\E\lat) Ordered. EDMS 16:34 ECG WITH READING ER PHYS+CARDIAG ordered. EDMS 16:52 -Blood Culture (Adults Only), peripheral from different site, or from device/port/PICC lbd etc. if present complete. 16:55 BLOOD CULTURES Ordered. EDMS 17:37 Albuterol 2.5 mg Nebulizer once ordered. ke 17:37 Albuterol-Ipratropium 3 ml Inhalation once ordered. ke 17:37 Call Respiratory ordered. ke 17:43 Call Respiratory complete. ead 18:20 B-Type Natiuretic Peptide Reviewed. ke 18:20 Basic Metabolic Profile Reviewed. ke 18:20 CBC with Diff Reviewed. ke 18:20 Troponin Reviewed. ke 18:20 Cardiac Injury Profile Reviewed. ke 18:20 Chest, 2 View (pa\E\lat) Reviewed. ke 18:39 CT Chest Angio R/O PE Ordered. EDMS 19:54 Financial registration complete. gjb 20:15 [facility] Payment Agreement was scanned into Smart[employer] and attached to record. gjb 20:31 Plavix - Clopidogrel 300 mg PO once ordered. ke 20:31 levofloxacin 500 mg IVPB once ordered. ke 20:32 CT Chest Angio R/O PE Reviewed. ke 20:36 BED REQUEST+ADM ordered. EDMS 21:02 CARDIAC MARKER PANEL Ordered. EDMS 21:03 RESPIRATORY PANEL Ordered. EDMS 21:06 PHYSICAL THERAPY EVAL & TREAT ordered. EDMS 21:07 Admission / Observation Status ordered. EDMS 21:07 ECHOCARD,DOPPLER/COLOR FLOW ordered. EDMS 21:07 ELECTROCARDIOGRAM ADULT ordered. EDMS 21:08 CONSISTENT CARBOHYDRATES ordered. EDMS 21:08 HEMOGLOBIN A1C Ordered. EDMS 21:08 C REACTIVE PROTEIN QUANTITATIV Ordered. EDMS 21:08 COMPLETE BLOOD COUNT Ordered. EDMS 21:08 BASIC METABOLIC PROFILE Ordered. EDMS 21:09 MAGNESIUM LEVEL Ordered. EDMS 21:09 SPUTUM CULTURE AND GRAM STAIN Ordered. EDMS 21:17 THYROID PROFILE Ordered. EDMS 02/01 01:18 CARDIAC MARKER PANEL Ordered. EDMS 02:30 Fingerstick Blood Sugar Ordered. EDMS 15:20 T-Sheet-- Draft Copy was scanned into [employer] and attached to record. gb 15:20 ECG/EKG was scanned into [employer] and attached to record. gb 15:20 Trend VS was scanned into [employer] and attached to record. gb Administered Medications: 12/01 17:32 Drug: Furosemide 40 mg [furosemide 10 mg/mL injection solution (4 mL)] Route: IVP; ja5 Site: right antecubital; 17:44 Drug: Albuterol 2.5 mg [albuterol sulfate 2.5 mg/0.5 mL solution for nebulization (0.5 ac1 mL)] Route: Nebulizer; 17:53 Follow up: CLEAR BILAT ac1 17:53 Drug: Albuterol-Ipratropium 3 ml [ipratropium-albuterol 0.5 mg-3 mg(2.5 mg base)/3 mL ac1 nebulization soln (3 mL)] Route: Inhalation; 17:58 Follow up: CLEAR BILAT ac1 20:47 Drug: Plavix - Clopidogrel 300 mg [clopidogrel 75 mg tablet (4 tabs)] Route: PO; mlc 23:40 Follow up: Response: No Adverse Reaction tm5 20:47 Drug: levofloxacin 500 mg [levofloxacin 500 mg/100 mL in 5 % dextrose intravenous mlc piggyback] Route: IVPB; Site: right antecubital; 21:50 Follow up: IV Status: Completed infusion; IV Intake: 100ml tm5 Signatures: Dispatcher [employer] EDJaki Melara, Ingot Caster Unit lbd Jacki Pruitt, RN RN srm Gonsalo, Melba, RN RN mcp Pamela Palacios, Reg Reg gb Pavel Logan, MANAGER PROCESS IMPROVEMENT MANAGER PROCESS IMPROVEMENT Karen Mcallister EmilyRN RN Tamara Khan Amy RT ac1 Becka Grewal RN [facility] Nikky Altman RN tm5 Cristina Casas RN ja5 The chart was reviewed and I authenticate all verbal orders and agree with the evaluation and treatment provided.Corrections: (The following items were deleted from the chart) 21:05 21:02 C REACTIVE PROTEIN QUANTITATIV ordered. EDMS EDMS 21:17 21:13 THYROID PROFILE ordered. EDMS EDMS 12/02 01:16 12/01 21:03 CARDIAC MARKER PANEL ordered. EDMS EDMS Attachments: 20:15 [facility] Payment Agreement gjb 12/02 15:20 T-Sheet-- Draft Copy gb 15:20 ECG/EKG gb Chart Complete MTDD
== END 2016-12-04 07:50 | disposition home or self-care (01) | DRG 195 ==
LOC: M ED 15:26 → M ED INP 21:01 → M PCU 12-02 12:22
PROVIDERS: ADMIT Hospitalist; ATTEND Hospitalist
DX: J18.9 Pneumonia, unspecified organism (principal); R79.89 Other specified abnormal findings of blood chemistry; F32.9 Major depressive disorder, single episode, unspecified; E11.9 Type 2 diabetes mellitus without complications; K21.9 Gastro-esophageal reflux disease without esophagitis; E78.5 Hyperlipidemia, unspecified; I10 Essential (primary) hypertension; I50.9 Heart failure, unspecified; H40.9 Unspecified glaucoma; I25.10 Atherosclerotic heart disease of native coronary artery without angina pectoris; E04.9 Nontoxic goiter, unspecified; K82.9 Disease of gallbladder, unspecified; Z79.899 Other long term (current) drug therapy; Z98.61 Coronary angioplasty status; Z91.89 Other specified personal risk factors, not elsewhere classified; Z90.710 Acquired absence of both cervix and uterus; Z98.51 Tubal ligation status; Z79.4 Long term (current) use of insulin

== ENCOUNTER → 2016-12-24 | Day surgery (SDC) | payer MEDICARE, MEDICAID ==
[~2016-12-24] VITALS: Ht 165.1 cm; Wt 82.6 kg
[~2016-12-24] MED LIST changes: +AZIT250T3 PO; +BUPIVACAINE HCL 0.25% 30 ML VIAL As Ordered ONE; +BUPIVACAINE HCL 0.25% 30 ML VIAL XX ONE; -COLA100C PO; +COLA100C3 PO; +GLYCOPYRROLATE INJ 0.2 MG/ML 2 ML VIAL As Ordered ONE; +K-TA10TA2 PO; +KETOROLAC 60 MG/2 ML VIAL (J1885) As Ordered ONE; +LASI20TA PO; +LIDOCAINE 2% INJ 100 MG/5 ML SDV (FOR ANES.) As Ordered ONE; +LR 1,000 ML IV SCH; +MEPERIDINE INJ 25 MG/ML VIAL (J2175) IV PRN; +METOCLOPRAMIDE INJ 10MG/2ML VIAL (J2765) As Ordered ONE; +METOCLOPRAMIDE INJ 10MG/2ML VIAL (J2765) IV PRN; +MIDAZOLAM INJ 2 MG/2 ML VIAL (J2250) As Ordered ONE; +NEOSTIGMINE 1MG/ML 5 ML SYRINGE (J2710) As Ordered ONE; +NORCO, ANEXSIA 5/325MG TABLET (HYDROcodone/ACETAMINOPHEN) PO PRN; +ONDANSETRON 4MG/2ML VIAL (J2405) As Ordered ONE; +ONDANSETRON 4MG/2ML VIAL (J2405) IV PRN; +PERCOCET 5MG/325MG TAB PO PRN; +PROPOFOL 200 MG/20 ML VIAL As Ordered ONE; +ROCURONIUM BROMIDE 50 MG/5 ML VIAL As Ordered ONE; +SERT25TA PO; -SERT25TA85 PO; +fentaNYL 100 MCG/2 ML INJECTION (J3010) As Ordered ONE; +fentaNYL 100 MCG/2 ML INJECTION (J3010) IV PRN
[2016-12-24 13:30] VITALS: BP 104/54
--- NOTE | 2016-12-26 14:10 | RO ---
DATE OF PROCEDURE: 12/24/2016 PREOPERATIVE DIAGNOSIS: Gallstones with gallbladder fundus thickening. 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 PROCEDURE PERFORMED: Laparoscopy with core needle biopsy of liver mass. SURGEON: Dr. Fritz DECK MECHANIC: Dr. Perez ANESTHESIA: General. INDICATIONS FOR PROCEDURE: The patient is a 76-year-old woman who was admitted to the hospital recently for some dizziness, and I believe near syncopal episode. She underwent evaluation that included a CT imaging of the chest, which showed an abnormality of the gallbladder. She had further imaging of the abdomen, which showed cholelithiasis, as well as thickening in the fundus of the gallbladder. The radiologist felt this thickening was suspicious for possible malignancy. The patient followed up in my office and we discussed our options for further evaluation or treatment. She wished to proceed with cholecystectomy with further treatment if necessary based on the pathology. The patient is now for laparoscopic cholecystectomy. OPERATIVE PROCEDURE: The patient was placed under general endotracheal anesthesia. The patient's abdomen was prepped and draped in a sterile fashion. 0.25% Marcaine was infiltrated ate each of the trocar sites. A short supraumbilical midline incision was made. This was deepened through abundant subcutaneous fat to the fascia which was opened along the midline. The peritoneum was opened bluntly. A Sharona cannula was inserted, and the abdomen was insufflated with carbon dioxide gas. The laparoscope was inserted. Initial examination showed the gallbladder to be prominent. The fundus of the gallbladder was obviously quite abnormal with some raised nodularity evident on the free portion of the fundus and infiltration of the liver edge extending superiorly and laterally from the edge of the gallbladder bed. There was a pale area extending perhaps 3 cm superior and lateral with some nodularity. There was then another small flat pale plaque-like area about a centimeter to perhaps a centimeter and half in size, another centimeter lateral to this more on the inferior aspect of the liver. Two 5 mm trocars were placed in the right upper quadrant and a third 5 mm trocar was placed in the left upper quadrant. There were some adhesions of the omentum to the inferior aspect of the fundus and distal body of the gallbladder. There were some adhesions of the omentum to the anterior abdominal wall just inferior to the Sharona site but it was possible to see down on both sides of this into the lower abdomen and pelvis and there was no nodularity identified on the peritoneum or on the loops of small bowel or colon that were seen. The superior surfaces of the liver were without any evident abnormalities other than the already described area surrounding the gallbladder bed. The inferior aspect of the left lobe of the liver was inspected and appeared normal. It was possible to place a grasper between the adhesions of the omentum to the gallbladder and to push these aside and to see that the gallbladder more proximally appeared mildly thickened but did not have any nodularity extending into the body or neck of the gallbladder. There did appear to be some large stones or a large stone within the body of the gallbladder. After studying the anatomy somewhat, it was clear that in order to resect the gallbladder it would be necessary to take part of the liver because of the extent of the visible tumor. It was likely that a more generous resection would be necessary if this was to attempt a curative resection. I elected, therefore not to proceed with the cholecystectomy. An 18-gauge spring-loaded core needle biopsy device was obtained and approximately 5 thin cores of tissue were obtained from the liver adjacent to the fundus of the gallbladder through the abnormal areas. Care was taken to not puncture the gallbladder itself. The puncture wounds had some minimal bleeding and this was controlled with cautery. A small amount of spilled blood was irrigated and removed. Inspection showed no further bleeding. The very small cores of tissue were placed on a Telfa and then placed in formalin and sent for permanent pathology. After ensuring that hemostasis was adequate, the patient was returned to a flat position. The abdomen was deflated and the trocars were all removed. The fascia at the Sharona site was closed with interrupted simple sutures of #2- 0 Vicryl. The skin incisions were all closed with buried #5-0 Vicryl and Steri-Strips. Light dressings were applied. The patient tolerated the procedure well without apparent complication. She was awakened in the operating room, extubated and transported to the recovery room in stable condition. I would note that in assessing the gallbladder and the options for surgery, I did speak with Dr. Sylvester by phone who reported that he also spoke with Dr. Cheney, and Dr. To also came into the room at my request and all concurred that the best approach would be to biopsy the abnormal area but to consider referral to a tertiary center to be evaluated for an excision. TIP
== END | disposition home or self-care (01) ==
LOC: M SDC 08:05
PROVIDERS: ATTEND Surgery
DX: C23 Malignant neoplasm of gallbladder (principal); C78.7 Secondary malignant neoplasm of liver and intrahepatic bile duct; K80.10 Calculus of gallbladder with chronic cholecystitis without obstruction; I10 Essential (primary) hypertension; E11.9 Type 2 diabetes mellitus without complications; I25.10 Atherosclerotic heart disease of native coronary artery without angina pectoris; K21.9 Gastro-esophageal reflux disease without esophagitis; Z79.82 Long term (current) use of aspirin; D64.9 Anemia, unspecified; I25.2 Old myocardial infarction; G47.30 Sleep apnea, unspecified
CPT/HCPCS: 47001; 49320; 88305; 88341; 88342; J2250; J2405; J2710; J2765; J3010

== ENCOUNTER 2020-02-19 19:52 | Inpatient (IN) | payer MEDICARE, MEDICAID ==
[~2020-02-19] VITALS: Ht 162.6 cm; Wt 67.0 kg
[~2020-02-19 19:52] MED LIST changes: +ASPI-1 PO; -ASPI325T PO; +AZIT-12 PO; -AZIT250T3 PO; -BUPIVACAINE HCL 0.25% 30 ML VIAL As Ordered ONE; -BUPIVACAINE HCL 0.25% 30 ML VIAL XX ONE; -COLA100C3 PO; +COLA100C5 PO; -GLYCOPYRROLATE INJ 0.2 MG/ML 2 ML VIAL As Ordered ONE; -KETOROLAC 60 MG/2 ML VIAL (J1885) As Ordered ONE; -LASI20TA PO; +LASI20TA3 PO; +LATA0.0013 OD; -LATA5OPD OD; -LIDOCAINE 2% INJ 100 MG/5 ML SDV (FOR ANES.) As Ordered ONE; -LR 1,000 ML IV SCH; -MECL12.575 PO; +MECL12.589 PO; -MEPERIDINE INJ 25 MG/ML VIAL (J2175) IV PRN; +METO25TA4 PO; -METO25TAB PO; -METOCLOPRAMIDE INJ 10MG/2ML VIAL (J2765) As Ordered ONE; -METOCLOPRAMIDE INJ 10MG/2ML VIAL (J2765) IV PRN; -MIDAZOLAM INJ 2 MG/2 ML VIAL (J2250) As Ordered ONE; -NEOSTIGMINE 1MG/ML 5 ML SYRINGE (J2710) As Ordered ONE; -NORCO, ANEXSIA 5/325MG TABLET (HYDROcodone/ACETAMINOPHEN) PO PRN; +OMEP1CAP73 PO; -OMEP20CA3 PO; -ONDANSETRON 4MG/2ML VIAL (J2405) As Ordered ONE; -ONDANSETRON 4MG/2ML VIAL (J2405) IV PRN; -PERCOCET 5MG/325MG TAB PO PRN; -PROPOFOL 200 MG/20 ML VIAL As Ordered ONE; -ROCURONIUM BROMIDE 50 MG/5 ML VIAL As Ordered ONE; -SERT25TA PO; +SERT25TA85 PO; -SILV1CRE19 TOP; +SILV1CRE60 TOP; -VICO5TAB16 PO; +VICO5TAB17 PO; -VYTO10TA2 PO; +VYTO10TA25 PO; -fentaNYL 100 MCG/2 ML INJECTION (J3010) As Ordered ONE; -fentaNYL 100 MCG/2 ML INJECTION (J3010) IV PRN
[2020-02-19] MEDS ORDERED: D5W/0.45% SODIUM CHLORIDE 1,000 ML IV SCH (20:19)
[2020-02-19 22:30] VITALS: BP 130/53
[2020-02-19 23:04] LABS: BASO # 0.1 10^3/uL (0.0-0.2); BASO % 0.6 % (0.0-1.0); EOS # 0.3 10^3/uL (0.0-0.5); EOS % 4.3 % (0.0-3.0); HEMATOCRIT 36.9 % (36.0-47.0); HEMOGLOBIN 11.9 g/dl (12.0-15.5); LYMPH # 1.7 10^3/uL (1.5-5.0); LYMPH % 21.6 % (24.0-44.0); MEAN CORPUSCULAR HEMOGLOBIN 31.2 pg (27.0-33.0); MEAN CORPUSCULAR HGB CONC 32.2 g/dl (32.0-36.5); MEAN CORPUSCULAR VOLUME 96.9 fl (80.0-96.0); MONO # 0.8 10^3/uL (0.0-0.8); MONO % 9.8 % (0.0-5.0); NEUTROPHILS % 63.3 % (36.0-66.0); PLATELET COUNT, AUTOMATED 231 10^3/uL (150-450); RED BLOOD COUNT 3.81 10^6/uL (4.00-5.40); WHITE BLOOD COUNT 7.9 10^3/uL (4.0-10.0)
[2020-02-19 23:19] LABS: INR 1.06; PROTHROMBIN TIME 13.5 SECONDS (11.8-14.0)
[2020-02-19] MEDS ORDERED: ACET1TAB55 PO (23:28)
[2020-02-19] MEDS ORDERED: CALC1TAB63 PO (23:28)
[2020-02-19] MEDS ORDERED: EZET1TAB8 PO (23:28)
[2020-02-19] MEDS ORDERED: XALA0.007 OU (23:28)
[2020-02-19] MEDS ORDERED: SERT-141 PO (23:28)
[2020-02-19] MEDS ORDERED: SENN1TAB89 PO (23:28)
[2020-02-19] MEDS ORDERED: CARB25TA9 PO (23:28)
[2020-02-19] MEDS ORDERED: PANT40TA3 PO (23:28)
[2020-02-19 23:29] LABS: ALT/SGPT 191 U/L (12-78); AMYLASE 33 U/L (25-115); BILIRUBIN,TOTAL 5.8 MG/DL (0.2-1.0); BLOOD UREA NITROGEN 16 MG/DL (7-18); C REACTIVE PROTEIN QUANTITATIV 1.37 MG/DL (0.00-0.30); CARBON DIOXIDE LEVEL 28 MEQ/L (21-32); CHLORIDE LEVEL 104 MEQ/L (98-107); CK-MB VALUE MASS 1.4 NG/ML (<3.6); CPK CREATINE PHOSPHOKINASE 50 U/L (26-192); CREATININE FOR GFR 0.72 MG/DL (0.55-1.30); GLOMERULAR FILTRATION RATE > 60.0 (>32); GLUCOSE, FASTING 85 MG/DL (70-100); LIPASE 114 U/L (73-393); POTASSIUM SERUM 3.6 MEQ/L (3.5-5.1); SODIUM LEVEL 138 MEQ/L (136-145); TOTAL PROTEIN 6.8 GM/DL (6.4-8.2); TROPONIN I 0.05 NG/ML (< 0.10)
[2020-02-19 23:33] LABS: ERYTHROCYTE SEDIMENTATION RATE 61 mm/hr (0-30)
[2020-02-20] VITALS (9 sets, daily range): BP systolic 102–143; BP diastolic 54–72
[2020-02-20] MEDS ORDERED: DEXTROSE 50% 50 ML SYRINGE IV PRN (00:15)
[2020-02-20] MEDS ORDERED: GLUCAGON INJ 1MG VIAL SC PRN (00:15)
[2020-02-20] MEDS ORDERED: GLUCOSE 4GM CHEW TABLET PO PRN (00:15)
--- NOTE | 2020-02-20 00:55 | HPEPDOC ---
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 Patient originally went to the hospital for she wasnt feeling well for the past 2-3 weeks and her daughter recommended her to come to the hospital. She noticed that her skin appears yellow in color and has progressively gotten worse. Patient is not the best historian but does know she hasnt been feeling the best/crummy the last 2-3 weeks. She denies any fevers, chills, night sweats, vomiting. Endorses weight loss (cant specify how much), abdominal gnawing discomfort with deep palpation of the upper quadrant, monique stool, and food getting stuck in her throat. Patient states that she is eating well and has noticed her appetite has not changed. Denies any muscle aches, worsening arthritis, swelling of her joints or swelling of the lower extremities. She has no other complaint this evening. PAST MEDICAL HISTORY: 1. Coronary artery disease with CABG 3 years ago. 2. CHF, unknown ejection fraction. 3. Insulin-dependent diabetes 2 diabetes. 4. GERD. 5. Depression. 6. Glaucoma. 7. Dyslipidemia. 8. Hypertension. 9. History of gallbladder cancer s/p cholecystectomy 2016 10. Thyroid goiter 11. Parkinson disease HOME MEDICATIONS: Please see below. ALLERGIES: Please see below PAST SURGICAL HISTORY: 1. Hysterectomy in 2013 2. Tubal ligation 3. Urinary bladder sling 4. Laser eye surgery 5. CABG 3 years ago 6. Cholecystectomy 2017 SOCIAL HISTORY: Lives with: Daughter at home, Tobacco use: Denies. ETOH: Denies,Illicit drug use: Denies, CODE STATUS: Full code FAMILY HISTORY: Reviewed and noncontributory REVIEW OF SYSTEMS: 10 systems reviewed and negative other than HPI PHYSICAL EXAMINATION: VITAL SIGNS: See Below GENERAL: Pleasant 80 year old female sitting up in bed awake alert oriented speaking in complete sentences no acute distress. HEENT: Atraumatic normocephalic pupils equal round reactive. Sclera icterus. Moist membranes. No JVD, CARDIOVASCULAR: S1-S2 sounds are present, Distant heart sounds, no audible murmurs rubs or gallops. Old sternal cardiac scar noted. RESPIRATORY: Clear to auscultate bilaterally. No rhonchi wheezing or rales appreciated. ABDOMINAL: Reports of bowel sounds. Tenderness to deep palpation in the upper quadrants bilaterally. No rebounding no guarding soft abdomen. No hepatomegaly ischemic megaly noted. EXTREMITIES: No lower extremity edema or calf tenderness appreciated NEUROLOGICAL: No gross focal deficits appreciate PSYCHOLOGICAL: Appropriate LABORATORY DATA: See below. MICROBIOLOGY: Please see below. IMAGING: CT abdomen w/o Contrast (@1711): [facility] :Tiny nonobstructing renal calculi. Study was otherwise limited without IV contrast. There does appear to be intraparenchymal documentation difficult to further characterize in current study. Correlate clinically for further evaluation. CT abdomen w/ Contrast (@1806) Notes [facility]. Moderate intrahepatic biliary duct dilatation. Compared to the prior exam in August and October 2018 this is markedly increased. Additionally in the structures I suspect represent the common bile duct there are small stones and dense material. Recommend ERCP. ASSESSMENT & PLAN: This is a 80-year-old female with a pertinent past medical history of gallbladder cancer status post cholecystectomy who is presenting to [facility] as a direct admission for management for jaundice. PROBLEMS: 1. Obstructing jaundice. Possible biliary cancer mets vs choledocholithiasis unlikley cholangitis -Hx of metastatic adenocarcinoma of gallbladder origin s/p cholecystectomy 2016 -Direct bilirubin 5.8 with elevated AST ALT and alkaline phosphatase. -CT of abdomen with contrast with [facility] showed moderate intrahepatic biliary duct dilatation and in the common bile duct there are small stones and dense mater ial. -Dr. Alberto consulted recommend MRCP followed by possible ERCP -PRN pains meds. Avoid hepatotoxic drugs. Currently not in pain unless palpating abdomen sole just monitor at this current time. -While nothing by mouth. IV D5W/.45NS@60cc/hr x1L 2. Diabetes mellitus -While nothing by mouth. IV D5W/.45NS@60cc/hr x1L -continue home levermir -ISS q6h with coverage 3. Depression -Continue with home Seretaline 4. History of congestive heart failure -Compensated. -c/w home frusemide and monitor fluids status 5. Glaucoma -Continue with home glaucoma drops 6. Gastric reflux disease -Continue with home PPI 7. History of dyslipidemia -The current time well hold home lipid medication 8. Hypertension -Continue with home enalapril 9. History of CABG -Held home aspirin 325 mg due to possible ERCP, consider restarting after ERCP after discussing with GI. 10. Hx of Parkinson disease -c/w home sinemet DVT PROPHYLAXIS: TEDs and sequentials DISPOSITION: Admit to MedSurg, MRCP/ERCP in the morning. GI consulted. HOSPITALIST ATTENDING ADDENDUM: I have independently interviewed and examined at the bedside, and agree with the documentation above. Laboratory Data Labs 24H Laboratory Tests 2 02/19/20 22:48: Immature Granulocyte % (Auto) 0.4, Neutrophils (%) (Auto) 63.3, Lymphocytes (%) (Auto) 21.6L, Monocytes (%) (Auto) 9.8H, Eosinophils (%) (Auto) 4.3H, Basophils (%) (Auto) 0.6, Neutrophils # (Auto) 5.0, Lymphocytes # (Auto) 1.7, Monocytes # (Auto) 0.8, Eosinophils # (Auto) 0.3, Basophils # (Auto) 0.1, Nucleated Red Blood Cells % (auto) 0.0, Erythrocyte Sedimentation Rate 61H, Prothrombin Time 13.5, Prothromb Time International Ratio 1.06, Anion Gap 6L, Glomerular Filtration Rate > 60.0, Lactic Acid Level 0.8, Calcium Level 9.0, Total Bilirubin 5.8H, Aspartate Amino Transf (AST/SGOT) 214H, Alanine Aminotransferase (ALT/SGPT) 191H, Alkaline Phosphatase 841H, Total Creatine Kinase 50, Creatine Kinase MB 1.4, Creatine Kinase MB Relative Index 2.80, Troponin I 0.05, C- Reactive Protein, Quantitative 1.37H, Total Protein 6.8, Albumin 3.0L, Albumin/Globulin Ratio 0.79L, Amylase Level 33, Lipase 114 02/19/20 23:37: Bedside Glucose (Misc Panel) 90 CBC/BMP Laboratory Tests 02/19/20 22:48 Microbiology Microbiology 02/19/20 Blood Culture, Received Pending 02/19/20 Blood Culture, Received Pending Home Medications Scheduled Aspirin (Aspirin) 325 Mg Tab, 325 MG PO DAILY Calcium Carbonate/Vitamin D3 (Calcium 600-Vit D3 400 Tablet) 1 Each Tablet, 1 TAB PO BID Carbidopa/Levodopa (Carbidopa-Levodopa 25-100 Tab) 1 Each Tablet, 1 TAB PO [facility] Enalapril Maleate (Enalapril Maleate) 5 Mg Tab, 5 MG PO DAILY Ezetimibe/Simvastatin (Ezetimibe-Simvastatin 10-40 mg) 1 Each Tablet, 1 TAB PO QHS Furosemide (Lasix) 20 Mg Tab, 20 MG PO DAILY Insulin Detemir (Levemir) 1 Units/0.01 Ml Susp, 15 UNITS SC BID Latanoprost (Xalatan) 0.005% 2.5ML Drops, 1 DROP OU QHS Multivitamins (Thera M Plus Tablet) 1 Tab Tab, 1 TAB PO DAILY Pantoprazole Sodium (Pantoprazole Sodium) 40 Mg Tablet.dr, 40 MG PO BID Potassium Chloride (K-Tab ER) 10 Meq Tab, 10 MEQ PO DAILY Sennosides/Docusate Sodium (Stool Softener-Laxative Tablet) 1 Each Tablet, 1 TAB PO BID Sertraline Hcl (Sertraline HCl) 50 Mg Tablet, 75 MG PO DAILY Scheduled PRN Acetaminophen (Acetaminophen) 325 Mg Tablet, 325 MG PO Q4H PRN for PAIN Meclizine HCl (Meclizine HCl) 12.5 Mg Tab, 12.5 MG PO Q6H PRN for DIZZINESS Silver Sulfadiazine (Silvadene) 1 % Cre, 1 DOSE TOP DAILY PRN for DRY SKIN APPLY TO BOTTOM OF SPINE Allergies Coded Allergies: Heavy Metals (Verified Allergy, Unknown, 09/11/13) TJ WITT DO Feb 20, 2020 00:55 ELISEO ALBERT MD Feb 20, 2020 02:23
[2020-02-20] MEDS: SINEMET 25-100 MG TAB PO SCH ×5 (01:14→21:06)
--- NOTE | 2020-02-20 01:55 | REP ---
Clinical: Lower chest and abdominal pain. Technique: PA and lateral. Comparison: 12/01/2016. Findings: Mediastinum and cardiac silhouette are normal. Evidence for prior sternotomy again noted. Lung travis demonstrate stable chronic interstitial change. No focal consolidation, effusion, or pneumothorax. Skeletal structures are intact. Impression: No acute cardiopulmonary process. Electronically Signed by Dar Johnson MD 02/20/2020 01:47 A
[2020-02-20 03:25] LABS: CK-MB VALUE MASS 1.6 NG/ML (<3.6); MB/CK RELATIVE INDEX 3.27 (< OR =4); TROPONIN I 0.06 NG/ML (< 0.10)
[2020-02-20] MEDS: LATANOPROST 0.005% OPHTH SOLN 2.5 ML OU SCH ×2 (03:35→21:06)
[2020-02-20] MEDS: HumaLOG INSULIN (NovoLOG) PER UNIT SC SCH ×4 (06:00→17:25)
[2020-02-20 06:50] LABS: BASO # 0.1 10^3/uL (0.0-0.2); BASO % 0.9 % (0.0-1.0); EOS # 0.4 10^3/uL (0.0-0.5); EOS % 5.8 % (0.0-3.0); HEMATOCRIT 35.8 % (36.0-47.0); HEMOGLOBIN 11.8 g/dl (12.0-15.5); LYMPH # 1.8 10^3/uL (1.5-5.0); LYMPH % 26.1 % (24.0-44.0); MEAN CORPUSCULAR HEMOGLOBIN 31.8 pg (27.0-33.0); MEAN CORPUSCULAR VOLUME 96.5 fl (80.0-96.0); MONO # 0.7 10^3/uL (0.0-0.8); MONO % 9.6 % (0.0-5.0); NEUTROPHILS % 57.2 % (36.0-66.0); PLATELET COUNT, AUTOMATED 219 10^3/uL (150-450); RED BLOOD COUNT 3.71 10^6/uL (4.00-5.40); WHITE BLOOD COUNT 7.1 10^3/uL (4.0-10.0)
[2020-02-20 07:21] LABS: CK-MB VALUE MASS < 1.0 NG/ML (<3.6); CPK CREATINE PHOSPHOKINASE 44 U/L (26-192); MB/CK RELATIVE INDEX 2.27 (< OR =4); TROPONIN I 0.06 NG/ML (< 0.10)
[2020-02-20 07:22] LABS: ALBUMIN 2.8 GM/DL (3.2-5.2); ALT/SGPT 32 U/L (12-78); BILIRUBIN,TOTAL 5.9 MG/DL (0.2-1.0); BLOOD UREA NITROGEN 13 MG/DL (7-18); CALCIUM LEVEL 8.9 MG/DL (8.8-10.2); CARBON DIOXIDE LEVEL 28 MEQ/L (21-32); CHLORIDE LEVEL 104 MEQ/L (98-107); CREATININE FOR GFR 0.69 MG/DL (0.55-1.30); GLOMERULAR FILTRATION RATE > 60.0 (>32); GLUCOSE, FASTING 102 MG/DL (70-100); LIPASE 47 U/L (73-393); MAGNESIUM LEVEL 1.6 MG/DL (1.8-2.4); POTASSIUM SERUM 3.8 MEQ/L (3.5-5.1); SODIUM LEVEL 139 MEQ/L (136-145); TOTAL PROTEIN 6.4 GM/DL (6.4-8.2)
[2020-02-20] MEDS ORDERED: MAG SULF 1GM/100ML (MAG RUN) 1 GM in IV 1 EA IV ONE (08:30)
[2020-02-20] MEDS: ENALAPRIL MALEATE 5 MG TAB PO SCH (09:00)
[2020-02-20] MEDS ORDERED: FUROSEMIDE 20 MG TAB PO SCH (09:00)
[2020-02-20] MEDS: SERTRALINE HCL 50 MG TAB PO SCH (09:00)
[2020-02-20] MEDS: PANTOPRAZOLE 40MG VIAL (C9113 PER 1) IV SCH ×2 (09:08→21:06)
[2020-02-20] MEDS ORDERED: PROHANCE 279.3MG/ML 15ML VIAL As Ordered ONE (11:46)
--- NOTE | 2020-02-20 12:35 | IPNPDOC ---
Text Note Date of Service The patient was seen on 02/20/20. NOTE Subjective: Patient is seen at bedside today. She is comfortable, denies any abdominal pain, nausea or vomiting or diarrhea. Patient will be going for a MRI of abdomen with contrast. PHYSICAL EXAMINATION: VITAL SIGNS: See Below GENERAL: Pleasant 80 year old female sitting up in bed awake alert oriented speaking in complete sentences no acute distress. HEENT: Atraumatic normocephalic pupils equal round reactive. Sclera icterus. Moist membranes. No JVD, CARDIOVASCULAR: S1-S2 sounds are present, Distant heart sounds, no audible murmurs rubs or gallops. Old sternal cardiac scar noted. RESPIRATORY: Clear to auscultate bilaterally. No rhonchi wheezing or rales appreciated. ABDOMINAL: Reports of bowel sounds. Tenderness to deep palpation in the upper quadrants bilaterally. No rebounding no guarding soft abdomen. No hepatomegaly ischemic megaly noted. EXTREMITIES: No lower extremity edema or calf tenderness appreciated NEUROLOGICAL: No gross focal deficits appreciate PSYCHOLOGICAL: Appropriate LABORATORY DATA: See below. MICROBIOLOGY: Please see below. IMAGING: CT abdomen w/o Contrast (@2127): Notes from [facility] :Tiny nonobstructing renal calculi. Study was otherwise limited without IV contrast. There does appear to be intraparenchymal documentation difficult to further characterize in current study. Correlate clinically for further evaluation. CT abdomen w/ Contrast (@7518) Notes from [facility]. Moderate intrahepatic biliary duct dilatation. Compared to the prior exam in August and October 2018 this is markedly increased. Additionally in the structures I suspect represent the common bile duct there are small stones and dense material. Recommend ERCP. 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 Hypertension, Thyroid goiter, Parkinson disease who was transfer from [facility] for jaundice. Patient originally went to the hospital for she wasnt feeling well for the past 2-3 weeks and her daughter recommended her to come to the hospital. She noticed that her skin appears yellow in color and has progressively gotten worse. She endorses weight loss (cant specify how much), abdominal gnawing discomfort with deep palpation of the upper quadrant, monique stool, and food getting stuck in her throat. Lupe was admitted for ob structive jaundice Obstructive jaundice. Possible biliary cancer mets vs choledocholithiasis unlikely cholangitis Hx of metastatic adenocarcinoma of gallbladder origin s/p cholecystectomy 2017 Direct bilirubin 5.8 with elevated AST ALT and alkaline phosphatase. CT of abdomen with contrast with Gov showed moderate intrahepatic biliary duct dilatation and in the common bile duct there are small stones and dense material. Dr. Alberto consulted recommend MRI abdomen with contrast followed by possible ERCP Continue NPO, IVF Diabetes mellitus While nothing by mouth. IV D5W/.45NS@60cc/hr x1L will hold home Levemir ISS q6h with coverage once started on diet after procedure. Depression Continue with home Sertraline History of congestive heart failure Compensated. Will hold lasix for now as on IVF. Glaucoma Continue with home glaucoma drops Gastric reflux disease Continue with home PPI History of dyslipidemia The current time well hold home lipid medication Hypertension Continue with home enalapril History of CABG Held home aspirin 325 mg due to possible ERCP, consider restarting after ERCP after discussing with GI. Hx of Parkinson disease home sinemet DVT PROPHYLAXIS: TEDs and sequentials VS,Fishbone, I+O VS, Fishbone, I+O Laboratory Tests 02/19/20 22:48 02/20/20 06:22 Vital Signs Date Time Temp Pulse Resp B/P (MAP) Pulse Ox O2 Delivery O2 Flow Rate FiO2 02/20/20 10:00 98.4 67 18 143/72 (95) 99 Room Air I&O- Last 24 Hours up to 6 AM 02/20/20 05:59 Intake Total 20 ml Balance 20 ml DARIO NÚÑEZ MD Feb 20, 2020 12:35
[2020-02-20] MEDS ORDERED: ISOVUE-300 61% 50ML VIAL As Ordered ONE (13:30)
[2020-02-20] MEDS ORDERED: ONDANSETRON 4MG/2ML VIAL As Ordered ONE (13:47)
[2020-02-20] MEDS ORDERED: dexameTHASONE 4 MG/ML 1ML VIAL (J1100 PER 1MG) As Ordered ONE (13:47)
[2020-02-20] MEDS ORDERED: LIDOCAINE 2% 100MG/5ML SDV (FOR ANES.) As Ordered ONE (13:47)
[2020-02-20] MEDS ORDERED: ROCURONIUM BROMIDE 50 MG/5 ML VIAL As Ordered ONE (13:47)
[2020-02-20] MEDS ORDERED: fentaNYL 100 MCG/2 ML INJECTION (J3010) As Ordered ONE (13:47)
[2020-02-20] MEDS ORDERED: propofoL 200 MG/20 ML VIAL As Ordered ONE (13:47)
--- NOTE | 2020-02-20 13:57 | REP ---
MRI ABDOMEN WITH AND WITHOUT CONTRAST: Comparison CT 02/19/2020 in [place]. Multiple sequences obtained in the axial and coronal planes prior to and following the intravenous administration of 12 mL ProHance. MRCP images are obtained, with heavily T2-weighted sequences and 3D MIP reconstruction images. There is moderate intrahepatic biliary dilatation diffusely. There appears to be an old ill-defined enhancing mass in the sushma hepatis obstructing the central aspect of both of the right and left hepatic ducts. The mass measures 2.9 x 2.1 cm. The common bile duct is not significantly dilated having a maximum diameter of 5 mm. There are multiple subcentimeter filling defects in the common bile duct consistent with choledocholithiasis. There appears to be a larger calculus at the distal end of the common bile duct at the ampulla of Vater measuring about 1.4 cm in diameter. There are a couple of subcentimeter portal lymph nodes present. Otherwise no lymphadenopathy or free fluid is seen in the abdomen. The spleen is normal in size with no intrinsic abnormality. Adrenal glands are unremarkable. Pancreas is unremarkable. Visualized kidneys are unremarkable. IMPRESSION: Ill-defined mass in the sushma hepatitis obstructs the central aspect of the right and left hepatic ducts. The mass measures 2.9 x 2.1 cm. There is moderate diffuse intrahepatic biliary dilatation. The distal common bile duct is not dilated. It contains multiple subcentimeter stones, with a large stone at the ampulla of Vater 1.4 cm in diameter. There are a couple of subcentimeter portal lymph nodes present. No other significant findings. Electronically Signed by Kelvin Ferrara MD 02/20/2020 05:00 P
[2020-02-20] MEDS ORDERED: SUGAMMADEX SODIUM 500 MG/5 ML VIAL (BRIDION) As Ordered ONE (14:41)
[2020-02-20] MEDS ORDERED: ePHEDrine SULFATE 25 MG/5 ML(5MG/ML) SYRINGE As Ordered ONE (14:43)
--- NOTE | 2020-02-20 16:28 | ROOR ---
Patient Name: Rosalinda You Procedure Date: 02/20/2020 1:51 PM Date of : 1940 Age: 80 Room: Main OR Gender: Female Note Status: Finalized Procedure: ERCP Indications: Abdominal pain of suspected biliary origin, Abnormal abdominal MRI, Elevated liver enzymes Providers: Brian Alberto MD Referring MD: 2. Inpatient 2. Inpatient, Lina Barton MD, Ernst Lara MD Requesting Provider: Medicines: General Anesthesia Complications: No immediate complications. Procedure: Pre-Anesthesia Assessment: - Prior to the procedure, a History and Physical was performed, and patient medications and allergies were reviewed. The patient is competent. The risks and benefits of the procedure and the sedation options and risks were discussed with the patient. All questions were answered and informed consent was obtained. Patient identification and proposed procedure were verified by the physician, the nurse and the anesthesiologist in the procedure room. Mental Status Examination: alert and oriented. Airway Examination: normal oropharyngeal airway and neck mobility. Respiratory Examination: clear to auscultation. CV Examination: normal. Prophylactic Antibiotics: The patient requires prophylactic antibiotics for the planned ERCP in an obstructed bile duct. The patient received antibiotic therapy before the procedure. Prior Anticoagulants: The patient has taken aspirin, last dose was 2 days prior to procedure. ASA Grade Assessment: III - A patient with severe systemic disease. After reviewing the risks and benefits, the patient was deemed in satisfactory condition to undergo the procedure. The anesthesia plan was to use monitored anesthesia care (MAC). Immediately prior to administration of medications, the patient was re-assessed for adequacy to receive sedatives. The heart rate, respiratory rate, oxygen saturations, blood pressure, adequacy of pulmonary ventilation, and response to care were monitored throughout the procedure. The physical status of the patient was re-assessed after the procedure. The Duodenoscope was introduced through the mouth, and advanced to the duodenum and used to inject contrast into the bile duct. The ERCP was accomplished without difficulty. The patient tolerated the procedure well. Findings: A pad extraction tender film of the abdomen was obtained. Surgical clips, consistent with a previous cholecystectomy, were seen in the area of the right upper quadrant of the abdomen. The esophagus was successfully intubated under direct vision without detailed examination of the pharynx, larynx, and associated structures, and upper GI tract. The upper GI tract was grossly normal. The major papilla was bulging. The major papilla was enlarged. The major papilla was prominent. A standard esophagogastroduodenoscopy scope was used for the examination of the upper gastrointestinal tract. The scope was passed under direct vision through the upper GI tract. The upper GI exam was otherwise without abnormality. A 0.035 inch x 260 cm straight Hydra Jagwire was passed into the biliary tree. The short-nosed traction sphincterotome was passed over the guidewire and the bile duct was then deeply cannulated. Contrast was injected. I personally interpreted the bile duct images. Ductal flow of contrast was adequate. Image quality was adequate. Contrast extended to the entire biliary tree. The main bile duct was severely dilated and diffusely dilated, with an obstruction. The largest diameter was 12 mm. The hepatic duct bifurcation and right main hepatic duct contained multiple diffuse stenoses 20 mm in length. Biliary sphincterotomy was made with a monofilament traction (standard) sphincterotome using ERBE electrocautery. The sphincterotomy oozed blood. To discover objects, the biliary tree was swept with a 12 mm balloon starting at the lower third of the main duct. No stones were removed. All stones remained. Cells for cytology were obtained by brushing in the lower third of the main bile duct. One 10 mm by 4 cm covered metal stent was placed 3 cm into the common bile duct. Bile flowed through the stent. The stent was in good position. Impression: - The major papilla appeared to be bulging, enlarged and very prominent. - Multiple diffuse biliary strictures were found at the bifurcation and only right main hepatic duct filled with contrast and it also showed irregular stricture. The strictures were indeterminate. - The entire main bile duct was severely dilated, with an obstruction in distal CBD, which appeared to be from stone vs indeterminate tumor. - A biliary sphincterotomy was performed. - The biliary tree was swept, but balloon dis not come out -- likely due to large stone, ( less likely mass in distal CBD) - Cells for cytology obtained in the lower third of the main duct. Could not reach the hepatic bifulcation. - One covered metal stent was placed into the common bile duct. Recommendation: - Patient has a contact number available for emergencies. The signs and symptoms of potential delayed complications were discussed with the patient. Return to normal activities tomorrow. Written discharge instructions were provided to the patient. - Return patient to [facility] for ongoing care. - Avoid aspirin and nonsteroidal anti-inflammatory medicines for 3 days. - Clear liquid diet for 1 day, then advance as tolerated to low fat diet. - Use broad spectrum antibiotics for 7 days. - Observe patient's clinical course. - Await cytology results. - Refer to [facility] for repeat ERCP with choledochoscopy and biopsies at the next available appointment. - Telephone GI clinic for pathology results in 1 week. - Return to primary care physician. Brian Alberto MD Brian Alberto MD 02/20/2020 4:28:44 PM Electronically signed by Brian Alberto MD Number of Addenda: 0 Note Initiated On: 02/20/2020 1:51 PM Estimated Blood Loss: Estimated blood loss: 1 mL. Bleeding was self limited.
[2020-02-20] MEDS ORDERED: oxyCODONE 5MG TAB PO PRN (16:30)
[2020-02-20] MEDS ORDERED: fentaNYL 100 MCG/2 ML INJECTION (J3010) IV PRN (16:30)
[2020-02-20] MEDS: LR 1,000 ML IV SCH (16:30)
[2020-02-20] MEDS ORDERED: ONDANSETRON 4MG/2ML VIAL IV PRN (16:30)
[2020-02-20] MEDS ORDERED: LR 1,000 ML IV SCH (16:30)
--- NOTE | 2020-02-20 17:01 | REP ---
1 minute, 52 seconds of fluoroscopy time was provided to Dr. Alberto for intraoperative ERCP, which was performed in my [place]. A stent has been placed in the common bile duct. No abnormal filling defects are seen within the stent. Electronically Signed by Luis Antonio Majano DO 02/20/2020 05:11 P
[2020-02-20] MEDS ORDERED: PANTOPRAZOLE 40MG TAB (PROTONIX) PO SCH (21:00)
[2020-02-21] MEDS: HumaLOG INSULIN (NovoLOG) PER UNIT SC SCH ×4 (00:29→18:55)
[2020-02-21] MEDS: LR 1,000 ML IV SCH ×3 (00:30→12:35)
--- NOTE | 2020-02-21 00:57 | ECGEPIP ---
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
[2020-02-21 02:00] VITALS: BP 135/67
[2020-02-21 06:00] VITALS: BP 119/69
[2020-02-21 06:49] LABS: BASO % 0.5 % (0.0-1.0); EOS # 0.2 10^3/uL (0.0-0.5); EOS % 2.1 % (0.0-3.0); HEMATOCRIT 34.4 % (36.0-47.0); HEMOGLOBIN 11.1 g/dl (12.0-15.5); LYMPH # 1.6 10^3/uL (1.5-5.0); MEAN CORPUSCULAR HEMOGLOBIN 31.4 pg (27.0-33.0); MEAN CORPUSCULAR HGB CONC 32.3 g/dl (32.0-36.5); MEAN CORPUSCULAR VOLUME 97.5 fl (80.0-96.0); MONO # 0.8 10^3/uL (0.0-0.8); MONO % 8.9 % (0.0-5.0); PLATELET COUNT, AUTOMATED 234 10^3/uL (150-450); RED BLOOD COUNT 3.53 10^6/uL (4.00-5.40); WHITE BLOOD COUNT 8.6 10^3/uL (4.0-10.0)
[2020-02-21 07:43] LABS: ALBUMIN 2.6 GM/DL (3.2-5.2); ALT/SGPT 42 U/L (12-78); BILIRUBIN,TOTAL 6.6 MG/DL (0.2-1.0); BLOOD UREA NITROGEN 10 MG/DL (7-18); CALCIUM LEVEL 8.4 MG/DL (8.8-10.2); CARBON DIOXIDE LEVEL 28 MEQ/L (21-32); CHLORIDE LEVEL 103 MEQ/L (98-107); GLOMERULAR FILTRATION RATE > 60.0 (>32); GLUCOSE, FASTING 119 MG/DL (70-100); LIPASE 11322 U/L (73-393); MAGNESIUM LEVEL 1.9 MG/DL (1.8-2.4); POTASSIUM SERUM 3.9 MEQ/L (3.5-5.1); SODIUM LEVEL 138 MEQ/L (136-145)
[2020-02-21] MEDS: PANTOPRAZOLE 40MG VIAL (C9113 PER 1) IV SCH ×2 (08:21→20:44)
[2020-02-21] MEDS: SINEMET 25-100 MG TAB PO SCH ×4 (08:22→20:44)
[2020-02-21] MEDS: SERTRALINE HCL 50 MG TAB PO SCH (08:22)
[2020-02-21] MEDS: ENALAPRIL MALEATE 5 MG TAB PO SCH (08:24)
[2020-02-21] MEDS ORDERED: DOCUSATE SODIUM 100 MG CAP PO PRN (09:00)
[2020-02-21] MEDS: LEVEMIR (INSULIN DETEMIR) 1 UNITS/0.01ML SC SCH ×2 (09:08→20:44)
[2020-02-21 10:00] VITALS: BP 128/57
--- NOTE | 2020-02-21 12:00 | IPNPDOC ---
Text Note Date of Service The patient was seen on 02/21/20. NOTE Subjective: Patient is seen at bedside today. She is comfortable, denies any abdominal pain, nausea or vomiting or diarrhea. complains of some flatulence and says has not had any bowel movement yet. PHYSICAL EXAMINATION: VITAL SIGNS: See Below GENERAL: Pleasant 80 year old female sitting up in bed awake alert oriented speaking in complete sentences no acute distress. HEENT: Atraumatic normocephalic pupils equal round reactive. Sclera icterus. Moist membranes. No JVD, CARDIOVASCULAR: S1-S2 sounds are present, Distant heart sounds, no audible murmurs rubs or gallops. Old sternal cardiac scar noted. RESPIRATORY: Clear to auscultate bilaterally. No rhonchi wheezing or rales appreciated. ABDOMINAL: Reports of bowel sounds. No rebounding no guarding soft abdomen. EXTREMITIES: No lower extremity edema or calf tenderness appreciated NEUROLOGICAL: No gross focal deficits appreciate PSYCHOLOGICAL: Appropriate LABORATORY DATA: See below. MICROBIOLOGY: Please see below. IMAGING: CT abdomen w/o Contrast (@7486): Notes from [facility] :Tiny nonobstructing renal calculi. Study was otherwise limited without IV contrast. There does appear to be intraparenchymal documentation difficult to further characterize in current study. Correlate clinically for further evaluation. CT abdomen w/ Contrast (@0683) Notes from [facility]. Moderate intrahepatic biliary duct dilatation. Compared to the prior exam in August and October 2018 this is markedly increased. Additionally in the structures I suspect represent the common bile duct there are small stones and dense material. Recommend ERCP. 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 Hypertension, Thyroid goiter, Parkinson disease who was transfer from [facility] for jaundice. Patient originally went to the hospital for she wasnt feeling well for the past 2-3 weeks and her daughter recommended her to come to the hospital. She noticed that her skin appears yellow in color and has progressively gotten worse. She endorses weight loss (cant specify how much), abdominal gnawing discomfort with deep palpation of the upper quadrant, monique stool, and food getting stuck in her throat. Patient was admitted for obstructive jaundice Obstructive jaundice. ERCP showed new mass at the bifurcation of the CBD and also a stone at the distal part of the CBD. Possible either reccurance of GB cancer or a new biliary tract cancer and choledocholithiasis Hx of metastatic adenocarcinoma of gallbladder origin s/p cholecystectomy 2017 Had ERCP and Stenting across the stone done ERCP showed: : The major papilla appeared to be bulging, enlarged and very prominent. - Multiple diffuse biliary strictures were found at the bifurcation and only right main hepatic duct filled with contrast and it also showed irregular stricture. The strictures were indeterminate. - The entire main bile duct was severely dilated, with an obstruction in distal CBD, which appeared to be from stone vs indeterminate tumor. - A biliary sphincterotomy was performed. - The biliary tree was swept, but balloon dis not come out -- likely due to large stone, ( less likely mass in distal CBD) - Cells for cytology obtained in the lower third of the main duct. Could not reach the hepatic bifulcation. - One covered metal stent was placed into the common bile duct. Spoke with [facility] about transfer. They will get back to me after they speak with Dr Vivi Mcintosh. [phone], clear liquid diet. Elevated lipase--? pancreatitis possibly due to the procedure yesterday patient does not have any symptoms of pancreatitis. continue IVF, clear liquids. Diabetes mellitus continue home Levemir ISS q6h with coverage Depression Continue with home Sertraline History of congestive heart failure Compensated. Will hold lasix for now as on IVF. Glaucoma Continue with home glaucoma drops Gastric reflux disease Continue with home PPI History of dyslipidemia The current time well hold home lipid medication Hypertension Continue with home enalapril History of CABG No issues at this point. Hx of Parkinson disease home sinemet DVT PROPHYLAXIS: TEDs and sequentials VS,Fishbone, I+O VS, Fishbone, I+O Laboratory Tests 02/21/20 05:49 Vital Signs Date Time Temp Pulse Resp B/P (MAP) Pulse Ox O2 Delivery O2 Flow Rate FiO2 02/21/20 10:00 98.7 67 17 128/57 (80) 98 Room Air 02/20/20 16:15 10 I&O- Last 24 Hours up to 6 AM 4/22/20 06:00 Intake Total 4300 ml Balance 4300 ml DARIO NÚÑEZ MD Feb 21, 2020 11:36
[2020-02-21 14:00] VITALS: BP 132/66
--- NOTE | 2020-02-21 14:03 | CR.PDOC ---
General Date of Consultation: Feb 20, 2020 Referring Provider: DARIO PATHAK MD Attending Physician: AMANDA MANSFIELD MD Consultation Primary physician/ hospitalist: -Dr. 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 Patient reports having vague upper abdominal pain, not feeling well, for the past 2-3 weeks, associated with elevation discoloration of the skin and eyes. Patient is alert, oriented 3 but has forgetfulness, so history was corroborated with her daughter. Patient also was noted to have 20-30 pound weight loss over the last few months. Patient daughter reports that patient was recently evaluated for dysphagia and had endoscopy done a that [facility] or [place] which was normal. Pertinent negative GI symptoms: Patient denies fever, sick contacts, recent travel, nausea, vomiting, diarrhea. No history of hematemesis, melena or hematochezia. Patient reports regular bowel movements. Review of Systems: GI: as stated above CVS: No chest pain, No palpitations, No leg swelling. RS: No Shortness of breath, No Wheezing, no cough HAT RENOVATOR: No dizziness, No motor weakness, No sensory problems Hematology: No bruising, No gum bleeding, Musculoskeletal: No joint pain, ambulating well. Skin: No rash : No hematuria, No burning sensation of the urine ENT: No ear discharge/ pain, No dysphagia. Eyes: No photophobia. Jaundice Home medications: reviewed. Antithrombotic agents: -Aspirin 325 MG Medical h/o: As above. Surgical h/o: None on abdomen. Social h/o: Alcohol: -Denies, smoking: Nice, IVDA/ drugs: Denies. Family h/o of GI cancers - None Prior Endoscopies: None in [facility] Prior GI evaluations: -None in [facility] Exam: Vitals: reviewed General: Alert and oriented x 3, not in distress HEENT: NO pallor, no icterus. Normal oropharynx, NO cervical lymph nodes. Chest: symmetric with bilateral clear air entry, CVS: S1, S2 heard, normal, no murmurs . Abdomen: non-distended, no surgical scars, soft, non-tender, no palpable masses, normal bowel sounds heard. Rectal exam: Patient refused / Deferred at this time in view of scheduled colonoscopy. Extremities: no pedal edema, pulses palpable. HAT RENOVATOR: no focal motor or sensory deficits. Moves all extremities Skin: no rash. Labs: reviewed. HCV screening indicated ordered / done OR Not indicated due to age. Imaging: reviewed. Prior CT scan reports were reviewed and patient underwent MRI liver protocol in [facility]. MRI liver protocol showed -- moderate intrahepatic biliary dilation, ill-defined mass in the sushma hepatitis obstructs the central aspect of the right and left hepatic ducts, the mass measures 2.9, into 2.1 cm. CBD contains multiple stones with a large stone at the ampulla of Vater 1.4 cm in diameter. Impression: -Upper abdominal pain, nausea with unintentional weight loss, jaundice, labs showing cholestatic liver panel, MRI liver protocol showing ill-defined mass at sushma hepatis and bifurcation of the hepatic ducts, dilated intrahepatic ducts and large distal CBD stone. -- DDx-- Likely Recurrence of Gall bladder adenocarcinoma vs cholangiocarcinoma with CBD stone. Recommendations: - Patient educated about the test results, possible differential diagnoses and A ll questions answered. - Consider empiric antibiotics for now. - NPO for now. - Patient is scheduled for ERCP with [place] cytology and CBD stent placement. - The procedure, indications, risks (bleeding, perforation, infection, hypotension, respiratory depression, allergy, need for endotracheal intubation, surgery, colostomy, cardiac arrest, even ), benefits, limitations (e.g., missing a lesion), and all other alternatives (including no intervention) were explained to the patient and her daughter in deatil and both verbalized understanding and consented for the procedure. - Follow operative note for post procedure recommendatoins. Plan of care discussed with patient and primary team. Patient verbalized understanding and agreed with the plan. Vital Signs/I&O Vital Signs Date Time Temp Pulse Resp B/P (MAP) Pulse Ox O2 Delivery O2 Flow Rate FiO2 02/21/20 10:00 98.7 67 17 128/57 (80) 98 Room Air 02/20/20 16:15 10 I&O- Last 24 Hours up to 6 AM 02/21/20 05:59 Intake Total 3050 ml Output Total 800 ml Balance 2250 ml Laboratory Data Labs 24H Laboratory Tests 2 02/20/20 16:12: Bedside Glucose (Misc Panel) 276H 02/20/20 17:22: Bedside Glucose (Misc Panel) 293H 02/21/20 00:12: Bedside Glucose (Misc Panel) 197H 02/21/20 05:49: Immature Granulocyte % (Auto) 0.5, Neutrophils (%) (Auto) 70.0H, Lymphocytes (%) (Auto) 18.0L, Monocytes (%) (Auto) 8.9H, Eosinophils (%) (Auto) 2.1, Basophils (%) (Auto) 0.5, Neutrophils # (Auto) 6.0, Lymphocytes # (Auto) 1.6, Monocytes # (Auto) 0.8, Eosinophils # (Auto) 0.2, Basophils # (Auto) 0.0, Nucleated Red Blood Cells % (auto) 0.0, Anion Gap 7L, Glomerular Filtration Rate > 60.0, Calcium Level 8.4L, Magnesium Level 1.9, Total Bilirubin 6.6H, Aspartate Amino Transf (AST/SGOT) 211H, Alanine Aminotransferase (ALT/SGPT) 42, Alkaline P hosphatase 777H, Total Protein 6.0L, Albumin 2.6L, Albumin/Globulin Ratio 0.76L, Lipase 32649Y 02/21/20 06:07: Bedside Glucose (Misc Panel) 121H 02/21/20 12:19: Bedside Glucose (Misc Panel) 148H CBC/BMP Laboratory Tests 02/21/20 05:49 Microbiology Microbiology 02/19/20 Blood Culture - Preliminary, Resulted No growth after 24 hours . All specim... 02/19/20 Blood Culture - Preliminary, Resulted No growth after 24 hours . All specim... Allergies Coded Allergies: Heavy Metals (Verified Allergy, Unknown, 09/11/13) Home Medications Scheduled Aspirin (Aspirin) 325 Mg Tab, 325 MG PO DAILY, (Reported) Calcium Carbonate/Vitamin D3 (Calcium 600-Vit D3 400 Tablet) 1 Each Tablet, 1 TAB PO BID, (Reported) Carbidopa/Levodopa (Carbidopa-Levodopa 25-100 Tab) 1 Each Tablet, 1 TAB PO WMHS, (Reported) Enalapril Maleate (Enalapril Maleate) 5 Mg Tab, 5 MG PO DAILY, (Reported) Ezetimibe/Simvastatin (Ezetimibe-Simvastatin 10-40 mg) 1 Each Tablet, 1 TAB PO QHS, (Reported) Furosemide (Lasix) 20 Mg Tab, 20 MG PO DAILY, (Reported) Insulin Detemir (Levemir) 1 Units/0.01 Ml Susp, 15 UNITS SC BID, (Reported) Latanoprost (Xalatan) 0.005% 2.5ML Drops, 1 DROP OU QHS, (Reported) Multivitamins (Thera M Plus Tablet) 1 Tab Tab, 1 TAB PO DAILY, (Reported) Pantoprazole Sodium (Pantoprazole Sodium) 40 Mg Tablet.dr, 40 MG PO BID, (Rep orted) Potassium Chloride (K-Tab ER) 10 Meq Tab, 10 MEQ PO DAILY, (Reported) Sennosides/Docusate Sodium (Stool Softener-Laxative Tablet) 1 Each Tablet, 1 TAB PO BID, (Reported) Sertraline Hcl (Sertraline HCl) 50 Mg Tablet, 75 MG PO DAILY, (Reported) Scheduled PRN Acetaminophen (Acetaminophen) 325 Mg Tablet, 325 MG PO Q4H PRN for PAIN, (Reported) Meclizine HCl (Meclizine HCl) 12.5 Mg Tab, 12.5 MG PO Q6H PRN for DIZZINESS, (Re ported) Silver Sulfadiazine (Silvadene) 1 % Cre, 1 DOSE TOP DAILY PRN for DRY SKIN, (Reported) APPLY TO BOTTOM OF SPINE AMANDA MANSFIELD MD Feb 21, 2020 14:03
[2020-02-21] MEDS: LATANOPROST 0.005% OPHTH SOLN 2.5 ML OU SCH (20:44)
[2020-02-21] MEDS ORDERED: HumaLOG INSULIN (NovoLOG) PER UNIT SC SCH (21:00)
[2020-02-21 22:00] VITALS: BP 135/62
[2020-02-22 06:00] VITALS: BP 125/69
[2020-02-22 07:06] LABS: BASO % 0.4 % (0.0-1.0); EOS # 0.3 10^3/uL (0.0-0.5); EOS % 2.8 % (0.0-3.0); HEMATOCRIT 30.7 % (36.0-47.0); HEMOGLOBIN 10.2 g/dl (12.0-15.5); LYMPH # 1.9 10^3/uL (1.5-5.0); LYMPH % 19.6 % (24.0-44.0); MEAN CORPUSCULAR HEMOGLOBIN 31.6 pg (27.0-33.0); MEAN CORPUSCULAR HGB CONC 33.2 g/dl (32.0-36.5); MONO # 0.9 10^3/uL (0.0-0.8); NEUTROPHILS # 6.7 10^3/uL (1.5-8.5); NEUTROPHILS % 67.9 % (36.0-66.0); PLATELET COUNT, AUTOMATED 222 10^3/uL (150-450); RED BLOOD COUNT 3.23 10^6/uL (4.00-5.40); WHITE BLOOD COUNT 9.9 10^3/uL (4.0-10.0)
[2020-02-22] MEDS ORDERED: HumaLOG INSULIN (NovoLOG) PER UNIT SC SCH (07:30)
[2020-02-22 07:32] LABS: ALBUMIN 2.3 GM/DL (3.2-5.2); ALT/SGPT 48 U/L (12-78); BILIRUBIN,TOTAL 6.7 MG/DL (0.2-1.0); BLOOD UREA NITROGEN 7 MG/DL (7-18); CALCIUM LEVEL 8.1 MG/DL (8.8-10.2); CARBON DIOXIDE LEVEL 27 MEQ/L (21-32); CHLORIDE LEVEL 105 MEQ/L (98-107); CREATININE FOR GFR 0.51 MG/DL (0.55-1.30); GLOMERULAR FILTRATION RATE > 60.0 (>32); GLUCOSE, FASTING 50 MG/DL (70-100); MAGNESIUM LEVEL 1.6 MG/DL (1.8-2.4); POTASSIUM SERUM 3.6 MEQ/L (3.5-5.1); SODIUM LEVEL 138 MEQ/L (136-145); TOTAL PROTEIN 5.3 GM/DL (6.4-8.2)
[2020-02-22] MEDS: SERTRALINE HCL 50 MG TAB PO SCH (08:46)
[2020-02-22 08:49] VITALS: BP 126/58
[2020-02-22] MEDS: SINEMET 25-100 MG TAB PO SCH (08:49)
[2020-02-22] MEDS: ENALAPRIL MALEATE 5 MG TAB PO SCH (08:49)
[2020-02-22] MEDS: PANTOPRAZOLE 40MG VIAL (C9113 PER 1) IV SCH (08:50)
[2020-02-22] MEDS: LEVEMIR (INSULIN DETEMIR) 1 UNITS/0.01ML SC SCH (09:00)
[2020-02-22 09:07] LABS: LIPASE 6642 U/L (73-393)
[2020-02-22 10:00] VITALS: BP 125/61
[2020-02-22] MEDS ORDERED: INSUDET SC (10:05)
[2020-02-22] MEDS ORDERED: CIPR-249 PO (10:07)
[2020-02-22] MEDS ORDERED: CIPROFLOXACIN 400 MG in IV 1 EA IV SCH (11:00)
[2020-02-22] MEDS ORDERED: CIPROFLOXACIN 500MG TABLET PO ONE (11:00)
--- NOTE | 2020-02-22 11:04 | DS.PDOC ---
Discharge Summary General Date of Admission Feb 19, 2020 at 22:33 Date of Discharge 02/22/20 Discharge Summary PROCEDURES PERFORMED DURING STAY: ERCP ERCP showed: : The major papilla appeared to be bulging, enlarged and very prominent. - Multiple diffuse biliary strictures were found at the bifurcation and only right main hepatic duct filled with contrast and it also showed irregular stricture. The strictures were indeterminate. - The entire main bile duct was severely dilated, with an obstruction in distal CBD, which appeared to be from stone vs indeterminate tumor. - A biliary sphincterotomy was performed. - The biliary tree was swept, but balloon dis not come out -- likely due to large stone, ( less likely mass in distal CBD) - Cells for cytology obtained in the lower third of the main duct. Could not reach the hepatic bifulcation. - One covered metal stent was placed into the common bile duct. DISCHARGE DIAGNOSES: Obstructive Jaundice Tumor at the Bifurcation of CBD with strictures, Right hepatic duct stricture, left hepatic duct not visualized Distal CBD obstruction either with stone or tumor s/p metal stent placement. Post procedure Pancreatitis SECONDARY DIAGNOSIS: H/O Gallbladder adenocarcinoma with metastases to the liver s/p cholecystectomy 2017 , some liver resection and hepatic duct resection, CAD s/p CABG, CHF, unknown ejection fraction, Insulin-dependent diabetes 2 diabetes, GERD, Depression, Glaucoma, Dyslipidemia, Hypertension, Thyroid goiter, Parkinson disease COMPLICATIONS/CHIEF COMPLAINT: Choledocholithiasis. HISTORY OF PRESENT ILLNESS: See history and physical HOSPITAL COURSE: This is a 80-year-old female with a pertinent past medical history of a gallbladder adenocarcinoma with metastases to the liver s/p cholecystectomy 2017 , some liver resection and hepatic duct resection, CAD s/p CABG, CHF, unknown ejection fraction, Insulin-dependent diabetes 2 diabetes, GERD, Depression, Glaucoma, Dyslipidemia, Hypertension, Thyroid goiter, Parkinson disease who was transfer from [facility] for jaundice. Patient originally went to the hospital for she wasnt feeling well for the past 2-3 weeks and her daughter recommended her to come to the hospital. She noticed that her skin appears yellow in color and has progressively gotten worse. She endorses weight loss (cant specify how much), abdominal gnawing discomfort with deep palpation of the upper quadrant, monique stool, and food getting stuck in her throat. Patient was admitted for obstructive jaundice Obstructive jaundice. ERCP showed new mass at the bifurcation of the CBD with right hepatic duct strictures. Also distal CBD obstruction either from stone or indeterminate tumor. Possible either recurrence of GB cancer or a new biliary tract cancer and choledocholithiasis Hx of metastatic adenocarcinoma of gallbladder origin s/p cholecystectomy 2017 s/p CBD metallic stent placement acros the distal CBD obstruction. The right hepatic duct stricture could not be reached. Left hepatic duct was not seen after contrast. Spoke with [facility] about transfer at [phone], recent reports were Faxed over which were reviewed by Dr Vivi Mcintosh and Dr Luna and felt she did not need inpateint transfer. However they will seeher as an outpateint at the earliest within the next 2 to 3 weeks. Ciprofloxacin for 7 days Hold ASA till 02/23/20 Pancreatitis resolveing possibly due to the procedure yesterday with manipulation of the papilla, sphincterotomy done and dye going into the pancreatic duct. patient does not have any symptoms of pancreatitis. tolerating diet. Diabetes mellitus sugars running low in hospital . Dose of levemir reduced at discharge. Depression Continue with home Sertraline History of congestive heart failure Compensated. continue lasix Glaucoma Continue with home glaucoma drops Gastric reflux disease Continue with home PPI History of dyslipidemia continue home meds. Hypertension Continue with home enalapril History of CABG No issues at this point. Hx of Parkinson disease home sinemet Sacral healed decubiti has hard skin about 1cm x 1cm at the tip of coccyx DISCHARGE MEDICATIONS: Please see below. ALLERGIES: Please see below. PHYSICAL EXAMINATION ON DISCHARGE: VITAL SIGNS: Please see below. GENERAL: Pleasant 80 year old female sitting up in bed awake alert oriented speaking in complete sentences no acute distress. HEENT: Atraumatic normocephalic pupils equal round reactive. Sclera icterus. Moist membranes. No JVD, CARDIOVASCULAR: S1-S2 sounds are present, Distant heart sounds, no audible murmurs rubs or gallops. Old sternal cardiac scar noted. RESPIRATORY: Clear to auscultate bilaterally. No rhonchi wheezing or rales appreciated. ABDOMINAL: Reports of bowel sounds. No rebounding no guarding soft abdomen. EXTREMITIES: No lower extremity edema or calf tenderness appreciated BACK: Healed Decubiti ulcer now with thickened skin at the tip of coccyx. NEUROLOGICAL: No gross focal deficits appreciate PSYCHOLOGICAL: Appropriate LABORATORY DATA: Please see below. IMAGING: CT abdomen w/o Contrast (@9900): [facility] :Tiny nonobstructing renal calculi. Study was otherwise limited without IV contrast. There does appear to be intraparenchymal documentation difficult to further characterize in current study. Correlate clinically for further evaluation. CT abdomen w/ Contrast (@1806) Notes from [facility]. Moderate intrahepatic biliary duct dilatation. Compared to the prior exam in August and October 2018 this is markedly increased. Additionally in the structures I suspect represent the common bile duct there are small stones and dense material. Recommend ERCP. PROGNOSIS: Guarded ACTIVITY: [As tolerated]. DIET: Low fat and low Cholesterol DISCHARGE PLAN: Home DISPOSITION: . DISCHARGE INSTRUCTIONS: Follow up with PMD in 1 to 2 weeks Follow up at [facility] in 2 to [address] Alberto's office for biopsy results. DISCHARGE CONDITION: [Stable]. TIME SPENT ON DISCHARGE: 35 minutes. Vital Signs/I&Os Vital Signs Date Time Temp Pulse Resp B/P (MAP) Pulse Ox O2 Delivery O2 Flow Rate FiO2 02/22/20 10:00 97.9 65 19 125/61 (82) 99 Room Air 02/20/20 16:15 10 I&O- Last 24 Hours up to 6 AM 02/22/20 06:00 Intake Total 3640 ml Output Total 200 ml Balance 3440 ml Laboratory Data Labs 24H Laboratory Tests 2 02/21/20 12:19: Bedside Glucose (Misc Panel) 148H 02/21/20 18:26: Bedside Glucose (Misc Panel) 182H 02/21/20 20:24: Bedside Glucose (Misc Panel) 124H 02/22/20 05:43: Immature Granulocyte % (Auto) 0.3, Neutrophils (%) (Auto) 67.9H, Lymphocytes (%) (Auto) 19.6L, Monocytes (%) (Auto) 9.0H, Eosinophils (%) (Auto) 2.8, Basophils (%) (Auto) 0.4, Neutrophils # (Auto) 6.7, Lymphocytes # (Auto) 1.9, Monocytes # (Auto) 0.9H, Eosinophils # (Auto) 0.3, Basophils # (Auto) 0.0, Nucleated Red Blood Cells % (auto) 0.0, Anion Gap 6L, Glomerular Filtration Rate > 60.0, Calcium Level 8.1L, Magnesium Level 1.6L, Total Bilirubin 6.7H, Aspartate Amino Transf (AST/SGOT) 210H, Alanine Aminotransferase (ALT/SGPT) 48, Alkaline Phosphatase 606H, Total Protein 5.3L, Albumin 2.3L, Albumin/Globulin Ratio 0.77L, Lipase 6642H CBC/BMP Laboratory Tests 02/22/20 05:43 FSBS Laboratory Tests Test 02/21/20 12:19 02/21/20 18:26 02/21/20 20:24 Range/Units Bedside Glucose (Misc Panel) 148 182 124 83-110 MG/DL Microbiology Microbiology 02/19/20 Blood Culture - Preliminary, Resulted No Growth after 48 hours. All Specime... 02/19/20 Blood Culture - Preliminary, Resulted No Growth after 48 hours. All Specime... Discharge Medications Scheduled Aspirin (Aspirin) 325 Mg Tab, 325 MG PO DAILY, (Reported) Calcium Carbonate/Vitamin D3 (Calcium 600-Vit D3 400 Tablet) 1 Each Tablet, 1 TAB PO BID, (Reported) Carbidopa/Levodopa (Carbidopa-Levodopa 25-100 Tab) 1 Each Tablet, 1 TAB PO WMHS, (Reported) Ciprofloxacin HCl (Cipro) 500 Mg Tablet, 1 TAB PO BID Enalapril Maleate (Enalapril Maleate) 5 Mg Tab, 5 MG PO DAILY, (Reported) Ezetimibe/Simvastatin (Ezetimibe-Simvastatin 10-40 mg) 1 Each Tablet, 1 TAB PO QHS, (Reported) Furosemide (Lasix) 20 Mg Tab, 20 MG PO DAILY, (Reported) Insulin Detemir (Levemir) 1 Units/0.01 Ml Susp, 8 UNITS SC BID Latanoprost (Xalatan) 0.005% 2.5ML Drops, 1 DROP OU QHS, (Reported) Multivitamins (Thera M Plus Tablet) 1 Tab Tab, 1 TAB PO DAILY, (Reported) Pantoprazole Sodium (Pantoprazole Sodium) 40 Mg Tablet.dr, 40 MG PO BID, (Reported) Potassium Chloride (K-Tab ER) 10 Meq Tab, 10 MEQ PO DAILY, (Reported) Sennosides/Docusate Sodium (Stool Softener-Laxative Tablet) 1 Each Tablet, 1 TAB PO BID, (Reported) Sertraline Hcl (Sertraline HCl) 50 Mg Tablet, 75 MG PO DAILY, (Reported) Scheduled PRN Acetaminophen (Acetaminophen) 325 Mg Tablet, 325 MG PO Q4H PRN for PAIN, (Reported) Meclizine HCl (Meclizine HCl) 12.5 Mg Tab, 12.5 MG PO Q6H PRN for DIZZINESS, (Reported) Silver Sulfadiazine (Silvadene) 1 % Cre, 1 DOSE TOP DAILY PRN for DRY SKIN, (Reported) APPLY TO BOTTOM OF SPINE Allergies Coded Allergies: Heavy Metals (Verified Allergy, Unknown, 09/11/13) DARIO NÚÑEZ MD Feb 22, 2020 11:04
== END 2020-02-22 12:04 | disposition home or self-care (01) | DRG 444 ==
LOC: M MSPAV 22:33
PROVIDERS: ADMIT General Practice; ATTEND Internal Medicine Nephrology
PROC: 0F798DZ Dilation of Common Bile Duct with Intraluminal Device, Via Natural or Artificial Opening Endoscopic (ICD-10-PCS; principal; 2020-02-20 12:00)
DX: K80.51 Calculus of bile duct without cholangitis or cholecystitis with obstruction (principal); K85.90 Acute pancreatitis without necrosis or infection, unspecified; R17 Unspecified jaundice; I50.9 Heart failure, unspecified; E11.9 Type 2 diabetes mellitus without complications; I25.10 Atherosclerotic heart disease of native coronary artery without angina pectoris; E78.5 Hyperlipidemia, unspecified; I11.0 Hypertensive heart disease with heart failure; Z95.1 Presence of aortocoronary bypass graft; G20 Parkinson's disease; F32.9 Major depressive disorder, single episode, unspecified; H40.9 Unspecified glaucoma; Z79.82 Long term (current) use of aspirin; Z79.899 Other long term (current) drug therapy; Z88.8 Allergy status to other drugs, medicaments and biological substances; Z85.09 Personal history of malignant neoplasm of other digestive organs; Z85.05 Personal history of malignant neoplasm of liver

== ENCOUNTER 2020-02-24 22:00 | Emergency (ER) | payer MEDICARE, MEDICAID ==
[~2020-02-24] VITALS: Ht 162.6 cm; Wt 70.5 kg
[~2020-02-24 22:00] MED LIST changes: +ACET1TAB55 PO; +CALC1TAB63 PO; +CARB25TA9 PO; +CIPR-249 PO; +EZET1TAB8 PO; +PANT40TA3 PO; +SENN1TAB89 PO; +SERT-141 PO; +XALA0.007 OU
[2020-02-24 22:56] LABS: BASO % 0.5 % (0.0-1.0); EOS # 0.6 10^3/uL (0.0-0.5); EOS % 7.5 % (0.0-3.0); HEMATOCRIT 31.2 % (36.0-47.0); HEMOGLOBIN 10.4 g/dl (12.0-15.5); LYMPH # 1.4 10^3/uL (1.5-5.0); MEAN CORPUSCULAR HGB CONC 33.3 g/dl (32.0-36.5); MEAN CORPUSCULAR VOLUME 92.9 fl (80.0-96.0); MONO # 0.7 10^3/uL (0.0-0.8); MONO % 8.8 % (0.0-5.0); NEUTROPHILS # 5.4 10^3/uL (1.5-8.5); NEUTROPHILS % 65.8 % (36.0-66.0); PLATELET COUNT, AUTOMATED 235 10^3/uL (150-450); RED BLOOD COUNT 3.36 10^6/uL (4.00-5.40); WHITE BLOOD COUNT 8.2 10^3/uL (4.0-10.0)
[2020-02-24] MEDS ORDERED: ISOVUE-370 76% 100ML VIAL As Ordered ONE (22:56)
[2020-02-24 23:08] LABS: INR 1.25; PROTHROMBIN TIME 15.4 SECONDS (11.8-14.0)
[2020-02-24 23:09] LABS: PARTIAL THROMBOPLASTIN TIME 33.3 SECONDS (25.0-38.4)
--- NOTE | 2020-02-24 23:26 | REPVR ---
PROCEDURE INFORMATION: Exam: CT Abdomen And Pelvis With Contrast Exam date and time: 02/24/2020 11:06 PM Age: 80 years old Clinical indication: Abdominal pain; Additional info: Increased jaundice/pain TECHNIQUE: Imaging protocol: Computed tomography of the abdomen and pelvis with intravenous contrast. Radiation optimization: All CT scans at this facility use at least one of these dose optimization techniques: automated exposure control; mA and/or kV adjustment per patient size (includes targeted exams where dose is matched to clinical indication); or iterative reconstruction. Contrast material: ISO 370; Contrast volume: 100 ml; Contrast route: IV; COMPARISON: CT ABD/PELVIS W/O CONTRAST - OUTSIDE PRIOR 2020-02-19 17:11 FINDINGS: Pleural space: Small right-sided pleural effusion. Liver: Numerous clips in the sushma hepatic region. Gallbladder and bile ducts: Biliary duct stent. Severe intra and extrahepatic biliary duct dilatation with pneumobilia. Cholecystectomy. Pancreas: Normal. No ductal dilation. Spleen: Normal. No splenomegaly. Adrenals: Normal. No mass. Kidneys and ureters: Left renal atrophy and scarring. Stomach and bowel: Unremarkable. No obstruction. No mucosal thickening. Appendix: No evidence of appendicitis. Intraperitoneal space: Unremarkable. No free air. No significant fluid collection. Vasculature: Moderate aortic and iliac atherosclerosis. Moderate celiac artery origin stenosis. Significant renal artery stenosis. Lymph nodes: Unremarkable. No enlarged lymph nodes. Bladder: Unremarkable as visualized. Reproductive: Hysterectomy. Bones/joints: Moderate lumbar spondylosis Moderate lumbar spondylosis. Soft tissues: Distinct soft tissue within the sushma hepatis. IMPRESSION: Severe intrahepatic biliary duct dilatation. Common biliary duct stent appears stable in position. Suspect proximal stent occluded, or just proximal stricturing/mass. Electronically signed by: Daniel Philippe On 02/24/2020 23:25:55 PM
[2020-02-24 23:31] LABS: ALBUMIN 2.4 GM/DL (3.2-5.2); BILIRUBIN,DIRECT 7.9 MG/DL (0.0-0.2); BILIRUBIN,TOTAL 8.9 MG/DL (0.2-1.0); TOTAL PROTEIN 5.9 GM/DL (6.4-8.2)
[2020-02-25 03:24] VITALS: BP 147/69
--- NOTE | 2020-02-25 10:19 | ECGEPIP ---
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
--- NOTE | 2020-02-25 10:30 | REP ---
CHEST SINGLE VIEW: Single view of the chest is performed and compared to a prior study of 02/19/20. There is a small right pleural effusion. There is some mild streaky atelectasis or infiltrate in the right lung base. Left lung is clear. Heart is not enlarged. There is calcification of the thoracic aorta. Mediastinal silhouette is unchanged. Multiple sternal wires are present. IMPRESSION: Small right pleural effusion with mild adjacent right basilar atelectasis/infiltrate. Electronically Signed by Kelvin Ferrara MD 02/25/2020 09:50 P
== END 2020-02-25 03:27 | disposition short-term general hospital (02) ==
LOC: M ED 22:00
DX: K83.1 Obstruction of bile duct (principal); R60.0 Localized edema; I11.0 Hypertensive heart disease with heart failure; I50.9 Heart failure, unspecified; I25.2 Old myocardial infarction; E11.9 Type 2 diabetes mellitus without complications; K21.9 Gastro-esophageal reflux disease without esophagitis; Z85.05 Personal history of malignant neoplasm of liver; Z85.850 Personal history of malignant neoplasm of thyroid; F32.9 Major depressive disorder, single episode, unspecified; Z86.73 Personal history of transient ischemic attack (TIA), and cerebral infarction without residual deficits; Z96.89 Presence of other specified functional implants; Z91.048 Other nonmedicinal substance allergy status; Z87.19 Personal history of other diseases of the digestive system; Z79.899 Other long term (current) drug therapy; Z79.2 Long term (current) use of antibiotics; Z79.82 Long term (current) use of aspirin; Z79.4 Long term (current) use of insulin
CPT/HCPCS: 71045; 74177; 80047; 80076; 81001; 83605; 83690; 83880; 85025; 85610; 85730; 87086; 93005; 99284; Q9967

== ENCOUNTER 2020-03-08 14:17 | Emergency (ER) | payer MEDICARE, MEDICAID ==
[~2020-03-08] VITALS: Ht 162.6 cm; Wt 65.5 kg
[2020-03-08] MEDS ORDERED: LEVO750T13 PO (14:28)
[2020-03-08] MEDS ORDERED: ONDA4TAB6 PO (14:28)
[2020-03-08] MEDS ORDERED: NS 1,000 ML IV ONE (15:30)
[2020-03-08] MEDS ORDERED: ACETAMINOPHEN 500 MG TAB PO ONE (15:30)
[2020-03-08] MEDS ORDERED: ONDANSETRON 4MG/2ML VIAL IV ONE (15:30)
[2020-03-08 15:48] LABS: BASO % 0.2 % (0.0-1.0); EOS # 0.1 10^3/uL (0.0-0.5); EOS % 0.8 % (0.0-3.0); HEMATOCRIT 32.2 % (36.0-47.0); HEMOGLOBIN 10.4 g/dl (12.0-15.5); LYMPH % 7.9 % (24.0-44.0); MEAN CORPUSCULAR HEMOGLOBIN 31.6 pg (27.0-33.0); MEAN CORPUSCULAR HGB CONC 32.3 g/dl (32.0-36.5); MEAN CORPUSCULAR VOLUME 97.9 fl (80.0-96.0); MONO # 1.2 10^3/uL (0.0-0.8); NEUTROPHILS % 80.7 % (36.0-66.0); PLATELET COUNT, AUTOMATED 294 10^3/uL (150-450); RED BLOOD COUNT 3.29 10^6/uL (4.00-5.40); WHITE BLOOD COUNT 12.4 10^3/uL (4.0-10.0)
[2020-03-08] MEDS ORDERED: ACETAMINOPHEN 325 MG TAB As Ordered ONE (15:54)
[2020-03-08 16:03] LABS: INR 1.15; PROTHROMBIN TIME 14.4 SECONDS (11.8-14.0)
[2020-03-08 16:04] LABS: PARTIAL THROMBOPLASTIN TIME 35.9 SECONDS (25.0-38.4)
[2020-03-08 16:19] LABS: ALBUMIN 2.4 GM/DL (3.2-5.2); ALT/SGPT 16 U/L (12-78); BILIRUBIN,DIRECT 3.1 MG/DL (0.0-0.2); BILIRUBIN,TOTAL 3.7 MG/DL (0.2-1.0); BLOOD UREA NITROGEN 17 MG/DL (7-18); CARBON DIOXIDE LEVEL 30 MEQ/L (21-32); CHLORIDE LEVEL 99 MEQ/L (98-107); CK-MB VALUE MASS < 1.0 NG/ML (<3.6); CPK CREATINE PHOSPHOKINASE 43 U/L (26-192); CREATININE FOR GFR 0.74 MG/DL (0.55-1.30); GLOMERULAR FILTRATION RATE > 60.0 (>32); GLUCOSE, FASTING 178 MG/DL (70-100); LIPASE 83 U/L (73-393); MB/CK RELATIVE INDEX 2.33 (< OR =4); SODIUM LEVEL 135 MEQ/L (136-145); TOTAL PROTEIN 6.3 GM/DL (6.4-8.2); TROPONIN I 0.04 NG/ML (< 0.10)
[2020-03-08] MEDS ORDERED: ISOVUE-370 76% 100ML VIAL As Ordered ONE (16:34)
--- NOTE | 2020-03-08 17:18 | REPVR ---
PROCEDURE INFORMATION: Exam: CT Abdomen And Pelvis With Contrast Exam date and time: 03/08/2020 4:39 PM Age: 80 years old Clinical indication: Abdominal pain; Epigastric; Additional info: Epigastric abd pain, HX cholangiitis, gallbladder CA TECHNIQUE: Imaging protocol: Computed tomography of the abdomen and pelvis with intravenous contrast. Radiation optimization: All CT scans at this facility use at least one of these dose optimization techniques: automated exposure control; mA and/or kV adjustment per patient size (includes targeted exams where dose is matched to clinical indication); or iterative reconstruction. Contrast material: ISOVUE 370; Contrast volume: 100 ml; Contrast route: IV; COMPARISON: CT ABD/PEL W/IV CONTRAST ONLY 02/24/2020 10:57 PM FINDINGS: Lungs: Minimal atelectasis at the right lung base. Pleural space: Interval resolution of small right-sided pleural effusion . Liver: Normal. No mass. Gallbladder and bile ducts: Interval replacement of the biliary ductal stent. Severe intra and extrahepatic biliary ductal dilatation. Cholecystectomy. Pancreas: Normal. No ductal dilation. Spleen: Normal. No splenomegaly. Adrenals: Normal. No mass. Kidneys and ureters: Normal. No hydronephrosis. Stomach and bowel: Unremarkable. No obstruction. No mucosal thickening. Appendix: No evidence of appendicitis. Intraperitoneal space: Ill-defined mass in the sushma hepatis. Vasculature: See "Reproductive" finding. Lymph nodes: Unremarkable. No enlarged lymph nodes. Bladder: Unremarkable as visualized. Reproductive: Hysterectomy. Moderate lumbar spondylosis. Atherosclerotic calcification of the abdominal aorta and bilateral iliac vessels. Bones/joints: Degenerative changes of the spine. Soft tissues: Unremarkable. IMPRESSION: Interval replacement of a biliary ductal stent. Stable appearance of the intrahepatic and extrahepatic biliary ductal dilatation. Ill-defined mass in the sushma hepatis. Electronically signed by: Froylan Virk On 03/08/2020 17:18:25 PM
[2020-03-08] MEDS ORDERED: KETOROLAC 30 MG/ML 1ML VIAL IV ONE (17:45)
[2020-03-08 18:45] VITALS: BP 141/65
[2020-03-08] MEDS ORDERED: HYDR-3713 PO (18:48)
--- NOTE | 2020-03-10 11:09 | ECGEPIP ---
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
== END 2020-03-08 19:06 | disposition home or self-care (01) ==
LOC: M ED 14:17
DX: R10.9 Unspecified abdominal pain (principal); D72.829 Elevated white blood cell count, unspecified; R93.2 Abnormal findings on diagnostic imaging of liver and biliary tract; R11.2 Nausea with vomiting, unspecified; Z96.89 Presence of other specified functional implants; I11.0 Hypertensive heart disease with heart failure; I25.2 Old myocardial infarction; E11.9 Type 2 diabetes mellitus without complications; K21.9 Gastro-esophageal reflux disease without esophagitis; G20 Parkinson's disease; Z85.05 Personal history of malignant neoplasm of liver; Z85.850 Personal history of malignant neoplasm of thyroid; F32.9 Major depressive disorder, single episode, unspecified; Z86.73 Personal history of transient ischemic attack (TIA), and cerebral infarction without residual deficits; Z91.048 Other nonmedicinal substance allergy status; Z79.899 Other long term (current) drug therapy
CPT/HCPCS: 74177; 80048; 80076; 82550; 82553; 83605; 83690; 84484; 85025; 85610; 85730; 87040; 93005; 93041; 96361; 96374; 96375; 99284; J1885; J2405; Q9967

== ENCOUNTER 2020-03-21 19:22 | Emergency (ER) | payer MEDICARE, MEDICAID ==
[~2020-03-21] VITALS: Ht 162.6 cm; Wt 65.8 kg
[~2020-03-21 19:22] MED LIST changes: +HYDR-3713 PO; +LEVO750T13 PO; +ONDA4TAB6 PO
[2020-03-21 20:13] LABS: BASO # 0.1 10^3/uL (0.0-0.2); BASO % 0.4 % (0.0-1.0); EOS # 0.2 10^3/uL (0.0-0.5); EOS % 1.6 % (0.0-3.0); HEMATOCRIT 34.3 % (36.0-47.0); HEMOGLOBIN 11.4 g/dl (12.0-15.5); LYMPH # 1.1 10^3/uL (1.5-5.0); LYMPH % 7.5 % (24.0-44.0); MEAN CORPUSCULAR HEMOGLOBIN 31.2 pg (27.0-33.0); MEAN CORPUSCULAR HGB CONC 33.2 g/dl (32.0-36.5); MONO # 1.1 10^3/uL (0.0-0.8); MONO % 7.2 % (0.0-5.0); NEUTROPHILS # 12.1 10^3/uL (1.5-8.5); NEUTROPHILS % 82.5 % (36.0-66.0); PLATELET COUNT, AUTOMATED 431 10^3/uL (150-450); RED BLOOD COUNT 3.65 10^6/uL (4.00-5.40); WHITE BLOOD COUNT 14.7 10^3/uL (4.0-10.0)
[2020-03-21 20:47] LABS: ALT/SGPT 42 U/L (12-78); BLOOD UREA NITROGEN 15 MG/DL (7-18); CALCIUM LEVEL 8.3 MG/DL (8.8-10.2); CARBON DIOXIDE LEVEL 28 MEQ/L (21-32); CHLORIDE LEVEL 97 MEQ/L (98-107); CREATININE FOR GFR 0.68 MG/DL (0.55-1.30); GLOMERULAR FILTRATION RATE > 60.0 (>32); GLUCOSE, FASTING 214 MG/DL (70-100); POTASSIUM SERUM 3.6 MEQ/L (3.5-5.1); SODIUM LEVEL 131 MEQ/L (136-145)
[2020-03-21 20:48] LABS: ALBUMIN 2.3 GM/DL (3.2-5.2); BILIRUBIN,DIRECT 4.9 MG/DL (0.0-0.2); BILIRUBIN,TOTAL 5.5 MG/DL (0.2-1.0); LIPASE 59 U/L (73-393); TOTAL PROTEIN 6.7 GM/DL (6.4-8.2)
[2020-03-21 21:05] LABS: APPEARANCE, URINE HAZY (CLEAR); BACTERIA, URINE AUTO NEGATIVE (NEGATIVE); BILIRUBIN, URINE AUTO 2+ (NEGATIVE); BLOOD, URINE BLOOD 1+ (NEGATIVE); CALCIUM OXALATE CRYSTALS LARGE; COLOR, URINE AMBER (YELLOW); GLUCOSE, URINE (UA) AUTO NEGATIVE (NEGATIVE); KETONE, URINE AUTO TRACE mg/dL (NEGATIVE); LEUKOCYTE ESTERASE, URINE AUTO 1+ (NEGATIVE); MUCUS, URINE SMALL (NEGATIVE); NITRITE, URINE AUTO NEGATIVE (NEGATIVE); PROTEIN, URINE AUTO NEGATIVE (NEGATIVE); RBC, URINE AUTO 2 /HPF (0-3); SPECIFIC GRAVITY URINE AUTO 1.023 (1.002-1.035); SQUAMOUS EPITHELIAL CELL UR AU 5 /HPF (0-6); WBC, URINE AUTO 9 /HPF (0-3)
[2020-03-21] MEDS ORDERED: NS 500 ML IV ONE (21:15)
[2020-03-21] MEDS ORDERED: ISOVUE-370 76% 100ML VIAL As Ordered ONE (21:20)
--- NOTE | 2020-03-21 22:04 | REPVR ---
PROCEDURE INFORMATION: Exam: CT Abdomen And Pelvis With Contrast Exam date and time: 03/21/2020 9:38 PM Age: 80 years old Clinical indication: Other: Eval obstr jaundice TECHNIQUE: Imaging protocol: Computed tomography of the abdomen and pelvis with intravenous contrast. Radiation optimization: All CT scans at this facility use at least one of these dose optimization techniques: automated exposure control; mA and/or kV adjustment per patient size (includes targeted exams where dose is matched to clinical indication); or iterative reconstruction. Contrast material: ISOVUE 370; Contrast volume: 100 ml; Contrast route: IV; COMPARISON: CT ABD/PEL W/IV CONTRAST ONLY 03/08/2020 4:35 PM FINDINGS: Lungs: There are innumerable small nodules throughout both lung bases which appear slightly increased in size and number. Liver: There is an ill-defined mass in the central liver measuring approximately 3.4 cm on image 40 of series 201 which appears increased in size since the prior exam. Additional ill-defined 12 mm mass in the left lobe of the liver on image 42 of series 201. Gallbladder and bile ducts: A biliary enteric stent is present extending from the right intrahepatic ducts into the duodenum. There is persistent severe intrahepatic biliary duct dilation which appears similar to the prior exam. Prior cholecystectomy. Common bile duct is nondilated. Pancreas: Normal. No ductal dilation. Spleen: Normal. No splenomegaly. Adrenals: Normal. No mass. Kidneys and ureters: Normal. No hydronephrosis. Stomach and bowel: Unremarkable. No obstruction. No mucosal thickening. Appendix: No evidence of appendicitis. Intraperitoneal space: Unremarkable. No free air. No significant fluid collection. Vasculature: Unremarkable. No abdominal aortic aneurysm. Lymph nodes: Unremarkable. No enlarged lymph nodes. Bladder: Unremarkable as visualized. Reproductive: Unremarkable as visualized. Bones/joints: There are advanced degenerative changes in the spine and pelvis. Soft tissues: Unremarkable. IMPRESSION: 1. Increase in size and number of multiple nodules in both lung bases. Fleischner follow up recommendations for incidental nodules are not indicated. Follow up per patient's medical condition. 2. Increase in size of mass in the central liver. Mass in the left lobe is not significantly changed. 3. Stable severe intrahepatic biliary duct dilation. Biliary enteric stent in expected location. Electronically signed by: Hari Moody On 03/21/2020 22:03:49 PM
--- NOTE | 2020-03-21 23:06 | ED PDOC ---
Post-Departure Follow-Up Additional documentation: results of diagnostic studies returned and show in inc rease in size of the hepatic mass in the central liver. Also a modest increase in liver function levels. I did discuss with Dr Pratt, admitting couples therapist. Because pt. is not in pain or vomiting, there is no indication to admit. 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 Pt is under the care of Dr Alberto, and Dr Pratt and I feel she is stable to be followed by him on an outpatient basis at this time. VÍCTOR TRIVEDI DO March 21, 2020 23:06
[2020-03-21] MEDS ORDERED: HYDR-3713 PO (23:30)
[2020-03-21] MEDS ORDERED: LEVE1INJ5 SC (23:30)
[2020-03-21 23:59] VITALS: BP 141/67
--- NOTE | 2020-03-22 06:44 | ED PDOC ---
Post-Departure Follow-Up ct abd/p faxed to Jason Manriquez MD March 22, 2020 06:44
--- NOTE | 2020-03-22 08:01 | REP ---
Portable chest x-ray: Single AP view. History: Fever. Comparison chest x-ray: February 24, 2020. Findings: The patient is status post prior median sternotomy. Heart is not enlarged. The lungs are well inflated and no infiltrate is seen. Pleural angles are sharp. There are post-traumatic rib deformities on the left. The aorta is somewhat tortuous and calcific. Pulmonary vasculature is not increased. Impression: No acute disease. Electronically Signed by Brayan Puente MD 03/22/2020 07:53 A
== END 2020-03-21 23:55 | disposition home or self-care (01) ==
LOC: M ED 19:22
DX: D37.6 Neoplasm of uncertain behavior of liver, gallbladder and bile ducts (principal); R91.8 Other nonspecific abnormal finding of lung field; R16.0 Hepatomegaly, not elsewhere classified; E11.9 Type 2 diabetes mellitus without complications; I11.0 Hypertensive heart disease with heart failure; I50.9 Heart failure, unspecified; K21.9 Gastro-esophageal reflux disease without esophagitis; Z95.1 Presence of aortocoronary bypass graft; Z96.89 Presence of other specified functional implants; Z86.73 Personal history of transient ischemic attack (TIA), and cerebral infarction without residual deficits; Z91.048 Other nonmedicinal substance allergy status; Z79.899 Other long term (current) drug therapy; Z79.82 Long term (current) use of aspirin; Z79.4 Long term (current) use of insulin
CPT/HCPCS: 71045; 74177; 80048; 80076; 81001; 83690; 85025; 87040; 96360; 99284; Q9967